=== PATIENT | male | born 1960 | race Caucasian/White ===

== ENCOUNTER 2021-06-05 18:19 | Emergency (ER) | payer BC, SELFPAY ==
[2021-06-05] VITALS (9 sets, daily range): BP systolic 100–142; BP diastolic 64–79; PULSE 73–102; RESP 15–19; TEMP 36.9; O2SAT 97–99; BMI 29.0
--- NOTE | 2021-06-05 18:32 | EKG12_ITS ---
Test Reason : CP Blood Pressure : / mmHG Vent. Rate : 089 BPM Atrial Rate : 089 BPM P-R Int : 150 ms QRS Dur : 096 ms QT Int : 350 ms P-R-T Axes : 057 -24 019 degrees QTc Int : 425 ms Poor data quality, interpretation may be adversely affected Normal sinus rhythm Septal infarct , age undetermined , cannot be excluded Abnormal ECG Confirmed by VIRAL MENA, HILDA ([id number]), primer expeditor and drier BILL COREY ([id number]) on 06/07/2021 10:33:34 AM Referred By: YUSUF Confirmed By:HILDA STRATTON MD
--- NOTE | 2021-06-05 18:33 | EX.ED.DYSGE1 ---
HPI History of Present Illness Chief Complaint: Chest Pain Detail of Chief Complaint: Chest pain since last evening Informant: patient Narrative Narrative: Patient presents to the emergency department complaint of chest discomfort that started last evening. He complains of a continuous squeezing sensation with radiation into the arm and neck and jaw. Patient feels slightly short of breath. [place] sweaty and nauseated. Patient states that he has had a couple of heart attacks and it feels like that. Patient is visiting from [place]. Patient has nitroglycerin tablets but did not take any. Patient has history of cardiac stent few years ago. Prior similar symptoms: Yes PFSH PFSH Medical History (Updated 06/05/21 @ 22:[address] Yas Coughlin, DO) Chest pain Coronary artery disease Diabetes Neuropathy Home Medications albuterol sulfate [ProAir HFA] 1 - 2 puff INHALATION Q6H PRN 06/05/21 [History Last Taken Unknown] aspirin 81 mg PO DAILY 06/05/21 [History Last Taken Unknown] clopidogrel [Plavix] 75 mg PO DAILY 06/05/21 [History Last Taken Unknown] hydrocodone-acetaminophen 1 tab PO Q4H PRN PRN 2 Days #10 tablet 06/05/21 [Rx Last Taken Unknown] insulin glargine [Basaglar KwikPen U-100 Insulin] 14 unit SUBCUT QHS 06/05/21 [History Last Taken Unknown] lisinopril 20 mg PO BID 06/05/21 [History Last Taken Unknown] metformin 1,000 mg PO BID 06/05/21 [History Last Taken Unknown] metoprolol tartrate 12.5 mg PO BID 06/05/21 [History Last Taken Unknown] tamsulosin 0.4 mg PO DAILY 06/05/21 [History Last Taken Unknown] Allergy/AdvReac Type Severity Reaction Status Date / Time acetaminophen [From Percocet] Allergy Other Verified 06/05/21 18:20 diphenhydramine Allergy Other Verified 06/05/21 18:20 [From Benadryl] oxycodone [From Percocet] Allergy Other Verified 06/05/21 18:20 Surgical History (Updated 06/05/21 @ 18:52 by Alexa Worthington) H/O cardiac catheterization Social History Smoking Status: Current every day smoker tobacco type: cigarettes ROS ROS ED Constitutional Constitutional ED: Reports systems reviewed and no addt'l complaints, except as documented; Denies body ache(s), change in weight or chills Eyes Eyes: Denies acute decrease in peripheral vision, change in vision, double vision or loss of vision ENT ENT ED: Reports none; Denies ear pain, lip swelling, loss taste/smell, neck pain, otalgia or sore throat Cardiovascular Cardiovascular: Reports none and chest pain; Denies abdominal pain, chest pain with activity, leg edema, lightheadedness, palpitations, rapid heart rate or syncope Respiratory/Chest Respiratory/Chest: Reports none and dyspnea; Denies change in mental status, dry cough, hemoptysis, shortness of breath at rest or shortness of breath with exertion Gastrointestinal Gastrointestinal: Reports none and nausea; Denies abdominal pain, change in stool character, diarrhea, hematemesis, hematochezia, melena, rectal bleeding or vomiting Genitourinary Genitourinary ED: Reports none; Denies abdominal discomfort, anuria, dysuria, genital pain or polyuria Musculoskeletal Musculoskeletal: Reports none; Denies arthralgias, back pain, difficulty walking, extremity pain, muscle weakness or myalgias Integumentary Reports none; Denies abscess or rash Neurologic Neurologic: Reports none; Denies abnormal gait, confusion, focal weakness, frequent falls, headache(s), loss of vision, numbness, paresthesias, radicular pain, vertigo or weakness Psychiatric Psychiatric: Reports systems reviewed and no addt'l complaints, except as documented and none; Denies behavioral changes, confusion, difficulty concentrating, hallucinations, suicidal ideation, tactile hallucinations or visual hallucinations Endocrine Endocrinology: Denies none, cold intolerance, excessive sweating, fatigue or heat intolerance Hematologic/Lymphatic Hematologic/Lymphatic: Reports none; Denies anemia, easy bleeding or easy bruising Allergic/Immunologic Allergic/Immunologic ED: Denies as per HPI, none, lip swelling, mouth swelling, throat swelling, tongue swelling or hives EXAM Physical Exam Const Vital Signs: 06/05/21 18:21 06/05/21 18:23 06/05/21 18:47 Temperature 98.4 F Temperature Source Temporal Pulse Rate 88 91 Respiratory Rate 19 H Respiratory Effort Normal Non-Labored Blood Pressure 142/79 H 120/77 Blood Pressure Mean 100 Pulse Ox 98 Oxygen Delivery Method Room Air 06/05/21 18:50 06/05/21 18:57 06/05/21 19:00 Temperature Temperature Source Pulse Rate 100 101 H Respiratory Rate 16 Respiratory Effort Blood Pressure 100/64 101/64 Blood Pressure Mean 76 Pulse Ox 97 97 Oxygen Delivery Method Room Air Room Air 06/05/21 19:05 06/05/21 20:00 06/05/21 21:28 Temperature Temperature Source Pulse Rate 102 H 81 82 Respiratory Rate 16 15 Respiratory Effort Blood Pressure 101/64 122/73 H 128/74 H Blood Pressure Mean 89 92 Pulse Ox 97 99 Oxygen Delivery Method Room Air Positive well nourished and well developed General Appearance ED: well developed and NAD HEENT Reports TM's clear and moist mucous membranes normocephalic and atraumatic; Negative for trauma or tenderness Tympanic Membrane ED: Yes TM's clear Eyes PERRL and EOMs intact bilaterally General Eye ED: Negative for pale conjunctiva or scleral icterus Neck no lymphadenopathy, supple and no JVD General: Negative for tenderness Chest Wall inspection of chest normal and palpation of chest normal Chest: Negative for tenderness Resp normal respiratory effort and clear to auscultation bilaterally Effort and Inspection: Negative for respiratory distress or pain with movement Auscultation: Negative for rhonchi, wheezes or diminished lung sounds Cardio regular rate, regular rhythm, S1 normal heart sound, S2 normal heart sound and no murmurs Peripheral Pulses: pulses 2+ throughout GI normal to inspection, nondistended, normoactive bowel sounds, soft to palpation, non-tender, non-distended and no masses Back/Spine no CVA tenderness and no thoracic nor lumbar tenderness Extremity normal to inspection General Extremety ED: Negative for edema General Extremity: Negative for edema Neuro oriented x3, CN's II-XII intact bilaterally, no sensory deficits noted and gait normal Sensorium / Orientation: awake, alert, oriented to person, oriented to place and oriented to time Motor Exam: strength 5/5 throughout and strength abnormal Psych mental status grossly normal Skin no rashes or lesions noted and no wounds MDM MDM MDM Narrative Medical decision making narrative: IV line established on arrival. Patient received nitroglycerin with no resolution of his pain. Patient's work-up initially unremarkable and his troponin was negative. Delta troponin also negative. He does have a heart score of 6. Discussed case with resizer operator and since etiology of his chest pain is unclear we felt it was reasonable to admit for observation and repeat enzymes and potentially stress testing on Monday. I discussed this with the patient and his and he does not want to be admitted at this time. Patient with prefer to go home and return if symptoms worsen. Patient also had a CT scan of his abdomen pelvis given that he has had ongoing abdominal pain for over a year in the upper abdomen. This was unremarkable other than gallstones and a distended gallbladder which was nonspecific. There is no gallbladder wall thickening or dilated ducts or pericholecystic fluid noted. Patient really has minimal to no discomfort over the right upper quadrant and he has no worsening of pain with eating. I do not feel he has acute cholecystitis. I did order liver enzymes however those are pending and patient did not want a wait for the results. Lab Data Attestation: I reviewed the patient's lab results. Labs: Laboratory Results - last 24 hr 06/05/21 06/05/21 06/05/21 18:24 18:24 18:49 WBC 8.7 RBC 4.83 Hgb 13.7 Hct 41.8 MCV 86.5 MCH 28.4 MCHC 32.8 RDW Std Deviation 40.9 RDW Coeff of Serafin 13.0 Plt Count 186 MPV 12.0 Immature Gran % (Auto) 0.500 Neut % (Auto) 58.0 Lymph % (Auto) 31.1 [place] % (Auto) 7.3 Eos % (Auto) 2.6 Baso % (Auto) 0.5 Absolute Neuts (auto) 5.1 Absolute Lymphs (auto) 2.72 Nucleated RBC % 0 D-Dimer Quant (PE/DVT) <= 0.27 Sodium 136 Potassium 4.4 Chloride 105 Carbon Dioxide 24.0 Anion Gap 7 BUN 21 H Creatinine 1.08 Estim Creat Clear Calc 62.43 Est GFR (MDRD) Af Amer 90 Est GFR (MDRD) Non-Af 74 BUN/Creatinine Ratio 19.4 Glucose 273 H Calcium 9.2 Troponin I High Sens 7 Lipase 06/05/21 20:27 WBC RBC Hgb Hct MCV MCH MCHC RDW Std Deviation RDW Coeff of Serafin Plt Count MPV Immature Gran % (Auto) Neut % (Auto) Lymph % (Auto) [place] % (Auto) Eos % (Auto) Baso % (Auto) Absolute Neuts (auto) Absolute Lymphs (auto) Nucleated RBC % D-Dimer Quant (PE/DVT) Sodium Potassium Chloride Carbon Dioxide Anion Gap BUN Creatinine Estim Creat Clear Calc Est GFR (MDRD) Af Amer Est GFR (MDRD) Non-Af BUN/Creatinine Ratio Glucose Calcium Troponin I High Sens 8 Lipase 76 Radiography Diagnostic Testing: Clinical Impression(s) from Imaging Studies Chest X-Ray 06/05/21 18:35 IMPRESSION: Normal x-ray examination of the chest. Electronically Signed: Eddi Olivera MD at 19:09 EDT Tel , Service support , Abdomen/Pelvis CT 06/05/21 19:51 IMPRESSION: Cholelithiasis with nonspecific gallbladder distention. Recommend correlation with gallbladder ultrasound. Individualized dose optimization techniques were used for this CT. at 2201 Reported and signed by: Artur Russell MD Electronically Signed: Artur Russell MD at 22:00 EDT Tel , Service support , 1 view chest x-ray obtained interpreted by myself as no acute disease process. Radiology in agreement. EKG Initial EKG: Attestation: I personally reviewed and interpreted this EKG as follows: Comments: Sinus rhythm with a ventricular rate of 89 bpm with old septal infarct noted. Discharge Plan Triage Chief Complaint: Chest Pain ED Provider: Yas Coughlin Dx/Rx/DC Orders Clinical Impression: Chest pain, Cholelithiasis Instructions: ED Chest Pain, Uncertain Cause, ED Gallstones with Biliary Colic Prescriptions: New hydrocodone-acetaminophen [hydrocodone-acetaminophen] 1 TABLET tablet 1 tab PO Q4H PRN PRN (Reason: Pain) 2 Days Qty: 10 RF: 0 No Action lisinopril 20 mg Tablet 20 mg PO BID RF: 0 clopidogrel [Plavix] 75 mg Tablet 75 mg PO DAILY RF: 0 metformin 1,000 mg Tablet 1,000 mg PO BID RF: 0 aspirin 81 mg Tablet 81 mg PO DAILY RF: 0 albuterol sulfate [ProAir HFA] 90 mcg/actuation Hfa Aerosol Inhaler 1 - 2 puff INHALATION Q6H PRN (Reason: sob) RF: 0 tamsulosin 0.4 mg Capsule 0.4 mg PO DAILY RF: 0 metoprolol tartrate 25 mg Tablet 12.5 mg PO BID RF: 0 Basaglar KwikPen U-100 Insulin 100 unit/mL (3 mL) insulin pen 14 unit SUBCUT QHS RF: 0 Activity Restrictions/Additional Instructions: Follow-up with your resizer operator or primary care physician at the earliest possible time. Disposition Disposition: Home, Self Care
--- NOTE | 2021-06-05 18:35 | RAD_ITS ---
STUDY: X-RAY CHEST REASON FOR EXAM: Male, 60 years old. chest pain TECHNIQUE: Frontal portable view of the chest COMPARISON: None. FINDINGS: The lungs are clear and expanded. There is no demonstrated pleural abnormality. Normal size heart. Normal mediastinum and aruna. Normal visualized pulmonary arteries. Normal visualized aortic arch and descending thoracic aorta. Normal visualized thoracic spine. Normal visualized ribs, clavicles, and shoulders. There is no demonstrated abnormality of the visualized soft tissue structures of the upper abdomen. RAD/Chest 1 View (Portable) IMPRESSION: Normal x-ray examination of the chest. Electronically Signed: Eddi Olivera MD at 19:09 EDT Tel , Service support ,
[2021-06-05 18:38] LABS: Absolute Lymphocyte Count 2.72 X10^3/uL (0.83-4.51); Absolute Neutrophil Count 5.1 X10^3/uL (2.0-7.7); Basophil# 0.04 X10^3/uL; Basophil% 0.5 % (0-1); Eosinophil# 0.23 X10^3/uL; Eosinophils% 2.6 % (0-5); Hematocrit 41.8 % (40-54); Hemoglobin 13.7 g/dL (13.0-16.5); Lymphocyte # 2.72 X10^3/ul (0.83-4.51); Lymphocyte % 31.1 % (19-41); Mean Corp Hgb Conc 32.8 g/dL (32-36); Mean Corpuscular Hgb 28.4 pg (27.0-32.0); Mean Corpuscular Volume 86.5 fL (80-94); Monocyte# 0.64 X10^3/uL; Monocyte% 7.3 % (0-10); NRBC Flagged by Analyzer 0 % (0-5); Neutrophil # 5.07 X10^3/uL (2.7-7.7); Platelet Count 186 K/mm3 (150-450); RBC Distribution Width SD 40.9 fl (35.1-43.9); Red Blood Count 4.83 M/mm3 (4.6-6.2); White Blood Count 8.7 K/mm3 (4.4-11.0)
[2021-06-05] MEDS: Aspirin 81 MG TAB.CHEW 324 MG PO (18:44)
[2021-06-05] MEDS: Nitroglycerin SL (ED/IMG/CATH) 0.4 MG TABLET SL ×3 (18:47→19:05)
[2021-06-05] MEDS: 0.9% Normal Saline 1,000 ML 150 ML IV (18:47)
[2021-06-05 18:55] LABS: Anion Gap 7 (5-15); BUN 21 mg/dL (7-18); BUN/Creat Ratio 19.4 RATIO (10-20); Calcium,Total 9.2 mg/dL (8.5-10.1); Chloride 105 mmol/L (98-107); Creatinine, Serum 1.08 mg/dL (0.70-1.30); EST Glomerular Filtration Rate 74 mL/min (>60); Est Glom Filt Rate - Afr Amer 90 mL/min (>60); Estimated Creatinine Clearance 62.43 ml/min; Glucose 273 mg/dL (74-106); Potassium 4.4 mmol/L (3.5-5.1); Sodium Level 136 mmol/L (136-145); Troponin-I HS 7 pg/mL (3.0-78.0)
[2021-06-05 19:36] LABS: D-Dimer Quantitative (DVT/PE) <= 0.27 FEU/ug/m (0.27-0.49)
--- NOTE | 2021-06-05 19:51 | CT_ITS ---
HISTORY: abdominal pain EXAMINATION: CT Abdomen And Pelvis W/O Contrast Injection TECHNIQUE: Multiple axial images were obtained of the abdomen and pelvis without oral or IV contrast. A radiation dose optimization technique was used for this scan. IV Contrast dosage and agent: None. Oral contrast: None. COMPARISON: None FINDINGS: LOWER CHEST: Lung bases are clear. No cardiomegaly or pericardial effusion. LIVER: Homogeneous. No focal mass. GALLBLADDER AND BILIARY TREE: Calcified gallstones. Abnormal transverse distention to 5.2 cm, no wall edema. No intra- or extrahepatic biliary ductal dilation. PANCREAS: No focal cystic or solid mass. SPLEEN: Normal size without focal cystic or solid mass. ADRENAL GLANDS: No nodules. KIDNEYS AND URETERS: Abnormal axis right kidney. No hydronephrosis or nephrolithiasis. PERITONEUM: No ascites or free air. BOWEL: Normal appendix. No stomach or bowel distension. No focal inflammatory bowel wall changes. LYMPH NODES: No enlarged mesenteric or retroperitoneal lymph nodes. VESSELS: Aorta is non-dilated. URINARY BLADDER: Unremarkable. REPRODUCTIVE ORGANS: Prostatic hypertrophy. ABDOMINAL WALL: Fat-containing umbilical and bilateral inguinal hernias. BONES: No acute or aggressive abnormality. CT/Abdomen/Pelvis without Cont IMPRESSION: Cholelithiasis with nonspecific gallbladder distention. Recommend correlation with gallbladder ultrasound. Individualized dose optimization techniques were used for this CT. at 2201 Reported and signed by: Artur Russell MD Electronically Signed: Artur Russell MD at 22:00 EDT Tel , Service support ,
[2021-06-05 20:58] LABS: Lipase 76 U/L (73-393); Troponin-I HS 8 pg/mL (3.0-78.0)
[2021-06-05] MEDS: HYDROcodone Bitartrate/Apap 5/325 Tablet PO (22:27)
[2021-06-05 22:46] LABS: AST(SGOT) 16 U/L (15-37); Alanine Aminotransfer ALT/SGPT 48 U/L (16-61); Alkaline Phosphatase 74 U/L (45-117); Bilirubin, Direct 0.11 mg/dL (0.00-0.30); Globulin 3.7 g/dL (2.2-4.2); Protein, Total 7.7 g/dL (6.4-8.2)
== END 2021-06-05 22:29 | disposition home or self-care (01) ==
PROVIDERS: Emergency Provider Emergency Medicine
DX: R07.9 Chest pain, unspecified (principal); K80.20 Calculus of gallbladder without cholecystitis without obstruction; R06.02 Shortness of breath; I25.10 Atherosclerotic heart disease of native coronary artery without angina pectoris; E11.40 Type 2 diabetes mellitus with diabetic neuropathy, unspecified; F17.210 Nicotine dependence, cigarettes, uncomplicated; Z79.4 Long term (current) use of insulin; Z79.82 Long term (current) use of aspirin; Z79.899 Other long term (current) drug therapy; I25.2 Old myocardial infarction; Z95.5 Presence of coronary angioplasty implant and graft
CPT/HCPCS: 71045; 74176; 80048; 80076; 83690; 84484; 85025; 85379; 93005; 96360; 96361; 99285; J7030; A4216

== ENCOUNTER 2022-02-21 16:23 | Emergency (ER) | payer MEDICAID, SELFPAY ==
[2022-02-21 16:23] VITALS: BP 109/69; PULSE 123; RESP 18; TEMP 36.8; O2SAT 97; BMI 27.4
--- NOTE | 2022-02-21 16:40 | CT_ITS ---
STUDY: CT ABDOMEN AND PELVIS WITH CONTRAST REASON FOR EXAM: Male, 61 years old. Abdominal pain. Left-sided abdominal pain. RADIATION DOSAGE (If Supplied By Facility): CTDIvol = ( 9.94 ) mGy, DLP = ( 520.91 ) mGycm TECHNIQUE: Transaxial images were obtained from the dome of the diaphragm to the symphysis pubis without oral contrast. IV 100mL Isovue-300 was administered. Sagittal and coronal images were reconstructed. Individualized dose optimization techniques were used for this CT. COMPARISON: 06/05/2021. FINDINGS: The visualized lung bases are unremarkable. The visualized portions of the heart are within normal limits. The liver is enlarged and mildly fatty infiltrated. Gallbladder is markedly distended without wall thickening or inflammatory change. There is a single 4 mm gallstone. Normal intra and extrahepatic biliary ducts without dilatation or filling defect. Normal spleen. Normal pancreas. Normal bilateral adrenal glands. 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 It is otherwise grossly normal. Normal left kidney. Normal bilateral ureters. Normal visualized stomach. Normal small intestine. Normal colon. The appendix is visualized and appears normal. Normal abdominal aorta. Normal inferior vena cava. Normal retroperitoneum. Normal urinary bladder. The prostate is enlarged. No pelvic lymphadenopathy. No free air or free fluid is seen within the peritoneal cavity. Umbilical and bilateral inguinal hernias of omental fat. The abdominal wall is otherwise unremarkable There are diffuse degenerative changes of the visualized lumbar spine. CT/Abdomen/Pelvis W IV Cont ONLY IMPRESSION: No acute intra-abdominal process or major interval change when compared to prior study. Electronically Signed: Maximo Monroe DO at 17:58 EDT ,
--- NOTE | 2022-02-21 16:41 | EX.ED.DYSGE1 ---
HPI History of Present Illness Chief Complaint: Abd Pain Informant: patient Narrative Narrative: Two 11-year-old male states that he is having abdominal pain and a dental abscess. He states that these things each came up several days ago. His abdominal pain is generalized but worse on the left. It hurts to walk. He states it feels like something ruptured. He notes he has been constipated but passing gas. No vomiting. He denies any urinary symptoms. No fevers. He has been able to eat but has been limited by the dental abscess. He does not have a local dentist yet. He has no local physician. Patient notes no prior abdominal surgeries. No history of bowel obstruction or diverticulitis. [facility] Medical History Chest pain Coronary artery disease Diabetes Neuropathy Home Medications albuterol sulfate 90 mcg/actuation aerosol inhaler (ProAir HFA) 1 - 2 puff inhalation Q6H PRN sob 06/05/21 [History Last Taken Unknown] aspirin 81 mg tablet 81 mg PO DAILY 06/05/21 [History Last Taken Unknown] clopidogrel 75 mg tablet (Plavix) 75 mg PO DAILY 06/05/21 [History Last Taken Unknown] hydrocodone-acetaminophen 5-325mg 5mg-325mg 1 tab PO Q4H PRN PRN Pain 2 days #10 TABLETS 06/05/21 [Rx Last Taken Unknown] insulin glargine 100 unit/mL (3 mL) subcutaneous pen (Basaglar KwikPen U-100 Insulin) 14 unit subcut QHS 06/05/21 [History Last Taken Unknown] lisinopril 20 mg tablet 20 mg PO BID 06/05/21 [History Last Taken Unknown] metformin 1,000 mg tablet 1,000 mg PO BID 06/05/21 [History Last Taken Unknown] metoprolol tartrate 25 mg tablet 12.5 mg PO BID 06/05/21 [History Last Taken Unknown] tamsulosin 0.4 mg capsule 0.4 mg PO DAILY 06/05/21 [History Last Taken Unknown] amoxicillin 875 mg-potassium clavulanate 125 mg tablet 875 mg PO Q12H #20 TABLETS 02/21/22 [Rx Last Taken Unknown] hydrocodone-acetaminophen 5-325mg 5mg-325mg 1 tab PO Q6H PRN PRN Pain 3 days #10 TABLETS 02/21/22 [Rx Last Taken Unknown] Allergy/AdvReac Type Severity Reaction Status Date / Time acetaminophen [From Percocet] Allergy Other Verified 06/05/21 18:20 diphenhydramine Allergy Other Verified 06/05/21 18:20 [From Benadryl] oxycodone [From Percocet] Allergy Other Verified 06/05/21 18:20 Surgical History H/O cardiac catheterization Social History (Updated 02/21/22 @ 16:[address] Danny Hdez DO) current gender identity: male Smoking Status: Current every day smoker tobacco type: cigarettes ROS ROS ED Constitutional Constitutional ED: Denies chills or weight loss Eyes Eyes: Denies change in vision or diplopia ENT ENT ED: Reports other Details: Dental pain ; Denies ear pain, rhinorrhea or sore throat Cardiovascular Cardiovascular: Denies chest pain, orthopnea, palpitations or racing heartbeat Respiratory/Chest Respiratory/Chest: Denies cough, dyspnea or orthopnea Gastrointestinal Gastrointestinal: Reports constipation; Denies abdominal pain, diarrhea, nausea or vomiting Genitourinary Genitourinary ED: Denies dysuria, hematuria or urinary frequency Musculoskeletal Musculoskeletal: Denies arthralgias, back pain, myalgias or neck pain Integumentary Denies abscess or rash Neurologic Neurologic: Denies headache(s) or weakness Psychiatric Psychiatric: Denies anxiety, depression, suicidal ideation or suicidal thoughts Endocrine Endocrinology: Denies polydipsia, polyphagia or polyuria Allergic/Immunologic Allergic/Immunologic ED: Denies mouth swelling, tongue swelling or urticaria EXAM Physical Exam Const Vital Signs: 02/21/22 16:23 Temperature 98.3 F Temperature Source Temporal Pulse Rate 123 H Respiratory Rate 18 Blood Pressure 109/69 Blood Pressure Mean 82 Pulse Ox 97 Oxygen Delivery Method Room Air Positive well nourished and well developed General Appearance ED: well developed HEENT Reports normocephalic, head/scalp atraumatic and moist mucous membranes HEENT Narrative: There is some mild swelling along the mandible near the chin. There is no overlying erythema. There are numerous decayed teeth and missing teeth. There is some soft tissue swelling along the gumline around the inferior right canine. There is no fluctuance to the tissue. There is no trismus. Floor the mouth is soft. Eyes PERRL and EOMs intact bilaterally Neck no lymphadenopathy, supple and no JVD Resp normal respiratory effort and clear to auscultation bilaterally Cardio regular rate, regular rhythm and no murmurs GI non-distended GI Narrative: The abdomen is diffusely tender to palpation. Inspection: Negative for abdominal distention Auscultation: normoactive bowel sounds Palpation: soft Back/Spine no CVA tenderness and normal ROM Extremity normal to inspection General Extremety ED: Negative for edema General Extremity: Negative for edema Neuro oriented x3 and CN's II-XII intact bilaterally Sensorium / Orientation: alert Motor Exam: strength 5/5 throughout Psych mental status grossly normal Mood & Affect: Negative for depressed or tearful Skin no rashes or lesions noted and no wounds MDM MDM MDM Narrative Medical decision making narrative: Patient received pain and nausea medications. Basic blood work is normal. Noted lactic acid of 2.4 however the patient is not demonstrating any shock state and is most likely coming from the metformin. His CT of the abdomen pelvis is normal so I do not have an explanation for his pain I do not think that this is ischemic gut. Patient be started on antibiotics and pain medicine for the dental abscess. He was referred to dentistry and given primary care to establish with. Return if worsening or concerns or pain is persisting past 24 hours. Lab Data Attestation: I reviewed the patient's lab results. Labs: Laboratory Results - last 24 hr 02/21/22 02/21/22 02/21/22 17:00 17:00 17:00 WBC 8.4 RBC 4.91 Hgb 13.8 Hct 42.4 MCV 86.4 MCH 28.1 MCHC 32.5 RDW Std Deviation 40.0 RDW Coeff of Serafin 12.8 Plt Count 164 MPV 12.4 H Immature Gran % (Auto) 0.500 Neut % (Auto) 62.9 Lymph % (Auto) 25.6 [place] % (Auto) 9.3 Eos % (Auto) 1.3 Baso % (Auto) 0.4 Absolute Neuts (auto) 5.3 Absolute Lymphs (auto) 2.15 Nucleated RBC % 0 Sodium 133 L Potassium 4.6 Chloride 101 Carbon Dioxide 28.0 Anion Gap 4 L BUN 19 H Creatinine 1.47 H Estim Creat Clear Calc 45.31 Est GFR (MDRD) Af Amer 63 Est GFR (MDRD) Non-Af 52 L BUN/Creatinine Ratio 12.9 Glucose 345 H Lactic Acid 2.4 H* Calcium 9.3 Total Bilirubin 0.40 Direct Bilirubin 0.15 AST 13 L ALT 38 Alkaline Phosphatase 74 Total Protein 7.7 Albumin 4.0 Globulin 3.7 Lipase 81 Radiography Diagnostic Testing: Clinical Impression(s) from Imaging Studies Abdomen/Pelvis CT 02/21/22 16:40 IMPRESSION: No acute intra-abdominal process or major interval change when compared to prior study. Electronically Signed: Maximo Monroe DO at 17:58 EDT Reading Location ID and State: [address] [place] [address] Tel [phone], Service support , Discharge Plan Triage Chief Complaint: Abd Pain Other Complaint: Abscess ED Provider: Danny Hdez Dx/Rx/DC Orders Clinical Impression: Abdominal pain, acute, Abscess, dental Instructions: ED Dental Abscess Prescriptions: New amoxicillin-pot clavulanate [amoxicillin-pot clavulanate] 875 MG tablet 875 mg PO Q12H Qty: 20 0RF hydrocodone-acetaminophen [hydrocodone-acetaminophen] 1 TABLET tablet 1 tab PO Q6H PRN PRN (Reason: Pain) 3 Days Qty: 10 0RF No Action lisinopril 20 mg Tablet 20 mg PO BID clopidogrel [Plavix] 75 mg Tablet 75 mg PO DAILY metformin 1,000 mg Tablet 1,000 mg PO BID aspirin 81 mg Tablet 81 mg PO DAILY albuterol sulfate [ProAir HFA] 90 mcg/actuation Hfa Aerosol Inhaler 1 - 2 puff INHALATION Q6H PRN (Reason: sob) tamsulosin 0.4 mg Capsule 0.4 mg PO DAILY metoprolol tartrate 25 mg Tablet 12.5 mg PO BID Basaglar KwikPen U-100 Insulin 100 unit/mL (3 mL) insulin pen 14 unit SUBCUT QHS hydrocodone-acetaminophen [hydrocodone-acetaminophen] 1 TABLET tablet 1 tab PO Q4H PRN PRN (Reason: Pain) 2 Days Qty: 10 0RF Primary Care Provider: Care Physician,No Primary Referrals: Sachin Massey MD [STAFF PHYSICIAN] - As Needed Activity Restrictions/Additional Instructions: You need to follow-up with dentistry as soon as possible. Disposition Disposition: Home, Self Care
[2022-02-21] MEDS: Morphine 4 MG/ML Syringe IV (16:54)
[2022-02-21] MEDS: Ondansetron 4 MG/2 ML Vial IV (16:55)
[2022-02-21 17:19] LABS: Absolute Lymphocyte Count 2.15 X10^3/uL (0.83-4.51); Absolute Neutrophil Count 5.3 X10^3/uL (2.0-7.7); Basophil# 0.03 X10^3/uL; Basophil% 0.4 % (0-1); Eosinophil# 0.11 X10^3/uL; Eosinophils% 1.3 % (0-5); Hematocrit 42.4 % (40-54); Hemoglobin 13.8 g/dL (13.0-16.5); Lymphocyte # 2.15 X10^3/ul (0.83-4.51); Lymphocyte % 25.6 % (19-41); Mean Corp Hgb Conc 32.5 g/dL (32-36); Mean Corpuscular Hgb 28.1 pg (27.0-32.0); Mean Corpuscular Volume 86.4 fL (80-94); Mean Platelet Vol. 12.4 fl (6.2-12.0); Monocyte# 0.78 X10^3/uL; Monocyte% 9.3 % (0-10); NRBC Flagged by Analyzer 0 % (0-5); Neutrophil # 5.29 X10^3/uL (2.7-7.7); Neutrophil % 62.9 % (47-70); Platelet Count 164 K/mm3 (150-450); RBC Distribution Width CV 12.8 % (11.6-14.6); Red Blood Count 4.91 M/mm3 (4.6-6.2); White Blood Count 8.4 K/mm3 (4.4-11.0)
[2022-02-21 17:32] LABS: AST(SGOT) 13 U/L (15-37); Alanine Aminotransfer ALT/SGPT 38 U/L (16-61); Alkaline Phosphatase 74 U/L (45-117); Anion Gap 4 (5-15); BUN 19 mg/dL (7-18); BUN/Creat Ratio 12.9 RATIO (10-20); Bilirubin, Direct 0.15 mg/dL (0.00-0.30); Calcium,Total 9.3 mg/dL (8.5-10.1); Chloride 101 mmol/L (98-107); Creatinine, Serum 1.47 mg/dL (0.70-1.30); EST Glomerular Filtration Rate 52 mL/min (>60); Est Glom Filt Rate - Afr Amer 63 mL/min (>60); Estimated Creatinine Clearance 45.31 ml/min; Globulin 3.7 g/dL (2.2-4.2); Glucose 345 mg/dL (74-106); Lipase 81 U/L (73-393); Potassium 4.6 mmol/L (3.5-5.1); Protein, Total 7.7 g/dL (6.4-8.2); Sodium Level 133 mmol/L (136-145)
[2022-02-21 18:12] LABS: Lactic Acid 2.4 mmol/L (0.4-1.9)
[2022-02-21 18:46] VITALS: BP 110/76; PULSE 83; RESP 14; O2SAT 97
[2022-02-21 21:13] LABS: Reflex Lactate? Y
== END 2022-02-21 18:47 | disposition home or self-care (01) ==
PROVIDERS: Emergency Provider Emergency Medicine; Visit Provider Emergency Medicine
DX: R10.84 Generalized abdominal pain (principal); E11.40 Type 2 diabetes mellitus with diabetic neuropathy, unspecified; K04.7 Periapical abscess without sinus; K02.9 Dental caries, unspecified; K59.00 Constipation, unspecified; R11.0 Nausea; I25.10 Atherosclerotic heart disease of native coronary artery without angina pectoris; F17.210 Nicotine dependence, cigarettes, uncomplicated; Z79.82 Long term (current) use of aspirin; Z79.4 Long term (current) use of insulin; Z79.02 Long term (current) use of antithrombotics/antiplatelets; Z79.899 Other long term (current) drug therapy
CPT/HCPCS: 74177; 80048; 80076; 83605; 83690; 85025; 96374; 96375; 99283; J7030; Q9967; A4216; J2405

== ENCOUNTER 2022-06-13 15:27 | Emergency (ER) | payer MEDICARE, SELFPAY ==
[2022-06-13 15:37] VITALS: BP 107/70; PULSE 102; RESP 18; TEMP 36.6; O2SAT 98; BMI 27.4
[2022-06-13 16:05] LABS: Bacteria 0 SEEN /hpf (None Seen); Mucous, Urine 0 SEEN /hpf (<or=2+); Red Blood Cells-Urine 0 SEEN /hpf (0-5); Squamous Epithelial Cells - UA 0 SEEN /hpf (0-5); White Blood Cells 0 SEEN /hpf (0-5)
[2022-06-13 16:16] LABS: Absolute Lymphocyte Count 2.88 X10^3/uL (0.83-4.51); Absolute Neutrophil Count 6.3 X10^3/uL (2.0-7.7); Basophil# 0.04 X10^3/uL; Basophil% 0.4 % (0-1); Eosinophil# 0.16 X10^3/uL; Eosinophils% 1.6 % (0-5); Hematocrit 43.1 % (40-54); Hemoglobin 14.6 g/dL (13.0-16.5); Lymphocyte # 2.88 X10^3/ul (0.83-4.51); Lymphocyte % 28.3 % (19-41); Mean Corp Hgb Conc 33.9 g/dL (32-36); Mean Corpuscular Hgb 29.1 pg (27.0-32.0); Mean Platelet Vol. 12.3 fl (6.2-12.0); Monocyte# 0.72 X10^3/uL; Monocyte% 7.1 % (0-10); NRBC Flagged by Analyzer 0 % (0-5); Neutrophil # 6.33 X10^3/uL (2.7-7.7); Neutrophil % 62.2 % (47-70); Platelet Count 167 K/mm3 (150-450); RBC Distribution Width CV 13.4 % (11.6-14.6); RBC Distribution Width SD 41.7 fl (35.1-43.9); Red Blood Count 5.01 M/mm3 (4.6-6.2); White Blood Count 10.2 K/mm3 (4.4-11.0)
[2022-06-13 16:49] LABS: Color, Urine Yellow (Yellow); Glucose, Dipstick 1000 mg/dl (Normal); Ketone-Dipstick 5 mg/dl (Negative); Leukocyte Esterase-Dipstick Negative /ul (Negative); Nitrite-Dipstick Negative (Negative); Occult Blood-Urine Negative /ul (Negative); Protein-Dipstick Negative (Negative); Urine Bilirubin Dipstick Negative (Negative); Urine Clarity Clear (Clear); Urine Urobilinogen Normal (Normal)
[2022-06-13 17:02] LABS: Anion Gap 8 (5-15); BUN 20 mg/dL (7-18); BUN/Creat Ratio 14.8 RATIO (10-20); Calcium,Total 9.8 mg/dL (8.5-10.1); Chloride 102 mmol/L (98-107); Creatinine, Serum 1.35 mg/dL (0.70-1.30); EST Glomerular Filtration Rate 57 mL/min (>60); Est Glom Filt Rate - Afr Amer 69 mL/min (>60); Estimated Creatinine Clearance 49.33 ml/min; Glucose 300 mg/dL (74-106); Potassium 4.5 mmol/L (3.5-5.1); Sodium Level 137 mmol/L (136-145)
--- NOTE | 2022-06-13 17:38 | CT_ITS ---
INDICATION: LUQ pain EXAMINATION: CT Abdomen And Pelvis W/ Contrast Injection TECHNIQUE: Helically acquired images were obtained of the abdomen and pelvis after IV contrast. A radiation dose optimization technique was used for this scan. IV Contrast dosage and agent: IV 100mL [id number] Oral contrast: None. COMPARISON: None. FINDINGS: Visualized lung bases: Unremarkable Liver: Unremarkable Gallbladder: Few small intraluminal stones seen. Spleen: Unremarkable Pancreas: Unremarkable Adrenal Glands: Unremarkable Kidneys: Unremarkable Vasculature: Unremarkable GI Tract: Unremarkable Lymphadenopathy: None Peritoneum: No ascites. Bladder: Unremarkable Reproductive organs: Unremarkable Bones/Soft tissues: No suspicious osseous or soft tissue lesions CT/Abdomen/Pelvis W IV Cont ONLY IMPRESSION: No acute abnormalities in the abdomen or pelvis. Electronically Signed: Thomas Mello MD at 18:50 EST ,
--- NOTE | 2022-06-13 17:40 | ED.VIS.GI ---
HPI HPI - GI History of Present Illness Chief Complaint: Abd Pain Informant: patient Narrative Narrative: Patient presents with abdominal pain that has been in the left upper quadrant. He for states has been there for 2 months. But then he states he was seen for this in January. When he was seen in January it had been already going on for about 3 months. Therefore this has been going on for most of this year. He tells me that it has not changed at all. Nothing makes it better or worse. But then he said it got a lot worse recently but he does not remember when it got worse. He can eat and drink with no change. He denies sour taste or acid taste in his mouth. He has not tried anything for it. He was in here in January and had work-up including CAT scan. There was no follow-up. He was having routine follow-up in his primary office today. They encouraged him to come to the ER acutely because he they have to get this resolved. He denies any abdominal surgery. He does state that he was once told somewhere in the past that he had gallstones but he has never hurt in the right upper quadrant. He has never had back pain. He has no chest pain. No change in bowel habits. No urinary symptoms. [facility] Medical History Chest pain Coronary artery disease Diabetes Neuropathy Home Medications albuterol sulfate 90 mcg/actuation aerosol inhaler (ProAir HFA) 1 - 2 puff inhalation Q6H PRN sob 06/05/21 [History Last Taken Unknown] aspirin 81 mg tablet 81 mg PO DAILY 06/05/21 [History Last Taken Unknown] clopidogrel 75 mg tablet (Plavix) 75 mg PO DAILY 06/05/21 [History Last Taken Unknown] insulin glargine 100 unit/mL (3 mL) subcutaneous pen (Basaglar KwikPen U-100 Insulin) 14 unit subcut QHS 06/05/21 [History Last Taken Unknown] lisinopril 20 mg tablet 20 mg PO BID 06/05/21 [History Last Taken Unknown] metformin 1,000 mg tablet 1,000 mg PO BID 06/05/21 [History Last Taken Unknown] metoprolol tartrate 25 mg tablet 12.5 mg PO BID 06/05/21 [History Last Taken Unknown] tamsulosin 0.4 mg capsule 0.4 mg PO DAILY 06/05/21 [History Last Taken Unknown] atorvastatin 80 mg tablet 80 mg PO DAILY 06/13/22 [History Last Taken Unknown] budesonide-formoterol HFA 160 mcg-4.5 mcg/actuation aerosol inhaler (Symbicort) 2 inh inhalation BID 06/13/22 [History Last Taken Unknown] esomeprazole magnesium 20 mg capsule,delayed release (Nexium) 20 mg PO DAILY #30 caps 06/13/22 [Rx Last Taken Unknown] pregabalin 100 mg capsule 100 mg PO BID 06/13/22 [History Last Taken Unknown] Allergy/AdvReac Type Severity Reaction Status Date / Time acetaminophen [From Percocet] Allergy Vomiting Verified 06/13/22 15:40 diphenhydramine Allergy Other Verified 06/05/21 18:20 [From Benadryl] oxycodone [From Percocet] Allergy Vomiting Verified 06/13/22 15:40 Surgical History H/O cardiac catheterization Social History (Updated 02/21/22 @ 16:[address] Danny Hdez DO) Smoking Status: Current every day smoker tobacco type: cigarettes ROS ROS ED Constitutional Constitutional ED: Denies chills or fever(s) ENT ENT ED: Denies rhinorrhea or sore throat Cardiovascular Cardiovascular: Denies chest pain or palpitations Respiratory/Chest Respiratory/Chest: Denies cough or dyspnea Gastrointestinal Gastrointestinal: Reports abdominal pain; Denies constipation, diarrhea, melena, nausea or vomiting Genitourinary Genitourinary ED: Denies dysuria, hematuria or urinary frequency Musculoskeletal Musculoskeletal: Denies back pain Integumentary Denies rash Neurologic Neurologic: Denies paresthesias or weakness Endocrine Endocrinology: Denies polyphagia Hematologic/Lymphatic Hematologic/Lymphatic: Denies lymphadenopathy Allergic/Immunologic Allergic/Immunologic ED: Denies urticaria EXAM Physical Exam Const Vital Signs: 06/13/22 15:37 Temperature 97.9 F Temperature Source Temporal Pulse Rate 102 H Respiratory Rate 18 Blood Pressure 107/70 Blood Pressure Mean 82 Pulse Ox 98 Oxygen Delivery Method Room Air Positive well nourished and well developed General Appearance ED: well developed HEENT Reports moist mucous membranes; Denies dry mucous membranes Mouth ED: No dry mucous membranes Mouth: No dry mucous membranes Eyes General Eye ED: Negative for scleral icterus Neck no JVD Resp normal respiratory effort and clear to auscultation bilaterally Cardio regular rate, regular rhythm and no murmurs GI no masses GI Narrative: Abdomen is nondistended. Normal bowel sounds. He has skin sensitivity to the left upper quadrant. I feel no mass. I feel no hernia. I can press quite firmly in the other area of the abdomen there is no discomfort whatsoever. No CVA tenderness. I do not see any rashes. Inspection: Negative for abdominal distention Back/Spine no CVA tenderness Extremity General Extremety ED: Negative for tenderness Neuro Sensorium / Orientation: alert Psych mental status grossly normal Skin no wounds MDM MDM MDM Narrative Medical decision making narrative: CT scan showed no acute process. CBC is normal. Electrolytes show minimal elevation in creatinine and elevated glucose at 300. Evidently this is the normal level for him. Here in his pain liver function tests are normal. Lipase is normal. Patient's been having months if not year of symptoms. I think he does need follow-up repeat evaluation. I do not think admission or further imaging is needed at this time. I will start him on a PPI because its more likely that his left upper quadrant pain is from a gastritis peptic ulcer source. We discussed reasons to return. Lab Data Attestation: I reviewed the patient's lab results. Labs: Laboratory Results - last 24 hr 06/13/22 06/13/22 06/13/22 16:00 16:00 16:00 WBC 10.2 RBC 5.01 Hgb 14.6 Hct 43.1 MCV 86.0 MCH 29.1 MCHC 33.9 RDW Std Deviation 41.7 RDW Coeff of Serafin 13.4 Plt Count 167 MPV 12.3 H Immature Gran % (Auto) 0.400 Neut % (Auto) 62.2 Lymph % (Auto) 28.3 Gray % (Auto) 7.1 Eos % (Auto) 1.6 Baso % (Auto) 0.4 Absolute Neuts (auto) 6.3 Absolute Lymphs (auto) 2.88 Nucleated RBC % 0 Sodium 137 Potassium 4.5 Chloride 102 Carbon Dioxide 27.0 Anion Gap 8 BUN 20 H Creatinine 1.35 H Estim Creat Clear Calc 49.33 Est GFR (MDRD) Af Amer 69 Est GFR (MDRD) Non-Af 57 L BUN/Creatinine Ratio 14.8 Glucose 300 H Calcium 9.8 Total Bilirubin Direct Bilirubin AST ALT Alkaline Phosphatase Total Protein Albumin Globulin Lipase Urine Color Yellow Urine Clarity Clear Urine pH 7.0 Ur Specific [place] 1.010 Urine Protein Negative Urine Glucose (UA) 1000 H Urine Ketones 5 H Urine Occult Blood Negative Urine Nitrite Negative Urine Bilirubin Negative Urine Urobilinogen Normal Ur Leukocyte Esterase Negative Urine RBC 0 SEEN Urine WBC 0 SEEN Ur Squamous Epith Cells 0 SEEN Urine Bacteria 0 SEEN Urine Mucus 0 SEEN 06/13/22 16:00 WBC RBC Hgb Hct MCV MCH MCHC RDW Std Deviation RDW Coeff of Serafin Plt Count MPV Immature Gran % (Auto) Neut % (Auto) Lymph % (Auto) Gray % (Auto) Eos % (Auto) Baso % (Auto) Absolute Neuts (auto) Absolute Lymphs (auto) Nucleated RBC % Sodium Potassium Chloride Carbon Dioxide Anion Gap BUN Creatinine Estim Creat Clear Calc Est GFR (MDRD) Af Amer Est GFR (MDRD) Non-Af BUN/Creatinine Ratio Glucose Calcium Total Bilirubin 0.30 Direct Bilirubin 0.13 AST 27 ALT 65 H Alkaline Phosphatase 75 Total Protein 8.0 Albumin 4.3 Globulin 3.7 Lipase 285 Urine Color Urine Clarity Urine pH Ur Specific [place] Urine Protein Urine Glucose (UA) Urine Ketones Urine Occult Blood Urine Nitrite Urine Bilirubin Urine Urobilinogen Ur Leukocyte Esterase Urine RBC Urine WBC Ur Squamous Epith Cells Urine Bacteria Urine Mucus Radiography Diagnostic Testing: Clinical Impression(s) from Imaging Studies Abdomen/Pelvis CT 06/13/22 17:38 IMPRESSION: No acute abnormalities in the abdomen or pelvis. Electronically Signed: Thomas Mello MD at 18:50 EST , CT scan showed no acute process. This was looked at by me and read by radiology. Discharge Plan Triage Chief Complaint: Abd Pain ED Provider: Jonathan Sin Dx/Rx/DC Orders Clinical Impression: Abdominal pain Instructions: ED Abdominal Pain Unkn Cause Male... Prescriptions: New esomeprazole magnesium [Nexium] 20 mg capsule,delayed release(DR/EC) 20 mg PO DAILY Qty: 30 0RF No Action lisinopril 20 mg Tablet 20 mg PO BID clopidogrel [Plavix] 75 mg Tablet 75 mg PO DAILY metformin 1,000 mg Tablet 1,000 mg PO BID aspirin 81 mg Tablet 81 mg PO DAILY albuterol sulfate [ProAir HFA] 90 mcg/actuation Hfa Aerosol Inhaler 1 - 2 puff INHALATION Q6H PRN (Reason: sob) tamsulosin 0.4 mg Capsule 0.4 mg PO DAILY metoprolol tartrate 25 mg Tablet 12.5 mg PO BID insulin glargine [Basaglar KwikPen U-100 Insulin] 100 unit/mL (3 mL) insulin pen 14 unit SUBCUT QHS atorvastatin 80 mg tablet 80 mg PO DAILY pregabalin 100 mg capsule 100 mg PO BID budesonide-formoterol [Symbicort] 160-4.5 mcg/actuation HFA aerosol inhaler 2 inh INHALATION BID Primary Care Provider: Ijeoma Mcmanus Referrals: Sumit Mena DO [Med Staff - Active Staff] - As soon as possible Ijeoma Mcmanus [Primary Care Provider] - 1 Week Disposition Disposition: Home, Self Care
[2022-06-13] MEDS: Morphine 4 MG/ML Syringe IV (17:55)
[2022-06-13] MEDS: Ondansetron 4 MG/2 ML Vial IV (17:55)
[2022-06-13 18:47] LABS: AST(SGOT) 27 U/L (15-37); Alanine Aminotransfer ALT/SGPT 65 U/L (16-61); Albumin, Serum 4.3 g/dL (3.2-5.0); Alkaline Phosphatase 75 U/L (45-117); Bilirubin, Direct 0.13 mg/dL (0.00-0.30); Globulin 3.7 g/dL (2.2-4.2); Lipase 285 U/L (73-393)
[2022-06-13 20:00] VITALS: BP 126/86; PULSE 82; RESP 15; O2SAT 98
== END 2022-06-13 20:01 | disposition home or self-care (01) ==
PROVIDERS: Emergency Provider Emergency Medicine; Visit Provider Emergency Medicine
DX: R10.12 Left upper quadrant pain (principal); E11.40 Type 2 diabetes mellitus with diabetic neuropathy, unspecified; E11.65 Type 2 diabetes mellitus with hyperglycemia; Z79.4 Long term (current) use of insulin; I25.10 Atherosclerotic heart disease of native coronary artery without angina pectoris; Z79.82 Long term (current) use of aspirin; Z79.02 Long term (current) use of antithrombotics/antiplatelets; Z79.899 Other long term (current) drug therapy; F17.210 Nicotine dependence, cigarettes, uncomplicated
CPT/HCPCS: 74177; 80048; 80076; 81001; 83690; 85025; 96361; 96374; 96375; 99283; Q9967; J2405; J3490

== ENCOUNTER → 2022-06-22 | Outpatient (CLI) | payer MEDICARE, SELFPAY | END | disposition home or self-care (01) | PROVIDERS: Referring Provider Surgery; Visit Provider Surgery | DX: R10.9 Unspecified abdominal pain (principal) | CPT/HCPCS: 82274 ==

== ENCOUNTER → 2022-07-07 | Outpatient (CLI) | payer MEDICARE, SELFPAY ==
[2022-07-07 15:03] LABS: Thyroid Stim Hormone (TSH) 0.82 uIU/mL (0.358-3.74)
== END | disposition home or self-care (01) ==
LOC: LAB 14:01
PROVIDERS: Visit Provider Internal Medicine Cardiovascular Disease
DX: R00.0 Tachycardia, unspecified (principal)
CPT/HCPCS: 36415; 84443

== ENCOUNTER 2022-08-29 11:31 | Day surgery (SDC) | payer MEDICARE, SELFPAY ==
[2022-08-29] VITALS (8 sets, daily range): BP systolic 138–153; BP diastolic 72–85; PULSE 62–83; RESP 16; TEMP 35.8–36.4; O2SAT 98–100; BMI 27.4
--- NOTE | 2022-08-29 | GASB_PTH ---
PATIENT: JEAN PIERRE APONTE LOC: EN U#:[id number] AGE/SX: 61/M ROOM: RE08/29/[address]: Dr. Beau Beaulieu MD : 1960 BED: DIS: 08/29/2022 SPEC #: [id number] RECD: 08/29/22 14:37 STATUS: TRACY JOHN #: [id number] PUJA: 08/29/22 00:[address]: Beau Beaulieu DEPT: SURGICAL PATHOLOGY RECD BY: Douglas Hayden ENTERED: 08/30/22 09:07 SP TYPE: Gastric Bx OTHR DR: [facility] Tissues: A - Gastric mucous membrane B - Gastric mucous membrane C - Gastric mucous membrane Procedures: Special Stain Group II Surgery Specimen Level IV Alcian Blue/PAS (control) HEADER OPERATION: Colonoscopy, EGD (MAC), biopsy, gold probe PRE-OP DIAGNOSIS: Left upper quadrant abdominal pain TISSUE SUBMITTED: A ? Antrum biopsy for H. pylori and path, B ? Posterior wall body biopsy, C ? Gastroesophageal junction biopsy MICROSCOPIC DIAGNOSIS A. Gastric antrum, biopsy: Chronic gastritis. See comment. B. Posterior wall body, biopsy: Fragments of gastric mucosa with chronic inflammation. C. Gastroesophageal junction, biopsy: Chronic inflammation. Focal changes of reflux. No evidence of goblet cell metaplasia. See comment. AM:feng 08/31/2022 COMMENT A. The results of immunohistochemistry for Helicobacter pylori will be reported separately ([id number]). C. Alcian blue/PAS stain with matched control supports the above diagnosis. MICROSCOPIC DESCRIPTION Slides are reviewed. GROSS DESCRIPTION A - Received in fixative is one container labeled with the patient's name and designated antrum biopsy. The specimen consists of two irregular fragments of light guerra soft tissue that in aggregate measure 0.8 x 0.4 x 0.1 cm. The specimen is totally submitted in one cassette. B - Received in fixative is one container labeled with the patient's name and designated posterior wall body biopsy. The specimen consists of two irregular fragments of light guerra soft tissue that in aggregate measure 0.6 x 0.4 x 0.1 cm. The specimen is totally submitted in one cassette. C - Received in fixative is one container labeled with the patient's name and designated GE junction biopsy. The specimen consists of multiple irregular fragments of light guerra soft tissue that in aggregate measure 1 x 0.3 x 0.1 cm. The specimen is totally submitted in one cassette. / SJ:rg 08/30/2022 TC:3 CPT: 21750 x3, 05773
[2022-08-29] MEDS: Lactated Ringers 1,000 ML 15 ML IV (12:14)
--- NOTE | 2022-08-29 12:30 | IMM_PTH ---
PATIENT: JEAN PIERRE APONTE LOC: EN U#:[id number] AGE/SX: 61/M ROOM: RE08/29/[address]: Dr. Beau Beaulieu MD : 1960 BED: DIS: 08/29/2022 SPEC #: [id number] RECD: 08/30/22 09:40 STATUS: TRACY REQ #: [id number] PUJA: 08/29/22 12:[address]: Beau Beaulieu DEPT: IMMUNOHISTOCHEMISTRY RECD BY: Juanita Gomez ENTERED: 08/30/22 09:40 SP TYPE: IMMUNO OTHR DR: Ijeoma [facility] Tissues: A - Stomach, NOS Procedures: H Pylori (initial) PHYSICIAN & INSTITUTION [place] [id number] SPECIMEN INFORMATION: Tissue Source: A ? Antrum biopsy Clinical Info: Left upper quadrant abdominal pain Specimen Number: [id number] CPT code: 30321 METHODOLOGY: Deparaffinized sections of prefer/formalin-fixed tissue or PAP/DQ stained slides are incubated with monoclonal/polyclonal antibodies/oligonucleotide probes. Localization is made via biotin free immunoperoxidase method. Appropriate controls are performed and reacted as expected. Results on target cell population are indicated in the following table: RESULTS: ANTIBODY / CLONE RESULT Block A H Pylori (polyclonal) negative These tests were developed and their performance characteristics determined by [facility]. They may not have been cleared or approved by the U.[place]. Food and Drug Administration. The FDA has determined that such clearance or approval is not necessary. The above immunohistochemical/dualISH markers are ordered and reviewed by the Pathologist. INTERPRETATION: A. Antrum, biopsy: Negative for Helicobacter pylori organisms. AM:feng 08/31/2022
[2022-08-29 12:35] LABS: Bedside Glucose 155 mg/dL (74-106)
--- NOTE | 2022-08-29 12:38 | HP.PCM_ITS ---
History and Physical Date of Admission: 08/29/22 Date of Service:? 06/20/22 MR#: [id number] Acct: [id number] Name:JEAN PIERRE ARRIAGA Rep #: [id number] : 1960 ? ? Provider: Dr. Beau Beaulieu MD Age/Sex:? 61/M ? ? Location: [facility] Status: Signed Intake Vital Signs ? 02/22/2216:23 06/13/2215:37 06/20/2209:36 Height 5 ft 4 in 5 ft 4 in 5 ft 4 in Weight: ? 160 lb 177 lb 6 oz BMI ? 27.4B 30.4 BP ? 107/70 121/74 H Blood Pressure Location ? ? Rt brachial Position ? ? Sitting Respiration ? 18 18 Pulse ? 102 H 86 Pulse SourceB ? ? Monitor Temp ? 97.9 F 97.4 F L Temp Source ? Temporal Temporal Pulse Oximetry (%) ? 98 98 Oxygen Delivery Method ? ? 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 Required: No Is patient in pain?: No Allergies acetaminophen [From Percocet] Allergy (Verified 06/20/22 09:38) Vomitingdiphenhydramine [From Benadryl] Allergy (Verified 06/20/22 09:38) Otheroxycodone [From Percocet] Allergy (Verified 06/20/22 09:38) Vomiting Medications albuterol sulfate 90 mcg/actuation aerosol inhaler (ProAir HFA) 1 - 2 puff inhalation Q6H PRN sob 06/05/21 [History Confirmed 06/20/22] aspirin 81 mg tablet 81 mg PO DAILY 06/05/21 [History Confirmed 06/20/22] clopidogrel 75 mg tablet (Plavix) 75 mg PO DAILY 06/05/21 [History Confirmed 06/20/22] insulin glargine 100 unit/mL (3 mL) subcutaneous pen (Basaglar KwikPen U-100 Insulin) 14 unit subcut QHS 06/05/21 [History Confirmed 06/20/22] lisinopril 20 mg tablet 20 mg PO BID 06/05/21 [History Confirmed 06/20/22] metformin 1,000 mg tablet 1,000 mg PO BID 06/05/21 [History Confirmed 06/20/22] metoprolol tartrate 25 mg tablet 12.5 mg PO BID 06/05/21 [History Confirmed 06/20/22] tamsulosin 0.4 mg capsule 0.4 mg PO DAILY 06/05/21 [History Confirmed 06/20/22] atorvastatin 80 mg tablet 80 mg PO DAILY 06/13/22 [History Confirmed 06/20/22] budesonide-formoterol HFA 160 mcg-4.5 mcg/actuation aerosol inhaler (Symbicort) 2 inh inhalation BID 06/13/22 [History Confirmed 06/20/22] esomeprazole magnesium 20 mg capsule,delayed release (Nexium) 20 mg PO DAILY #30 caps 06/13/22 [Rx Confirmed 06/20/22] pregabalin 100 mg capsule 100 mg PO BID 06/13/22 [History Confirmed 06/20/22] pantoprazole 20 mg tablet,delayed release (Protonix) 20 mg PO DAILY #30 tabs 06/20/22 [Rx Confirmed 06/20/22] PFSH Medical History?(Updated 06/20/22 @ 12:[address] Beau Beaulieu MD) Anxiety Arthritis Chest pain Coronary artery disease Depression Diabetes Heart attack Heart disease Hypertension Neuropathy Surgical History? H/O cardiac catheterization Family History? Grandfather Diabetes Heart disease HypertensionGrandmother Diabetes Heart disease Hypertension Cancer ?? ? stomachFather Diabetes Heart disease HypertensionBrother Heart disease Hypertension Social History?(Updated 06/20/22 @ 09:36 by Cesia Monday) Smoking Status:? Current every day smoker tobacco type: cigarettes alcohol intake:? former substance use type:? does not use HPI HPI HPI: Patient is a 61-year-old male who presents for need to schedule diagnostic colonoscopy secondary to abdominal pains and no prior history of colonoscopy.? They are referred for surgical consultation from Candice Doran NP of the [facility].? Mr. Grant describes this pain as fiery burning and localized to his left upper abdominal quadrant.? He reports that this pain has been present for months and never stops.? He denies any associated nausea or vomiting.? He denies any weight changes.? He denies any history of reflux. As above, patient has not had prior colonoscopy.? However, he does report a history of diverticulitis that was treated with antibiotics years ago and remitted with this treatment.? He also believes that he had a positive fecal occult blood test?but is unable to provide further detail as this was obtained in [place] (where he comes from immediately) and there was no follow-up given his move here to [place].? Patient has no personal history of colon cancer or inflammatory bowel disease. They describe their bowel habits as relatively normal, but with occasional constipation (by this he details that this occurs a couple of times per month and he will go 3 to 4 days in between bowel movements?required milk of magnesia to have a bowel movement).? Generally though, they have approximately 1 bowel movement per day and spend roughly 10 to 20 minutes on the toilet without significant straining.? They have noticed dark stools but no bright red blood.? There is no history of hemorrhoids.? They do not regularly take fiber supplements. Patient has no family history of colon cancer, inflammatory bowel disease, or diverticulitis.? ? The patient's weight is stable. The patient is prescribed Plavix and a baby aspirin for a history of heart carlos eduardo nts.? He states that he is still to establish cardiology following here in [place].? He notes a appointment has been tentatively scheduled for early July with Dr. Moses of [facility]. Relevant prior abdominal surgical history includes: Not applicable Patient does not have a significant history of GERD or heartburn.? Yet he does remark of some nighttime awakenings with coughing fits.? He also experiences infrequent retrosternal chest pressure.? He denies any history of recurrent pneumonias.? He states that he previously was prescribed Prevacid twice daily and took this for a number of years without symptom relief.? It is because of this lack of response and is no longer on a PPI medication and states that he was prescribed Nexium, but never took it. Mr. Grant expresses frustration over the lack of progress in understanding his abdominal pain and confirms a recent ER visit where he, again, was told his CT imaging was negative.? He was referred to gastroenterology and believes there is a visit in place for July 18, 2022. ROS General General: Yes fatigue; No weight change, appetite, colon cancer, breast cancer or weakness HEENT HEENT: No difficulty swallowing, eye injury, eye surgery, swollen glands or hoarseness Endo Endocrine: Yes diabetes mellitus; No thyroid disease, thyroid cancer, Hair loss, heat intolerance or cold intolerance Skin Skin: No rash or changing moles Musc Musculoskeletal: Yes back problems and arthritis; No rheumatoid arthritis, gout or joint pain Cardio Cardiovascular: Yes heart disease, high blood pressure, heart attack and heart stent; No murmur, pacemaker, atrial fibrillation, palpitations, shortness of breat with exertion or chest pain Psych Psychiatric: Yes depression and anxiety; No hearing voices Resp Respiratory: Yes shortness of breath, Yes sleep apnea, Yes cough, Yes COPD, Yes asthma, Yes emphysema and No wheezing Gastro Gastrointestinal: Yes abdominal pain, No nausea or vomiting, No diarrhea, No constipation, No blood in stool, No acid reflux, No hemorrhoids, No ulcers, Yes gallbladder problem and No black,tarry stools Austyn Hematologic: Yes blood thinners, No blood disorders, No bleeding, No anemia and No blood clots Neuro Neurologic: No system reviewed and no additional complaints, except as documented, No as per HPI, No abnormal gait, No abnormal hearing, No abnormal movements, No abnormal speech, No behavioral changes, No burning sensations, No confusion, No convulsions, No disequilibrium, No dizziness, No localized weakness, No frequent falls, No headache(s), No lack of coordination, No loss of vision, No memory loss, No numbness, No other visual disturbances, No radicular pain, No restless legs, No sensory deficit, No syncope, Yes tingling, No tremor(s), No weakness and Yes other (Hx stroke or TIA) Exam Const General: cooperative Nutritional Appearance: well nourished Orientation: alert, awake and oriented x3 Resp Effort & Inspection: normal respiratory effort, cough Quality of cough: dry and no respiratory distress Auscultation: no rales, no rhonchi and wheezes Cardio Rate: regular rate Rhythm: regular rhythm GI Other: Well-healed superficial scar in left upper abdominal quadrant.? Nondistended, soft.? Tenderness with palpation of the epigastrium and left upper quadrant with some voluntary guarding expressed.? Negative Wilhelm sign. Assessment and Plan Assessment and Plan (1) Left upper quadrant abdominal pain: ?Status:?Acute ?Comment: This is a 61-year-old male, with no previous colonoscopy, who presents for rather undifferentiated pain of his left upper quadrant that has been persistent for at least the last 4 months.? Patient's descriptions of a fiery burning pain are suggestive of a upper GI source.? However he clearly communicates that he has no history of typical reflux or heartburn symptoms and had no relief when trialing Prevacid several years ago.? He also reports a probable positive fecal occult blood test?although he is unclear on the details as this was obtained just prior to his departure from [place] (having recently relocated to [place]).? CT imaging from January and earlier this month was both unrevealing as to the cause of patient's abdominal discomfort.? Given these negative investigations and patient's reports of some nighttime awakening, as well as the darker stool/possibly positive fecal occult blood testing, I believe an investigation with upper and lower endoscopy is warranted.? Yet patient will require cardiology clearance to hold his clopidogrel ahead of these procedures in the event that biopsy is necessary.? Patient is still to establish care with cardiology, but we will look to reach out to them to see what their preference is in providing this clearance.? In the meantime I would like to repeat patient's fecal occult blood testing and have advised him that failure of response to 1 PPI agent is not necessarily predictive of failure to all other agents of the same class and have suggested we consider implementation of Protonix.? Mr. Grant is receptive of this recommendation and willing to proceed as described. ?Plan: ? Tentatively plan for diagnostic upper and lower endoscopy in July 2022 ? Fecal occult blood testing now ? 20 mg Protonix daily x1 month ? Seek direction from cardiology regarding Mr. Grant's antiplatelet therapy in anticipation of the endoscopies planned early next year I have examined the patient and the H&P has been reviewed. There are no clinical changes since date of exam. Patient confirms that his left upper quadrant abdominal discomfort persists, but at a lesser intensity and is continuous. He confirms that he completed a bowel prep for today's procedure and that his output is now clear. Lastly confirms that he has been off his Plavix. He actually reports that he ran out of this medication and simply never restarted it 2 weeks ago. He has been urged to make contact with his prescribing provider on this issue soon as possible. For the interim we will proceed with diagnostic upper and lower endoscopy as previously scheduled.
--- NOTE | 2022-08-29 14:26 | OP.EGD_ITS ---
Patient Name: Cain Grant Procedure Date: 08/29/2022 1:05 PM Date of : 1960 Age: 61 Procedure: Upper GI endoscopy Indications: Abdominal pain in the left upper quadrant, Heartburn Providers: Beau Beaulieu MD Referring MD: Beau Beaulieu MD Medicines: See the Anesthesia note for documentation of the administered medications Patient Profile: Refer to note in patient chart for documentation of history and physical. Patient has symptoms of chronic left upper quadrant abdominal pain. Complications: No immediate complications. Estimated blood loss: Minimal. Procedure: Pre-Anesthesia Assessment: - The heart rate, respiratory rate, oxygen saturations, blood pressure, adequacy of pulmonary ventilation, and response to care were monitored throughout the procedure. After obtaining informed consent, the endoscope was passed under direct vision. Throughout the procedure, the patient's blood pressure, pulse, and oxygen saturations were monitored continuously. The Colonoscope was introduced through the mouth, and advanced to the second part of duodenum. The upper GI endoscopy was accomplished without difficulty. The patient tolerated the procedure well. Scope In: 1:15:03 PM Scope Out: 1:35:29 PM Total Procedure Duration Time 0 hours 20 minutes 26 seconds Findings: The first portion of the duodenum and second portion of the duodenum were normal. Scattered moderate inflammation with hemorrhage characterized by erythema was found in the entire examined stomach. Biopsies were taken with a cold forceps for histology. Estimated blood loss was minimal. A single non-bleeding localized erosion was found on the posterior wall of the stomach. There were no stigmata of recent bleeding. Biopsies were taken with a cold forceps for histology. Estimated blood loss: 3 mL requiring treatment with electrocautery. The Z-line was irregular and was found 38 cm from the incisors. Biopsies were taken with a cold forceps for histology. Estimated blood loss was minimal. A small hiatal hernia was present. No biopsies or other specimens were collected for this exam. Impression: - Normal first portion of the duodenum and second portion of the duodenum. - Gastritis with hemorrhage. Biopsied. - Gastric erosion without bleeding. Biopsied. - Z-line irregular, 38 cm from the incisors. Biopsied. - Small hiatal hernia. No specimens collected. Recommendation: - Discharge patient to home (via wheelchair). - Resume previous diet today. - Use sucralfate suspension 1 gram PO BID today. - Await pathology results. - Telephone my office for pathology results in 1 week. - Resume Plavix (clopidogrel) at prior dose in 2 days. Refer to managing physician for further adjustment of therapy. Procedure Code(s): --- Professional --- 99409, Esophagogastroduodenoscopy, flexible, transoral; with biopsy, single or multiple Diagnosis Code(s): --- Professional --- K29.71, Gastritis, unspecified, with bleeding K25.9, Gastric ulcer, unspecified as acute or chronic, without hemorrhage or perforation K22.8, Other specified diseases of esophagus K44.9, Diaphragmatic hernia without obstruction or gangrene R10.12, Left upper quadrant pain R12, Heartburn CPT copyright 2017 [employer]. All rights reserved. The codes documented in this report are preliminary and upon director credit risk review may be revised to meet current compliance requirements. Beau Beaulieu MD 08/29/2022 2:25:22 PM This report has been signed electronically. Number of Addenda: 0 Note Initiated On: 08/29/2022 1:05 PM
--- NOTE | 2022-08-29 14:26 | OP.CCLET_ITS ---
[facility] for Cain [facility] This procedure was performed on Monday, August 29, 2022. My impressions and recommendations are as follows: Impressions : - Normal first portion of the duodenum and second portion of the duodenum. - Gastritis with hemorrhage. Biopsied. - Gastric erosion without bleeding. Biopsied. - Z-line irregular, 38 cm from the incisors. Biopsied. - Small hiatal hernia. No specimens collected. Recommendations : - Discharge patient to home (via wheelchair). - Resume previous diet today. - Use sucralfate suspension 1 gram PO BID today. - Await pathology results. - Telephone my office for pathology results in 1 week. - Resume Plavix (clopidogrel) at prior dose in 2 days. Refer to managing physician for further adjustment of therapy. My findings are described in the full procedure note, which is enclosed. If I can be of further assistance, please feel free to contact me at Doctor phone number(s): , Work: . Sincerely, Beau Beaulieu MD 08/29/2022 2:25:22 PM This report has been signed electronically.
--- NOTE | 2022-08-29 14:32 | OP.COLON_ITS ---
Patient Name: Cain Grant Procedure Date: 08/29/2022 1:35 PM Date of : 1960 Age: 61 Procedure: Colonoscopy Indications: Abdominal pain in the left upper quadrant, Constipation Providers: Beau Beaulieu MD Referring MD: Beau Beaulieu MD Medicines: See the Anesthesia note for documentation of the administered medications Patient Profile: Refer to note in patient chart for documentation of history and physical. Patient has symptoms of chronic left upper quadrant abdominal pain. Last Colonoscopy: none. The patient's first colonoscopy is today. Complications: No immediate complications. Procedure: Pre-Anesthesia Assessment: - The heart rate, respiratory rate, oxygen saturations, blood pressure, adequacy of pulmonary ventilation, and response to care were monitored throughout the procedure. - The heart rate, respiratory rate, oxygen saturations, blood pressure, adequacy of pulmonary ventilation, and response to care were monitored throughout the procedure. After I obtained informed consent, the scope was passed under direct vision. Throughout the procedure, the patient's blood pressure, pulse, and oxygen saturations were monitored continuously. The Colonoscope was introduced through the anus and advanced to the cecum, identified by the appendiceal orifice, IC valve and transillumination. The adult colonoscope was introduced through the and advanced to. The colonoscopy was somewhat difficult due to poor bowel prep. Successful completion of the procedure was aided by lavage. The patient tolerated the procedure well. The quality of the bowel preparation was poor. Scope In: 1:37:00 PM Scope Withdrawal Time 0 hours 14 minutes 33 seconds Scope Out: 2:16:23 PM Total Procedure Duration Time 0 hours 39 minutes 23 seconds Findings: The entire examined colon appeared normal on direct and retroflexion views. Impression: - Preparation of the colon was poor. - The entire examined colon is normal on direct and retroflexion views. - No specimens collected. Recommendation: - Discharge patient to home (via wheelchair). - Resume previous diet today. - Continue present medications. - Repeat colonoscopy in 5 years for screening purposes. Procedure Code(s): --- Professional --- 13648, Colonoscopy, flexible; diagnostic, including collection of specimen(s) by brushing or washing, when performed (separate procedure) Diagnosis Code(s): --- Professional --- R10.12, Left upper quadrant pain K59.00, Constipation, unspecified CPT copyright 2017 [employer]. All rights reserved. The codes documented in this report are preliminary and upon stable hand review may be revised to meet current compliance requirements. Beau Beaulieu MD 08/29/2022 2:32:03 PM This report has been signed electronically. Number of Addenda: 0 Note Initiated On: 08/29/2022 1:35 PM
--- NOTE | 2022-08-29 14:33 | OP.CCLET_ITS ---
[facility] Cain [facility] This procedure was performed on Monday, August 29, 2022. My impressions and recommendations are as follows: Impressions : - Preparation of the colon was poor. - The entire examined colon is normal on direct and retroflexion views. - No specimens collected. Recommendations : - Discharge patient to home (via wheelchair). - Resume previous diet today. - Continue present medications. - Repeat colonoscopy in 5 years for screening purposes. My findings are described in the full procedure note, which is enclosed. If I can be of further assistance, please feel free to contact me at Doctor phone number(s): , Work: . Sincerely, Beau Beaulieu MD 08/29/2022 2:32:03 PM This report has been signed electronically.
== END 2022-08-29 15:39 | disposition home or self-care (01) ==
LOC: EN 11:32 → AC 11:35
PROVIDERS: Referring Provider Surgery; Visit Provider Surgery
PROC: 0DJD8ZZ Inspection of Lower Intestinal Tract, Via Natural or Artificial Opening Endoscopic (ICD-10-PCS; CPT 45378; principal; 2022-08-29 12:25)
DX: K25.9 Gastric ulcer, unspecified as acute or chronic, without hemorrhage or perforation (principal); J44.9 Chronic obstructive pulmonary disease, unspecified; E11.40 Type 2 diabetes mellitus with diabetic neuropathy, unspecified; Z79.4 Long term (current) use of insulin; R33.9 Retention of urine, unspecified; K20.90 Esophagitis, unspecified without bleeding; K59.00 Constipation, unspecified; K44.9 Diaphragmatic hernia without obstruction or gangrene; K29.51 Unspecified chronic gastritis with bleeding; I25.10 Atherosclerotic heart disease of native coronary artery without angina pectoris; I10 Essential (primary) hypertension; E78.00 Pure hypercholesterolemia, unspecified; F17.210 Nicotine dependence, cigarettes, uncomplicated; I25.2 Old myocardial infarction; Z86.73 Personal history of transient ischemic attack (TIA), and cerebral infarction without residual deficits; Z79.02 Long term (current) use of antithrombotics/antiplatelets; Z79.82 Long term (current) use of aspirin; Z79.899 Other long term (current) drug therapy; Z95.5 Presence of coronary angioplasty implant and graft
CPT/HCPCS: 43239; 45378; 51702; 82962; 88305; 88313; 88342; 99283; J7120; J2405

== ENCOUNTER 2022-08-29 20:47 | Emergency (ER) | payer MEDICARE, SELFPAY ==
[2022-08-29 20:48] VITALS: BP 185/97; PULSE 83; RESP 16; TEMP 36.8; O2SAT 100; BMI 28.3
--- NOTE | 2022-08-29 21:23 | EDS_ITS ---
HPI History of Present Illness Chief Complaint: Complaint Informant: patient and other (surgeon on-call Dr. Garcia) Pain Onset: Today (after colonscopy) Context: Gradual Onset Timing: Continuous Maximum Severity: Severe Narrative Narrative: Patient had a colonoscopy today and has not been able to urinate since then. He states he is on Flomax, unsure if he has a prostate issue, but he has never had this happen before until his colonoscopy today. He denies any fevers, chills, vomiting, back pain. [facility] Medical History Ambulates with cane Anxiety Arthritis Atherosclerosis of coronary artery of [place] heart without angina pectoris Cardiology follow-up encounter COPD (chronic obstructive pulmonary disease) Depression Diabetes Difficulty chewing Essential (primary) hypertension Heart attack Heart disease High cholesterol History of diverticulitis History of echocardiogram History of heart attack History of stress test Hypertension Insulin dependent diabetes mellitus Neuropathy Non-ST elevation myocardial infarction (NSTEMI) (~08/08/16) Prostate disease Restless legs Smoker TIA (transient ischemic attack) Type 2 diabetes mellitus Wears glasses Home Medications aspirin 81 mg tablet 81 mg PO DAILY 06/05/21 [History Last Taken 08/23/22] clopidogrel 75 mg tablet (Plavix) 75 mg PO DAILY 06/05/21 [History Last Taken 08/23/22] insulin glargine 100 unit/mL (3 mL) subcutaneous pen (Basaglar KwikPen U-100 Insulin) 20 unit subcut QHS 06/05/21 [History Last Taken Unknown] metformin 1,000 mg tablet 1,000 mg PO BID 06/05/21 [History Last Taken Unknown] tamsulosin 0.4 mg capsule 0.4 mg PO BID 06/05/21 [History Last Taken 08/29/22] atorvastatin 80 mg tablet 80 mg PO DAILY 06/13/22 [History Last Taken Unknown] budesonide-formoterol HFA 160 mcg-4.5 mcg/actuation aerosol inhaler (Symbicort) 2 inh inhalation BID 06/13/22 [History Last Taken 08/29/22] pregabalin 100 mg capsule 100 mg PO BID 06/13/22 [History Last Taken Unknown] pantoprazole 20 mg tablet,delayed release (Protonix) 20 mg PO DAILY #30 tabs 06/20/22 [Rx Last Taken 08/29/22] albuterol sulfate 90 mcg/actuation aerosol inhaler (ProAir HFA) 2 puff inhalation .q4-6h PRN sob 07/01/22 [History Last Taken Unknown] lisinopril 20 mg tablet 20 mg PO DAILY 07/01/22 [History Last Taken 08/29/22] metoprolol tartrate 50 mg tablet 50 mg PO BID #60 tabs 07/07/22 [Rx Last Taken 08/29/22] sucralfate 100 mg/mL oral suspension (Carafate) 10 ml PO BID #400 mL 08/29/22 [Rx Last Taken Unknown] Allergy/AdvReac Type Severity Reaction Status Date / Time acetaminophen [From Percocet] Allergy Vomiting Verified 08/29/22 20:49 diphenhydramine Allergy Other Verified 08/29/22 20:49 [From Benadryl] oxycodone [From Percocet] Allergy Vomiting Verified 08/29/22 20:49 Family History Grandfather Diabetes Heart disease Hypertension Grandmother Diabetes Heart disease Hypertension Cancer stomach Father Diabetes Heart disease Hypertension Brother Heart disease Hypertension Surgical History H/O cardiac catheterization History of coronary artery stent placement (~08/08/16) Social History Smoking Status: Current every day smoker tobacco type: cigarettes alcohol intake: former substance use type: does not use caffeine: Yes Type: coffee Number of servings: 12 ROS ROS ED Constitutional Constitutional ED: Denies chills or fever(s) Gastrointestinal Gastrointestinal: Reports abdominal pain; Denies nausea or vomiting Genitourinary Genitourinary ED: Reports as per HPI and difficulty urinating; Denies dysuria or hematuria Musculoskeletal Musculoskeletal: Denies back pain or neck pain EXAM Physical Exam Const Vital Signs: 08/29/22 20:48 Temperature 98.2 F Temperature Source Temporal Pulse Rate 83 Respiratory Rate 16 Blood Pressure 185/97 H Blood Pressure Mean 126 Pulse Ox 100 Oxygen Delivery Method Room Air Positive well nourished and well developed Constitutional Narrative: Appears uncomfortable, no distress General Appearance ED: well developed GI GI Narrative: Tender to back where he has distended, no guarding or rebound, benign abdomen otherwise. no CVA tenderness Neuro oriented x3, CN's II-XII intact bilaterally, moves all extremities, no focal motor deficits, no sensory deficits noted and gait normal Psych mental status grossly normal Mood & Affect: anxious MDM MDM MDM Narrative Medical decision making narrative: Discussed options patient amenable to getting a catheter so that he does not have this happen again potentially after just getting a straight cath. Nurses pretreated him with Urojet, and placed a Gonzalez successfully. Patient felt much better and patient had over a liter of urine out now blood, he feels better and will be sent home with a leg bag. Follow up with surgery per Dr. Garcia. Discharge Plan Triage Chief Complaint: Complaint ED Provider: Eyal De Jesus Dx/Rx/DC Orders Clinical Impression: Acute urinary retention Instructions: ED Gonzalez Catheter, Care, ED Urinary Retention, Male Prescriptions: No Action pantoprazole [Protonix] 20 mg tablet,delayed release (DR/EC) 20 mg PO DAILY Qty: 30 1RF metoprolol tartrate 50 mg tablet 50 mg PO BID Qty: 60 11RF clopidogrel [Plavix] 75 mg Tablet 75 mg PO DAILY metformin 1,000 mg Tablet 1,000 mg PO BID aspirin 81 mg Tablet 81 mg PO DAILY tamsulosin 0.4 mg Capsule 0.4 mg PO BID insulin glargine [Basaglar KwikPen U-100 Insulin] 100 unit/mL (3 mL) insulin pen 20 unit SUBCUT QHS albuterol sulfate [ProAir HFA] 90 mcg/actuation HFA aerosol inhaler 2 puff INHALATION .q4-6h PRN (Reason: sob) lisinopril 20 mg tablet 20 mg PO DAILY atorvastatin 80 mg tablet 80 mg PO DAILY pregabalin 100 mg capsule 100 mg PO BID budesonide-formoterol [Symbicort] 160-4.5 mcg/actuation HFA aerosol inhaler 2 inh INHALATION BID sucralfate [Carafate] 100 mg/mL suspension 10 ml PO BID Qty: 400 0RF Primary Care Provider: [facility] Ijeoma Ernst Referrals: Beau Beaulieu MD [Med Staff - Active Staff] - 3-5 Days (call for appt to see when they want you to follow up) [facility] - Disposition Disposition: Home, Self Care Discharge Date/Time: 08/29/22 21:56
[2022-08-29] MEDS: Lidocaine Jelly 2% 20 ML Syringe (URO-JET) 1 APPLIC TOPICAL (21:35)
== END 2022-08-29 21:56 | disposition home or self-care (01) ==
LOC: ED 21:29
PROVIDERS: Emergency Provider Emergency Medicine; Visit Provider Emergency Medicine
DX: R33.9 Retention of urine, unspecified (principal); J44.9 Chronic obstructive pulmonary disease, unspecified; E11.40 Type 2 diabetes mellitus with diabetic neuropathy, unspecified; Z79.4 Long term (current) use of insulin; K25.9 Gastric ulcer, unspecified as acute or chronic, without hemorrhage or perforation; K20.90 Esophagitis, unspecified without bleeding; K29.51 Unspecified chronic gastritis with bleeding; K44.9 Diaphragmatic hernia without obstruction or gangrene; K59.00 Constipation, unspecified; I25.10 Atherosclerotic heart disease of native coronary artery without angina pectoris; I10 Essential (primary) hypertension; E78.00 Pure hypercholesterolemia, unspecified; F17.210 Nicotine dependence, cigarettes, uncomplicated; I25.2 Old myocardial infarction; Z79.82 Long term (current) use of aspirin; Z79.02 Long term (current) use of antithrombotics/antiplatelets; Z79.899 Other long term (current) drug therapy; Z86.73 Personal history of transient ischemic attack (TIA), and cerebral infarction without residual deficits; Z95.5 Presence of coronary angioplasty implant and graft
CPT/HCPCS: 45378; 43239; 51702; 82962; 88305; 88313; 88342; 99283; J7120; J2405

== ENCOUNTER → 2022-09-12 | Outpatient (CLI) | payer MEDICARE, SELFPAY | END | disposition home or self-care (01) | PROVIDERS: Referring Provider Urology; Visit Provider Urology | DX: R30.0 Dysuria (principal) | CPT/HCPCS: 87086 ==

== ENCOUNTER → 2022-09-26 | Outpatient (CLI) | payer MEDICARE, SELFPAY ==
[2022-09-26 10:25] LABS: Hematocrit 44.1 % (40-54); Hemoglobin 13.8 g/dL (13.0-16.5); Mean Corp Hgb Conc 31.3 g/dL (32-36); Mean Corpuscular Hgb 27.5 pg (27.0-32.0); Mean Corpuscular Volume 87.8 fL (80-94); Mean Platelet Vol. 12.9 fl (6.2-12.0); Platelet Count 175 K/mm3 (150-450); RBC Distribution Width CV 12.9 % (11.6-14.6); RBC Distribution Width SD 41.6 fl (35.1-43.9); Red Blood Count 5.02 M/mm3 (4.6-6.2); White Blood Count 8.3 K/mm3 (4.4-11.0)
[2022-09-26 10:53] LABS: ALB/GLOB Ratio 1.1 RATIO (0.9-2.4); AST(SGOT) 16 U/L (15-37); Alanine Aminotransfer ALT/SGPT 31 U/L (16-61); Alkaline Phosphatase 82 U/L (45-117); Anion Gap 5 (5-15); BUN 20 mg/dL (7-18); BUN/Creat Ratio 17.2 RATIO (10-20); Calcium,Total 9.1 mg/dL (8.5-10.1); Chloride 105 mmol/L (98-107); Cholesterol 93 mg/dL (200); Creatinine, Serum 1.16 mg/dL (0.70-1.30); EST Glomerular Filtration Rate 68 mL/min (>60); Est Glom Filt Rate - Afr Amer 83 mL/min (>60); Globulin 3.6 g/dL (2.2-4.2); Glucose 289 mg/dL (74-106); High Density Lipoprotein 27 mg/dL; Potassium 4.6 mmol/L (3.5-5.1); Protein, Total 7.6 g/dL (6.4-8.2); Sodium Level 136 mmol/L (136-145); Triglycerides 198 mg/dL; Very Low Density Lipoprotein 40 mg/dL (5-40)
[2022-09-26 11:14] LABS: Hemoglobin A1c 10.8 % (3.8-5.6)
== END | disposition home or self-care (01) ==
DX: E11.9 Type 2 diabetes mellitus without complications (principal); E78.5 Hyperlipidemia, unspecified
CPT/HCPCS: 36415; 80053; 80061; 83036; 85027

== ENCOUNTER 2023-02-17 19:35 | Emergency (ER) | payer MEDICARE, SELFPAY ==
[2023-02-17 19:36] VITALS: BP 126/73; PULSE 78; RESP 16; TEMP 36.2; O2SAT 100; BMI 28.2
--- NOTE | 2023-02-17 20:20 | RAD_ITS ---
EXAM: XR RIGHT RIBS AND AP CHEST, 3 OR MORE VIEWS CLINICAL INDICATION: fall TECHNIQUE: Frontal and oblique views of the right ribs and frontal view of the chest. COMPARISON: 06.05.21 FINDINGS: LUNGS AND PLEURAL SPACES: Unremarkable. No consolidation or edema. No pneumothorax. No effusion. HEART: Unremarkable. Cardiac silhouette not enlarged. MEDIASTINUM: Central airways and mediastinal contour are unremarkable. BONES/JOINTS: Unremarkable. No evidence of displaced rib fractures. RAD/Ribs Uni Min 3V w/PA Chest IMPRESSION: Negative chest and right ribs series. Electronically Signed: Wally Vanessa MD at 20:49 EDT ,
[2023-02-17 21:35] VITALS: PULSE 68; RESP 14; O2SAT 98
--- NOTE | 2023-02-17 21:35 | EX.ED.GENINJ ---
HPI History of Present Illness Chief Complaint: Chest Other Detail of Chief Complaint: Right rib contusion Informant: patient Onset/Context/Timing Onset: Yesterday Current Severity: Moderate Maximum Severity: Moderate Narrative Narrative: Patient presents secondary to right rib injury. He was up on a ladder changing a light bulb yesterday when he fell injuring his right ribs. He tried ibuprofen as well as some Tylenol earlier this morning without improvement in pain. He denies striking his head or loss of consciousness. He is on Plavix but no other form of anticoagulant. [facility] Medical History Acute urinary retention Ambulates with cane Anxiety Arthritis Atherosclerosis of coronary artery of [place] heart without angina pectoris Cardiology follow-up encounter COPD (chronic obstructive pulmonary disease) Depression Diabetes Difficulty chewing Essential (primary) hypertension Heart attack Heart disease Hematuria High cholesterol History of diverticulitis History of echocardiogram History of heart attack History of stress test Hypertension Insulin dependent diabetes mellitus Neuropathy Non-ST elevation myocardial infarction (NSTEMI) (~08/08/16) Presence of stent in coronary artery (~08/08/16) Prostate disease Restless legs Smoker TIA (transient ischemic attack) Type 2 diabetes mellitus Wears glasses Home Medications clopidogrel 75 mg tablet (Plavix) 75 mg PO DAILY 06/05/21 [History Last Taken 08/23/22] metformin 1,000 mg tablet 1,000 mg PO BID 06/05/21 [History Last Taken Unknown] atorvastatin 80 mg tablet 80 mg PO DAILY 06/13/22 [History Last Taken Unknown] pregabalin 100 mg capsule 100 mg PO BID 06/13/22 [History Last Taken Unknown] pantoprazole 20 mg tablet,delayed release (Protonix) 20 mg PO DAILY #30 tabs 06/20/22 [Rx Last Taken 08/29/22] lisinopril 20 mg tablet 20 mg PO DAILY 07/01/22 [History Last Taken 08/29/22] metoprolol tartrate 50 mg tablet 50 mg PO BID #60 tabs 07/07/22 [Rx Last Taken 08/29/22] sucralfate 100 mg/mL oral suspension (Carafate) 10 ml PO BID #400 mL 08/29/22 [Rx Last Taken Unknown] tamsulosin 0.4 mg capsule (Flomax) 0.4 mg PO BID #60 caps 08/30/22 [Rx Last Taken Unknown] dapagliflozin propanediol 10 mg tablet (Farxiga) 10 mg PO DAILY 01/12/23 [History Last Taken Unknown] finasteride 5 mg tablet 5 mg PO DAILY 01/12/23 [History Last Taken Unknown] glimepiride 4 mg tablet 4 mg PO DAILY 01/12/23 [History Last Taken Unknown] tadalafil 20 mg tablet 20 mg PO DAILY PRN sexual activity 01/12/23 [History Last Taken Unknown] tramadol 50 mg tablet 50 mg PO Q4H PRN PRN Pain #20 tabs 02/17/23 [Rx Last Taken Unknown] Allergy/AdvReac Type Severity Reaction Status Date / Time fentanyl Allergy Intermediate Pain in Verified 02/17/23 19:36 joints acetaminophen [From Percocet] Allergy Vomiting Verified 02/17/23 19:36 diphenhydramine Allergy Other Verified 02/17/23 19:36 [From Benadryl] oxycodone [From Percocet] Allergy Vomiting Verified 02/17/23 19:36 Family History Grandfather Diabetes Heart disease Hypertension Grandmother Diabetes Heart disease Hypertension Cancer stomach Father Diabetes Heart disease Hypertension Brother Heart disease Hypertension Surgical History H/O cardiac catheterization History of colonoscopy History of coronary artery stent placement (~08/08/16) History of esophagogastroduodenoscopy (EGD) Social History Smoking Status: Current every day smoker tobacco type: cigarettes alcohol intake: former substance use type: does not use caffeine: Yes Type: coffee Number of servings: 12 ROS ROS ED Constitutional Constitutional ED: Denies chills or fever(s) Eyes Eyes: Denies change in vision or discharge from eye(s) ENT ENT ED: Denies discharge from eye(s), rhinorrhea or sore throat Cardiovascular Cardiovascular: Reports chest pain; Denies palpitations Respiratory/Chest Respiratory/Chest: Denies cough or dyspnea Gastrointestinal Gastrointestinal: Denies abdominal pain, nausea or vomiting Genitourinary Genitourinary ED: Denies dysuria Musculoskeletal Musculoskeletal: Denies back pain or extremity pain Integumentary Denies Abrasions or rash Neurologic Neurologic: Denies headache(s) or weakness Psychiatric Psychiatric: Denies anxiety or depression Allergic/Immunologic Allergic/Immunologic ED: Denies lip swelling or urticaria EXAM Physical Exam Const Vital Signs: 02/17/23 19:36 02/17/23 20:35 02/17/23 21:35 Temperature 97.1 F L Temperature Source Temporal Pulse Rate 78 68 Respiratory Rate 16 14 Respiratory Pattern Normal Blood Pressure 126/73 H Blood Pressure Mean 90 Pulse Ox 100 98 Positive well nourished and well developed General Appearance ED: well developed HEENT Reports normocephalic and head/scalp atraumatic Eyes PERRL and EOMs intact bilaterally Neck supple Chest Wall inspection of chest normal Chest Narrative: Right chest wall tenderness palpation. No crepitus. No ecchymosis or erythema. Resp normal respiratory effort and clear to auscultation bilaterally Cardio regular rate and regular rhythm GI normal to inspection, nondistended, normoactive bowel sounds Palpation: soft Extremity normal to inspection Neuro oriented x3 and no sensory deficits noted Sensorium / Orientation: alert Motor Exam: strength 5/5 throughout Psych mental status grossly normal Skin no rashes or lesions noted MDM MDM MDM Narrative Medical decision making narrative: Right rib series with chest x-ray obtained per nursing protocol. Radiography Diagnostic Testing: Clinical Impression(s) from Imaging Studies Ribs w/Chest X-Ray 02/17/23 20:20 IMPRESSION: Negative chest and right ribs series. Electronically Signed: Wally Vanessa MD at 20:49 EDT Reading Location ID and State: [place] / [place] , Service support , Treatment and Re-Evaluation Narrative: Right rib x-rays and chest x-ray per my interpretation reveal no evidence of fracture or pneumothorax. Radiology interpretation is reviewed and agrees. Test results are discussed with patient and at bedside. He will be given tramadol to help with pain. Return instructions given. Discharge Plan Triage Chief Complaint: Chest Other ED Provider: Vicky Ruvalcaba Dx/Rx/DC Orders Clinical Impression: Rib contusion Instructions: ED Rib Contusion or Minor Fracture Prescriptions: New tramadol 50 mg tablet 50 mg PO Q4H PRN PRN (Reason: Pain) Qty: 20 0RF No Action pantoprazole [Protonix] 20 mg tablet,delayed release (DR/EC) 20 mg PO DAILY Qty: 30 1RF metoprolol tartrate 50 mg tablet 50 mg PO BID Qty: 60 11RF tamsulosin [Flomax] 0.4 mg capsule 0.4 mg PO BID Qty: 60 0RF glimepiride 4 mg tablet 4 mg PO DAILY Patient Comments: TAKE 1 TABLET BY MOUTH ONCE DAILY finasteride 5 mg tablet 5 mg PO DAILY tadalafil 20 mg tablet 20 mg PO DAILY PRN (Reason: sexual activity) Patient Comments: TAKE 1 TABLET BY MOUTH ONE HOUR BEFORE INTERCOURSE Farxiga 10 mg tablet 10 mg PO DAILY clopidogrel [Plavix] 75 mg Tablet 75 mg PO DAILY metformin 1,000 mg Tablet 1,000 mg PO BID lisinopril 20 mg tablet 20 mg PO DAILY atorvastatin 80 mg tablet 80 mg PO DAILY pregabalin 100 mg capsule 100 mg PO BID sucralfate [Carafate] 100 mg/mL suspension 10 ml PO BID Qty: 400 0RF Primary Care Provider: Isabella Yee Referrals: Isabella Yee, [Primary Care Provider] - 1 Week if not improving Disposition Disposition: Home, Self Care Discharge Date/Time: 02/17/23 21:52
[2023-02-17] MEDS: traMADol 50 MG Tablet 100 MG PO (21:50)
== END 2023-02-17 21:52 | disposition home or self-care (01) ==
PROVIDERS: Emergency Provider Emergency Medicine; PCP Family Medicine; Visit Provider Emergency Medicine
DX: S20.211A Contusion of right front wall of thorax, initial encounter (principal); J44.9 Chronic obstructive pulmonary disease, unspecified; E11.40 Type 2 diabetes mellitus with diabetic neuropathy, unspecified; W11.XXXA Fall on and from ladder, initial encounter; I25.10 Atherosclerotic heart disease of native coronary artery without angina pectoris; E78.00 Pure hypercholesterolemia, unspecified; I10 Essential (primary) hypertension; F17.210 Nicotine dependence, cigarettes, uncomplicated; Z79.02 Long term (current) use of antithrombotics/antiplatelets; Z79.84 Long term (current) use of oral hypoglycemic drugs; Z79.899 Other long term (current) drug therapy; I25.2 Old myocardial infarction; Z95.5 Presence of coronary angioplasty implant and graft
CPT/HCPCS: 71101; 99283

== ENCOUNTER 2023-04-15 11:58 | Emergency (ER) | payer MEDICARE, SELFPAY ==
[2023-04-15 11:59] VITALS: BP 150/78; PULSE 88; RESP 16; TEMP 36.1; O2SAT 98; BMI 29.7
--- NOTE | 2023-04-15 12:16 | EX.ED.DYSGE1 ---
HPI <SANDY Boone - Last Filed: 04/15/23 12:43> History of Present Illness Chief Complaint: Dental Narrative Narrative: Patient presenting today with right-sided maxillary dental pain that he has had,for a while. He reports that today he began to notice swelling on the right side of his face and his pain was exacerbated. He has been trying to get into a dentist but is unable to find one that accepts his insurance. He denies any fever, chills, abdominal pain, nausea, and vomiting. PFSH <SANDY Boone - Last Filed: 04/15/23 12:43> [facility] Medical History Acute urinary retention Ambulates with cane Anxiety Arthritis Atherosclerosis of coronary artery of [place] heart without angina pectoris Cardiology follow-up encounter COPD (chronic obstructive pulmonary disease) Depression Diabetes Difficulty chewing Essential (primary) hypertension Heart attack Heart disease Hematuria High cholesterol History of diverticulitis History of echocardiogram History of heart attack History of stress test Hypertension Insulin dependent diabetes mellitus Neuropathy Non-ST elevation myocardial infarction (NSTEMI) (~08/08/16) Presence of stent in coronary artery (~08/08/16) Prostate disease Restless legs Smoker TIA (transient ischemic attack) Type 2 diabetes mellitus Wears glasses Home Medications clopidogrel 75 mg tablet (Plavix) 75 mg PO DAILY 06/05/21 [History Last Taken 08/23/22] metformin 1,000 mg tablet 1,000 mg PO BID 06/05/21 [History Last Taken Unknown] atorvastatin 80 mg tablet 80 mg PO DAILY 06/13/22 [History Last Taken Unknown] pregabalin 100 mg capsule 100 mg PO BID 06/13/22 [History Last Taken Unknown] pantoprazole 20 mg tablet,delayed release (Protonix) 20 mg PO DAILY #30 tabs 06/20/22 [Rx Last Taken 08/29/22] lisinopril 20 mg tablet 20 mg PO DAILY 07/01/22 [History Last Taken 08/29/22] metoprolol tartrate 50 mg tablet 50 mg PO BID #60 tabs 07/07/22 [Rx Last Taken 08/29/22] sucralfate 100 mg/mL oral suspension (Carafate) 10 ml PO BID #400 mL 08/29/22 [Rx Last Taken Unknown] tamsulosin 0.4 mg capsule (Flomax) 0.4 mg PO BID #60 caps 08/30/22 [Rx Last Taken Unknown] dapagliflozin propanediol 10 mg tablet (Farxiga) 10 mg PO DAILY 01/12/23 [History Last Taken Unknown] finasteride 5 mg tablet 5 mg PO DAILY 01/12/23 [History Last Taken Unknown] glimepiride 4 mg tablet 4 mg PO DAILY 01/12/23 [History Last Taken Unknown] tadalafil 20 mg tablet 20 mg PO DAILY PRN sexual activity 01/12/23 [History Last Taken Unknown] tramadol 50 mg tablet 50 mg PO Q4H PRN PRN Pain #20 tabs 02/17/23 [Rx Last Taken Unknown] ibuprofen 600 mg tablet 600 mg PO Q8H PRN PRN pain 5 days #15 TABLETS 04/15/23 [Rx Last Taken Unknown] penicillin V potassium 500 mg tablet 500 mg PO 4X/DAY #39 tabs 04/15/23 [Rx Last Taken Unknown] Allergy/AdvReac Type Severity Reaction Status Date / Time fentanyl Allergy Intermediate Pain in Verified 02/17/23 19:36 joints acetaminophen [From Percocet] Allergy Vomiting Verified 02/17/23 19:36 diphenhydramine Allergy Other Verified 02/17/23 19:36 [From Benadryl] oxycodone [From Percocet] Allergy Vomiting Verified 02/17/23 19:36 Family History Grandfather Diabetes Heart disease Hypertension Grandmother Diabetes Heart disease Hypertension Cancer stomach Father Diabetes Heart disease Hypertension Brother Heart disease Hypertension Surgical History H/O cardiac catheterization History of colonoscopy History of coronary artery stent placement (~08/08/16) History of esophagogastroduodenoscopy (EGD) Social History Smoking Status: Current every day smoker tobacco type: cigarettes alcohol intake: former substance use type: does not use caffeine: Yes Type: coffee Number of servings: 12 ROS <SANDY Boone - Last Filed: 04/15/23 12:43> ROS ED Constitutional Constitutional ED: Denies chills or fever(s) Cardiovascular Cardiovascular: Denies chest pain Respiratory/Chest Respiratory/Chest: Denies cough or dyspnea Gastrointestinal Gastrointestinal: Denies abdominal pain, nausea or vomiting Musculoskeletal Musculoskeletal: Denies arthralgias or myalgias Integumentary Denies rash Neurologic Neurologic: Denies weakness EXAM <SANDY Boone - Last Filed: 04/15/23 12:43> Physical Exam Const Vital Signs: 04/15/23 11:59 Temperature 97 F L Temperature Source Temporal Pulse Rate 88 Respiratory Rate 16 Blood Pressure 150/78 H Blood Pressure Mean 102 Pulse Ox 98 Oxygen Delivery Method Room Air Positive well nourished, well developed and no apparent distress General Appearance ED: well developed HEENT Reports normocephalic and head/scalp atraumatic HEENT Narrative: Posterior pharynx clear, uvula midline, no trismus, no stridor, multiple missing teeth, obvious dental caries, pain to the right maxillary jaw to the lateral incisor. No dental abscess. Mouth ED: Yes moist mucous membranes normal Eyes PERRL and EOMs intact bilaterally Neck full ROM and supple Chest Wall inspection of chest normal Resp normal respiratory effort and clear to auscultation bilaterally Cardio regular rate and regular rhythm GI soft to palpation, non-tender, non-distended and no masses Back/Spine normal ROM and normal to inspection Extremity normal to inspection and full ROM Neuro oriented x3, CN's II-XII intact bilaterally, moves all extremities, no focal motor deficits and no sensory deficits noted Sensorium / Orientation: awake and alert Psych mental status grossly normal and thought process normal Skin no rashes or lesions noted and no wounds <Dr. Danny Posey MD - Last Filed: 04/15/23 13:18> Physical Exam Const Vital Signs: 04/15/23 11:59 Temperature 97 F L Temperature Source Temporal Pulse Rate 88 Respiratory Rate 16 Blood Pressure 150/78 H Blood Pressure Mean 102 Pulse Ox 98 Oxygen Delivery Method Room Air MDM <SANDY Boone - Last Filed: 04/15/23 12:43> [facility] Narrative Medical decision making narrative: Patient presenting today with dental pain that he has had for quite some time that was exacerbated today. Patient has poor dentition with multiple missing teeth and obvious dental caries. He has pain to the right maxillary lateral incisor. No dental abscess, no signs of Ludewig's angina. No trismus. Patient's vitals are noted, he is afebrile. He will be started on penicillin with first dose here, he has been given Tylenol for pain. He has been given a dental referral sheet. He will be discharged home in stable condition and is comfortable with plan. <Dr. Danny Posey MD - Last Filed: 04/15/23 13:18> [facility] Treatment and Re-Evaluation :: I saw this patient with the [facility]. I performed a [id number] exam. Patient has right maxillary dental pain and swelling. This came on gradually. No fevers. No change in voice or trouble breathing. No neurologic symptoms like weakness, facial droop, or vision changes. No neck pain. Vital signs reviewed. Patient has diffuse right maxillary swelling and tenderness. Edentulous. I do not appreciate a discrete drainable abscess on exam. Airway is intact. No lymphadenopathy. Good range of motion of his neck. No meningeal signs. Skin appears normal. HEENT exam otherwise unremarkable. Patient will be treated with anti-inflammatories and Pen-Vee K. Referred to dental for follow-up. Impression #1 dental pain Discharge Plan Triage Chief Complaint: Dental ED Midlevel Provider: Dede Sweeney ED Provider: Danny Posey Dx/Rx/DC Orders Clinical Impression: Dental caries, Pain, dental Instructions: ED Dental Pain Prescriptions: New penicillin V potassium 500 mg tablet 500 mg PO 4X/DAY Qty: 39 0RF ibuprofen 600 mg tablet 600 mg PO Q8H PRN PRN (Reason: pain) 5 Days Qty: 15 0RF No Action pantoprazole [Protonix] 20 mg tablet,delayed release (DR/EC) 20 mg PO DAILY Qty: 30 1RF metoprolol tartrate 50 mg tablet 50 mg PO BID Qty: 60 11RF tamsulosin [Flomax] 0.4 mg capsule 0.4 mg PO BID Qty: 60 0RF glimepiride 4 mg tablet 4 mg PO DAILY Patient Comments: TAKE 1 TABLET BY MOUTH ONCE DAILY finasteride 5 mg tablet 5 mg PO DAILY tadalafil 20 mg tablet 20 mg PO DAILY PRN (Reason: sexual activity) Patient Comments: TAKE 1 TABLET BY MOUTH ONE HOUR BEFORE INTERCOURSE Farxiga 10 mg tablet 10 mg PO DAILY clopidogrel [Plavix] 75 mg Tablet 75 mg PO DAILY metformin 1,000 mg Tablet 1,000 mg PO BID lisinopril 20 mg tablet 20 mg PO DAILY atorvastatin 80 mg tablet 80 mg PO DAILY pregabalin 100 mg capsule 100 mg PO BID tramadol 50 mg tablet 50 mg PO Q4H PRN PRN (Reason: Pain) Qty: 20 0RF sucralfate [Carafate] 100 mg/mL suspension 10 ml PO BID Qty: 400 0RF Primary Care Provider: Isabella Yee Referrals: Isabella Yee, [Primary Care Provider] - Activity Restrictions/Additional Instructions: Please follow-up with a dentist and take antibiotics as prescribed. Return for any worsening of your symptoms. Disposition Disposition: Home, Self Care Discharge Date/Time: 04/15/23 12:37
[2023-04-15] MEDS: Acetaminophen 325 MG Tablet 650 MG PO (12:28)
[2023-04-15] MEDS: Penicillin Vk 250 MG Tablet 500 MG PO (12:28)
== END 2023-04-15 12:37 | disposition home or self-care (01) ==
LOC: ED 12:34
PROVIDERS: Emergency Provider Emergency Medicine; PCP Family Medicine; Visit Provider Emergency Medicine
DX: K08.89 Other specified disorders of teeth and supporting structures (principal); J44.9 Chronic obstructive pulmonary disease, unspecified; E11.40 Type 2 diabetes mellitus with diabetic neuropathy, unspecified; I25.10 Atherosclerotic heart disease of native coronary artery without angina pectoris; I10 Essential (primary) hypertension; E78.00 Pure hypercholesterolemia, unspecified; F17.210 Nicotine dependence, cigarettes, uncomplicated; Z79.02 Long term (current) use of antithrombotics/antiplatelets; Z79.84 Long term (current) use of oral hypoglycemic drugs; Z79.899 Other long term (current) drug therapy; I25.2 Old myocardial infarction; Z95.5 Presence of coronary angioplasty implant and graft
CPT/HCPCS: 99283

== ENCOUNTER → 2023-11-20 | Outpatient (CLI) | payer MEDICARE, SELFPAY ==
--- NOTE | 2023-11-20 12:32 | CT_ITS ---
STUDY: LOW DOSE CT LUNG CANCER SCREENING REASON FOR EXAM: Male, 63 years old. 57 plus pack year RADIATION DOSAGE (If Supplied By Facility): CTDIvol = ( 3.02 ) mGy, DLP = ( 98.55 ) mGycm TECHNIQUE: No contrast was administered. Low dose technique was utilized (average mAS-38 and kVp 120). 1.25 mm axial source images with a slice interval of 1.25-mm were reconstructed in lung windows. 2.5 mm axial source images with a slice interval of 2.5-mm were reconstructed in lung windows. 5.0 mm axial source images with a slice interval of 5.0-mm were reconstructed in soft tissue windows. COMPARISON: None. NODULES: No suspicious nodules are seen. Emphysema: No significant emphysematous changes are present. Endobronchial lesion: Unremarkable Aorta: Unremarkable CORONARY ARTERIES: Coronary artery calcification is seen. Heart: Unremarkable Pulmonary artery: Unremarkable Mediastinal nodes: Unremarkable Other chest and abdominal findings: CT/Low Dose CT Lung Screening IMPRESSION: Lung-RADS category 2 - Continue annual screening with LDCT in 12 months. IMPORTANT NOTES FOR USE: ACR Lung-RADS Version 1.1 Assessment Categories Release Date: 2018 Category: Coded 0-4 bases on nodule(s) with highest degree of suspicion. Negative screen is defined as categories 1 and 2; a positive screen is defined as categories 3 and 4. Category 3 and 4A nodules that are unchanged on interval CT should be coded as category 2, and individuals returned to screening in 12 months. Category 4X: Category 3 or 4 nodules with additional imaging findings that increase the suspicion of lung cancer, such as spiculation, GGN that doubles in size in 1 year, enlarged lymph notes, etc. Category Modifiers: S (significant finding unrelated to lung cancer) Electronically Signed: Jordin Pepper MD at 15:26 EDT ,
== END | disposition home or self-care (01) ==
PROVIDERS: PCP Family Medicine; Referring Provider Family Medicine; Visit Provider Family Medicine
DX: F17.210 Nicotine dependence, cigarettes, uncomplicated (principal)
CPT/HCPCS: 71271

== ENCOUNTER → 2024-02-26 | Outpatient (CLI) | payer MEDICARE, SELFPAY ==
[2024-02-26 15:38] LABS: Microalbumin,Random Urine 64.7 mg/L (NO RANGE EST.)
[2024-02-26 15:39] LABS: Hemoglobin A1c 9.4 % (3.8-5.6)
[2024-02-26 15:45] LABS: ALB/GLOB Ratio 1.2 RATIO (0.9-2.4); AST(SGOT) 20 U/L (15-37); Alanine Aminotransfer ALT/SGPT 29 U/L (16-61); Alkaline Phosphatase 55 U/L (45-117); Anion Gap 4 (5-15); BUN 18 mg/dL (7-18); BUN/Creat Ratio 14.8 RATIO (10-20); Calcium,Total 9.3 mg/dL (8.5-10.1); Chloride 107 mmol/L (98-107); Cholesterol 110 mg/dL (200); Creatinine, Serum 1.22 mg/dL (0.70-1.30); EST Glomerular Filtration Rate 64 mL/min (>60); Est Glom Filt Rate - Afr Amer 78 mL/min (>60); Globulin 3.2 g/dL (2.2-4.2); Glucose 265 mg/dL (74-106); High Density Lipoprotein 33 mg/dL; Potassium 4.9 mmol/L (3.5-5.1); Protein, Total 7.2 g/dL (6.4-8.2); Sodium Level 136 mmol/L (136-145); Thyroid Stim Hormone (TSH) 0.93 uIU/mL (0.358-3.74); Triglycerides 356 mg/dL; Very Low Density Lipoprotein 71 mg/dL (5-40)
[2024-02-28 16:09] LABS: PSA, Total 0.5 ng/mL (0.0-4.0)
== END | disposition home or self-care (01) ==
LOC: PAVLAB 14:41
PROVIDERS: PCP Family Medicine; Referring Provider Family Medicine; Visit Provider Family Medicine
DX: E11.9 Type 2 diabetes mellitus without complications (principal); E78.5 Hyperlipidemia, unspecified; N40.0 Benign prostatic hyperplasia without lower urinary tract symptoms
CPT/HCPCS: 36415; 80053; 80061; 82043; 83036; 84153; 84443

== ENCOUNTER 2024-04-08 12:42 | Emergency (ER) | payer MEDICARE, SELFPAY ==
[2024-04-08 12:43] VITALS: BP 95/58; PULSE 82; RESP 17; TEMP 36.7; O2SAT 96; BMI 27.1
--- NOTE | 2024-04-08 13:11 | ED.VIS.CHEST ---
HPI History of Present Illness Chief Complaint: Chest Pain [facility] Medical History Presence of stent in coronary artery (~08/08/16) Hematuria Acute urinary retention Wears glasses Insulin dependent diabetes mellitus Ambulates with cane Prostate disease High cholesterol Restless legs TIA (transient ischemic attack) Difficulty chewing History of diverticulitis Smoker History of heart attack History of echocardiogram History of stress test Cardiology follow-up encounter COPD (chronic obstructive pulmonary disease) Atherosclerosis of coronary artery of [place] heart without angina pectoris Non-ST elevation myocardial infarction (NSTEMI) (~08/08/16) Essential (primary) hypertension Type 2 diabetes mellitus Anxiety Depression Heart attack Heart disease Hypertension Arthritis Neuropathy Diabetes Home Medications ?Medication ?Instructions ?Recorded ?Last Taken ?Type clopidogrel 75 mg tablet (Plavix) 75 mg PO DAILY 06/05/21 08/23/22 History metformin 1,000 mg tablet 1,000 mg PO BID 06/05/21 Unknown History atorvastatin 80 mg tablet 80 mg PO DAILY 06/13/22 Unknown History pregabalin 100 mg capsule 100 mg PO BID 06/13/22 Unknown History pantoprazole 20 mg tablet,delayed 20 mg PO DAILY #30 tabs 06/20/22 08/29/22 Rx release (Protonix) lisinopril 20 mg tablet 20 mg PO DAILY 07/01/22 08/29/22 History sucralfate 100 mg/mL oral 10 ml PO BID #400 mL 08/29/22 Unknown Rx suspension (Carafate) tamsulosin 0.4 mg capsule (Flomax) 0.4 mg PO BID #60 caps 08/30/22 Unknown Rx dapagliflozin propanediol 10 mg 10 mg PO DAILY 01/12/23 Unknown History tablet (Farxiga) finasteride 5 mg tablet 5 mg PO DAILY 01/12/23 Unknown History glimepiride 4 mg tablet 4 mg PO DAILY 01/12/23 Unknown History tadalafil 20 mg tablet 20 mg PO DAILY PRN sexual activity 01/12/23 Unknown History tramadol 50 mg tablet 50 mg PO Q4H PRN PRN Pain #20 tabs 02/17/23 Unknown Rx ibuprofen 600 mg tablet 600 mg PO Q8H PRN PRN pain 5 days 04/15/23 Unknown Rx #15 TABLETS penicillin V potassium 500 mg 500 mg PO 4X/DAY #39 tabs 04/15/23 Unknown Rx tablet metoprolol tartrate 50 mg tablet 50 mg PO BID #180 tabs 10/16/23 Unknown Rx Allergy/AdvReac Type Severity Reaction Status Date / Time fentanyl Allergy Intermediate Pain in Verified 02/12/24 13:08 joints acetaminophen (From Percocet) Allergy Vomiting Verified 02/12/24 13:08 diphenhydramine (From Allergy Other Verified 02/12/24 13:08 Benadryl) oxycodone (From Percocet) Allergy Vomiting Verified 02/12/24 13:08 Family History Grandfather Diabetes Heart disease Hypertension Grandmother Diabetes Heart disease Hypertension Cancer stomach Father Diabetes Heart disease Hypertension Brother Heart disease Hypertension Surgical History History of colonoscopy History of esophagogastroduodenoscopy (EGD) History of coronary artery stent placement (~08/08/16) H/O cardiac catheterization Social History Smoking Status: Current every day smoker tobacco type: cigarettes alcohol intake: former substance use type: does not use caffeine: Yes Type: coffee Number of servings: 12 EXAM Physical Exam Const Vital Signs: 04/08/24 12:43 04/08/24 13:13 04/08/24 13:43 Temperature 98.1 F Temperature Source Temporal Pulse Rate 82 79 Respiratory Rate 17 19 H Blood Pressure 95/58 L 106/64 Blood Pressure Mean 70 78 Pulse Ox 96 95 97 Oxygen Delivery Method Room Air Room Air Room Air 04/08/24 14:00 04/08/24 15:00 04/08/24 15:49 Temperature 98.4 F Temperature Source Pulse Rate 80 70 81 Respiratory Rate 20 H 18 16 Blood Pressure 128/73 H 139/79 H 136/78 H Blood Pressure Mean 91 99 97 Pulse Ox 96 98 100 Oxygen Delivery Method Room Air Room Air MDM MDM MDM Narrative Medical decision making narrative: HISTORY OF PRESENT ILLNESS: 63-year-old male history of CAD, SD, COPD, type 2 diabetes, hyperlipidemia, hypertension, status post catheterization and stent placement presents with chest pain. Per triage note patient states he developed chest pain approxi-1 hour ago. It is 9/10 in severity The patient denies recent surgery in the last 4 weeks or immobilization in the last 3 days, denies previous diagnosis of DVT or PE, hemoptysis, unilateral leg swelling or malignancy with treatment the last 6 months or palliative. No estrogen use noted. Patient denies sudden onset of pain, no tearing sensation, no migratory symptoms, no new numbness, weakness or loss of sensation. Patient denies family history or personal history of Connective tissue disorders (Marfan's Syndrome, Christina Danlos etc) REVIEW OF SYSTEMS: Pertinent positives: Chest pain Pertinent negatives: Syncope, leg swelling, focal weakness PHYSICAL EXAM: Nursing triage notes reviewed, Vital signs reviewed Constitutional: please see [facility] HENT: MMM Eyes: Pupils equal round and reactive to light, Extraocular muscles intact Neck: No stridor, no JVD, full neck ROM Lungs: Clear to auscultation, No wheezing or rales. No increased work of breathing, no conversational dyspnea, no accessory muscle use, no nasal flaring. No respiratory distress noted Heart: Regular rate and rhythm, No murmurs, No rubs and No gallops, 2+ distal pulses (radial, femoral, posterior tibial) in all extremities Abdomen: Soft, there is no tenderness, rigidity, rebound or guarding, no obvious peritoneal signs, no palpable pulsatile abdominal masses, no auscultated abdominal bruit : No CVAT Extremities: No edema Neuro: No focal neurological deficits, cranial nerves II through XII intact, 5/5 strength in all extremities. Intact sensation to light touch in all extremities, 2+ reflexes bilateral patella tendons. Normal gait. No ataxia. Skin: No rash or lesions noted MEDICAL DECISION MAKING: Chief Complaint: Chest pain External records reviewed: Last catheterization noted in 2017 Factors affecting care: As per HPI [facility] Narrative: Patient was initially hemodynamically stable, afebrile and nontoxic-appearing, in no acute distress. Exam without focal cardiopulmonary abnormalities I considered the following differential diagnosis: ACS, arrhythmia, anemia, electro disturbance, PE, aortic dissection, pneumothorax, pericarditis I obtained a broad lab and imaging workup to further elucidate etiology of patient complaint. I gave the patient aspirin initially for metallic benefit. Held nitroglycerin given initial blood pressure 95/58 While I considered PE as potential etiology the patient had a low risk Wells score and as such have a low suspicion for PE. Indication for CT at this time. While considered aortic dissection potential etiology the patient had no pulse deficits, focal neurologic deficits, stroke risk factors to suggest aortic dissection. I considered obtaining a CT scan of the chest abdomen pelvis however thought this was not indicated this time given lack of physical exam and stroke risk factors to suggest aortic dissection. ALL IMAGES (IF OBTAINED) HAVE BEEN PERSONALLY REVIEWED AND INTERPRETED BY MYSELF. EKG with normal sinus rhythm, left ax deviation, normal intervals, no STEMI High-sensitivity troponin is negative, no evidence of myocardial ischemia x 2 CBC without leukocytosis, severe anemia, no thrombocytopenia. BMP without evidence of significant electrolyte abnormalities, no anion gap, no acute kidney injury. I have personally reviewed the patient's chest x-ray. Chest x-ray is unremarkable for pulmonary edema, pneumothorax, pneumonia or focal cardiopulmonary abnormality. Patient was reevaluated he was chest pain-free. There is no indication for admission at this time as patient rules out for high-sensitivity troponin protocol. He is instructed to follow-up with his primary care physician to get outpatient stress test. Told to return if symptoms change or worsen. The patient and/or family, caregivers express understanding. The patient and/or family, caregivers agrees with the plan. Shared decision making: I will have a discussion with the patient and or visitors regarding risk/benefits of further testing or admission. They will be made aware of of the risk/benefits inherent in this decision they will be given the opportunity to voice understanding. Total critical care time today provided was at least 0 minutes. This excludes separately billable procedures. Critical care time (if documented) is secondary to the patient having high probability of clinically significant/life threatening deterioration in the patient's condition which required my urgent intervention. Impression: 1. Chest pain 2. History of CAD Dispo: Discharge home This note was generated with [employer] dictation software. It may contain incorrect words, spelling, and punctuation that were not noted in review of the chart prior to signing. Lab Data Labs: Laboratory Results - last 24 hr 04/08/24 04/08/24 12:27 14:37 WBC 8.5 RBC 5.08 Hgb 14.3 Hct 44.5 MCV 87.6 MCH 28.1 MCHC 32.1 RDW Std Deviation 42.4 RDW Coeff of Serafin 13.2 Plt Count 168 MPV 12.5 H Immature Gran % (Auto) 0.400 Neut % (Auto) 59.4 Lymph % (Auto) 29.6 [place] % (Auto) 7.6 Eos % (Auto) 2.5 Baso % (Auto) 0.5 Absolute Neuts (auto) 5.1 Absolute Lymphs (auto) 2.52 Nucleated RBC % 0 Sodium 138 Potassium 4.4 Chloride 104 Carbon Dioxide 24.0 Anion Gap 10 BUN 17 Creatinine 1.20 Estim Creat Clear Calc 60.83 Est GFR (MDRD) Af Amer 79 Est GFR (MDRD) Non-Af 65 BUN/Creatinine Ratio 14.2 Glucose 242 H Calcium 9.6 Troponin I High Sens 6 5 Radiography Diagnostic Testing: Clinical Impression(s) from Imaging Studies Chest X-Ray 04/08/24 13:20 IMPRESSION: No radiographic evidence of acute cardiopulmonary disease. Electronically Signed: Sam Joshi MD at 13:38 EDT , Discharge Plan Triage Chief Complaint: Chest Pain ED Provider: Charlie Santana Dx/Rx/DC Orders Instructions: Chest Pain [facility] Prescriptions: No Action pantoprazole [Protonix] 20 mg tablet,delayed release (DR/EC) 20 mg PO DAILY Qty: 30 1RF tamsulosin [Flomax] 0.4 mg capsule 0.4 mg PO BID Qty: 60 0RF glimepiride 4 mg tablet 4 mg PO DAILY Patient Comments: TAKE 1 TABLET BY MOUTH ONCE DAILY finasteride 5 mg tablet 5 mg PO DAILY tadalafil 20 mg tablet 20 mg PO DAILY PRN (Reason: sexual activity) Patient Comments: TAKE 1 TABLET BY MOUTH ONE HOUR BEFORE INTERCOURSE Farxiga 10 mg tablet 10 mg PO DAILY clopidogrel [Plavix] 75 mg Tablet 75 mg PO DAILY metformin 1,000 mg Tablet 1,000 mg PO BID lisinopril 20 mg tablet 20 mg PO DAILY atorvastatin 80 mg tablet 80 mg PO DAILY pregabalin 100 mg capsule 100 mg PO BID penicillin V potassium 500 mg tablet 500 mg PO 4X/DAY Qty: 39 0RF ibuprofen 600 mg tablet 600 mg PO Q8H PRN PRN (Reason: pain) 5 Days Qty: 15 0RF tramadol 50 mg tablet 50 mg PO Q4H PRN PRN (Reason: Pain) Qty: 20 0RF sucralfate [Carafate] 100 mg/mL suspension 10 ml PO BID Qty: 400 0RF metoprolol tartrate 50 mg tablet 50 mg PO BID Qty: 180 3RF Primary Care Provider: Perla Yee Referrals: Perla Yee, [Primary Care Provider] - Activity Restrictions/Additional Instructions: Thank you for trusting us with your care today! Please take Tylenol (2 pills, 650 mg), ibuprofen (2 pills, 400 mg) every 6 hours as needed for pain and fever control. Please take a daily aspirin. Please return to the emergency department if your symptoms change or worsen. Please follow with your primary care physician for further outpatient evaluation and management. Print Language: Armenian Disposition Disposition: Home, Self Care Discharge Date/Time: 04/08/24 15:50
[2024-04-08 13:13] VITALS: O2SAT 95
--- NOTE | 2024-04-08 13:13 | EKG12_ITS ---
Test Reason : CP Blood Pressure : / mmHG Vent. Rate : 082 BPM Atrial Rate : 082 BPM P-R Int : 158 ms QRS Dur : 084 ms QT Int : 378 ms P-R-T Axes : 049 -17 017 degrees QTc Int : 441 ms Normal sinus rhythm Inferior infarct , age undetermined Abnormal ECG Confirmed by ALMAS MENA, AURE ([id number]), rewrite editor BILL COREY ([id number]) on 04/09/2024 7:41:03 AM Referred By: SHENG/LOVELY Confirmed By:AURE COBURN MD
--- NOTE | 2024-04-08 13:20 | RAD_ITS ---
INDICATION: chest pain EXAMINATION/TECHNIQUE: X-RAY - XR Chest 1 View COMPARISON: Prior study dated: 02/17/2023 FINDINGS: LINES/DEVICES: None. LUNGS: No consolidation, edema or effusion. No pneumothorax. MEDIASTINUM AND CARDIOVASCULAR STRUCTURES: Cardiac silhouette not enlarged. Central airways and mediastinal contour are unremarkable. BONES AND SOFT TISSUES: Unremarkable. RAD/Chest 1 View (Portable) IMPRESSION: No radiographic evidence of acute cardiopulmonary disease. Electronically Signed: Sam Joshi MD at 13:38 EDT ,
[2024-04-08 13:33] LABS: Absolute Lymphocyte Count 2.52 X10^3/uL (0.83-4.51); Absolute Neutrophil Count 5.1 X10^3/uL (2.0-7.7); Basophil# 0.04 X10^3/uL; Basophil% 0.5 % (0-1); Eosinophil# 0.21 X10^3/uL; Eosinophils% 2.5 % (0-5); Hematocrit 44.5 % (40-54); Hemoglobin 14.3 g/dL (13.0-16.5); Lymphocyte # 2.52 X10^3/ul (0.83-4.51); Lymphocyte % 29.6 % (19-41); Mean Corp Hgb Conc 32.1 g/dL (32-36); Mean Corpuscular Hgb 28.1 pg (27.0-32.0); Mean Corpuscular Volume 87.6 fL (80-94); Mean Platelet Vol. 12.5 fl (6.2-12.0); Monocyte# 0.65 X10^3/uL; Monocyte% 7.6 % (0-10); NRBC Flagged by Analyzer 0 % (0-5); Neutrophil # 5.05 X10^3/uL (2.7-7.7); Neutrophil % 59.4 % (47-70); Platelet Count 168 K/mm3 (150-450); RBC Distribution Width CV 13.2 % (11.6-14.6); RBC Distribution Width SD 42.4 fl (35.1-43.9); Red Blood Count 5.08 M/mm3 (4.6-6.2); White Blood Count 8.5 K/mm3 (4.4-11.0)
[2024-04-08 13:43] VITALS: BP 106/64; PULSE 79; RESP 19; O2SAT 97
[2024-04-08 13:51] LABS: Anion Gap 10 (5-15); BUN 17 mg/dL (7-18); BUN/Creat Ratio 14.2 RATIO (10-20); Calcium,Total 9.6 mg/dL (8.5-10.1); Chloride 104 mmol/L (98-107); EST Glomerular Filtration Rate 65 mL/min (>60); Est Glom Filt Rate - Afr Amer 79 mL/min (>60); Estimated Creatinine Clearance 60.83 ml/min; Glucose 242 mg/dL (74-106); Potassium 4.4 mmol/L (3.5-5.1); Sodium Level 138 mmol/L (136-145); Troponin-I HS (w/2H Reflex) 6 pg/mL (3.0-78.0)
[2024-04-08 14:00] VITALS: BP 128/73; PULSE 80; RESP 20; O2SAT 96
[2024-04-08 15:00] VITALS: BP 139/79; PULSE 70; RESP 18; O2SAT 98
[2024-04-08 15:21] LABS: Reflex Troponin-HS? (from REC) Y
[2024-04-08 15:41] LABS: Troponin-I HS 5 pg/mL (3.0-78.0)
[2024-04-08 15:49] VITALS: BP 136/78; PULSE 81; RESP 16; TEMP 36.9; O2SAT 100
== END 2024-04-08 15:50 | disposition home or self-care (01) ==
PROVIDERS: Emergency Provider Emergency Medicine; PCP Family Medicine; Visit Provider Emergency Medicine
DX: R07.9 Chest pain, unspecified (principal); J44.9 Chronic obstructive pulmonary disease, unspecified; E11.40 Type 2 diabetes mellitus with diabetic neuropathy, unspecified; I10 Essential (primary) hypertension; I25.10 Atherosclerotic heart disease of native coronary artery without angina pectoris; E78.00 Pure hypercholesterolemia, unspecified; F32.A Depression, unspecified; F41.9 Anxiety disorder, unspecified; I25.2 Old myocardial infarction; F17.210 Nicotine dependence, cigarettes, uncomplicated; Z79.02 Long term (current) use of antithrombotics/antiplatelets; Z79.84 Long term (current) use of oral hypoglycemic drugs; Z79.899 Other long term (current) drug therapy; Z95.5 Presence of coronary angioplasty implant and graft
CPT/HCPCS: 71045; 80048; 84484; 85025; 93005; 99284; A4216

== ENCOUNTER → 2024-06-18 | Outpatient (CLI) | payer MEDICARE, SELFPAY ==
[2024-06-18 12:45] LABS: Absolute Neutrophil Count 4.9 X10^3/uL (2.0-7.7); Basophil# 0.04 X10^3/uL; Basophil% 0.5 % (0-1); Eosinophil# 0.15 X10^3/uL; Eosinophils% 1.8 % (0-5); Hemoglobin 13.1 g/dL (13.0-16.5); Mean Corpuscular Hgb 27.7 pg (27.0-32.0); Mean Corpuscular Volume 86.7 fL (80-94); Mean Platelet Vol. 10.7 fl (6.2-12.0); Monocyte# 0.84 X10^3/uL; Monocyte% 10.3 % (0-10); NRBC Flagged by Analyzer 0 % (0-5); Neutrophil # 4.89 X10^3/uL (2.7-7.7); Neutrophil % 60.2 % (47-70); Platelet Count 252 K/mm3 (150-450); RBC Distribution Width CV 13.2 % (11.6-14.6); RBC Distribution Width SD 42.1 fl (35.1-43.9); Red Blood Count 4.73 M/mm3 (4.6-6.2); White Blood Count 8.1 K/mm3 (4.4-11.0)
[2024-06-18 13:12] LABS: ALB/GLOB Ratio 0.9 RATIO (0.9-2.4); AST(SGOT) 29 U/L (15-37); Alanine Aminotransfer ALT/SGPT 55 U/L (16-61); Albumin, Serum 3.8 g/dL (3.2-5.0); Alkaline Phosphatase 119 U/L (45-117); Anion Gap 9 (5-15); BUN 15 mg/dL (7-18); BUN/Creat Ratio 13.9 RATIO (10-20); Calcium,Total 9.3 mg/dL (8.5-10.1); Chloride 104 mmol/L (98-107); Creatinine, Serum 1.08 mg/dL (0.70-1.30); EST Glomerular Filtration Rate 74 mL/min (>60); Est Glom Filt Rate - Afr Amer 89 mL/min (>60); Globulin 4.3 g/dL (2.2-4.2); Glucose 101 mg/dL (74-106); Potassium 4.8 mmol/L (3.5-5.1); Protein, Total 8.1 g/dL (6.4-8.2); Sodium Level 136 mmol/L (136-145); Thyroid Stim Hormone (TSH) 0.702 uIU/mL (0.358-3.740)
== END | disposition home or self-care (01) ==
LOC: VSLAB 12:00
PROVIDERS: PCP Family Medicine; Visit Provider Family Medicine
DX: E11.9 Type 2 diabetes mellitus without complications (principal)
CPT/HCPCS: 36415; 80053; 84443; 85025

== ENCOUNTER → 2025-02-26 | Outpatient (CLI) | payer MEDICARE, SELFPAY ==
[2025-02-26 17:13] LABS: CRP 5.08 mg/L (0.0-3.0)
[2025-02-26 17:16] LABS: FOLATES,SERUM (FOLIC ACID) 7.80 ng/mL (4.60-34.80)
[2025-02-26 17:22] LABS: AST(SGOT) 15 U/L (<=37); Alanine Aminotransfer ALT/SGPT 19 U/L (<=46); Albumin, Serum 4.2 g/dL (3.4-4.8); Alkaline Phosphatase 89 U/L (40-129); Anion Gap 12 (5-15); BUN 15 mg/dL (4-19); BUN/Creat Ratio 15.2 RATIO (10-20); Calcium,Total 9.5 mg/dL (7.6-11.0); Carbon Dioxide 22.4 mmol/L (21.0-32.0); Chloride 101 mmol/L (98-108); Globulin 2.3 g/dL (2.2-4.2); Glucose 256 mg/dL (70-99); Potassium 4.6 mmol/L (3.3-5.1); Syphilis Antibodies Nonreactive (Nonreactive); Vitamin B12 630 pg/mL (180-914)
[2025-02-26 18:30] LABS: Osmolality, Serum 308 mOsm/KG (280-301)
== END | disposition home or self-care (01) ==
PROVIDERS: PCP Family Medicine; Visit Provider Family Medicine
DX: E11.65 Type 2 diabetes mellitus with hyperglycemia (principal); R51.9 Headache, unspecified; R26.89 Other abnormalities of gait and mobility
CPT/HCPCS: 36415; 80053; 82607; 82746; 83036; 83930; 84443; 85652; 86140; 86780

== ENCOUNTER → 2025-02-27 | Outpatient (CLI) | payer MEDICARE, SELFPAY ==
[2025-02-27 20:24] LABS: Creatinine, Urine (random) 52.70 mg/dL (39.00-259.00); Microalbumin,Random Urine 47.8 mg/L (<20 mg/L)
== END | disposition home or self-care (01) ==
LOC: LABSPEC 13:53
PROVIDERS: PCP Family Medicine; Visit Provider Family Medicine
DX: E11.65 Type 2 diabetes mellitus with hyperglycemia (principal); R51.9 Headache, unspecified; R26.89 Other abnormalities of gait and mobility
CPT/HCPCS: 82043; 82570

== ENCOUNTER → 2025-03-07 | Outpatient (CLI) | payer MEDICARE, SELFPAY ==
--- NOTE | 2025-03-07 13:39 | CT_ITS ---
PROCEDURE: LOW DOSE CT LUNG SCREENING 03/07/2025 REASON FOR EXAM: H/O TOBACCO DEPENDENCY Patient has smoked for 51 years. TECHNIQUE: LOW DOSE CT LUNG SCREENING Coronal and Sagittal reconstruction series were provided. One or more dose reduction techniques were used (e.g., Automated exposure control, adjustment of the mA and/or kV according to patient size, use of iterative reconstruction technique). REFERENCE LINK: [place] Lung-RADS RADIATION DOSE SUMMARY: CTDlvol: 24.5 mGy DLP: 895.98 mGycm COMPARISON: Prior study dated November 20, 2023. FINDINGS: PULMONARY NODULES: (Only nodules >3mm are reported) Nodules described below are on series 1 unless otherwise specified. Pulmonary Nodules: There is a new 7.9 mm noncalcified nodule in the posterior aspect of the left upper lobe abutting the left major fissure. This is best seen on axial image number 104 linear streaky density is seen anterior to it. Hardware:None Lymph Nodes:No suspicious lymph nodes are seen. Heart and Vasculature:The heart is nonenlarged.Atherosclerotic calcifications of the thoracic aorta. Thoracic aorta and pulmonary arteries have normal contours; noncontrast technique limits evaluation. Coronary Artery Calcifications: Present Lungs and Airways: No significant emphysematous changes are seen. No focal infiltrate Pleura:Unremarkable Upper Abdomen:Unremarkable Bones:Degenerative changes of the thoracic spine. CT/Low Dose CT Lung Screening IMPRESSION: There is a new 7.9 mm noncalcified nodule in the posterior aspect of the left u pper lobe abutting the left major fissure. Study is seen anterior to. Correlation with a PET scan ended. Coronary artery calcification (CAC) is is present Lung-RADS Category: 4B VERY SUSPICIOUS. RECOMMEND DIAGNOSTIC CHEST CT; PET/CT M AY BE CONSIDERED IF >=8MM SOLID NODULE OR SOLID COMPONENT; TISSUE SAMPLING; AND/OR REFERRAL FOR CLINICAL EVALUATION. IF AIRWAY NODULE THEN REFER FOR CLINICAL EVALUATION Other Significant Findings: Reading Location: [id number]
--- NOTE | 2025-03-07 13:40 | CT_ITS ---
PROCEDURE: BRAIN/HEAD WITHOUT CONTRAST 03/07/2025 REASON FOR EXAM: OTHER ABNORMALITIES OF GAIT AND MOBILITY headache and dizziness. Vision changes. TECHNIQUE: BRAIN/HEAD WITHOUT CONTRAST Coronal and Sagittal reconstruction series were provided. One or more dose reduction techniques were used (e.g., Automated exposure control, adjustment of the mA and/or kV according to patient size, use of iterative reconstruction technique. RADIATION DOSE SUMMARY: CTDlvol: 49.45 mGy DLP: 895.98 mGycm COMPARISON: None. FINDINGS: Brain: [id number] bilateral cerebral white matter changes are seen, wueo-[id number]-right, most consistent with chronic ischemic changes of small-vessel disease. No intracranial hemorrhage, mass, or mass effect is seen. No extra-axial fluid collection is noted. No orbital pathology is seen. CSF Spaces: Within normal limits for age. Sinuses/Mastoids: Clear at visualized levels Bones: Innumerable small lytic lesions are seen throughout the skull. Differential diagnosis includes multiple myeloma, metastatic disease, and other causes. CT/Brain/Head without Contrast IMPRESSION: 1. Innumerable small lytic lesions are seen throughout the skull. Differential diagnosis includes multiple myeloma, metastatic disease, and other causes. 2. No acute intracranial process is seen. 3. Yhby-rm-hiustpmm bilateral cerebral white matter changes are seen, left-grea ulf-gymc-skfzj, most consistent with chronic ischemic changes of small-vessel disease. Reading Location: [place] [id number]
[2025-03-07 14:17] VITALS: PULSE 100; PULSE 87; PULSE 88; PULSE 93; PULSE 95; PULSE 98; PULSE 99; O2SAT 95; O2SAT 96; O2SAT 97
--- NOTE | 2025-03-10 11:54 | WT_ITS ---
PSN 6 Minute Walk Test 6 Minute Walk Test 6 Minute Walk Test: 6 Minute Walk Test PSN:6-Minute Walk Test Start: 03/07/25 14:16 Freq: Status: Active Protocol: [id number] Document 03/07/25 14:17 [facility] (Rec: 03/07/25 14:22 [facility] [id number]) 6 Minute Walk Test Date Performed 03/07/25 Time Performed 13:30 Height 5 ft 4 in Weight: 150 lb Weight in Pounds 150.[address]: Chidi Diallo Assistive device Cane used: Pre-test Oxygen Delivery Room Air Method Pulse Ox (%) 96 Pulse Rate (60-100 88 beats/min) Dyspnea [place] Scale ( 3 0-10) Exertion [place] Scale 8 (6-20) Reported Symptoms Increased Work of Breathing 1st minute Oxygen Delivery Room Air Method Pulse Ox (%) 95 Pulse Rate (60-100 93 beats/min) Dyspnea [place] Scale ( 3 0-10) Number of Rests 0 Taken Reported Symptoms Increased Work of Breathing 2nd minute Oxygen Delivery Room Air Method Pulse Ox (%) 96 Pulse Rate (60-100 95 beats/min) Dyspnea [place] Scale ( 3 0-10) Number of Rests 0 Taken Reported Symptoms Increased Work of Breathing 3rd minute Oxygen Delivery Room Air Method Pulse Ox (%) 95 Pulse Rate (60-100 100 beats/min) Dyspnea [place] Scale ( 3 0-10) Number of Rests 0 Taken Reported Symptoms Increased Work of Breathing 4th minute Oxygen Delivery Room Air Method Pulse Ox (%) 96 Pulse Rate (60-100 99 beats/min) Dyspnea [place] Scale ( 3 0-10) Number of Rests 0 Taken Reported Symptoms Increased Work of Breathing 5th minute Oxygen Delivery Room Air Method Pulse Ox (%) 95 Pulse Rate (60-100 100 beats/min) Dyspnea [place] Scale ( 3 0-10) Number of Rests 0 Taken Reported Symptoms Increased Work of Breathing 6th minute Oxygen Delivery Room Air Method Pulse Ox (%) 96 Pulse Rate (60-100 98 beats/min) Dyspnea [place] Scale ( 3 0-10) Number of Rests 0 Taken Reported Symptoms Increased Work of Breathing Post-test Oxygen Delivery Room Air Method Pulse Ox (%) 97 Pulse Rate (60-100 87 beats/min) Dyspnea [place]a Scale ( 3 0-10) Exertion [place]a Scale 8 (6-20) Reported Symptoms Increased Work of Breathing Full Laps Walked 13 Partial Lap, Number 0 of Tiles Walked Total Distance 767 Walked (ft) Interpretation Interpretation: The patient ambulated 767 feet over the course of 6 minutes beginning on room air with the use of a cane. Pretesting oxygen saturation was noted to be 96% on room air. With ambulation, the kasey oxygen saturation was 95%. There was no significant exertional oxygen desaturation. Recommendations Recommendations: There is no indication for the use of supplemental oxygen at this time.
== END | disposition home or self-care (01) ==
PROVIDERS: PCP Family Medicine; Referring Provider Internal Medicine Critical Care Medicine; Visit Provider Internal Medicine Critical Care Medicine
DX: R26.89 Other abnormalities of gait and mobility (principal); J44.9 Chronic obstructive pulmonary disease, unspecified; F17.210 Nicotine dependence, cigarettes, uncomplicated
CPT/HCPCS: 70450; 71271; 94618

== ENCOUNTER 2025-03-08 11:32 | Observation (INO) | payer MEDICARE, SELFPAY ==
[2025-03-08] VITALS (11 sets, daily range): BP systolic 126–169; BP diastolic 68–92; PULSE 65–75; RESP 16–22; TEMP 36.4–36.9; O2SAT 95–100; BMI 25.9; BMI 28.5
--- NOTE | 2025-03-08 11:37 | CT_ITS ---
PROCEDURE: STROKE BRAIN/HEAD WITHOUT CONT 03/08/2025 REASON FOR EXAM: NEURO DEFICIT, ACUTE, STROKE SUSPECTED TECHNIQUE: STROKE BRAIN/HEAD WITHOUT CONT Coronal and Sagittal reconstruction series were provided. One or more dose reduction techniques were used (e.g., Automated exposure control, adjustment of the mA and/or kV according to patient size, use of iterative reconstruction technique. RADIATION DOSE SUMMARY: CTDlvol: 45 mGy DLP: 745 mGycm COMPARISON: March 07, 2025 FINDINGS: Brain: There is no evidence of hemorrhage, acute ischemia or mass. No extra- axial fluid collection, midline shift or mass effect. Low-density in the periventricular white matter and deep white matter of the frontal and parietal lobes. CSF Spaces: Mild generalized cerebral atrophy Sinuses/Mastoids: Hypoplastic frontal sinuses. Sinuses are otherwise clear. Mastoid air cells are clear. Bones: No fracture. Once again there subtle lucencies throughout the calvarium. CT/STROKE Brain/Head without Cont IMPRESSION: 1. No evidence of intracranial hemorrhage or acute ischemia. 2. Changes of chronic microvascular ischemia and volume loss. 3. Subtle lucencies within the calvarium again noted. Metastatic disease vers us myeloma is a consideration. Findings and impression were called directly to Dr. Quigley at 11:50 a.m. Eastern standard time. Reading Location: [id number]
--- NOTE | 2025-03-08 11:37 | EKG12_ITS ---
Test Reason : STROKE ALERT Blood Pressure : */* mmHG Vent. Rate : 69 BPM Atrial Rate : 69 BPM P-R Int : 160 ms QRS Dur : 84 ms QT Int : 374 ms P-R-T Axes : 48 -25 11 degrees QTcB Int : 400 ms Normal sinus rhythm Septal infarct , age undetermined Abnormal ECG Confirmed by AURE COBURN MD ([id number]), desk editor ECHO OTTO ([id number]) on 03/10/2025 1:10:37 PM Referred By: Christi Quigley Confirmed By: AURE COBURN MD
--- NOTE | 2025-03-08 11:38 | CT_ITS ---
PROCEDURE: STROKE CTA HEAD AND NECK W/CON 03/08/2025 REASON FOR EXAM: NEURO DEFICIT, ACUTE, STROKE SUSPECTED TECHNIQUE: STROKE CTA HEAD AND NECK W/CON Multiplanar Sagittal and Coronal images were obtained. CONTRAST: Isovue 370 VOLUME: 97 mL One or more dose reduction techniques were used (e.g., Automated exposure control, adjustment of the mA and/or kV according to patient size, use of iterative reconstruction technique). RADIATION DOSE SUMMARY: CTDlvol: 20.72 mGy DLP: 754.64 mGycm COMPARISON: None. FINDINGS: Aortic Arch: Normal size and branching pattern. No significant atherosclerotic plaque. Brachiocephalic and Subclavians: Unremarkable RIGHT Carotid: Right CCA: Unremarkable. Right ICA: Unremarkable. Right ECA: Unremarkable. LEFT Carotid: Left CCA: Unremarkable. Left ICA: Unremarkable. Left ECA: Unremarkable. Vertebrals: Codominant. Arise from the subclavians. Both vertebrals form the basilar. RIGHT Vertebral: Unremarkable. LEFT Vertebral: Unremarkable. Anatomy: [place] anatomy is normal. Aneurysm or avm: No intracranial aneurysms or large vascular malformations are identified. Anterior cerebral arteries: Unremarkable: Middle cerebral arteries: Unremarkable. Basilar artery: Unremarkable. Posterior cerebral arteries: Unremarkable. Other major branches of the posterior circulation: Unremarkable. Major venous structures: Unremarkable. Other findings: Neck: No lymphadenopathy. Lungs: Lung apices are clear. Bones: Bones are unremarkable. CT/STROKE CTA Head AND Neck W/Con IMPRESSION: No significant stenosis in the head and neck. No aneurysm or vascular malforma tion. Reading Location: [facility]
--- NOTE | 2025-03-08 11:40 | EDS_ITS ---
HPI History of Present Illness Chief Complaint: Stroke Alert [facility] Medical History Presence of stent in coronary artery (~08/08/16) Hematuria Acute urinary retention Wears glasses Insulin dependent diabetes mellitus Ambulates with cane Prostate disease High cholesterol Restless legs TIA (transient ischemic attack) Difficulty chewing History of diverticulitis Smoker History of heart attack History of echocardiogram History of stress test Cardiology follow-up encounter COPD (chronic obstructive pulmonary disease) Atherosclerosis of coronary artery of [place] heart without angina pectoris Non-ST elevation myocardial infarction (NSTEMI) (~08/08/16) Essential (primary) hypertension Type 2 diabetes mellitus Anxiety Depression Heart attack Heart disease Hypertension Arthritis Neuropathy Diabetes Home Medications ?Medication ?Instructions ?Recorded ?Last Taken ?Type clopidogrel 75 mg tablet (Plavix) 75 mg PO DAILY 06/0508/23/22 History metformin 1,000 mg tablet 1,000 mg PO BID 06/05/21 Unk nown History atorvastatin 80 mg tablet 80 mg PO DAILY 06/13/22 Unkn own History pregabalin 100 mg capsule 100 mg PO BID 06/13/22 Unkno wn History pantoprazole 20 mg tablet,delayed 20 mg PO DAILY #30 t abs 06/20/22 08/29/22 Rx release (Protonix) lisinopril 20 mg tablet 20 mg PO DAILY 07/01/2208/02 History sucralfate 100 mg/mL oral 10 ml PO BID #400 mL 3 Unknown Rx suspension (Carafate) tamsulosin 0.4 mg capsule (Flomax) 0.4 mg PO BID #60 c aps 08/30/22 Unknown Rx dapagliflozin propanediol 10 mg 10 mg PO DAILY 3 Unknown History tablet (Farxiga) finasteride 5 mg tablet 5 mg PO DAILY 01/12/23 Unkno wn History glimepiride 4 mg tablet 4 mg PO DAILY 01/12/23 Unkno wn History tadalafil 20 mg tablet 20 mg PO DAILY PRN sexual ac tivity 01/12/23 Unknown History tramadol 50 mg tablet 50 mg PO Q4H PRN PRN Pain #2 0 tabs 02/17/23 Unknown Rx ibuprofen 600 mg tablet 600 mg PO Q8H PRN PRN pain 5 days 04/15/23 Unknown Rx #15 TABLETS penicillin V potassium 500 mg 500 mg PO 4X/DAY #39 tab s 04/15/23 Unknown Rx tablet metoprolol tartrate 50 mg tablet 50 mg PO BID #180 tab s 10/16/23 Unknown Rx Allergy/AdvReac Type Severity Reaction Status Date / Time fentanyl Allergy Intermediate Pain in Verified 02/25/25 11:33 joints acetaminophen (From Percocet) Allergy Vomiting Verified 02/25/25 11:33 diphenhydramine (From Allergy Other Verified 02/25/25 11:33 Benadryl) oxycodone (From Percocet) Allergy Vomiting Verified 02/25/25 11:33 Family History Grandfather Diabetes Heart disease Hypertension Grandmother Diabetes Heart disease Hypertension Cancer stomach Father Diabetes Heart disease Hypertension Brother Heart disease Hypertension Surgical History History of colonoscopy History of esophagogastroduodenoscopy (EGD) History of coronary artery stent placement (~08/08/16) H/O cardiac catheterization Social History Smoking Status: Current every day smoker tobacco type: cigarettes alcohol intake: former substance use type: does not use caffeine: Yes Type: coffee Number of servings: 12 Discharge Plan Triage Chief Complaint: Stroke Alert ED Provider: Christi Quigley Dx/Rx/DC Orders Prescriptions: No Action pantoprazole [Protonix] 20 mg tablet,delayed release (DR/EC) 20 mg PO DAILY Qty: 30 1RF tamsulosin [Flomax] 0.4 mg capsule 0.4 mg PO BID Qty: 60 0RF glimepiride 4 mg tablet 4 mg PO DAILY Patient Comments: TAKE 1 TABLET BY MOUTH ONCE DAILY finasteride 5 mg tablet 5 mg PO DAILY tadalafil 20 mg tablet 20 mg PO DAILY PRN (Reason: sexual activity) Patient Comments: TAKE 1 TABLET BY MOUTH ONE HOUR BEFORE INTERCOURSE Farxiga 10 mg tablet 10 mg PO DAILY clopidogrel [Plavix] 75 mg Tablet 75 mg PO DAILY metformin 1,000 mg Tablet 1,000 mg PO BID lisinopril 20 mg tablet 20 mg PO DAILY atorvastatin 80 mg tablet 80 mg PO DAILY pregabalin 100 mg capsule 100 mg PO BID penicillin V potassium 500 mg tablet 500 mg PO 4X/DAY Qty: 39 0RF ibuprofen 600 mg tablet 600 mg PO Q8H PRN PRN (Reason: pain) 5 Days Qty: 15 0RF tramadol 50 mg tablet 50 mg PO Q4H PRN PRN (Reason: Pain) Qty: 20 0RF sucralfate [Carafate] 100 mg/mL suspension 10 ml PO BID Qty: 400 0RF metoprolol tartrate 50 mg tablet 50 mg PO BID Qty: 180 3RF Primary Care Provider: Perla Yee Referrals: Perla Yee, DO [Primary Care Provider] - Print Language: Hebrew
--- NOTE | 2025-03-08 11:42 | CM.ED ---
Social Work Date of referral: 03/08/25 Reason for referral: Stroke Alert Maintenance Coordinator provided emotional support to patient's who was tearful and recounted the events of this morning with patient. Patient was taken away for medical treatment and addiction social worker then walked with patient's to the room patient would come back to, where the nurse began to ask questions. Maintenance Coordinator left at that time. Vicky Kang, TESTER OPERATOR HELPER, SIGNALS COLLECTOR/ANALYST
[2025-03-08 12:00] LABS: Hematocrit 42.2 % (40-54); Hemoglobin 13.7 g/dL (13.0-16.5); Immature Granulocytes Count 0.070 X10^3/uL (0.0-0.0); Mean Corp Hgb Conc 32.5 g/dL (32-36); Mean Corpuscular Volume 86.1 fL (80-94); Mean Platelet Vol. 11.8 fl (6.2-12.0); NRBC Flagged by Analyzer 0 % (0-5); Platelet Count 195 K/mm3 (150-450); RBC Distribution Width CV 13.0 % (11.6-14.6); RBC Distribution Width SD 40.8 fl (35.1-43.9); Red Blood Count 4.90 M/mm3 (4.6-6.2); White Blood Count 11.6 K/mm3 (4.4-11.0)
[2025-03-08 12:08] LABS: Prothrombin Time (Protime)PT. 12.5 SECONDS (11.7-14.9)
[2025-03-08 12:09] LABS: Partial Thromboplast Time 25.8 Seconds (24.1-36.2)
--- OUTSIDE RECORDS SUMMARY | 2025-03-08 12:40 | XMS RPT_ITS | CCD ---
Author Organization [facility] CliniSymo Care Team Providers Care Clother In Name Role Phone Care Physician, No Primary Referring Provider Un available Dr. Beau Beaulieu Attending Provider Dr. Kamryn Mcmanus Primary Care Provider [facility], Kamryn Mcmanus Primary Care Pro vider Lindsay No Attending Provider Unavailable Dr. Kamryn Mcmanus Referring Provider Dr. Cj Wild Attending Provider Espinoza LIFE AGENT, Candice Unavailable Dr. Beau Beaulieu Referring Provider Dr. Beau Beaulieu Other Provider [facility], Kamryn Mcmanus Referring Provid er [facility], Kamryn Mcmanus Primary Care Pro vider Lilian Barron Attending Provider Unavailable [facility], Kamryn Mcmanus Referring Provid er Dr. Cj Wild Attending Provider Joselito DO, Perla Primary Care Provider Joselito DO, Perla Referring Provider Dr. Chidi Diallo DO Attending Provider [phone] Joselito VSC, Perla Primary Care Unavailable Mitchell VSC, Agustin Attending Unavailable Joselito VSC, Perla Primary Care Unavailable Mitchell VSC, Agustin Attending Unavailable Joselito VSC, Perla Referring Unavailable Joselito VSC, Perla Primary Care Unavailable Chidi Diallo Attending Unavailable Joselito VSC, Perla Primary Care Unavailable Joselito VSC, Perla Referring Unavailable Chidi Diallo Attending Unavailable Joselito VSC, Perla Attending Un[facility] Charlie Santana Attending Unavailable Allergies Allergy Classification Reported Allergen(s) Allergy Type Date of Onset Reaction(s) Facility (10 sources) Acetaminophen Drug Allergy 2 Vomiting [facility] (10 sources) diphenhydrAMINE Drug Allergy 1 Other [facility] (10 sources) oxyCODONE Drug Allergy 2 Vomiting [facility] (3 sources) fentaNYL Drug Allergy 3 Pain in joints [facility] (1 source) Acetaminophen Drug Allergy 5 [facility] Repository (1 source) diphenhydrAMINE Drug Allergy 5 [facility] (1 source) fentaNYL Drug Allergy 5 [facility] (1 source) oxyCODONE Drug Allergy 5 [facility] Medications Current Medications Medication Drug Class(es) Dates Sig (Normalized) Sig (Original) atorvastatin 80 mg oral tablet (10 sources) HMG-CoA Reductase Inhibitor Start: 06-13-2022 take 1 tablet by mouth once daily Atorvastatin 80 mg tablet Active 80 mg PO DAILY June 13, 2022 1:00am clopidogrel 75 mg oral tablet (10 sources) P2Y12 Platelet Inhibitor Start: 06-05-2021 take 1 tablet by mouth once daily Clopidogrel (Plavix) 75 mg Tablet Active 75 mg PO DAILY June 05, 2021 12:00am dapagliflozin 10 mg oral tablet (3 sources) Sodium-Glucose Cotransporter 2 Inhibitor Start: 01-12-2023 take 1 tablet by mouth once daily Dapagliflozin Propanediol (Farxiga) 10 mg tablet Active 10 mg PO DAILY January 12, 2023 12:00am esomeprazole 20 mg delayed release oral capsule (3 sources) Proton Pump Inhibitor Start: 06-13-2022 take 1 capsule by mouth once daily Esomeprazole Magnesium (Nexium) 20 mg capsule,delayed release(DR/EC) Active 20 MG PO DAILY June 13, 2022 12:00am finasteride 5 mg oral tablet (3 sources) 5-alpha Reductase Inhibitor Start: 01-12-2023 take 1 tablet by mouth once daily Finasteride 5 mg tablet Active 5 mg PO DAILY January 12, 2023 12:00am glimepiride 4 mg oral tablet (3 sources) Sulfonylurea Start: 01-12-2023 take 1 tablet by mouth once daily Glimepiride 4 mg tablet Active 4 mg PO DAILY January 12, 2023 12:00am ibuprofen 600 mg oral tablet (3 sources) Nonsteroidal Anti-inflammatory Drug Start: 04-15-2023 take 1 tablet by mouth every eight hours as needed for pain Ibuprofen 600 mg tablet Active 600 mg PO EVERY 8 HOURS NEEDED as needed for pain 15 5 0 April 15, 2023 12:00am lisinopril 20 mg oral tablet (18 sources) Angiotensin Converting Enzyme Inhibitor Start: 07-01-2022 take 1 tablet by mouth once daily Lisinopril 20 mg tablet Active 20 mg PO DAILY July 01, 2022 10:59am Start: 06-05-2021 End: 07-01-2022 take 1 tablet by mouth twice daily Lisinopril 20 mg Tablet Discontinued 20 mg PO TWICE A DAY June 05, 2021 12:00am July 01, 2022 11:00am metFORMIN hydrochloride 1000 mg oral tablet (10 sources) Biguanide Start: 06-05-2021 take 1 tablet by mouth twice daily Metformin 1,000 mg Tablet Active 1000 mg PO TWICE A DAY June 05, 2021 12:00am pantoprazole 20 mg delayed release oral tablet (9 sources) Proton Pump Inhibitor Start: 06-20-2022 take 1 tablet by mouth once daily Pantoprazole (Protonix) 20 mg tablet,delayed release (DR/EC) Active 20 mg PO DAILY 30 1 June 20, 2022 1:00am penicillin v potassium 500 mg oral tablet (3 sources) Start: 04-15-2023 take 1 tablet by mouth four times daily Penicillin V Potassium 500 mg tablet Active 500 mg PO 4 TIMES DAILY 39 0 April 15, 2023 12:00am pregabalin 100 mg oral capsule (10 sources) Start: 06-13-2022 take 1 capsule by mouth twice daily Pregabalin 100 mg capsule Active 100 mg PO TWICE A DAY June 13, 2022 1:00am tadalafil 20 mg oral tablet (3 sources) Phosphodiesterase 5 Inhibitor Start: 01-12-2023 take 1 tablet by mouth once daily as needed Tadalafil 20 mg tablet Active 20 mg PO DAILY as needed for sexual activity January 12, 2023 12:00am traMADol hydrochloride 50 mg oral tablet (3 sources) Opioid Agonist Start: 02-17-2023 take 1 tablet by mouth every four hours as needed for pain Tramadol 50 mg tablet Active 50 mg PO EVERY 4 HOURS NEEDED as needed for Pain 20 0 February 17, 2023 12:00am Completed/Discontinued Medications Medication Drug Class(es) Dates Sig (Normalized) Sig (Original) [id number] 200 actuat albuterol 0.09 mg/actuat metered dose inhaler (18 sources) beta2-Adrenergic Agonist Start: 07-01-2022 End: 01-12-2023 Albuterol Sulfate (Proair Hfa) 90 mcg/actuation HFA aerosol inhaler Discontinued 2 NMA INHALATION .q4-6h as needed for sob July 01, 2022 10:58am January 12, 2023 2:22pm Start: 07-01-2022 End: 01-12-2023 take 1 puff(s) by inhalation every four to six hours Albuterol Sulfate (Proair Hfa) 90 mcg/actuation HFA aerosol inhaler Discontinued 2 PUFF INHALATION .q4-6h July 01, 2022 10:58am January 12, 2023 2:22pm Start: 06-05-2021 End: 07-01-2022 Albuterol Sulfate (Proair Hf a) 90 mcg/actuation Hfa Aerosol Inhaler Discontinued 1 - 2 NMA INHALATION EVERY 6 HOURS as needed for sob June 05, 2021 12:00am July 01, 2022 11:00am Start: 06-05-2021 End: 07-01-2022 take 1 puff(s) by inhalation every six hours Albuterol Sulfate (Proair Hfa) 90 mcg/actuation Hfa Aerosol Inhaler Discontinued 1 - 2 PUFF INHALATION EVERY 6 HOURS June 05, 2021 12:00am July 01, 2022 11:00am aspirin 81 mg oral tablet (10 sources) Platelet Aggregation Inhibitor, Nonsteroidal Anti-inflammatory Drug Start: 06-05-2021 End: 01-12-2023 take 1 tablet by mouth once daily Aspirin 81 mg Tablet Discontinued 81 mg PO DAILY June 05, 2021 12:00am January 12, 2023 2:21pm Budesonide-Form oterol (10 sources) Corticosteroid, beta2-Adrenergic Agonist Start: 06-13-2022 End: 01-12-2023 Budesonide-Formote rol (Symbicort) 160-4.5 mcg/actuation HFA aerosol inhaler Discontinued 2 NMA INHALATION TWICE A DAY June 13, 2022 1:00am January 12, 2023 2:21pm Start: 06-13-2022 End: 01-12-2023 Budesonide-Formoterol (Symbi wendy) 160-4.5 mcg/actuation HFA aerosol inhaler Discontinued 2 INH INHALATION TWICE A DAY June 13, 2022 1:00am January 12, 2023 2:21pm Start: 06-13-2022 Budesonide-For moterol (Symbicort) 160-4.5 mcg/actuation HFA aerosol inhaler Active 2 INH INHALATION TWICE A DAY June 13, 2022 12:00am 3 ml insulin glargine 100 unt/ml pen injector (10 sources) Insulin Analog Start: 06-05-2021 End: 01-12-2023 Insulin Glargine (Basaglar Kwikpen U-100 Insulin) 100 unit/mL (3 mL) insulin pen Discontinued 20 U SC AT BEDTIME June 05, 2021 12:00am January 12, 2023 2:21pm Start: 06-05-2021 Insulin Glargi ne (Basaglar Kwikpen U-100 Insulin) 100 unit/mL (3 mL) insulin pen Active 14 UNIT SC AT BEDTIME June 04, 2021 11:00pm metoprolol tartrate 50 mg oral tablet (20 sources) beta-Adrenergic Abrahan Start: 07-07-2022 End: 10-16-2023 take 1 tablet by mouth twice daily Metoprolol Tartrate 50 mg tablet Discontinued 0 .ROUTE .COMPLEX 120 0 August 14, 2023 2:24pm October 16, 2023 12:49pm Take 1 tablet by mouth twice daily Start: 06-05-2021 End: 07-07-2022 Metoprolol Tartrate 25 mg Ta blet Discontinued 12.5 mg PO TWICE A DAY June 05, 2021 12:00am July 07, 2022 2:36pm Start: 06-05-2021 End: 07-07-2022 take 12.5 mg by mouth twice daily Metoprolol Tartrate Discontinued 12.5 MG PO TWICE A DAY June 05, 2021 12:00am July 07, 2022 2:36pm sucralfate 100 mg/ml oral suspension (11 sources) Aluminum Complex Start: 08-29-2022 End: 10-27-2022 take 1 mL by mouth twice daily Sucralfate (Carafate) 100 mg/mL suspension Discontinued 10 mL PO TWICE A DAY 600 30 0 September 27, 2022 1:00am October 26, 2022 12:00am October 27, 2022 12:04am tamsulosin hydrochloride 0.4 mg oral capsule (20 sources) alpha-Adrenergi c Abrahan Start: 06-05-2021 End: 08-30-2022 take 1 capsule by mouth twice daily Tamsulosin 0.4 mg capsule Discontinued 0.4 mg PO TWICE A DAY August 30, 2022 9:27am August 30, 2022 9:35am Acute retention of urine Benign prostatic hyperplasia Other retention of urine Benign prostatic hyperplasia without lower urinary tract symptoms Start: 06-05-2021 take 0.4 mg by mouth once jayshree y Tamsulosin Active 0.4 MG PO DAILY June 04, 2021 11:00pm Problems Active Problems Problem Classification Problem Date Documented Date Episodic/Chronic Abdominal hernia (1 source) Hiatal hernia; Translations: [Diaphragmatic hernia without obstruction or gangrene] 02-12-2024 Episodic Abdominal pain (20 sources) Acute abdominal pain; Translations: [Unspecified abdominal pain] Episodic Comment on above: This is a 61-year-ol d male, with no previous colonoscopy, who presents for rather undifferentiated pain of his left upper quadrant that has been persistent for at least the last 4 months. Patient's descriptions of a fiery burning pain are suggestive of a upper GI source. However he clearly communicates that he has no history of typical reflux or heartburn symptoms and had no relief when trialing Prevacid several years ago. He also reports a probable positive fecal occult blood test although he is unclear on the details as this was obtained just prior to his departure from [place] (having recently relocated to [place]). CT imaging from January and earlier this month was both unrevealing as to the cause of patient's abdominal discomfort. Given these negative investigations and patient's reports of some nighttime awakening, as well as the darker stool/possibly positive fecal occult blood testing, I believe an investigation with upper and lower endoscopy is warranted. Yet patient will require cardiology clearance to hold his clopidogrel ahead of these procedures in the event that biopsy is necessary. Patient is still to establish care with cardiology, but we will look to reach out to them to see what their preference is in providing this clearance. In the meantime I would like to repeat patient's fecal occult blood testing and have advised him that failure of response to 1 PPI agent is not necessarily predictive of failure to all other agents of the same class and have suggested we consider implementation of Protonix. Mr. Grant is receptive of this recommendation and willing to proceed as described. Biliary tract disease (10 sources) Biliary calculus; Translations: [Calculus of gallbladder without cholecystitis without obstruction] 06-13-2021 Episodic Cardiac dysrhythmias (13 sources) Tachycardia; Translations: [Tachycardia, unspecified] Episodic Chronic obstructive pulmonary disease and bronchiectasis (16 sources) Chronic obstructive lung disease; Translations: [Chronic obstructive pulmonary disease, unspecified] Onset: 02-25-2025 Chronic Coronary atherosclerosis and other heart disease (20 sources) Coronary arteriosclerosis; Translations: [Atherosclerotic heart disease of [place] coronary artery without angina pectoris] Chronic Diabetes mellitus with complications (1 source) Type 2 diabetes mellitus with hyperglycemia; Translations: [Type 2 diabetes mellitus with hyperglycemia] Onset: 02-27-2025 Chronic Diabetes mellitus without complication (15 sources) Type 2 diabetes mellitus; Translations: [Type 2 diabetes mellitus without complications] Onset: 07-01-2024 Chronic Disorders of lipid metabolism (14 sources) Dyslipidemia; Translations: [Hyperlipidemia, unspecified] Chronic Disorders of teeth and jaw (16 sources) Dental abscess; Translations: [Periapical abscess without sinus] 03-01-2022 Episodic Essential hypertension (14 sources) Essential hypertension; Translations: [Essential (primary) hypertension] Chronic Gastroduodenal ulcer (except hemorrhage) (7 sources) Gastric ulcer; Translations: [Gastric ulcer, unspecified as acute or chronic, without hemorrhage or perforation] 08-29-2022 Chronic Genitourinary symptoms and ill-defined conditions (13 sources) Acute retention of urine ; Translations: [Other retention of urine] 08-29-2022 Episodic Comment on above: Status post Gonzalez pl acement for acute urinary retention. Uncertain whether this is related to pulling on catheter following insertion or through the insertion procedure itself. Patient is normally on antiplatelet therapy with Plavix, but had been off this for 2 weeks on account of running out of the prescription and planning for GI endoscopy. Even during our brief consultation visit this morning this issue appears to be spontaneously resolving. I have stressed to patient the symptoms of acute catheter occlusion with a clot and informed him to notify us immediately versus present for emergent evaluation should he perceive this occurring. At this time his catheter is draining well and draining clear urine. Patient developed ac point [place] ira post procedure urinary retention following EGD and colonoscopy yesterday. Patient admits to a history of BPH and not being on his usual regimen of Flomax twice daily on account of a unfilled refill request. Gonzalez catheter was placed in the ER reportedly uneventfully, but patient developed hematuria in the early hours of this morning. He denies any trauma with pulling of his catheter. I have tried to carefully elicit whether there was any difficulty in the catheter insertion, but patient expresses that there is only discomfort with the insertion and this improved after insertion was completed. Patient's spouse questions whether the catheter could have been inserted to deeply and I described to them the importance of determining a bladder position for the Gonzalez catheter before inflating the retention balloon. This was diagrammed for them to enhance understanding. Patient expresses significant frustration that his catheter is not coming out. Given the scope of the situation, Dr. Ayala was telephoned and advised restarting Flomax and offered to follow-up with patient as an outpatient on 09/05/2022. Patient was advised on symptoms of Gonzalez clotting and catheter dysfunction and instructed to call/present for emergent evaluation should he experience the symptoms. Headache; including migraine (1 source) Headache; including migraine; Translations: [Headache, unspecified] Onset: 02-26-2025 Hyperplasia of prostate (7 sources) Benign prostatic hyperplasia; Translations: [Benign prostatic hyperplasia without lower urinary tract symptoms] 08-30-2022 Chronic Comment on above: History of BPH, felipe ent off prescribed regimen of Flomax twice daily. Reordered to patient's pharmacy as above. Nonspecific chest pain (11 sources) Chest pain; Translations: [Chest pain, unspecified] Onset: 01-14-2025 06-13-2021 Episodic Other nervous system disorders (1 source) Other abnormalities of gait and mobility; Translations: [Other abnormalities of gait and mobility] Onset: 02-26-2025 Episodic Residual codes; unclassified (2 sources) Obstructive sleep apnea syndrome; Translations: [Obstructive sleep apnea (adult) (pediatric)] 02-25-2025 Chronic Residual codes; unclassified (1 source) H/O: urinary anomaly; Translations: [Personal history of other specified conditions] 02-12-2024 Episodic Comment on above: Patient describing b oth difficulty and some discomfort with urination. History of acute urinary retention following colonoscopy. Given the increased risk around urinary retention and complications following inguinal hernia repair I have recommended we refer for evaluation before any further discussion around hernia repair. Substance-related disorders (17 sources) Nicotine dependence; Translations: [Nicotine dependence, unspecified, uncomplicated] Onset: 02-25-2025 Chronic Superficial injury; contusion (3 sources) Contusion of rib; Translations: [Contusion of unspecified front wall of thorax, initial encounter] 02-25-2023 Episodic Past or Other Problems Problem Classification Problem Date Documented Da te Episodic/Chronic Coronary atherosclerosis and other heart disease (3 sources) Stented coronary artery; Translations: [Presence of coronary angioplasty implant and graft] Onset: 07-31-2016 12-21-2022 Episodic Comment on above: PCI/QAMAR to proximal LAD 08/08/16 Results Test Name Value Interpretation Reference Range Facility Microalb:Creat Ratio,Random URon 02-27-2025 Creatinine [Mass/Vol] 52.70 mg/dL Normal 39.00-259.00 [facility] Comment on above: Performed By: #### L 502.0250 ####[facility] [id number] [place], [place], [address] MALB:CREAT 90.7 mg/g CRE High <30 mg/g CRE [facility] Comment on above: Performed By: #### L 502.0250 ####[facility] [id number] [place], [place], [address] MICROALBUMIN,UR 47.8 mg/L Normal <20 mg/L [facility] Comment on above: Performed By: #### L 502.0250 ####[facility] [id number] [place], [address] CRPon 02-26-2025 C-REACTIVE PROT 5.08 mg/L High 0.0-3.0 [facility] Comment on above: Performed By: #### L 503.0106, L509.8002, L501.9985, L502.0250, L506.0200, L501.9520, L101.9900, L501.6710, L501.7300, L500.4050 #### [facility] [address] [place], [place], [id number] Comprehensive Metabolic Prof ilon 02-26-2025 Albumin [Mass/Vol] 4.2 g/dL Normal 3.4-4.8 [facility] Comment on above: Result Comment: AMENDED REPORT 02/26/251721 ALB previously reported as: 4.0 g/dL Performed By: #### L 503.0106, L509.8002, L501.9985, L502.0250, L506.0200, L501.9520, L101.9900, L501.6710, L501.7300, L500.4050 #### [facility] [address] [place], [address] Albumin/Globulin [Mass ratio] 1.8 {ratio} Normal 0.9-2.4 [facility] Comment on above: Result Comment: AMENDED REPORT 02/26/251721 A/G previously reported as: 1.4 RATIO Performed By: #### L 503.0106, L509.8002, L501.9985, L502.0250, L506.0200, L501.9520, L101.9900, L501.6710, L501.7300, L500.4050 #### [facility] [address] [place], [address] ALK PHOS 89 U/L Normal 40-129 [facility] Comment on above: Result Comment: AMENDED REPORT 02/26/251721 ALK P previously reported as: 85 U/L Performed By: #### L 503.0106, L509.8002, L501.9985, L502.0250, L506.0200, L501.9520, L101.9900, L501.6710, L501.7300, L500.4050 #### [facility] [address] [place], [place], [id number] (216) ALT [Catalytic activity/Vol] 19 U/L Normal <=46 [facility] Comment on above: Result Comment: AMENDED REPORT 02/26/251721 ALT previously reported as: 16 U/L Performed By: #### L 503.0106, L509.8002, L501.9985, L502.0250, L506.0200, L501.9520, L101.9900, L501.6710, L501.7300, L500.4050 #### [facility] [address] [place], [place], [id number] AST [Catalytic activity/Vol] 15 U/L Normal <=37 [facility] Comment on above: Result Comment: AMENDED REPORT 02/26/251721 AST previously reported as: 16 U/L Performed By: #### L 503.0106, L509.8002, L501.9985, L502.0250, L506.0200, L501.9520, L101.9900, L501.6710, L501.7300, L500.4050 #### [facility] [address] [place], [place], [id number] Bilirubin [Mass/Vol] 0.30 mg/dL Normal 0.00-1.30 [facility] Comment on above: Performed By: #### L 503.0106, L509.8002, L501.9985, L502.0250, L506.0200, L501.9520, L101.9900, L501.6710, L501.7300, L500.4050 #### [facility] [address] [place], [address] BUN/CRE 15.2 RATIO Normal 10-20 [facility] Comment on above: Result Comment: AMENDED REPORT 02/26/251721 BUN/CRE previously reported as: 14.7 RATIO Performed By: #### L 503.0106, L509.8002, L501.9985, L502.0250, L506.0200, L501.9520, L101.9900, L501.6710, L501.7300, L500.4050 #### [facility] [address] [place], [address] Calcium [Mass/Vol] 9.5 mg/dL Normal 7.6-11.0 [facility] Comment on above: Result Comment: AMENDED REPORT 02/26/251721 CA previously reported as: 9.4 mg/dL Performed By: #### L 503.0106, L509.8002, L501.9985, L502.0250, L506.0200, L501.9520, L101.9900, L501.6710, L501.7300, L500.4050 #### [facility] [address] [place], [address] Chloride [Moles/Vol] 101 mmol/L Normal 98-108 [facility] Comment on above: Performed By: #### L 503.0106, L509.8002, L501.9985, L502.0250, L506.0200, L501.9520, L101.9900, L501.6710, L501.7300, L500.4050 #### [facility] [address] [place], [address] CO2 [Moles/Vol] 22.4 mmol/L Normal 21.0-32.0 [facility] Comment on above: Result Comment: AMENDED REPORT 02/26/251721 CO2 previously reported as: 21.3 mmol/L Performed By: #### L 503.0106, L509.8002, L501.9985, L502.0250, L506.0200, L501.9520, L101.9900, L501.6710, L501.7300, L500.4050 #### [facility] [address] [place], [place], [id number] Creatinine [Mass/Vol] 0.99 mg/dL Normal 0.70-1.20 [facility] Comment on above: Result Comment: AMENDED REPORT 02/26/251721 CREAT,SERUM previously reported as: 1.01 mg/dL Performed By: #### L 503.0106, L509.8002, L501.9985, L502.0250, L506.0200, L501.9520, L101.9900, L501.6710, L501.7300, L500.4050 #### [facility] [address] [place], [place], [id number] GAP 12 Normal 5-15 [facility] Comment on above: Result Comment: AMENDED REPORT 02/26/251721 GAP previously reported as: 13 Performed By: #### L 503.0106, L509.8002, L501.9985, L502.0250, L506.0200, L501.9520, L101.9900, L501.6710, L501.7300, L500.4050 #### [facility] [address] [place], [place], [address] Globulin (S) [Mass/Vol] 2.3 g/dL Normal 2.2-4.2 [facility] Comment on above: Result Comment: AMENDED REPORT 02/26/251721 GLOB previously reported as: 2.9 g/dL Performed By: #### L 503.0106, L509.8002, L501.9985, L502.0250, L506.0200, L501.9520, L101.9900, L501.6710, L501.7300, L500.4050 #### [facility] [address] [place], [address] Glucose [Mass/Vol] 256 mg/dL High 70-99 [facility] Comment on above: Performed By: #### L 503.0106, L509.8002, L501.9985, L502.0250, L506.0200, L501.9520, L101.9900, L501.6710, L501.7300, L500.4050 #### [facility] [address] [place], [address] Potassium [Moles/Vol] 4.6 mmol/L Normal 3.3-5.1 [facility] Comment on above: Result Comment: AMENDED REPORT 02/26/251721 K previously reported as: 4.4 mmol/L Performed By: #### L 503.0106, L509.8002, L501.9985, L502.0250, L506.0200, L501.9520, L101.9900, L501.6710, L501.7300, L500.4050 #### [facility] [address] [place], [address] Sodium [Moles/Vol] 136 mmol/L Normal 133-145 [facility] Comment on above: Result Comment: AMENDED REPORT 02/26/251721 NA previously reported as: 135 mmol/L Performed By: #### L 503.0106, L509.8002, L501.9985, L502.0250, L506.0200, L501.9520, L101.9900, L501.6710, L501.7300, L500.4050 #### [facility] [address] [place], [address] T PROT 6.5 g/dL Normal 5.9-8.4 [facility] Comment on above: Result Comment: AMENDED REPORT 07/30/25 1722 T PROT previously reported as: 6.9 g/dL Performed By: #### L 503.0106, L509.8002, L501.9985, L502.0250, L506.0200, L501.9520, L101.9900, L501.6710, L501.7300, L500.4050 #### [facility] [address] [place], [place], [address] Urea nitrogen [Mass/Vol] 15 mg/dL Normal 4-19 [facility] Comment on above: Performed By: #### L 503.0106, L509.8002, L501.9985, L502.0250, L506.0200, L501.9520, L101.9900, L501.6710, L501.7300, L500.4050 #### [facility] [address] [place], [place], [address] Erythrocyte Sed Rateon 02-26 SED RATE 21 mm/hr High 0-20 [facility] Comment on above: Performed By: #### L 503.0106, L509.8002, L501.9985, L502.0250, L506.0200, L501.9520, L101.9900, L501.6710, L501.7300, L500.4050 ####[facility] [address] [facility] [place], [place], [id number] Folates,Serum (Folic Acid)on 02-26-2025 FOLATES,SERUM 7.80 ng/mL Normal 4.60-34.80 [facility] Comment on above: Order Comment: N Performed By: #### L 503.0106, L509.8002, L501.9985, L502.0250, L506.0200, L501.9520, L101.9900, L501.6710, L501.7300, L500.4050 #### [facility] [address] [place], [place], [address] Hemoglobin A1con 02-26-2025 HbA1c (Bld) [Mass fraction] 10.8 % High <=5.6 [facility] Comment on above: Result Comment: Norm al < 5.7 % Prediabetic 5.7 - 6.4 % Diabetic >or= 6.5 % Please note range changes. Performed By: #### L 503.0106, L509.8002, L501.9985, L502.0250, L506.0200, L501.9520, L101.9900, L501.6710, L501.7300, L500.4050 ####[facility] [address] [place], [address] Microalb:Creat Ratio,Random URon 02-26-2025 MALB:CREAT Normal <30 mg/g CRE [facility] Comment on above: Result Comment: UTO. CUP GIVEN TO PATIENT TO BRING BACK. ORDER LAB FUTURED Performed By: #### L 503.0106, L509.8002, L501.9985, L502.0250, L506.0200, L501.9520, L101.9900, L501.6710, L501.7300, L500.4050 #### [facility] [address] [place], [address] MICROALBUMIN,UR Normal <20 mg/L [facility] Comment on above: Result Comment: UTO. CUP GIVEN TO PATIENT TO BRING BACK. ORDER LAB FUTURED Performed By: #### L 503.0106, L509.8002, L501.9985, L502.0250, L506.0200, L501.9520, L101.9900, L501.6710, L501.7300, L500.4050 #### [facility] [address] [place], [address] UR CREAT Normal 39.00-259.00 [facility] Comment on above: Result Comment: UTO. CUP GIVEN TO PATIENT TO BRING BACK. ORDER LAB FUTURED Performed By: #### L 503.0106, L509.8002, L501.9985, L502.0250, L506.0200, L501.9520, L101.9900, L501.6710, L501.7300, L500.4050 #### [facility] [address] [place], [place], [address] Osmolality, Serumon 02-27-20 25 OSMOLALITY,SER 308 mOsm/KG High 280-301 [facility] Comment on above: Performed By: #### L 503.0106, L509.8002, L501.9985, L502.0250, L506.0200, L501.9520, L101.9900, L501.6710, L501.7300, L500.4050 ####[facility] [address] [facility] [place], [place], [id number] Syphilis Antibodieson 2024 Syphilis Abs Non-Reactive Normal Nonreactive [facility] Comment on above: Performed By: #### L 503.0106, L509.8002, L501.9985, L502.0250, L506.0200, L501.9520, L101.9900, L501.6710, L501.7300, L500.4050 ####[facility] [address] [facility] [place], [place], [id number] Thyroid Stim Hormone (TSH)on 02-26-2025 TSH 0.837 uIU/mL Normal 0.300-4.200 [facility] Comment on above: Result Comment: AMENDED REPORT 02/26/25 1722 TSH previously reported as: 0.827 uIU/mL Performed By: #### L 503.0106, L509.8002, L501.9985, L502.0250, L506.0200, L501.9520, L101.9900, L501.6710, L501.7300, L500.4050 #### [facility] [address] [facility] [place], [place], [id number] Vitamin B12on 02-26-2025 Cobalamin (Vitamin B12) [Mass/Vol] 630 pg/mL Normal 180-914 [facility] Comment on above: Performed By: #### L 503.0106, L509.8002, L501.9985, L502.0250, L506.0200, L501.9520, L101.9900, L501.6710, L501.7300, L500.4050 #### [facility] [address] [place], [address] Pulmonary Visit Reporton Pulmonary Visit Report [facility] [place] [address] [place] [address] OFFICE VISIT Date of Service: 02/25/25 MR#: [id number] Acct: [id number] Name: JEAN PIERRE GRANT Rep #: [id number] : 1960 Provider: Dr. Chidi Diallo DO Age/Sex: 64/M Location: [facility] Status: Signed Assessment and Plan Assessment and Plan (1) COPD (chronic obstructive pulmonary disease): Status: Suspected Plan: The patient presented today for the evaluation of suspected COPD, based upon extensive tobacco abuse history. The patient is symptomatic with shortness of breath, chest tightness, wheezing and cough. He does not currently utilize any inhalers at his baseline. At this time, we will plan to obtain baseline pulmonary function studies along with a 6-minute walk test to assess for any exertional hypoxemia. Will provide the patient with a sample of Breztri to be utilized until the completion of testing. The results of his testing and symptom response to therapy will be reassessed at his follow-up office visit. (2) Nicotine dependence, cigarettes, uncomplicated: Status: Chronic Plan: I personally spent 4 minutes discussing the deleterious effects of continued tobacco use with the patient, including modalities which could be utilized to achieve a smoke-free lifestyle. The patient is due to undergo follow-up low-dose CT imaging of the chest. Orders have been placed accordingly. (3) BRITTANY (obstructive sleep apnea): Status: Chronic Plan: The patient was previously ordered to undergo a sleep study by his primary care provider. However, the patient has yet to complete testing. Orders: Orders PFT Complete - DLCO, Spirometry b/a bronchodilators, lung volumes 03/04/25 F17.210 - Nicotine dependence, cigarettes, uncomplicated, J44.9 - Chronic obstructive pulmonary disease, unspecified Simple Pulmonary Exercise Test 03/07/25 F17.210 - Nicotine dependence, cigarettes, uncomplicated, J44.9 - Chronic obstructive pulmonary disease, unspecified Low Dose CT Lung Screening Today F17.210 - Nicotine dependence, cigarettes, uncomplicated, J44.9 - Chronic obstructive pulmonary disease, unspecified Smoking Cessation Today HPI HPI Comments Details: The patient is a 64-year-old male who presents to the clinic today in referral for the evaluation of a chronic cough and obstructive sleep apnea. The patient today indicated that he was not entirely sure why he was referred to our office, other than the fact that his primary care provider wanted him to be evaluated. The patient does have an extensive tobacco abuse history, at one point, smoking upwards of 4 packs of cigarettes per day x 50 years. More recently, the patient has cut back to smoking 0.5 packs of cigarettes per day. In addition to his personal smoking history, the patient did grow up in a smoking household. 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 He does not currently keep any animals as pets in his home environment. He does believe that at one point in the distant past he was evaluated by a social media campaign manager and possibly had PFTs completed. His main concern is for that of exertional dyspnea along with occasional chest tightness, wheezing and cough. He does not currently utilize any inhalers at his baseline. The patient reported that his primary care provider was worried about the presence of obstructive sleep apnea and previously ordered a sleep study to be completed. However, the patient has yet to complete the testing. His weight and appetite have been stable. He denies any fevers, chills or night sweats. Low-dose CT chest completed in October 2023 demonstrated no suspicious nodules or masses. Intake Vital Signs 04/08/24 12:43 02/25/25 07:05 Height 5 ft 5 in 5 ft 5 in Weight: 150 lb BMI 25.0 BP 130/85 H Blood Pressure Location Lt brachial Position Sitting Respiration 16 Pulse 81 Pulse Source Monitor Temp 97.4 F L Temperature Source Temporal Artery Pulse Oximetry (%) 98 Oxygen Delivery Method room air Intake Visit Reasons: Concern for BRITTANY chronic cough Chief Complaint: [employer] Transportation Planning Technician Required: No DME Vendor: N/a Accompanied by: Is patient in pain?: No Allergies fentanyl Allergy (Intermediate, Verified 02/25/25 11:33) Pain in joints acetaminophen (From Percocet) Allergy (Verified 02/25/25 11:33) Vomiting diphenhydramine (From Benadryl) Allergy (Verified 02/25/25 11:33) Other oxycodone (From Percocet) Allergy (Verified 02/25/25 11:33) Vomiting Medications ???Medication ???Instructions ???Recorded ???Confirmed ???Type clopidogrel 75 mg tablet (Plavix) 75 mg PO DAILY 06/05/21 02/25/25 History metformin 1,000 mg tablet 1,000 mg PO BID 06/05/21 02/25/25 History atorvastatin 80 mg tablet 80 mg PO DAILY 06/13/22 0 (more content not included)... Normal [facility] CBC W/Diff, Automatedon 05-31 Absolute Lymph 2.20 X10 3/uL Normal 0.83-4.51 [facility] Comment on above: Performed By: #### L 100.0100, L501.9520, L500.4050 ####[facility] [address] [place], [address] Absolute Neut 4.9 X10 3/uL Normal 2.0-7.7 [facility] Comment on above: Performed By: #### L 100.0100, L501.9520, L500.4050 ####[facility] [address] [place], [address] Basophils/100 WBC (Bld) 0.5 % Normal 0-1 [facility] Comment on above: Performed By: #### L 100.0100, L501.9520, L500.4050 ####[facility] [address] [place], [address] Eosinophils/100 WBC (Bld) 1.8 % Normal 0-5 [facility] Comment on above: Performed By: #### L 100.0100, L501.9520, L500.4050 ####[facility] [address] [place], [address] Erythrocyte distribution width (RBC) [Ratio] 13.2 % Normal 11.6-14.6 [facility] Comment on above: Performed By: #### L 100.0100, L501.9520, L500.4050 ####[facility] [address] [place], [address] Hematocrit (Bld) [Volume fraction] 41.0 % Normal 40-54 [facility] Comment on above: Performed By: #### L 100.0100, L501.9520, L500.4050 ####[facility] [address] [place], [address] Hemoglobin (Bld) [Mass/Vol] 13.1 g/dL Normal 13.0-16.5 [facility] Comment on above: Performed By: #### L 100.0100, L501.9520, L500.4050 ####[facility] [address] [place], [address] IG% 0.200 Normal 0.0-0.9 [facility] Comment on above: Result Comment: IG% - Immature Granulocytes (promyelocytes, myelocytes and metamyelocytes) > 1% indicates that a LEFT SHIFT is Present. Performed By: #### L 100.0100, L501.9520, L500.4050 ####[facility] [address] [place], [address] Lymphocytes/100 WBC (Bld) 27.0 % Normal 19-41 [facility] Comment on above: Performed By: #### L 100.0100, L501.9520, L500.4050 ####[facility] [address] [place], [address] MCH (RBC) [Entitic mass] 27.7 pg Normal 27.0-32.0 [facility] Comment on above: Performed By: #### L 100.0100, L501.9520, L500.4050 ####[facility] [address] [place], [address] MCHC (RBC) [Mass/Vol] 32.0 g/dL Normal 32-36 [facility] Comment on above: Performed By: #### L 100.0100, L501.9520, L500.4050 ####[facility] [address] [place], [address] MCV (RBC) [Entitic vol] 86.7 fL Normal 80-94 [facility] Comment on above: Performed By: #### L 100.0100, L501.9520, L500.4050 ####[facility] [address] [place], [address] Monocytes/100 WBC (Bld) 10.3 % High 0-10 [facility] Comment on above: Performed By: #### L 100.0100, L501.9520, L500.4050 ####[facility] [address] [place], [address] Neutrophils/100 WBC (Bld) 60.2 % Normal 47-70 [facility] Comment on above: Performed By: #### L 100.0100, L501.9520, L500.4050 ####[facility] [address] [place], [address] Nucleated RBC (Bld) [#/Vol] 0 10*3/uL Normal 0-5 [facility] Comment on above: Performed By: #### L 100.0100, L501.9520, L500.4050 ####[facility] [address] [place], [address] Platelet mean volume (Bld) [Entitic vol] 10.7 fL Normal 6.2-12.0 [facility] Comment on above: Performed By: #### L 100.0100, L501.9520, L500.4050 ####[facility] [address] [place], [address] Platelets (Bld) [#/Vol] 252 10*3/uL Normal 150-450 [facility] Comment on above: Performed By: #### L 100.0100, L501.9520, L500.4050 ####[facility] [address] [place], [address] RBC (Bld) [#/Vol] 4.73 10*6/uL Normal 4.6-6.2 [facility] Comment on above: Performed By: #### L 100.0100, L501.9520, L500.4050 ####[facility] [address] [place], [address] RDW SD 42.1 fl Normal 35.1-43.9 [facility] Comment on above: Performed By: #### L 100.0100, L501.9520, L500.4050 ####[facility] [address] [place], [address] WBC (Bld) [#/Vol] 8.1 10*3/uL Normal 4.4-11.0 [facility] Comment on above: Performed By: #### L 100.0100, L501.9520, L500.4050 ####[facility] [address] [place], [address] Comprehensive Metabolic Prof mdromy 06-18-2024 Albumin [Mass/Vol] 3.8 g/dL Normal 3.2-5.0 [facility] Comment on above: Performed By: #### L 100.0100, L501.9520, L500.4050 ####[facility] [address] [place], [address] Albumin/Globulin [Mass ratio] 0.9 {ratio} Normal 0.9-2.4 [facility] Comment on above: Performed By: #### L 100.0100, L501.9520, L500.4050 ####[facility] [address] [place], [address] ALK P 119 U/L High 45-117 [facility] Comment on above: Performed By: #### L 100.0100, L501.9520, L500.4050 ####[facility] [address] [place], [address] ALT [Catalytic activity/Vol] 55 U/L Normal 16-61 [facility] Comment on above: Performed By: #### L 100.0100, L501.9520, L500.4050 ####[facility] [address] [place], [address] AST [Catalytic activity/Vol] 29 U/L Normal 15-37 [facility] Comment on above: Performed By: #### L 100.0100, L501.9520, L500.4050 ####[facility] [address] [place], [address] Bilirubin [Mass/Vol] 0.40 mg/dL Normal 0.20-1.00 [facility] Comment on above: Result Comment: For patients on eltrombopag therapy, use of Dimension [place] TBIL is not recommended. Performed By: #### L 100.0100, L501.9520, L500.4050 ####[facility] [address] [place], [address] BUN/CRE 13.9 RATIO Normal 10-20 [facility] Comment on above: Performed By: #### L 100.0100, L501.9520, L500.4050 ####[facility] [address] [place], [address] CA,Total 9.3 mg/dL Normal 8.5-10.1 [facility] Comment on above: Performed By: #### L 100.0100, L501.9520, L500.4050 ####[facility] [address] [place], [address] Chloride [Moles/Vol] 104 mmol/L Normal 98-107 [facility] Comment on above: Performed By: #### L 100.0100, L501.9520, L500.4050 ####[facility] [address] [place], [address] CO2 [Moles/Vol] 24.0 mmol/L Normal 21.0-32.0 [facility] Comment on above: Performed By: #### L 100.0100, L501.9520, L500.4050 ####[facility] [address] [place], [address] Creatinine [Mass/Vol] 1.08 mg/dL Normal 0.70-1.30 [facility] Comment on above: Result Comment: The validity of the calculated GFR GFRAA in patients over 70 years has not been determined. Clinical correlation is essential. Performed By: #### L 100.0100, L501.9520, L500.4050 ####[facility] [address] [place], [address] EST GFR - AA 89 mL/min Normal >60 [facility] Comment on above: Result Comment: Afri can Iranian GFR Calc Performed By: #### L 100.0100, L501.9520, L500.4050 ####[facility] [address] [place], [address] GAP 9 Normal 5-15 [facility] Comment on above: Performed By: #### L 100.0100, L501.9520, L500.4050 ####[facility] [address] [place], [address] GFR/1.73 sq M.predicted among non-blacks MDRD (S/P/Bld) [Vol rate/Area] 74 mL/min/{1.73_m2} Normal >60 [facility] Comment on above: Result Comment: Non- GFR Calc Performed By: #### L 100.0100, L501.9520, L500.4050 ####[facility] [address] [place], [address] Globulin (S) [Mass/Vol] 4.3 g/dL High 2.2-4.2 [facility] Comment on above: Performed By: #### L 100.0100, L501.9520, L500.4050 ####[facility] [address] [place], [address] Glucose [Mass/Vol] 101 mg/dL Normal 74-106 [facility] Comment on above: Result Comment: Fast ing Glucose result from 100 to 125 mg/dL suggests IMPAIRED HOMEOSTASIS per A.D.A. criteria. Performed By: #### L 100.0100, L501.9520, L500.4050 ####[facility] [address] [place], [address] Potassium [Moles/Vol] 4.8 mmol/L Normal 3.5-5.1 [facility] Comment on above: Performed By: #### L 100.0100, L501.9520, L500.4050 ####[facility] [address] [place], [address] Sodium [Moles/Vol] 136 mmol/L Normal 136-145 [facility] Comment on above: Performed By: #### L 100.0100, L501.9520, L500.4050 ####[facility] [address] [place], [address] T PROT 8.1 g/dL Normal 6.4-8.2 [facility] Comment on above: Performed By: #### L 100.0100, L501.9520, L500.4050 ####[facility] [address] [place], [address] Urea nitrogen [Mass/Vol] 15 mg/dL Normal 7-18 [facility] Comment on above: Performed By: #### L 100.0100, L501.9520, L500.4050 ####[facility] [address] [place], [address] Thyroid Stim Hormone (TSH)on 06-18-2024 TSH 0.702 uIU/mL Normal 0.358-3.740 [facility] Comment on above: Performed By: #### L 100.0100, L501.9520, L500.4050 ####[facility] [address] [facility] [place], [address] 12 Lead EKGon 04-08-2024 12 Lead EKG [facility] [address] [place] [address] 12 Lead EKG 04/08/24 1255 MR#: [id number] Acct: [id number] Name: JEAN PIERRE GRANT Rep #: [id number] : 1960 63 From: Arnaud Moses MD Attending Dr: Status: DEP ER Ordering Dr: Charlie Santana DO Date: 04/08/24 Location: ED Sex: M C Admitted: Test Reason : CP Blood Pressure : / mmHG Vent. Rate : 082 BPM Atrial Rate : 082 BPM P-R Int : 158 ms QRS Dur : 084 ms QT Int : 378 ms P-R-T Axes : 049 -17 017 degrees QTc Int : 441 ms Normal sinus rhythm Inferior infarct , age undetermined Abnormal ECG Confirmed by ARNAUD MOSES MD ([id number]), associate editor BILL COREY ([id number]) on 04/09/2024 7:41:03 AM Referred By: SHENG/LOVELY Confirmed By:ARNAUD MOSES MD 04/09/24 0741 Date Arnaud Moses MD CC: Dr. 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 Yee DO Signed Normal [facility] Basic Metabolic Profile (BMP )on 04-08-2024 BUN/CRE 14.2 RATIO Normal 10-20 [facility] Comment on above: Order Comment: 1Y Performed By: #### L 501.5425, L500.2500, L100.0100 ####[facility] [address] [place], [address] CA,Total 9.6 mg/dL Normal 8.5-10.1 [facility] Comment on above: Order Comment: 1Y Performed By: #### L 501.5425, L500.2500, L100.0100 ####[facility] [address] [place], [address] Chloride [Moles/Vol] 104 mmol/L Normal 98-107 [facility] Comment on above: Order Comment: 1Y Performed By: #### L 501.5425, L500.2500, L100.0100 ####[facility] [address] [place], [address] CO2 [Moles/Vol] 24.0 mmol/L Normal 21.0-32.0 [facility] Comment on above: Order Comment: 1Y Performed By: #### L 501.5425, L500.2500, L100.0100 ####[facility] [address] [place], [address] Creatinine [Mass/Vol] 1.20 mg/dL Normal 0.70-1.30 [facility] Comment on above: Order Comment: 1Y Result Comment: The validity of the calculated GFR GFRAA in patients over 70 years has not been determined. Clinical correlation is essential. Performed By: #### L 501.5425, L500.2500, L100.0100 ####[facility] [address] [place], [address] ECRCL 60.83 ml/min Normal [facility] Comment on above: Order Comment: 1Y Performed By: #### L 501.5425, L500.2500, L100.0100 ####[facility] [address] [place], [address] EST GFR - AA 79 mL/min Normal >60 [facility] Comment on above: Order Comment: 1Y Result Comment: Afri can Iranian GFR Calc Performed By: #### L 501.5425, L500.2500, L100.0100 ####[facility] [address] [place], [address] GAP 10 Normal 5-15 [facility] Comment on above: Order Comment: 1Y Performed By: #### L 501.5425, L500.2500, L100.0100 ####[facility] [address] [place], [address] GFR/1.73 sq M.predicted among non-blacks MDRD (S/P/Bld) [Vol rate/Area] 65 mL/min/{1.73_m2} Normal >60 [facility] Comment on above: Order Comment: 1Y Result Comment: Non- GFR Calc Performed By: #### L 501.5425, L500.2500, L100.0100 ####[facility] [address] [place], [address] Glucose [Mass/Vol] 242 mg/dL High 74-106 [facility] Comment on above: Order Comment: 1Y Result Comment: Gluc ose result greater than or equal to 200 mg/dL suggests DIABETES MELLITUS per A.D.A. criteria. Performed By: #### L 501.5425, L500.2500, L100.0100 ####[facility] [address] [place], [address] Potassium [Moles/Vol] 4.4 mmol/L Normal 3.5-5.1 [facility] Comment on above: Order Comment: 1Y Performed By: #### L 501.5425, L500.2500, L100.0100 ####[facility] [address] [place], [address] Sodium [Moles/Vol] 138 mmol/L Normal 136-145 [facility] Comment on above: Order Comment: 1Y Performed By: #### L 501.5425, L500.2500, L100.0100 ####[facility] [address] [place], [address] Urea nitrogen [Mass/Vol] 17 mg/dL Normal 7-18 [facility] Comment on above: Order Comment: 1Y Performed By: #### L 501.5425, L500.2500, L100.0100 ####[facility] [address] [place], [address] CBC W/Diff, Automatedon 09-0 9-2024 Absolute Lymph 2.52 X10 3/uL Normal 0.83-4.51 [facility] Comment on above: Performed By: #### L 501.5425, L500.2500, L100.0100 ####[facility] [address] [place], [address] Absolute Neut 5.1 X10 3/uL Normal 2.0-7.7 [facility] Comment on above: Performed By: #### L 501.5425, L500.2500, L100.0100 ####[facility] [address] [place], [address] Basophils/100 WBC (Bld) 0.5 % Normal 0-1 [facility] Comment on above: Performed By: #### L 501.5425, L500.2500, L100.0100 ####[facility] [address] [place], [address] Eosinophils/100 WBC (Bld) 2.5 % Normal 0-5 [facility] Comment on above: Performed By: #### L 501.5425, L500.2500, L100.0100 ####[facility] [address] [place], [address] Erythrocyte distribution width (RBC) [Ratio] 13.2 % Normal 11.6-14.6 [facility] Comment on above: Performed By: #### L 501.5425, L500.2500, L100.0100 ####[facility] [address] [place], [address] Hematocrit (Bld) [Volume fraction] 44.5 % Normal 40-54 [facility] Comment on above: Performed By: #### L 501.5425, L500.2500, L100.0100 ####[facility] [address] [place], [address] Hemoglobin (Bld) [Mass/Vol] 14.3 g/dL Normal 13.0-16.5 [facility] Comment on above: Performed By: #### L 501.5425, L500.2500, L100.0100 ####[facility] [address] [place], [address] IG% 0.400 Normal 0.0-0.9 [facility] Comment on above: Result Comment: IG% - Immature Granulocytes (promyelocytes, myelocytes and metamyelocytes) > 1% indicates that a LEFT SHIFT is Present. Performed By: #### L 501.5425, L500.2500, L100.0100 ####[facility] [address] [place], [address] Lymphocytes/100 WBC (Bld) 29.6 % Normal 19-41 [facility] Comment on above: Performed By: #### L 501.5425, L500.2500, L100.0100 ####[facility] [address] [place], [address] MCH (RBC) [Entitic mass] 28.1 pg Normal 27.0-32.0 [facility] Comment on above: Performed By: #### L 501.5425, L500.2500, L100.0100 ####[facility] [address] [place], [address] MCHC (RBC) [Mass/Vol] 32.1 g/dL Normal 32-36 [facility] Comment on above: Performed By: #### L 501.5425, L500.2500, L100.0100 ####[facility] [address] [place], [address] MCV (RBC) [Entitic vol] 87.6 fL Normal 80-94 [facility] Comment on above: Performed By: #### L 501.5425, L500.2500, L100.0100 ####[facility] [address] [place], [address] Monocytes/100 WBC (Bld) 7.6 % Normal 0-10 [facility] Comment on above: Performed By: #### L 501.5425, L500.2500, L100.0100 ####[facility] [address] [place], [address] Neutrophils/100 WBC (Bld) 59.4 % Normal 47-70 [facility] Comment on above: Performed By: #### L 501.5425, L500.2500, L100.0100 ####[facility] [address] [place], [address] Nucleated RBC (Bld) [#/Vol] 0 10*3/uL Normal 0-5 [facility] Comment on above: Performed By: #### L 501.5425, L500.2500, L100.0100 ####[facility] [address] [place], [address] Platelet mean volume (Bld) [Entitic vol] 12.5 fL High 6.2-12.0 [facility] Comment on above: Performed By: #### L 501.5425, L500.2500, L100.0100 ####[facility] [address] [place], [address] Platelets (Bld) [#/Vol] 168 10*3/uL Normal 150-450 [facility] Comment on above: Performed By: #### L 501.5425, L500.2500, L100.0100 ####[facility] [address] [place], [address] RBC (Bld) [#/Vol] 5.08 10*6/uL Normal 4.6-6.2 [facility] Comment on above: Performed By: #### L 501.5425, L500.2500, L100.0100 ####[facility] [address] [place], [address] RDW SD 42.4 fl Normal 35.1-43.9 [facility] Comment on above: Performed By: #### L 501.5425, L500.2500, L100.0100 ####[facility] [address] [place], [address] WBC (Bld) [#/Vol] 8.5 10*3/uL Normal 4.4-11.0 [facility] Comment on above: Performed By: #### L 501.5425, L500.2500, L100.0100 ####[facility] [address] [place], [address] Chest 1 View (Portable)on Chest 1 View (Portable) [facility] Imaging Services [address] [place] [address] Chest 1 View (Portable) MR#: [id number] Acct: [id number] Name: JEAN PIERRE GRANT Rep #: [id number] : 1960 M 63 From: Sam Bello PCP: Perla Yee DO Status: REG ER Study: Chest 1 View (Portable) Date of Exam: 04/08/24 Exam# [id number] Ordering Dr: Charlie Santana DO [id number] INDICATION: chest pain EXAMINATION/TECHNIQUE: X-RAY - XR Chest 1 View COMPARISON: Prior study dated: 02/17/2023 FINDINGS: LINES/DEVICES: None. LUNGS: No consolidation, edema or effusion. No pneumothorax. MEDIASTINUM AND CARDIOVASCULAR STRUCTURES: Cardiac silhouette not enlarged. Central airways and mediastinal contour are unremarkable. BONES AND SOFT TISSUES: Unremarkable. RAD/Chest 1 View (Portable) IMPRESSION: No radiographic evidence of acute cardiopulmonary disease. Electronically Signed: Sam Joshi MD at 13:38 EDT , CC: Dr. 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 Yee DO Auto Locator: Signed Normal [facility] Emergency Department Summary on 04-08-2024 Emergency Department Summary [facility] Medical Records Department [address] [place] [id number] Emergency Department Summary 04/08/24 MR#: [id number] Acct: [id number] Name: JEAN PIERRE GRANT Rep #: [id number] : 1960 63 From: Charlie Santana DO PCP: Perla Yee DO Status:DEP ER Location: ED HPI History of Present Illness Chief Complaint: Chest Pain [facility] Medical History Presence of stent in coronary artery ( 08/08/16) Hematuria Acute urinary retention Wears glasses Insulin dependent diabetes mellitus Ambulates with cane Prostate disease High cholesterol Restless legs TIA (transient ischemic attack) Difficulty chewing History of diverticulitis Smoker History of heart attack History of echocardiogram History of stress test Cardiology follow-up encounter COPD (chronic obstructive pulmonary disease) Atherosclerosis of coronary artery of [place] heart without angina pectoris Non-ST elevation myocardial infarction (NSTEMI) ( 08/08/16) Essential (primary) hypertension Type 2 diabetes mellitus Anxiety Depression Heart attack Heart disease Hypertension Arthritis Neuropathy Diabetes Home Medications ???Medication ???Instructions ???Recorded ???Last Taken ???Type clopidogrel 75 mg tablet (Plavix) 75 mg PO DAILY 06/05/21 08/23/22 History metformin 1,000 mg tablet 1,000 mg PO BID 06/05/21 Unknown History atorvastatin 80 mg tablet 80 mg PO DAILY 06/13/22 Unknown History pregabalin 100 mg capsule 100 mg PO BID 06/13/22 Unknown History pantoprazole 20 mg tablet,delayed 20 mg PO DAILY #30 tabs 06/20/22 08/29/22 Rx release (Protonix) lisinopril 20 mg tablet 20 mg PO DAILY 07/01/22 08/29/22 History sucralfate 100 mg/mL oral 10 ml PO BID #400 mL 08/29/22 Unknown Rx suspension (Carafate) tamsulosin 0.4 mg capsule (Flomax) 0.4 mg PO BID #60 caps 08/30/22 Unknown Rx dapagliflozin propanediol 10 mg 10 mg PO DAILY 01/12/23 Unknown History tablet (Farxiga) finasteride 5 mg tablet 5 mg PO DAILY 01/12/23 Unknown History glimepiride 4 mg tablet 4 mg PO DAILY 01/12/23 Unknown History tadalafil 20 mg tablet 20 mg PO DAILY PRN sexual activity 01/12/23 Unknown History tramadol 50 mg tablet 50 mg PO Q4H PRN PRN Pain #20 tabs 02/17/23 Unknown Rx ibuprofen 600 mg tablet 600 mg PO Q8H PRN PRN pain 5 days 04/15/23 Unknown Rx #15 TABLETS penicillin V potassium 500 mg 500 mg PO 4X/DAY #39 tabs 04/15/23 Unknown Rx tablet metoprolol tartrate 50 mg tablet 50 mg PO BID #180 tabs 10/16/23 Unknown Rx Allergy/AdvReac Type Severity Reaction Status Date / Time fentanyl Allergy Intermediate Pain in Verified 02/12/24 13:08 joints acetaminophen (From Percocet) Allergy Vomiting Verified 02/12/24 13:08 diphenhydramine (From Allergy Other Verified 02/12/24 13:08 Benadryl) oxycodone (From Percocet) Allergy Vomiting Verified 02/12/24 13:08 Family History Grandfather Diabetes Heart disease Hypertension Grandmother Diabetes Heart disease Hypertension Cancer stomach Father Diabetes Heart disease Hypertension Brother Heart disease Hypertension Surgical History History of colonoscopy History of esophagogastroduodenoscopy (EGD) History of coronary artery stent placement ( 08/08/16) H/O cardiac catheterization Social History Smoking Status: Current every day smoker tobacco type: cigarettes alcohol intake: former substance use type: does not use caffeine: Yes Type: coffee Number of servings: 12 EXAM Physical Exam Const Vital Signs: 04/08/24 12:43 04/08/24 13:13 04/08/24 13:43 Temperature 98.1 F Temperature Source Temporal Pulse Rate 82 79 Respiratory Rate 17 19 H Blood Pressure 95/58 L 106/64 Blood Pressure Mean 70 78 Pulse Ox 96 95 97 Oxygen Delivery Method Room Air Room Air Room Air 04/08/24 14:00 04/08/24 15:00 04/08/24 15:49 Temperature 98.4 F Temperature Source Pulse Rate 80 70 81 Respiratory Rate 20 H 18 16 Blood Pressure 128/73 H 139/79 H 136/78 H Blood Pressure Mean 91 99 97 Pulse Ox 96 98 100 Oxygen Delivery Method Room Air Room Air MDM MDM MDM Narrative Medical decision making narrative: HISTORY OF PRESENT ILLNESS: 63-year-old male history of CAD, DE, COPD, type 2 diabetes, hyperlipidemia, hypertension, status post catheterization and stent placement presents with chest pain. Per triage note patient states he developed chest pain approxi-1 hour ago. It is 9/10 in severity The patient denies recent surgery in the last 4 weeks or immobilization in the last 3 days, denies previous diag (more content not included)... [facility] L501.4020on 04-08-2024 TROPONIN-I HS 5 pg/mL Normal 3.0-78.0 [facility] Comment on above: Order Comment: 2 Result Comment: [place] Note: New Test Units and Gender Specific Reference Ranges. For more information see Policy Stat Procedure [place] High Sensitivity Troponin (TNIH) and attachments. Performed By: #### L 501.4020 ####[facility] [address] [place], [address] L501.5425on 04-08-2024 TROPONIN-I HS 6 pg/mL Normal 3.0-78.0 [facility] Comment on above: Order Comment: 1Y Result Comment: [place] Note: New Test Units and Gender Specific Reference Ranges. For more information see Policy Stat Procedure [place] High Sensitivity Troponin (TNIH) and attachments. Performed By: #### L 501.5425, L500.2500, L100.0100 ####[facility] [address] [place], [address] Basophil percentageOrdered B y: [facility] on 09-26-2022 Bilirubin [Mass/Vol] 0.40 mg/dL 0.20-1.00 [facility] Comment on above: For patients on eltr ombopag therapy, use of Dimension [place] TBIL is not recommended. Chloride [Moles/Vol] 105 mmol/L 98-107 [facility] Cholesterol [Mass/Vol] 93 mg/dL <200 [facility] Comment on above: <200 mg/dL Desirable 200-240 mg/dL Borderline >240 mg/dL High Risk Glucose [Mass/Vol] 289 mg/dL 74-106 [facility] Comment on above: Glucose result great er than or equal to 200 mg/dLsuggests DIABETES MELLITUS per A.D.A. criteria. Potassium [Moles/Vol] 4.6 mmol/L 3.5-5.1 [facility] Protein [Mass/Vol] 7.6 g/dL 6.4-8.2 [facility] Sodium [Moles/Vol] 136 mmol/L 136-145 [facility] Triglyceride [Mass/Vol] 198 mg/dL <199 [facility] Comment on above: The drugs N-Acetylcy steine and Metamizole may falsely depress this assay.Serum Triglycerides Reference Interval Normal <150 mg/dL Borderline high 150 - 199 mg/dL High 200 - 499 mg/dL Very High > or = 500 mg/dL WBC (Bld) [#/Vol] 8.3 10*3/uL 4.4-11.0 [facility] Blood erythrocytes count (nu mber/volume)Ordered By: [facility] on 09-26-2022 RBC (Bld) [#/Vol] 5.02 10*6/uL 4.6-6.2 [facility] Blood hemoglobin measurement (mass/volume)Ordered By: [facility] on 09-26-2022 Hemoglobin (Bld) [Mass/Vol] 13.8 g/dL 13.0-16.5 [facility] Blood platelet mean volumeOr dered By: [facility] on 09-26-2022 Platelet mean volume (Bld) [Entitic vol] 12.9 fL 6.2-12.0 [facility] Determination of erythrocyte mean corpuscular volume (MCV)Ordered By: [facility] on 09-26-2022 MCV (RBC) [Entitic vol] 87.8 fL 80-94 [facility] Hematocrit Auto (Bld) [Volum e fraction]Ordered By: [facility] on 09-26-2022 Hematocrit (Bld) [Volume fraction] 44.1 % 40-54 [facility] Laboratory - Chemistry and C hemistry - challengeOrdered By: [facility] on 09-26-2022 ALP [Catalytic activity/Vol] 82 U/L 45-117 [facility] ALT [Catalytic activity/Vol] 31 U/L 16-61 [facility] CO2 [Moles/Vol] 26.0 mmol/L 21.0-32.0 [facility] Globulin (S) [Mass/Vol] 3.6 g/dL 2.2-4.2 [facility] Urea nitrogen/Creatinine [Mass ratio] 17.2 mg/mg 10-20 [facility] - Hematology and Cell countsOrdered By: [facility] on 09-26-2022 Erythrocyte distribution width (RBC) [Entitic vol] 41.6 fL 35.1-43.9 [facility] Erythrocyte distribution width (RBC) [Ratio] 12.9 % 11.6-14.6 [facility] MCH (RBC) [Entitic mass] 27.5 pg 27.0-32.0 [facility] MCHC Auto (RBC) [Mass/Vol]Or dered By: KAMRYN [place] on 09-26-2022 MCHC (RBC) [Mass/Vol] 31.3 g/dL 32-36 [facility] No Panel InformationOrdered By: KAMRYN [place] on 09-26-2022 Estimated GFR (MDRD) Amer 83 mL/min >60 [facility] Comment on above: GFR Calc Estimated GFR (MDRD) Non-Af Amer 68 mL/min >60 [facility] Comment on above: Non- GFR Calc Platelets bldOrdered By: ELENA CAMARA on 09-26-2022 Platelets (Bld) [#/Vol] 175 10*3/uL 150-450 [facility] Serum or plasma albumin david urement (mass/volume)Ordered By: [facility] on 09-26-2022 Albumin [Mass/Vol] 4.0 g/dL 3.2-5.0 [facility] Serum or plasma albumin/glob ulin mass ratioOrdered By: [facility] on 09-26-2022 Albumin/Globulin [Mass ratio] 1.1 {ratio} 0.9-2.4 [facility] Serum or plasma calcium david urement (mass/volume)Ordered By: [facility] on 09-26-2022 Calcium [Mass/Vol] 9.1 mg/dL 8.5-10.1 [facility] Serum or plasma cholesterol in HDL measurement (mass/volume)Ordered By: [facility] on 09-26-2022 Cholesterol in HDL [Mass/Vol] 27 mg/dL >40 [facility] Comment on above: The drugs N-Acetylcy steine and Metamizole may falsely depress this assay. Reference Range HDL <40 mg/dL Low HDL Cholesterol HDL >or= 60 mg/dL High HDL Cholesterol Serum or plasma cholesterol in VLDL measurement (mass/volume)Ordered By: [facility] on 09-26-2022 Cholesterol in VLDL [Mass/Vol] 40 mg/dL 5-40 [facility] Serum or plasma creatinine m easurement (mass/volume)Ordered By: [facility] on 09-26-2022 Creatinine [Mass/Vol] 1.16 mg/dL 0.70-1.30 [facility] Comment on above: The validity of the calculated GFR & GFRAA in patients over 70 years has not been determined. Clinical correlation is essential. Serum or plasma low density lipoprotein (LDL) cholesterol measurement (mass/volume)Ordered By: [facility] on 09-26-2022 Cholesterol in LDL [Mass/Vol] 26 mg/dL 0-130 [facility] Serum or plasma urea nitroge n measurement (mass/volume)Ordered By: [facility] on 09-26-2022 Urea nitrogen [Mass/Vol] 20 mg/dL 7-18 [facility] Thin prep Papanicolaou smear with manual screeningOrdered By: [facility] on 09-26-2022 Thin prep Papanicolaou smear with manual screening 16 U/L 15-37 [facility] Thin prep Papanicolaou smear with manual screening 5 5-15 [facility] Whole blood hemoglobin A1c/t otal hemoglobin ratio (mass fraction)Ordered By: [facility] on 09-26-2022 HbA1c (Bld) [Mass fraction] 10.8 % 3.8-5.6 [facility] Comment on above: Normal < 5.7 % Predi abetic 5.7 - 6.4 % Diabetic >or= 6.5 % Please note range changes. Culture, urineOrdered By: Dr Cuca Ayala on 09-14-2022 Bacteria identified Cx Nom (U) Culture exhibits no growth. [facility] Glucose Glucometer (BldC) [M ass/Vol]Ordered By: Dr. Beaulieu on 08-29-2022 Glucose [Mass/Vol] 155 mg/dL 74-106 [facility] Comment on above: MANAGEMENT OF PATIEN T CARE PER NURSING PROTOCOL No Panel InformationOrdered By: Dr. Wild on 07-07-2022 Thyroid Stimulating Hormone (TSH) 0.82 uIU/mL 0.358-3.74 [facility] Stool gastrointestinal hemog lobin detection by immunologic methodOrdered By: Dr. Beaulieu on 06-22-2022 Lower GI hemoglobin IA Ql (Stl) [facility] Absolute lymphocyte countOrd ered By: ED PROVIDER on 06-13-2022 Lymphocytes Auto (Unsp spec) [#/Vol] 2.88 10*3/uL 0.83-4.51 [facility] Basophil percentageOrdered B y: ED PROVIDER on 06-13-2022 Basophil percentage 0 SEEN /hpf 0-5 [facility] Basophils/100 WBC (Bld) 0.4 % 0-1 [facility] Chloride [Moles/Vol] 102 mmol/L 98-107 [facility] Eosinophils/100 WBC (Bld) 1.6 % 0-5 [facility] Glucose [Mass/Vol] 300 mg/dL 74-106 [facility] Comment on above: Glucose result great er than or equal to 200 mg/dLsuggests DIABETES MELLITUS per A.D.A. criteria. Neutrophils (Bld) [#/Vol] 6.3 10*3/uL 2.0-7.7 [facility] Neutrophils/100 WBC (Bld) 62.2 % 47-70 [facility] Potassium [Moles/Vol] 4.5 mmol/L 3.5-5.1 [facility] Comment on above: Slight Hemolysis, Re sult may be falsely increased. Sodium [Moles/Vol] 137 mmol/L 136-145 [facility] WBC (Bld) [#/Vol] 10.2 10*3/uL 4.4-11.0 [facility] Basophil percentageOrdered B y: Dr. Sin on 06-13-2022 Bilirubin [Mass/Vol] 0.30 mg/dL 0.20-1.00 [facility] Comment on above: For patients on eltr ombopag therapy, use of Dimension [place] TBIL is not recommended. Protein [Mass/Vol] 8.0 g/dL 6.4-8.2 [facility] Bilirubin Test strip Ql (U)O rdered By: ED PROVIDER on 06-13-2022 Bilirubin Ql (U) Negative Negative [facility] Blood erythrocytes count (nu mber/volume)Ordered By: ED PROVIDER on 06-13-2022 RBC (Bld) [#/Vol] 5.01 10*6/uL 4.6-6.2 [facility] Blood hemoglobin measurement (mass/volume)Ordered By: ED PROVIDER on 06-13-2022 Hemoglobin (Bld) [Mass/Vol] 14.6 g/dL 13.0-16.5 [facility] Blood lymphocytes/100 leukoc ytesOrdered By: ED PROVIDER on 06-13-2022 Lymphocytes/100 WBC (Bld) 28.3 % 19-41 [facility] Blood monocytes/100 leukocyt esOrdered By: ED PROVIDER on 06-13-2022 Monocytes/100 WBC (Bld) 7.1 % 0-10 [facility] Blood platelet mean volumeOr dered By: ED PROVIDER on 06-13-2022 Platelet mean volume (Bld) [Entitic vol] 12.3 fL 6.2-12.0 [facility] Determination of erythrocyte mean corpuscular volume (MCV)Ordered By: ED PROVIDER on 06-13-2022 MCV (RBC) [Entitic vol] 86.0 fL 80-94 [facility] Direct bilirubinOrdered By: Dr. Sin on 06-13-2022 Bilirubin.direct [Mass/Vol] 0.13 mg/dL 0.00-0.30 [facility] Hematocrit Auto (Bld) [Volum e fraction]Ordered By: ED PROVIDER on 06-13-2022 Hematocrit (Bld) [Volume fraction] 43.1 % 40-54 [facility] Ketones Test strip Ql (U)Ord ered By: ED PROVIDER on 06-13-2022 Ketones Ql (U) 5 mg/dl Negative [facility] Laboratory - Chemistry and C hemistry - challengeOrdered By: Dr. Sin on 06-13-2022 ALP [Catalytic activity/Vol] 75 U/L 45-117 [facility] ALT [Catalytic activity/Vol] 65 U/L 16-61 [facility] Globulin (S) [Mass/Vol] 3.7 g/dL 2.2-4.2 [facility] Lipase [Catalytic activity/Vol] 285 U/L 73-393 [facility] - Chemistry and C hemistry - challengeOrdered By: ED PROVIDER on 06-13-2022 CO2 [Moles/Vol] 27.0 mmol/L 21.0-32.0 [facility] Urea nitrogen/Creatinine [Mass ratio] 14.8 mg/mg 10-20 [facility] - Hematology and Cell countsOrdered By: ED PROVIDER on 06-13-2022 Erythrocyte distribution width (RBC) [Entitic vol] 41.7 fL 35.1-43.9 [facility] Erythrocyte distribution width (RBC) [Ratio] 13.4 % 11.6-14.6 [facility] Immature granulocytes/100 WBC (Bld) 0.400 % 0.0-0.9 [facility] Comment on above: IG% - Immature Granu locytes (promyelocytes, myelocytes and metamyelocytes) > 1% indicates that a LEFT SHIFT is Present. MCH (RBC) [Entitic mass] 29.1 pg 27.0-32.0 [facility] Nucleated RBC/100 WBC (Bld) [Ratio] 0 % 0-5 [facility] MCHC Auto (RBC) [Mass/Vol]Or dered By: ED PROVIDER on 06-13-2022 MCHC (RBC) [Mass/Vol] 33.9 g/dL 32-36 [facility] Mucus LM Ql (Urine sed)Order ed By: ED PROVIDER on 06-13-2022 Mucus Ql (Urine sed) 0 SEEN /hpf [facility] Nitrite Test strip Ql (U)Ord ered By: ED PROVIDER on 06-13-2022 Nitrite Ql (U) Negative Negative [facility] No Panel InformationOrdered By: ED PROVIDER on 06-13-2022 Estimated Creatinine Clearance Calc 49.33 ml/min [facility] Estimated GFR (MDRD) Amer 69 mL/min >60 [facility] Comment on above: GFR Calc Estimated GFR (MDRD) Non-Af Amer 57 mL/min >60 [facility] Comment on above: Non- GFR Calc Platelets bldOrdered By: ED PROVIDER on 06-13-2022 Platelets (Bld) [#/Vol] 167 10*3/uL 150-450 [facility] Protein Test strip Ql (U)Ord ered By: ED PROVIDER on 06-13-2022 Protein Ql (U) Negative Negative [facility] Serum or plasma albumin david urement (mass/volume)Ordered By: Dr. Sin on 06-13-2022 Albumin [Mass/Vol] 4.3 g/dL 3.2-5.0 [facility] Serum or plasma calcium david urement (mass/volume)Ordered By: ED PROVIDER on 06-13-2022 Calcium [Mass/Vol] 9.8 mg/dL 8.5-10.1 [facility] Serum or plasma creatinine m easurement (mass/volume)Ordered By: ED PROVIDER on 06-13-2022 Creatinine [Mass/Vol] 1.35 mg/dL 0.70-1.30 [facility] Comment on above: The validity of the calculated GFR & GFRAA in patients over 70 years has not been determined. Clinical correlation is essential. Serum or plasma urea nitroge n measurement (mass/volume)Ordered By: ED PROVIDER on 06-13-2022 Urea nitrogen [Mass/Vol] 20 mg/dL 7-18 [facility] Squamous epithelial cells de tection in urine sediment by light microscopyOrdered By: ED PROVIDER on 06-13-2022 Epithelial cells.squamous LM Ql (Urine sed) 0 SEEN /hpf 0-5 [facility] Thin prep Papanicolaou smear with manual screeningOrdered By: Dr. Sin on 06-13-2022 Thin prep Papanicolaou smear with manual screening 27 U/L 15-37 [facility] Comment on above: Slight Hemolysis, Re sult may be falsely increased. Thin prep Papanicolaou smear with manual screeningOrdered By: ED PROVIDER on 06-13-2022 Thin prep Papanicolaou smear with manual screening 8 5-15 [facility] Urine blood detectionOrdered By: ED PROVIDER on 06-13-2022 RBC Ql (U) Negative Negative [facility] RBC Ql (U) 0 SEEN /hpf 0-5 [facility] Urine clarityOrdered By: ED PROVIDER on 06-13-2022 Clarity (U) Clear Clear [facility] Urine color determinationOrd ered By: ED PROVIDER on 06-13-2022 Color (U) Yellow Yellow [facility] Urine glucose detectionOrder ed By: ED PROVIDER on 06-13-2022 Glucose Ql (U) 1000 mg/dl Normal [facility] Urine leukocyte esterase det ection by dipstickOrdered By: ED PROVIDER on 06-13-2022 Leukocyte esterase Test strip Ql (U) Negative Negative [facility] Urine pHOrdered By: ED PROVI LUKASZ on 06-13-2022 pH (U) 7.0 [pH] 5.0 - 8.0 [facility] Urine sediment bacteria coun t by microscopy (number/high power field)Ordered By: ED PROVIDER on 06-13-2022 Bacteria LM.HPF (Urine sed) [#/Area] 0 /[HPF] None Seen [facility] Urine specific gravity measu rementOrdered By: ED PROVIDER on 06-13-2022 Specific gravity (U) [Rel density] 1.010 1.002-1.030 [facility] Urobilinogen Auto test strip Ql (U)Ordered By: ED PROVIDER on 06-13-2022 Urobilinogen Ql (U) Normal mg/dl Normal [facility] Absolute lymphocyte counton 02-21-2022 Lymphocytes Auto (Unsp spec) [#/Vol] 2.15 10*3/uL 0.83-4.51 [facility] Work Phone: Basophil percentageon 2021 Basophils/100 WBC (Bld) 0.4 % 0-1 [facility] Work Phone: Bilirubin [Mass/Vol] 0.40 mg/dL 0.20-1.00 [facility] Work Phone: Comment on above: For patients on eltr ombopag therapy, use of Dimension [place] TBIL is not recommended. Chloride [Moles/Vol] 101 mmol/L 98-107 [facility] Work Phone: Eosinophils/100 WBC (Bld) 1.3 % 0-5 [facility] Work Phone: Glucose [Mass/Vol] 345 mg/dL 74-106 [facility] Work Phone: Comment on above: Glucose result great er than or equal to 200 mg/dLsuggests DIABETES MELLITUS per A.D.A. criteria. Lactate [Moles/Vol] 2.4 mmol/L 0.4-2.0 [facility] Work Phone: Comment on above: CRITICAL VALUE VERIF IED. CALLED TO DANIELA STEVENS RN (ER)02/21/22 181 Dat Aguilar.RESULTS READ BACK BY SAME . Previous reported result: 2.4 mmol/LEdited by: CHRIS on 02/21/22:1812 AMENDED REPORT 02/21/221811 LACTIC ACID previously reported as: 2.4 *H mmol/L Neutrophils (Bld) [#/Vol] 5.3 10*3/uL 2.0-7.7 [facility] Work Phone: Neutrophils/100 WBC (Bld) 62.9 % 47-70 [facility] Work Phone: Potassium [Moles/Vol] 4.6 mmol/L 3.5-5.1 [facility] Work Phone: Protein [Mass/Vol] 7.7 g/dL 6.4-8.2 [facility] Work Phone: Sodium [Moles/Vol] 133 mmol/L 136-145 [facility] Work Phone: WBC (Bld) [#/Vol] 8.4 10*3/uL 4.4-11.0 [facility] Work Phone: Blood erythrocytes count (nu mber/volume)on 02-21-2022 RBC (Bld) [#/Vol] 4.91 10*6/uL 4.6-6.2 [facility] Work Phone: Blood hemoglobin measurement (mass/volume)on 02-21-2022 Hemoglobin (Bld) [Mass/Vol] 13.8 g/dL 13.0-16.5 [facility] Work Phone: Blood lymphocytes/100 leukoc yteson 02-21-2022 Lymphocytes/100 WBC (Bld) 25.6 % 19-41 [facility] Work Phone: Blood monocytes/100 leukocyt eson 02-21-2022 Monocytes/100 WBC (Bld) 9.3 % 0-10 [facility] Work Phone: Blood platelet mean volumeon 02-21-2022 Platelet mean volume (Bld) [Entitic vol] 12.4 fL 6.2-12.0 [facility] Work Phone: Determination of erythrocyte mean corpuscular volume (MCV)on 02-21-2022 MCV (RBC) [Entitic vol] 86.4 fL 80-94 [facility] Work Phone: Direct bilirubinon Bilirubin.direct [Mass/Vol] 0.15 mg/dL 0.00-0.30 [facility] Work Phone: Hematocrit Auto (Bld) [Volum e fraction]on 02-21-2022 Hematocrit (Bld) [Volume fraction] 42.4 % 40-54 [facility] Work Phone: [phone] Laboratory - Chemistry and C hemistry - challengeon 02-21-2022 ALP [Catalytic activity/Vol] 74 U/L 45-117 [facility] Work Phone: ALT [Catalytic activity/Vol] 38 U/L 16-61 [facility] Work Phone: CO2 [Moles/Vol] 28.0 mmol/L 21.0-32.0 [facility] Work Phone: Globulin (S) [Mass/Vol] 3.7 g/dL 2.2-4.2 [facility] Work Phone: Lipase [Catalytic activity/Vol] 81 U/L 73-393 [facility] Work Phone: Urea nitrogen/Creatinine [Mass ratio] 12.9 mg/mg 10-20 [facility] Work Phone: Laboratory - Hematology and Cell countson 02-21-2022 Erythrocyte distribution width (RBC) [Entitic vol] 40.0 fL 35.1-43.9 [facility] Work Phone: [phone] Erythrocyte distribution width (RBC) [Ratio] 12.8 % 11.6-14.6 [facility] Work Phone: [phone] Immature granulocytes/100 WBC (Bld) 0.500 % 0.0-0.9 [facility] Work Phone: Comment on above: IG% - Immature Granu locytes (promyelocytes, myelocytes and metamyelocytes) > 1% indicates that a LEFT SHIFT is Present. MCH (RBC) [Entitic mass] 28.1 pg 27.0-32.0 [facility] Work Phone: Nucleated RBC/100 WBC (Bld) [Ratio] 0 % 0-5 [facility] Work Phone: MCHC Auto (RBC) [Mass/Vol]on 02-21-2022 MCHC (RBC) [Mass/Vol] 32.5 g/dL 32-36 [facility] Work Phone: No Panel Informationon 02-21 Estimated Creatinine Clearance Calc 45.31 ml/min [facility] Work Phone: Estimated GFR (MDRD) Amer 63 mL/min >60 [facility] Work Phone: Comment on above: GFR Calc Estimated GFR (MDRD) Non-Af Amer 52 mL/min >60 [facility] Work Phone: Comment on above: Non- GFR Calc Platelets bldon 02-21-2022 Platelets (Bld) [#/Vol] 164 10*3/uL 150-450 [facility] Work Phone: Serum or plasma albumin david urement (mass/volume)on 02-21-2022 Albumin [Mass/Vol] 4.0 g/dL 3.2-5.0 [facility] Work Phone: Serum or plasma calcium david urement (mass/volume)on 02-21-2022 Calcium [Mass/Vol] 9.3 mg/dL 8.5-10.1 [facility] Work Phone: Serum or plasma creatinine m easurement (mass/volume)on 02-21-2022 Creatinine [Mass/Vol] 1.47 mg/dL 0.70-1.30 [facility] Work Phone: Comment on above: The validity of the calculated GFR & GFRAA in patients over 70 years has not been determined. Clinical correlation is essential. Serum or plasma urea nitroge n measurement (mass/volume)on 02-21-2022 Urea nitrogen [Mass/Vol] 19 mg/dL 7-18 [facility] Work Phone: Thin prep Papanicolaou smear with manual screeningon 02-21-2022 Thin prep Papanicolaou smear with manual screening 13 U/L 15-37 [facility] Work Phone: Thin prep Papanicolaou smear with manual screening 4 5-15 [facility] Work Phone: Stool gastrointestinal hemog lobin detection by immunologic method Lower GI hemoglobin IA Ql (Stl) [facility] Work Phone: Vital Signs Date Time Vital Sign Value Performing Clinician Maxi lity 02-25-2025 07:05-0400 Body height 165.1 cm Perla Joselito DO Work Phone: [facility] 02-25-2025 07:05-0400 Body mass index (BMI) [Ratio] 25 kg/m2 Perla Joselito DO Work Phone: [facility] 02-25-2025 07:05-0400 Body temperature 97.4 [degF] Perla Joselito DO Work Phone: [facility] 02-25-2025 07:05-0400 Body weight 68.03 kg Perla Joselito DO Work Phone: [facility] 02-25-2025 07:05-0400 Diastolic blood pressure 85 mm[Hg] Perla Joselito DO Work Phone: [facility] 02-25-2025 07:05-0400 Heart rate 81 /min Perla Joselito DO Work Phone: [facility] 02-25-2025 07:05-0400 Respiratory rate 16 /min Perla Joselito DO Work Phone: [facility] 02-25-2025 07:05-0400 SaO2% (BldA) [Mass fraction] 98 % Perla Joselito DO Work Phone: [facility] 02-25-2025 07:05-0400 Systolic blood pressure 130 mm[Hg] Perla Joselito DO Work Phone: [phone] [place] [address] 04-15-2023 11:59-0400 Body height 160.02 cm [facility] Work Phone: [phone])498-057987 [place] [address] 04-15-2023 11:59-0400 Body mass index (BMI) [Ratio] 29.7 kg/m2 [facility] Work Phone: [phone])365-681587 [place] [address] 04-15-2023 11:59-0400 Body temperature 97 [degF] [facility] Work Phone: 9(485)268-711787 [place] [address] 04-15-2023 11:59-0400 Body weight 76.29 kg [facility] Work Phone: 8(517)865-594287 [place] [address] 04-15-2023 11:59-0400 Diastolic blood pressure 78 mm[Hg] [facility] Work Phone: 6(651)110-277487 [place] [address] 04-15-2023 11:59-0400 Heart rate 88 /min [facility] Work Phone: 1(863)519-930687 [place] [address] 04-15-2023 11:59-0400 Respiratory rate 16 /min [facility] Work Phone: [phone])986-970987 [place] [address] 04-15-2023 11:59-0400 SaO2% (BldA) [Mass fraction] 98 % [facility] Work Phone: [phone])054-561287 [place] [address] 04-15-2023 11:59-0400 Systolic blood pressure 150 mm[Hg] [facility] Work Phone: 9(520)104-511087 [place] [address] 02-17-2023 21:35-0400 Heart rate 68 /min [facility] Work Phone: 4(124)823-973187 [place] [address] 02-17-2023 21:35-0400 Respiratory rate 14 /min [facility] Work Phone: 0(642)222-202787 [place] [address] 02-17-2023 21:35-0400 SaO2% (BldA) [Mass fraction] 98 % [facility] Work Phone: 4(685)097-644387 [place] [address] 02-17-2023 19:36-0400 Body mass index (BMI) [Ratio] 28.2 kg/m2 [facility] Work Phone: [phone])851-660887 [place] [address] 02-17-2023 19:36-0400 Body temperature 97.1 [degF] [facility] Work Phone: 8([phone])676-299787 [place] [address] 02-17-2023 19:36-0400 Body weight 72.21 kg [facility] Work Phone: 2(095)560-344287 [place] [address] 02-17-2023 19:36-0400 Diastolic blood pressure 73 mm[Hg] [facility] Work Phone: 9(784)821-636387 [place] [address] 02-17-2023 19:36-0400 Systolic blood pressure 126 mm[Hg] [facility] Work Phone: 2(572)295-313887 [place] [address] 01-12-2023 14:15-0400 Body mass index (BMI) [Ratio] 29.3 kg/m2 [facility] Work Phone: 5(987)741-454787 [place] [address] 01-12-2023 14:15-0400 Body weight 77.56 kg [facility] Work Phone: 0(289)599-820487 [place] [address] 01-12-2023 14:15-0400 Diastolic blood pressure 76 mm[Hg] [facility] Work Phone: 8(909)652-508687 [place] [address] 01-12-2023 14:15-0400 Heart rate 80 /min [facility] Work Phone: 1(397)836-055987 [place] [address] 01-12-2023 14:15-0400 Respiratory rate 18 /min [facility] Work Phone: 8(112)840-599287 [place] [address] 01-12-2023 14:15-0400 Systolic blood pressure 125 mm[Hg] [facility] Work Phone: 3(172)908-761587 [place] [address] 08-30-2022 08:02-0500 Diastolic blood pressure 91 mm[Hg] No Primary Care Physician [facility] 08-30-2022 08:02-0500 Heart rate 106 /min No Primary Care Physician [facility] 08-30-2022 08:02-0500 Systolic blood pressure 156 mm[Hg] No Primary Care Physician [facility] 08-29-2022 20:48-0500 Body height 162.56 cm No Primary Care Physician [facility] 08-29-2022 20:48-0500 Body mass index (BMI) [Ratio] 28.3 kg/m2 No Primary Care Physician [facility] 08-29-2022 20:48-0500 Body temperature 98.2 [degF] No Primary Care Physician [facility] 08-29-2022 20:48-0500 Body weight 74.84 kg No Primary Care Physician [facility] 08-29-2022 20:48-0500 Diastolic blood pressure 97 mm[Hg] No Primary Care Physician [facility] 08-29-2022 20:48-0500 Heart rate 83 /min No Primary Care Physician [facility] 08-29-2022 20:48-0500 Respiratory rate 16 /min No Primary Care Physician [facility] 08-29-2022 20:48-0500 SaO2% (BldA) [Mass fraction] 100 % No Primary Care Physician [facility] 08-29-2022 20:48-0500 Systolic blood pressure 185 mm[Hg] No Primary Care Physician [facility] 08-29-2022 14:50-0500 Body temperature 96.4 [degF] No Primary Care Physician [facility] 08-29-2022 14:50-0500 Diastolic blood pressure 85 mm[Hg] No Primary Care Physician [facility] 08-29-2022 14:50-0500 Heart rate 71 /min No Primary Care Physician [facility] 08-29-2022 14:50-0500 Respiratory rate 16 /min No Primary Care Physician [facility] 08-29-2022 14:50-0500 SaO2% (BldA) [Mass fraction] 100 % No Primary Care Physician [facility] 08-29-2022 14:50-0500 Systolic blood pressure 151 mm[Hg] No Primary Care Physician [facility] 08-29-2022 12:01-0500 Body height 162.56 cm No Primary Care Physician [facility] 08-29-2022 12:01-0500 Body mass index (BMI) [Ratio] 27.4 kg/m2 No Primary Care Physician [facility] 08-29-2022 12:01-0500 Body weight 72.57 kg No Primary Care Physician [facility] 07-07-2022 12:58-0500 Body height 162.56 cm No Primary Care Physician [facility] Work Phone: 07-07-2022 12:58-0500 Body mass index (BMI) [Ratio] 29 kg/m2 No Primary Care Physician [facility] 07-07-2022 12:58-0500 Body weight 76.65 kg No Primary Care Physician [facility] 07-07-2022 12:58-0500 Diastolic blood pressure 83 mm[Hg] No Primary Care Physician [facility] 07-07-2022 12:58-0500 Heart rate 102 /min No Primary Care Physician [facility] 07-07-2022 12:58-0500 Respiratory rate 16 /min No Primary Care Physician [facility] 07-07-2022 12:58-0500 Systolic blood pressure 143 mm[Hg] No Primary Care Physician [facility] 06-20-2022 09:36-0500 Body height 162.56 cm No Primary Care Physician [facility] Work Phone: 06-20-2022 09:36-0500 Body mass index (BMI) [Ratio] 30.4 kg/m2 No Primary Care Physician [facility] 06-20-2022 09:36-0500 Body temperature 97.4 [degF] No Primary Care Physician [facility] 06-20-2022 09:36-0500 Body weight 80.45 kg No Primary Care Physician [facility] 06-20-2022 09:36-0500 Diastolic blood pressure 74 mm[Hg] No Primary Care Physician [facility] 06-20-2022 09:36-0500 Heart rate 86 /min No Primary Care Physician [facility] 06-20-2022 09:36-0500 Respiratory rate 18 /min No Primary Care Physician [facility] 06-20-2022 09:36-0500 SaO2% (BldA) [Mass fraction] 98 % No Primary Care Physician [facility] 06-20-2022 09:36-0500 Systolic blood pressure 121 mm[Hg] No Primary Care Physician [facility] 06-13-2022 20:00-0500 Diastolic blood pressure 86 mm[Hg] [facility] 06-13-2022 20:00-0500 Heart rate 82 /min [facility] 06-13-2022 20:00-0500 Respiratory rate 15 /min [facility] 06-13-2022 20:00-0500 SaO2% (BldA) [Mass fraction] 98 % [facility] 06-13-2022 20:00-0500 Systolic blood pressure 126 mm[Hg] [facility] 06-13-2022 15:37-0500 Body height 162.56 cm [facility] Work Phone: 06-13-2022 15:37-0500 Body mass index (BMI) [Ratio] 27.4 kg/m2 [facility] 06-13-2022 15:37-0500 Body temperature 97.9 [degF] [facility] 06-13-2022 15:37-0500 Body weight 72.57 kg [facility] 02-21-2022 18:46-0400 Diastolic blood pressure 76 mm[Hg] [facility] Work Phone: 02-21-2022 18:46-0400 Heart rate 83 /min [facility] Work Phone: 02-21-2022 18:46-0400 Respiratory rate 14 /min [facility] Work Phone: 02-21-2022 18:46-0400 SaO2% (BldA) [Mass fraction] 97 % [facility] Work Phone: 02-21-2022 18:46-0400 Systolic blood pressure 110 mm[Hg] [facility] Work Phone: 02-21-2022 16:23-0400 Body mass index (BMI) [Ratio] 27.4 kg/m2 [facility] Work Phone: 02-21-2022 16:23-0400 Body temperature 98.3 [degF] [facility] Work Phone: 02-21-2022 16:23-0400 Body weight 72.57 kg [facility] Work Phone: Encounters Encounter Date Encounter Type Care Provider Facility Start: 02-27-2025 ambulatory Perla Villaltaer VSC Faci lity:[facility] Start: 02-26-2025 ambulatory Perla Villaltaer VSC Faci lity:[facility] Start: 02-25-2025 End: 02-25-[address] Chidi Diallo DO -[facility] Work Phone: Start: 02-25-2025 End: 02-25-2025 ambulatory Perla Yee DO Work Phone: -[facility] Start: 01-14-2025 ambulatory Perla Yee VSC Faci lity:[facility] Start: 06-18-2024 End: 06-18-2024 ambulatory Perla Yee VSC Facility:[facility] Start: 04-08-2024 End: 04-08-2024 Emergency department patient visit Perla Yee [facility] Facility:[facility] Start: 11-20-2023 End: 11-20-2023 ambulatory [facility] Work Phone: Start: 11-20-2023 End: 11-20-2023 Patient encounter procedure [facility] Work Phone: Start: 04-15-2023 End: 04-15-2023 Emergency department patient visit [facility] Work Phone: [facility] Work Phone: Start: 02-17-2023 End: 02-17-2023 Emergency department patient visit [facility] Work Phone: [facility] Work Phone: Start: 01-12-2023 End: 01-12-2023 Patient encounter procedure [facility] Work Phone: [facility] Work Phone: Start: 12-21-2022 Non-patient / Non-visit [facility] Work Phone: [facility] Work Phone: Start: 09-26-2022 End: 09-26-2022 ambulatory No Primary Care Physician [facility] Work Phone: Start: 09-26-2022 End: 09-26-2022 Patient encounter procedure No Primary Care Physician [facility]Laboratory Start: 09-12-2022 End: 09-12-2022 ambulatory No Primary Care Physician [facility] Work Phone: Start: 09-12-2022 End: 09-12-2022 Patient encounter procedure No Primary Care Physician [facility]Laboratory, Specimen Start: 08-30-2022 End: 08-30-2022 Patient encounter procedure No Primary Care Physician [facility] Start: 08-29-2022 End: 08-29-2022 Emergency department patient visit No Primary Care Physician [facility]Emergency Department Start: 08-29-2022 Non-patient / Non-visit No Barb oconnell Care Physician [facility] Start: 08-29-2022 End: 08-29-2022 Admission to same day surgery center No Primary Care Physician [facility] Start: 08-29-2022 End: 08-29-2022 ambulatory No Primary Care Physician [facility] Work Phone: Start: 07-14-2022 Telephone encounter Abner mendoza PA-C Work Phone: Urology Comment on above: Received Outside Med [facility] Records Start: 07-07-2022 End: 07-07-2022 ambulatory No Primary Care Physician [facility] Work Phone: Start: 07-07-2022 End: 07-07-2022 Patient encounter procedure No Primary Care Physician [facility] Start: 07-07-2022 End: 07-07-2022 Admission to same day surgery center No Primary Care Physician [facility] Start: 07-07-2022 End: 07-07-2022 Patient encounter procedure No Primary Care Physician [facility] Start: 07-01-2022 Non-patient / Non-visit No Barb oconnell Care Physician [facility] Start: 06-22-2022 End: 06-22-2022 ambulatory No Primary Care Physician [facility] Work Phone: Start: 06-22-2022 End: 06-22-2022 Patient encounter procedure No Primary Care Physician [facility]Laboratory, Specimen Start: 06-20-2022 End: 06-20-2022 Patient encounter procedure No Primary Care Physician [facility] Start: 06-13-2022 End: 06-13-2022 Emergency department patient visit [facility] Start: 02-21-2022 End: 02-21-2022 Emergency department patient visit [facility] Procedures Date Procedure Procedure Detail Performing Clinician Start: 11-20-2023 CT of chest Start: 02-17-2023 X-ray of chest posteroanterior view [facility] Work Phone: Start: 08-29-2022 Colonoscopy No Primary Care Physician Start: 06-13-2022 Computed tomography of abdomen and pelvis with intravenous contrast Start: 02-21-2022 Computed tomography of abdomen and pelvis with intravenous contrast Measurement of occul t blood in stool specimen using immunoassay No Primary Care Physician Measurement of occul t blood in stool specimen using immunoassay No Primary Care Physician Urine culture No Primary Car e Physician Plan of Treatment Date Care Activity Detail Author Start: 08-30-2022 Patient referral [facility] Work Phone: Start: 08-29-2022 Colonoscopy flx dx w/collj spec when pfrmd DIAGNOSTIC COLONOSCOPY [facility] Start: 08-29-2022 Egd transoral biopsy single/multiple EGD BIOPSY SINGLE/MULTIPLE [facility] Start: 08-29-2022 Patient discharge [facility] Start: 03-31-2022 Influenza vaccination INFLUENZA (#1) [facility] Start: 07-31-2021 DEPRESSION ASSESSMENT DEPRESSION ASSESSMENT [facility] Start: 2017 PROSTATE CANCER SCREENING DISCUSSION PROSTATE CANCER SCREENING DISCUSSION [facility] Start: 2012 SHINGRIX VACCINE (1 of 2) SHINGRIX VACCINE (1 of 2) [facility] Start: 2007 COLOGUARD (FIT-DNA) COLOGUARD (FIT-DNA) [facility] Start: 2007 Colonoscopy COLONOSCOPY [facility] Start: 2007 COLORECTAL CANCER SCREENING COLORECTAL CANCER SCREENING [facility] Start: [address] COLONOGRAPHY [facility] Start: 2007 DIABETES SCREEN DIABETES SCREEN [facility] Start: 2007 FECAL OCCULT BLOOD FECAL OCCULT BLOOD [facility] Start: 2007 SIGMOIDOSCOPY SIGMOIDOSCOPY [facility] Start: 1997 LIPID SCREEN LIPID SCREEN [facility] Start: 1981 Urine microalbumin profile DTAP,TDAP,TD (1 - Tdap) [facility] Start: 1980 HEPATITIS C SCREENING HEPATITIS C SCREENING [facility] Start: 1980 HIV SCREENING HIV SCREENING [facility] Start: 03-10-1961 COVID-19 VACCINE (#1) COVID-19 VACCINE (#1) [facility] CT Chest [facility] Measurement of respiratory function [facility] Patient Education [facility] Work Phone: Patient referral [facility] Work Phone: Walking distance 6 [facility] Payers Date Payer Category Payer Medicare [id number] 2024 Self-pay [id number] 2022 Medicare MEDICARE MEDICAR E A AND B [id number] 2022-Present [phone] [address] [address] [place] [address] Medicare [id number] Medicare MEDICARE PART A B [id number] Medicare [id number] Private Health Insurance [id number] Unknown [id number] 62 Unknown [id number] 62 Unknown [id number] 62 Unknown [id number] 64 Unknown [id number] 64 Unknown [id number] Social History Date Type Detail Facility Start: 06-13-2022 End: 04-15-2023 Tobacco smoking status OKIS Unknown if ever smoked [facility] Start: 1960 Sex Assigned At Male W [facility] Start: 1960 Sex Assigned At Not on file C [facility] Start: 04-08-2024 Tobacco smoking stat us OKIS Smokes tobacco daily (finding) [facility] Goals Date Patient Goal Desired Activity /State Mental Status Date Assessment Result Facility 02-17-2023 Cognitive function Level Of Cons ciousness Awake;Alert;Appropriate;Follow s Commands [facility] Work Phone: 08-29-2022 Cognitive function Light Pain [facility] Work Phone: 08-29-2022 Cognitive function Patient Orien tation Person;Place [facility] Work Phone: Clinical Notes 07-19-2022 to 08-29-2022 Note Date & Type Note Facility 08-29-2022 History and physi raheem note Note Date/Time August 29, 2022 12:40pm [facility] Medical Records Department [address] [place] [address] History & Physical Exam 08/29/22 1238 MR#: [id number] Acct: [id number] Name: JEAN PIERRE GRANT Rep #:[id number] : 1960 61 From: Beau Bello PCP: [facility] [place]us:[facility] [place]: [place] [address] History and Physical Date of Admission: 08/29/22 Date of Service:? 06/20/22 MR#: [id number] Acct: [id number] Name:? JEAN PIERRE GRATN Rep #: [id number] : 1960 ? ? Provider: Dr. Beau Beaulieu MD Age/Sex:? 61/M ? ? Location: [facility] Status: Signed Intake Vital Signs ? 02/22/2216:23 06/13/2215:37 06/20/2209:36 Height 5 ft 4 in 5 ft 4 in 5 ft 4 in Weight: ? 160 lb 177 lb 6 oz BMI ? 27.4 30.4 BP ? 107/70 121/74 H Blood Pressure Location ? ? Rt brachial PositionB ? ? Sitting Respiration ? 18 18 Pulse ? 102 H 86 Pulse Source ? ? Monitor Temp ? 97.9 F 97.4 F L Temp Source ? Temporal Temporal Pulse Oximetry (%) ? 98 98 Oxygen Delivery Method ? ? 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 Required: No Is patient in pain?: No Allergies acetaminophen [From Percocet] Allergy (Verified 06/20/22 09:38) Vomitingdiphenhydramine [From Benadryl] Allergy (Verified 06/20/22 09:38) Otheroxycodone [From Percocet] Allergy (Verified 06/20/22 09:38) Vomiting Medications albuterol sulfate 90 mcg/actuation aerosol inhaler (ProAir HFA) 1 - 2 puff inhalation Q6H PRN sob 06/05/21 [History Confirmed 06/20/22] aspirin 81 mg tablet 81 mg PO DAILY 06/05/21 [History Confirmed 06/20/22] clopidogrel 75 mg tablet (Plavix) 75 mg PO DAILY 06/05/21 [History Confirmed 06/20/22] insulin glargine 100 unit/mL (3 mL) subcutaneous pen (Basaglar KwikPen U-100 Insulin) 14 unit subcut QHS 06/05/21 [History Confirmed 06/20/22] lisinopril 20 mg tablet 20 mg PO BID 06/05/21 [History Confirmed 06/20/22] metformin 1,000 mg tablet 1,000 mg PO BID 06/05/21 [History Confirmed 06/20/22] metoprolol tartrate 25 mg tablet 12.5 mg PO BID 06/05/21 [History Confirmed 06/20/22] tamsulosin 0.4 mg capsule 0.4 mg PO DAILY 06/05/21 [History Confirmed 06/20/22] atorvastatin 80 mg tablet 80 mg PO DAILY 06/13/22 [History Confirmed 06/20/22] budesonide-formoterol HFA 160 mcg-4.5 mcg/actuation aerosol inhaler (Symbicort) 2 inh inhalation BID 06/13/22 [History Confirmed 06/20/22] esomeprazole magnesium 20 mg capsule,delayed release (Nexium) 20 mg PO DAILY #30caps 06/13/22 [Rx Confirmed 06/20/22] pregabalin 100 mg capsule 100 mg PO BID 06/13/22 [History Confirmed 06/20/22] pantoprazole 20 mg tablet,delayed release (Protonix) 20 mg PO DAILY #30 tabs 06/20/22 [Rx Confirmed 06/20/22] PFSH Medical History?(Updated 06/20/22 @ 12:[address] Beau Beaulieu MD) Anxiety Arthritis Chest pain Coronary artery disease Depression Diabetes Heart attack Heart disease Hypertension Neuropathy Surgical History? H/O cardiac catheterization Family History? Grandfather Diabetes Heart disease HypertensionGrandmother Diabetes Heart disease Hypertension Cancer ?? ? stomachFather Diabetes Heart disease HypertensionBrother Heart disease Hypertension Social History?(Updated 06/20/22 @ 09:36 by Cesia Monday) Smoking Status:? Current every day smoker tobacco type: cigarettes alcohol intake:? former substance use type:? does not use HPI HPI HPI: Patient is a 61-year-old male who presents for need to schedule diagnostic colonoscopy secondary to abdominal pains and no prior history of colonoscopy.? They are referred for surgical consultation from Candice Doran NP of the [facility].? Mr. Grant describes this pain as fiery burning and localized to his left upper abdominal quadrant.? He reports that this pain has been present for months and never stops.? He denies any associated nausea or vomiting.? He denies any weight changes.? He denies any history of reflux. As above, patient has not had prior colonoscopy.? However, he does report a history of diverticulitis that was treated with antibiotics years ago and remitted with this treatment.? He also believes that he had a positive fecal occult blood test?but is unable to provide further detail as this was obtained in [place] (where he comes from immediately) and there was no follow-up given his move here to [place].? Patient has no personal history of colon cancer or inflammatory bowel disease. They describe their bowel habits as relatively normal, but with occasional constipation (by this he details that this occurs a couple of times per month and he will go 3 to 4 days in between bowel movements?required milk of magnesia to have a bowel movement).? Generally though, they have approximately 1 bowel movement per day and spend roughly 10 to20 minutes on the toilet without significant straining.? They have noticed dark stools but no bright red blood.? There is no history of hemorrhoids.? They do not regularly take fiber supplements. Patient has no family history of colon cancer, inflammatory bowel disease, or diverticulitis.? ? The patient's weight is stable. The patient is prescribed Plavix and a baby aspirin for a history of heart stents.? He states that he is still to establish cardiology following here in [place].? He notes a appointment has been tentatively scheduled for early July with Dr. Moses of [facility]. Relevant prior abdominal surgical history includes: Not applicable Patient does not have a significant history of GERD or heartburn.? Yet he does remark of some nighttime awakenings with coughing fits.? He also experiences infrequent retrosternal chest pressure.? He denies any history of recurrent pneumonias.? He states that he previously was prescribed Prevacid twice daily and took this for a number of years without symptom relief.? It is because of this lack of response and is no longer on a PPI medication and states that he was prescribed Nexium, but never took it. Mr. Grant expresses frustration over the lack of progress in understanding his abdominal pain and confirms a recent ER visit where he, again, was told his CT imaging was negative.? He was referred to gastroenterology and believes there rodrigo visit in place for July 18, 2022. ROS General General: Yes fatigue; No weight change, appetite, colon cancer, breast cancer or weakness HEENT HEENT: No difficulty swallowing, eye injury, eye surgery, swollen glands or hoarseness Endo Endocrine: Yes diabetes mellitus; No thyroid disease, thyroid cancer, Hair loss, heat intolerance or cold intolerance Skin Skin: No rash or changing moles Musc Musculoskeletal: Yes back problems and arthritis; No rheumatoid arthritis, gout or joint pain Cardio Cardiovascular: Yes heart disease, high blood pressure, heart attack and heart stent; No murmur, pacemaker, atrial fibrillation, palpitations, shortness of breat withexertion or chest pain Psych Psychiatric: Yes depression and anxiety; No hearing voices Resp Respiratory: Yes shortness of breath, Yes sleep apnea, Yes cough, Yes COPD, Yes asthma, Yes emphysema and No wheezing Gastro Gastrointestinal: Yes abdominal pain, No nausea or vomiting, No diarrhea, No constipation, No blood in stool, No acid reflux, No hemorrhoids, No ulcers, Yes gallbladder problem and No black,tarry stools Austyn Hematologic: Yes blood thinners, No blood disorders, No bleeding, No anemia and No blood clots Neuro Neurologic: No system reviewed and no additional complaints, except as documented, No as per HPI, No abnormal gait, No abnormal hearing, No abnormal movements, No abnormal speech, No behavioral changes, No burning sensations, No confusion, No convulsions, No disequilibrium, No dizziness, No localized weakness, No frequent falls, No headache(s), No lack of coordination, No loss ofvision, No memory loss, No numbness, No other visual disturbances, No radicular pain, No restless legs, No sensory deficit, No syncope, Yes tingling, No tremor(s), No weakness and Yes other (Hx stroke or TIA) Exam Const General: cooperative Nutritional Appearance: well nourished Orientation: alert, awake and oriented x3 Resp Effort & Inspection: normal respiratory effort, cough Quality of cough: dry and no respiratory distress Auscultation: no rales, no rhonchi and wheezes Cardio Rate: regular rate Rhythm: regular rhythm GI Other: Well-healed superficial scar in left upper abdominal quadrant.? Nondistended, soft.? Tenderness with palpation of the epigastrium and left upper quadrant withsome voluntary guarding expressed.? Negative Wilhelm sign. Assessment and Plan Assessment and Plan (1) Left upper quadrant abdominal pain: ?Status:?Acute ?Comment: This is a 61-year-old male, with no previous colonoscopy, who presents for rather undifferentiated pain of his left upper quadrant that has been persistentfor at least the last 4 months.? Patient's descriptions of a fiery burning pain are suggestive of a upper GI source.? However he clearly communicates that he has no history of typical reflux or heartburn symptoms and had no relief whentrialing Prevacid several years ago.? He also reports a probable positive fecal occult blood test?although he is unclear on the details as this was obtained just prior to his departure from [place] (having recently relocated to [place]).? CT imaging from January and earlier this month was both unrevealing as to the causeof patient's abdominal discomfort.? Given these negative investigations and patient's reports of some nighttime awakening, as well as the darker stool/possibly positive fecal occult blood testing, I believe an investigation with upper and lower endoscopy is warranted.? Yet patient will require cardiology clearance to hold his clopidogrel ahead of these procedures in the event that biopsy is necessary.? Patient is still to establish care with cardiology, but we will look to reach out to them to see what their preference is in providing this clearance.? In the meantime I would like to repeat patient's fecal occult blood testing and have advised him that failure of response to 1 PPI agent is not necessarily predictive of failure to all other agents of the same class and have suggested we consider implementation of Protonix.? Mr. Grant is receptive of this recommendation and willing to proceedas described. ?Plan: ? Tentatively plan for diagnostic upper and lower endoscopy in July 2022 ? Fecal occult blood testing now ? 20 mg Protonix daily x1 month ? Seek direction from cardiology regarding Mr. Grant's antiplatelet therapy in anticipation of the endoscopies planned early next year I have examined the patient and the H&P has been reviewed. There are no clinicalchanges since date of exam. Patient confirms that his left upper quadrant abdominal discomfort persists, but at a lesser intensity and is continuous. He confirms that he completed a bowel prep for today's procedure and that his output is now clear. Lastly confirms that he has been off his Plavix. He actually reports that he ran out of this medication and simply never restarted it 2 weeks ago. He has been urged to make contact with his prescribing provideron this issue soon as possible. For the interim we will proceed with diagnosticupper and lower endoscopy as previously scheduled. 08/29/22 1240 <Electronically signed by Beau Beaulieu MD> Cosigner Signature (if applicable): CC: Dr. Beau Beaulieu MD; [facility]~ Signed [facility] Work Phone: [phone] 704-503301-30-2023 [facility] Procedure note [facility]01-30-2023 Procedure [facility] 07-19-2022 Miscellaneous Notes* Telephone Encounter - Leann Albarado LPN - 07/19/2022 4:03 PM EST Received medical records. Available for appointment and to operations for scanning. Leann Albarado LPN * Telephone Encounter - Leann Albarado LPN - 07/18/2022 12:16 PM EST Faxed request for medical records. Leann Albarado LPN * Telephone Encounter - Leann Albarado LPN - 07/18/2022 12:09 PM EST Called [facility] Medical Records. Not available. Did get fax number [phone] to fax request to. Leann Albarado LPN * Telephone Encounter - Leann Albarado LPN - 07/18/2022 11:50 AM EST Called patient. Verified name and date of . Patient reports having been seen for urology needs at [facility] in [place] approximately one year ago. Leann Albarado LPN * Telephone Encounter - Leann Albarado LPN - 07/14/2022 2:19 PM EST Called patient. Not available. Left message to call clinic. Patient has appointment scheduled for 07/26/22 with Abner Townsend PA-C. Has patient been seen elsewhere for urological needs and if so where? Leann Albarado LPN documented [facility] ClinicEvaluation noteNo assessment information [facility] Work Phone: Evaluation note* Diagnosis Onset Date Resolution Status Left upper quadrant abdominal pain acute [facility] Work Phone: Evaluation note* Diagnosis Onset Date Resolution Status Left upper quadrant abdominal pain acute Abdominal pain acute Tachycardia acute COPD (chronic obstructive pulmonary disease) chronic Coronary artery disease breeding manager pau Dyslipidemia chronic Essential (primary) hypertension chronic Nicotine dependence chronic Type 2 diabetes mellitus chr onic Preoperative cardiovascular examination noneactive [facility] Work Phone: Evaluation note* Diagnosis Onset Date Resolution Status Left upper quadrant abdominal pain acute Abdominal pain acute Tachycardia acute COPD (chronic obstructive pulmonary disease) chronic Coronary artery disease breeding manager pau Dyslipidemia chronic Essential (primary) hypertension chronic Nicotine dependence chronic Type 2 diabetes mellitus chr onic Preoperative cardiovascular examination noneactive BPH (benign prostatic hyperplasia) acute Hematuria acute [facility] Work Phone: Evaluation note* Diagnosis Onset Date Resolution Status COPD (chronic obstructive pulmonary disease) chronic Coronary artery disease breeding manager pau Dyslipidemia chronic Essential (primary) hypertension chronic Nicotine dependence chronic Type 2 diabetes mellitus chr onic [facility] Work Phone: Evaluation note* Diagnosis Onset Date Resolution Status Admit Date Nicotine dependence, cigaret vlad, uncomplicated acute February 25, 2025 11:24am BRITTANY (obstructive sleep apnea) acute February 25, 2025 11:24am COPD (chronic obstructive pulmonary disease) chronic February 25 11:24am [facility] Work Phone: Hospital Discharge instructions Additional Instructions Please follow-up with a dentist and take antibiotics as prescribed. Return for any worsening of your symptoms.[facility] Work Phone: Reason for referral (narrative)No reason for referral information availableFranc[facility] Work Phone: Chief Complaint and Reason for Visit Chief Complaint ABD abd pain Chief Complaint abd pain COLONOSCOPY FOR ABDOMINAL PAIN e order Reason for Visit Left upper quadrant abdominal pain Chief Complaint abd pain COLONOSCOPY FOR ABDOMINAL PAIN e order Amb Documentation SPARKS EORDER Reason for Visit Left upper quadrant abdominal pain Abdominal pain Tachycardia COPD (chronic obstructive pulmonary disease) Coronary artery disease Dyslipidemia Essential (primary) hypertension Nicotine dependence Type 2 diabetes mellitus Preoperative cardiovascular examination Chief Complaint abd pain COLONOSCOPY FOR ABDOMINAL PAIN e order Amb Documentation SPARKS EORDER URINARY RETENTION Reason for Visit Left upper quadrant abdominal pain Abdominal pain Tachycardia COPD (chronic obstructive pulmonary disease) Coronary artery disease Dyslipidemia Essential (primary) hypertension Nicotine dependence Type 2 diabetes mellitus Preoperative cardiovascular examination Chief Complaint abd pain COLONOSCOPY FOR ABDOMINAL PAIN e order Amb Documentation SPARKS EORDER URINARY RETENTION urinary retention hematuria Reason for Visit Left upper quadrant abdominal pain Abdominal pain Tachycardia COPD (chronic obstructive pulmonary disease) Coronary artery disease Dyslipidemia Essential (primary) hypertension Nicotine dependence Type 2 diabetes mellitus Preoperative cardiovascular examination BPH (benign prostatic hyperplasia) Hematuria Chief Complaint Amb Documentation 6 M FU R RIB PAIN DENTAL Reason for Visit COPD (chronic obstru ctive pulmonary disease) Coronary artery disease Dyslipidemia Essential (primary) hypertension Nicotine dependence Type 2 diabetes mellitus Chief Complaint NICOTINE DEPENDENCE Chief Complaint Admit Date Concern for BRITTANY & chronic cough January 11:24am Reason for Visit Admit Date Nicotine dependence, cigarettes, uncompl icated February 25, 2025 11:24am BRITTANY (obstructive sleep apnea) February 25, 2025 11:24am COPD (chronic obstructive pulmonary dise ase) February 25, 2025 11:24am Advance Directives No Advanced Directives Records Found Advance Directive Response Recorded Date/ Time Living Will No June 13, 5:18pm Power of Refrigeration [place]derer No June 13, 2022 5:18pm Advance Directive Response Recorded Date/ Time Living Will No August 24 11:38am Power of Refrigeration [place]er/[place]derer No August 24, 2022 11:38am Advance Directive Response Recorded Date/ Time Living Will No August 29 9:18pm Power of Refrigeration [place]derer No August 29, 2022 9:18pm Advance Directive Response Recorded Date/ Time Living Will No April 15, 2023 12:22pm Power of Refrigeration [place]er/Solderer No March 12:22pm Family History No Family History Records Found Relationship Condition Age at Onset Recorded Date/T adriane grandfather Diabetes mellitus Unknown Cardiac disease Unknown Hypertension Unknown grandmother Diabetes mellitus Unknown Malignant neoplasm Unknown father Diabetes mellitus Unknown brother Cardiac disease Unknown Summary Purpose Additional Source Comments Goals (unrecognized section and content) Goals may be documented in a n alternate sectionGoals may be documented in an alternate sectionGoals may be documented in an alternate sectionGoals may be documented in an alternate sectionGoals may be documented in an alternate sectionGoals may be documented in an alternate section Source Comments (unrecognize d section and content) In the event this informatio n is protected by the Federal Confidentiality of Alcohol and Drug Abuse Patient Records regulations: The Federal rules restrict any use of the information to criminally investigate or prosecute any alcohol or drug abuse patient.[facility] Reason for Visit (unrecogniz ed section and content) Reason Comments Received Outside Medical Records Care Teams (unrecognized sec tion and content) Clother In Relationship Specialty Start Date End Date Candice Doran, VICKIE [address] [place] [address] Referring Family Medicine 07/06/22 Team Status: Active Member Role Status Dates [facility] Primary [facility] Provider A ctive Team Status: Inactive Member Role Status Dates No Primary Care Physician Referring Provider Active Dr. Beau Beaulieu MD Attending Provider Active Dr. Kamryn Mcmanus Primary Care Provider Active Team Status: Inactive Member Role Status Dates Dr. Kamryn Mcmanus Referring Provider Active Dr. Cj Wild MD Attending Provider [facility] Primary [facility] Provider A ctive Team Status: Active Member Role Status Dates [facility] Primary Care Provider A ctive Lindsay No Attending Provider Active Team Status: Active Member Role Status Dates Dr. Beau Beaulieu MD Attending Provide r, Referring Provider, Other Provider Active [facility] Primary Care Provider A ctive Team Status: Inactive Member Role Status Dates [facility]. Raphael [facility] Primary Care Provider Active Dr. Jonathan Sin MD Attending Provider, Emergency Provider Active Team Status: Inactive Member Role Status Dates Dr. Beau Beaulieu MD Attending Provider, Referring P rovider Active [facility] Primary Care Provider A ctive Team Status: Inactive Member Role Status Dates [facility] Primary Care Provider A ctive Dr. Beau Beaulieu MD Attending Provider, Referring P rovider Active Team Status: Inactive Member Role Status Dates [facility] Primary Care Provider A ctive Dr. Cj Wild MD Attending Provider Active Team Status: Inactive Member Role Status Dates [facility] Primary Care Provider A ctive Dr. yEal De Jesus MD Emergency Provider Active Team Status: Inactive Member Role Status Dates [facility] Primary Care Provider, Referring Provider Active Dr. Beau Beaulieu MD Attending Provider Active Team Status: Inactive Member Role Status Dates [facility] Primary Care Provider A ctive Dr. Eyal De Jesus MD Attending Provider, Emergency Provider Active Team Status: Inactive Member Role Status Dates [facility] Primary Care Provider A ctive Dr. Patrick Ayala MD Attending Provider, Referr ing Provider Active Team Status: Inactive Member Role Status Dates [facility] Primary C are Provider, Attending Provider, Referring Provider Active Candice Doran LIFE AGENT, LIFE AGENT-C Other Provider Active Team Status: Active Member Role Status Dates Isabella Yee DO Primary Care Provider Active Team Status: Inactive Member Role Status Dates [facility] Primary Care Provider, Referring Provider Active Dr. Cj Wild MD Attending Provider Active Team Status: Active Member Role Status Dates [facility] Primary Care Provider A ctive Lilian Barron Attending Provider Active Team Status: Inactive Member Role Status Dates Isabella Yee DO Primary Care Provider Active Dr. Danny Posey MD Emergency Provider Active Team Status: Inactive Member Role Status Dates Isabella Yee DO Primary Care Provider Active Dr. Vicky Ruvalcaba MD Attending Provider, Emergency Provider Active Team Status: Inactive Member Role Status Dates Isabella Yee , DO Primary Care Provi lukasz, Attending Provider, Referring Provider Active Team Status: Active Member Role/Relationship Status Dates Perla Yee [facility], DO Primary Care Provider Active Team Status: Inactive Member Role/Relationship Status Dates Perla Yee [facility], DO Primary Care Provider Active Start: February 25, 2025 End: February 25, 2025 Perla Yee [facility], DO Referring Provider Active Start: February 25, 2025 End: February 25, 2025 Dr. Chidi Diallo , DO Attending Provider Active S tart: February 25, 2025 End: February 25, 2025 (unrecognized sect ion and content) No Status Records Found INFORMATION SOURCE (unrecogn ized section and content) DATE CREATED AUTHOR 03/01/2025 [facility] FOR RECORDS PERTAINING TO PATIENTS WHO ARE OR HAVE BEEN ENROLLED IN A CHEMICAL DEPENDENCY/SUBSTANCEABUSE PROGRAM, SOME INFORMATION MAY BE OMITTED. This clinical summary was aggregated from multiple sources. Caution should be exercised in using it in the provision of clinical care. This summary normalizes information from multiple sources, and as a consequence, information in this document may materially change the coding, format and clinical context of patient data. In addition, data may be omitted in some cases. CLINICAL DECISIONS SHOULD BE BASED ON THE PRIMARY CLINICAL RECORDS. [employer] provides no warranty or guarantee of the accuracy or completeness of information in this document.
[2025-03-08 12:42] LABS: Anion Gap 11 (5-15); BUN 21 mg/dL (4-19); BUN/Creat Ratio 17.5 RATIO (10-20); Calcium,Total 9.0 mg/dL (7.6-11.0); Carbon Dioxide 24.1 mmol/L (21.0-32.0); Chloride 102 mmol/L (98-108); Estimated Creatinine Clearance 54.35 ml/min (50-250); Glucose 174 mg/dL (70-99); Potassium 5.0 mmol/L (3.3-5.1); Troponin T High Sensitivity 36 ng/L (<=22)
--- NOTE | 2025-03-08 12:42 | HP.PCM.HOS_ITS ---
HPI - General General Date of Admission: 03/08/25 Date of Service: 03/08/25 Chief Complaint: slurred speech and aphasia HPI Narrative JEAN PIERRE APONTE, is a 64 M with a PMH as outlined who was admitted via the ED on 03/08/2025 with a complaint of slurred speech and aphasia. noted that his speech was slurred when he was talking to her this morning. He had a stroke last year so family was concerned about a repeat stroke and so brought him to the ED. He is on aspirin and Plavix at home. He was admitted to the [facility] and also supposedly had some right weakness but his symptoms had resolved by the time he came into the ED. He denied any headache, chest pain, dizziness, symptoms. Review of systems otherwise negative. He has been compliant with his Plavix. Vitals in the ED were blood pressure of 149/85, pulse rate of 67, respiratory rate of 18 and he was saturating at 99% on room air. CBC showed hemoglobin of 13.7 with WBC of 11.6 and platelets of 195. INR was 0.9. Chemistry shows sodium of 137 potassium of 5 and bicarb of 24.1. Creatinine was 1.18. CT brain showed no acute intracranial pathology and showed subtle lucencies within the calvarium which had been again noted with metastatic disease versus myeloma being a consideration. CTA head and neck showed no significant stenosis in the head and neck. NIH stroke scale was 0 at the time he came into the ED. He is therefore being admitted to be managed for TIA to rule out a stroke. [facility] Medical History Presence of stent in coronary artery (~08/08/16) Hematuria Acute urinary retention Wears glasses Insulin dependent diabetes mellitus Ambulates with cane Prostate disease High cholesterol Restless legs TIA (transient ischemic attack) Difficulty chewing History of diverticulitis Smoker History of heart attack History of echocardiogram History of stress test Cardiology follow-up encounter COPD (chronic obstructive pulmonary disease) Atherosclerosis of coronary artery of [place] heart without angina pectoris Non-ST elevation myocardial infarction (NSTEMI) (~08/08/16) Essential (primary) hypertension Type 2 diabetes mellitus Anxiety Depression Heart attack Heart disease Hypertension Arthritis Neuropathy Diabetes Home Medications ?Medication ?Instructions ?Recorded ?Last Taken ?Type clopidogrel 75 mg tablet (Plavix) 75 mg PO DAILY 06/0508/23/22 History metformin 1,000 mg tablet 1,000 mg PO BID 06/05/21 Unk nown History pregabalin 100 mg capsule 100 mg PO BID 06/13/22 Unkno wn History pantoprazole 20 mg tablet,delayed 20 mg PO DAILY #30 t abs 06/20/22 08/29/22 Rx release (Protonix) lisinopril 20 mg tablet 20 mg PO DAILY 07/01/2208/02 History tamsulosin 0.4 mg capsule (Flomax) 0.4 mg PO BID #60 c aps 08/30/22 Unknown Rx dapagliflozin propanediol 10 mg 10 mg PO DAILY 3 Unknown History tablet (Farxiga) finasteride 5 mg tablet 5 mg PO DAILY 01/12/23 Unkno wn History glimepiride 4 mg tablet 4 mg PO DAILY 01/12/23 Unkno wn History tadalafil 20 mg tablet 20 mg PO DAILY PRN sexual ac tivity 01/12/23 Unknown History metoprolol tartrate 50 mg tablet 50 mg PO BID #180 tab s 10/16/23 Unknown Rx insulin glargine 100 unit/mL (3 10 unit subcut QHS 04/24 Unknown History mL) subcutaneous pen (Lantus Solostar U-100 Insulin) rosuvastatin 40 mg tablet 40 mg PO QHS 03/08/25 Unknow n History Allergy/AdvReac Type Severity Reaction Status Date / Time fentanyl Allergy Intermediate Pain in Verified 02/25/25 11:33 joints acetaminophen (From Percocet) Allergy Vomiting Verified 02/25/25 11:33 diphenhydramine (From Allergy Other Verified 02/25/25 11:33 Benadryl) oxycodone (From Percocet) Allergy Vomiting Verified 02/25/25 11:33 Family History Grandfather Diabetes Heart disease Hypertension Grandmother Diabetes Heart disease Hypertension Cancer stomach Father Diabetes Heart disease Hypertension Brother Heart disease Hypertension Surgical History History of colonoscopy History of esophagogastroduodenoscopy (EGD) History of coronary artery stent placement (~08/08/16) H/O cardiac catheterization Social History Smoking Status: Current every day smoker tobacco type: cigarettes alcohol intake: former substance use type: does not use caffeine: Yes Type: coffee Number of servings: 12 ROS Constitutional Constitutional: Denies anorexia, chills, fatigue, fever(s), malaise or weakness Eyes Eyes: Denies change in vision ENT HEENT: Denies dysphagia, headache(s) or hearing loss Cardiovascular Cardiovascular: Denies chest pain, dyspnea on exertion, lightheadedness, palpitations or rapid heart rate Respiratory/Chest Respiratory/Chest: Denies cough, dyspnea, productive cough or shortness of breath with exertion Gastrointestinal Gastrointestinal: Denies abdominal pain, diarrhea, dyspepsia, nausea or vomiting Genitourinary Genitourinary: Denies dysuria Neurologic Neurologic: Reports abnormal speech; Denies confusion, dizziness, focal weakness, headache(s), numbness, seizures, syncope or tingling Psychiatric Psychiatric: Denies anxiety Vital Signs Vital Signs Vital Signs: 03/08/25 11:58 03/08/25 12:00 03/08/25 12:00 Temperature Temperature Source Pulse Rate 74 71 Respiratory Rate 18 17 Blood Pressure 160/89 H 169/92 H Blood Pressure Mean 112 117 Pulse Ox 100 97 99 Oxygen Delivery Method Room Air Room Air Room Air 03/08/25 12:17 03/08/25 12:17 03/08/25 12:30 Temperature 97.9 F Temperature Source Temporal Pulse Rate 73 67 Respiratory Rate 21 H 18 Blood Pressure 144/76 H 149/85 H Blood Pressure Mean 98 106 Pulse Ox 99 99 Oxygen Delivery Method Room Air Room Air Weight Weight: 151 lb 0.266 oz Body Mass Index (BMI) 25.9 Physical Exam Const alert, oriented x3 and no apparent distress General Appearance: cooperative HEENT normocephalic, head/scalp atraumatic, hearing grossly normal bilaterally and moist oral mucous membranes Mouth: oral and palatal mucosa normal Eyes EOMs intact bilaterally and conjunctivae normal Neck supple Resp normal respiratory effort, no use of accessory muscles and clear to auscultation bilaterally Cardio regular rate, regular rhythm, S1 normal heart sound, S2 normal heart sound and no murmurs GI normal to inspection, nondistended, normoactive bowel sounds, soft to palpation, non-tender and non-distended Extremity normal to inspection, full ROM and no clubbing, cyanosis or edema Neuro oriented x3, CN's II-XII intact bilaterally, moves all extremities and no focal motor deficits Sensorium / Orientation: awake Motor Exam: strength 5/5 throughout Psych affect normal Results Lab / Micro Data 03/08/25 11:45 03/08/25 11:45 Labs: Laboratory Results - last 24 hr 03/08/25 11:45: WBC 11.6 H, RBC 4.90, Hgb 13.7, Hct 42.2, MCV 86.1, MCH 28.0, MCHC 32.5, RDW Std Deviation 40.8, RDW Coeff of Serafin 13.0, Plt Count 195, MPV 11.8, Immature Gran % (Auto) 0.600, Neut % (Auto) 63.7, Lymph % (Auto) 27.1, [place] % (Auto) 6.2, Eos % (Auto) 2.0, Baso % (Auto) 0.4, Absolute Neuts (auto) 7.4, Absolute Lymphs (auto) 3.14, Nucleated RBC % 0, PT 12.5, INR 0.9, APTT 25.8, Sodium 137, Potassium 5.0, Chloride 102, Carbon Dioxide 24.1, Anion Gap 11, BUN 21 H, Creatinine 1.18, Estim Creat Clear Calc 54.35, Est GFR (MDRD) Non- Af 70, BUN/Creatinine Ratio 17.5, Glucose 174 H, Calcium 9.0, Troponin T High Sens 36 H Imaging Radiology Impression Brain CT 03/08/25 11:37 IMPRESSION: 1. No evidence of intracranial hemorrhage or acute ischemia. 2. Changes of chronic microvascular ischemia and volume loss. 3. Subtle lucencies within the calvarium again noted. Metastatic disease versus myeloma is a consideration. Findings and impression were called directly to Dr. Quigley at 11:50 a.m. Eastern standard time. Reading Location: [id number] Head/Neck CTA 03/08/25 11:38 IMPRESSION: No significant stenosis in the head and neck. No aneurysm or vascular malformation. Reading Location: [id number] Assessment & Plan Assessment/Plan (1) Stroke-like symptoms: PLAN: Plan #Stroke like symptoms * admitted with a complaint of slurred speech and expressive aphasia. Symptoms had resolved at time of review * NIHSS at time of review is 0 * CT brain showed no acute intracranial pathology. * CT head and neck showed no hemodynamically significant stenosis. * already on plavix and high intensity statin due to history of stroke. * Admit to PCU per stroke protocol * get MRI of the brain and 2D echo * consult [facility] neurology * Consult speech therapy. Monitor NIH stroke scale. * Keep n.p.o. until he passes bedside swallow evaluation. Hold BP meds to allow for permissive hypertension in case of a stroke. #Type 2 diabetes mellitus: Hold dapagliflozin and glimepiride. Insulin sliding scale. Accuchecks ACHS. #BPH: On finasteride and Flomax DVT prophylaxis: SCDs Code status: full code * Patient and counseled extensively about different types of CODE STATUS including full code, DNR CCA and DNR CCA. * Patient elects to be full code. * Total [id number] time 16 minutes. Charges/Coding Visit Charges Inpatient E&M: 81398 Init Hosp L2 Procedures Hospitalists Procedures: 81535 Advncd Care Plan 30 Min
[2025-03-08 12:59] LABS: Mucous, Urine 0 SEEN /hpf (<or=2+); Red Blood Cells-Urine 0 SEEN /hpf (0-5); Squamous Epithelial Cells - UA 0 SEEN /hpf (0-5)
[2025-03-08 13:02] LABS: Color, Urine Yellow (Yellow); Glucose, Dipstick 100 mg/dl (Normal); Ketone-Dipstick Negative (Negative); Leukocyte Esterase-Dipstick Negative /ul (Negative); Nitrite-Dipstick Negative (Negative); Occult Blood-Urine Negative /ul (Negative); Protein-Dipstick 15 mg/dl (Negative); Specific Gravity, Urine 1.005 (1.002-1.030); Urine Bilirubin Dipstick Negative (Negative)
[2025-03-08 13:14] LABS: Yeast-Urine 1+ /hpf (None Seen)
--- OUTSIDE RECORDS SUMMARY | 2025-03-08 13:19 | XMS RPT_ITS | CCD ---
Author Organization [facility] CliniSys[facility] Care Team Providers Care Systems Technician Name Role Phone Care Physician, No Primary Referring Provider Un available Dr. Beau Beaulieu Attending Provider Dr. Kamryn Mcmanus Primary Care Provider [facility], Kamryn Mcmanus Primary Care Pro vider Lindsay No Attending Provider Unavailable Dr. Kamryn Mcmanus Referring Provider Dr. Cj Wild Attending Provider Espinoza CLIN NURSE SPEC, Candice Unavailable Dr. Beau Beaulieu Referring Provider Dr. Beau Beaulieu Other Provider [facility], Kamryn Mcmanus Referring Provid er [facility], Kamryn Mcmanus Primary Care Pro vider Lilian Barron Attending Provider Unavailable [facility], Kamryn Mcmanus Referring Provid er Dr. Cj Wild Attending Provider Joselito DO, Perla Primary Care Provider Joselito DO, Perla Referring Provider Dr. Chidi Diallo DO Attending Provider [phone] Joselito VSC, Perla Primary Care Unavailable Mitchell VSC, Agustin Attending Unavailable Joselito VSC, Perla Primary Care Unavailable Mitchell VSC, Agustin Attending Unavailable Joselito VSC, Perla Referring Unavailable Joselito VSC, Perla Primary Care Unavailable Chidi Diallo Attending Unavailable Joselito VSC, Perla Primary Care Unavailable Joselito VSC, Perla Referring Unavailable Chidi Diallo Attending Unavailable Joselito VSC, Perla Attending Un[facility] Unavailable Charlie Santana Attending Unavailable Allergies Allergy Classification Reported Allergen(s) Allergy Type Date of Onset Reaction(s) Facility (10 sources) Acetaminophen Drug Allergy 2 Vomiting [facility] (10 sources) diphenhydrAMINE Drug Allergy 1 Other [facility] (10 sources) oxyCODONE Drug Allergy 2 Vomiting [facility] (3 sources) fentaNYL Drug Allergy 3 Pain in joints [facility] (1 source) Acetaminophen Drug Allergy 5 [facility] (1 source) diphenhydrAMINE Drug Allergy 5 [facility] (1 source) fentaNYL Drug Allergy 5 [facility] (1 source) oxyCODONE Drug Allergy 5 [facility] Medications Current Medications Medication Drug Class(es) [...] Drug Class(es) Dates Sig (Normalized) Sig (Original) [id number] 200 actuat albuterol 0.09 mg/actuat metered dose [...] obtained just prior to his departure from [place] (having recently relocated to [place]). 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 Patient developed ac teller post procedure urinary retention following EGD and [...] 02-27-2025 Creatinine [Mass/Vol] 52.70 mg/dL Normal 39.00-259.00 [facility] Comment on above: Performed By: #### L 502.0250 ####[facility] [address] [place], [place], [address] MALB:CREAT 90.7 mg/g CRE High <30 mg/g CRE [facility] Comment on above: Performed By: #### L 502.0250 ####[facility] [address] [place], [place], [address] MICROALBUMIN,UR 47.8 mg/L Normal <20 mg/L [facility] Comment on above: Performed By: #### L 502.0250 ####[facility] [address] [place], [address] CRPon 02-26-2025 C-REACTIVE PROT 5.08 mg/L High 0.0-3.0 [facility] Comment on above: Performed By: #### L 503.0106, L509.8002, L501.9985, L502.0250, L506.0200, L501.9520, L101.9900, L501.6710, L501.7300, L500.4050 #### [facility] [address] [place], [place], [id number] Comprehensive Metabolic Prof ilon 02-26-2025 Albumin [Mass/Vol] 4.2 g/dL Normal 3.4-4.8 [facility] Comment on above: Result Comment: AMENDED REPORT 02/26/251721 ALB previously reported as: 4.0 g/dL Performed By: #### L 503.0106, L509.8002, L501.9985, L502.0250, L506.0200, L501.9520, L101.9900, L501.6710, L501.7300, L500.4050 #### [facility] [address] [place], [address] Albumin/Globulin [Mass ratio] 1.8 {ratio} Normal 0.9-2.4 [facility] Comment on above: Result Comment: AMENDED REPORT 02/26/251721 A/G previously reported as: 1.4 RATIO Performed By: #### L 503.0106, L509.8002, L501.9985, L502.0250, L506.0200, L501.9520, L101.9900, L501.6710, L501.7300, L500.4050 #### [facility] [address] [place], [address] ALK PHOS 89 U/L Normal 40-129 [facility] Comment on above: Result Comment: AMENDED REPORT 02/26/251721 ALK P previously reported as: 85 U/L Performed By: #### L 503.0106, L509.8002, L501.9985, L502.0250, L506.0200, L501.9520, L101.9900, L501.6710, L501.7300, L500.4050 #### [facility] [address] [place], [place], [phone] (869) ALT [Catalytic activity/Vol] 19 U/L Normal <=46 [facility] Comment on above: Result Comment: AMENDED REPORT 02/26/251721 ALT previously reported as: 16 U/L Performed By: #### L 503.0106, L509.8002, L501.9985, L502.0250, L506.0200, L501.9520, L101.9900, L501.6710, L501.7300, L500.4050 #### [facility] [address] [place], [place], [id number] AST [Catalytic activity/Vol] 15 U/L Normal <=37 [facility] Comment on above: Result Comment: AMENDED REPORT 02/26/251721 AST previously reported as: 16 U/L Performed By: #### L 503.0106, L509.8002, L501.9985, L502.0250, L506.0200, L501.9520, L101.9900, L501.6710, L501.7300, L500.4050 #### [facility] [address] [place], [place], [id number] Bilirubin [Mass/Vol] 0.30 mg/dL Normal 0.00-1.30 [facility] Comment on above: Performed By: #### L 503.0106, L509.8002, L501.9985, L502.0250, L506.0200, L501.9520, L101.9900, L501.6710, L501.7300, L500.4050 #### [facility] [address] [place], [address] BUN/CRE 15.2 RATIO Normal 10-20 [facility] Comment on above: Result Comment: AMENDED REPORT 02/26/251721 BUN/CRE previously reported as: 14.7 RATIO Performed By: #### L 503.0106, L509.8002, L501.9985, L502.0250, L506.0200, L501.9520, L101.9900, L501.6710, L501.7300, L500.4050 #### [facility] [address] [place], [address] Calcium [Mass/Vol] 9.5 mg/dL Normal 7.6-11.0 [facility] Comment on above: Result Comment: AMENDED REPORT 02/26/251721 CA previously reported as: 9.4 mg/dL Performed By: #### L 503.0106, L509.8002, L501.9985, L502.0250, L506.0200, L501.9520, L101.9900, L501.6710, L501.7300, L500.4050 #### [facility] [address] [place], [address] Chloride [Moles/Vol] 101 mmol/L Normal 98-108 [facility] Comment on above: Performed By: #### L 503.0106, L509.8002, L501.9985, L502.0250, L506.0200, L501.9520, L101.9900, L501.6710, L501.7300, L500.4050 #### [facility] [address] [place], [address] CO2 [Moles/Vol] 22.4 mmol/L Normal 21.0-32.0 [facility] Comment on above: Result Comment: AMENDED REPORT 02/26/251721 CO2 previously reported as: 21.3 mmol/L Performed By: #### L 503.0106, L509.8002, L501.9985, L502.0250, L506.0200, L501.9520, L101.9900, L501.6710, L501.7300, L500.4050 #### [facility] [address] [place], [place], [address] Creatinine [Mass/Vol] 0.99 mg/dL Normal 0.70-1.20 [facility] Comment on above: Result Comment: AMENDED REPORT 02/26/251721 CREAT,SERUM previously reported as: 1.01 mg/dL Performed By: #### L 503.0106, L509.8002, L501.9985, L502.0250, L506.0200, L501.9520, L101.9900, L501.6710, L501.7300, L500.4050 #### [facility] [address] [place], [place], [id number] GAP 12 Normal 5-15 [facility] Comment on above: Result Comment: AMENDED REPORT 02/26/251721 GAP previously reported as: 13 Performed By: #### L 503.0106, L509.8002, L501.9985, L502.0250, L506.0200, L501.9520, L101.9900, L501.6710, L501.7300, L500.4050 #### [facility] [address] [place], [place], [address] Globulin (S) [Mass/Vol] 2.3 g/dL Normal 2.2-4.2 [facility] Comment on above: Result Comment: AMENDED REPORT 02/26/251721 GLOB previously reported as: 2.9 g/dL Performed By: #### L 503.0106, L509.8002, L501.9985, L502.0250, L506.0200, L501.9520, L101.9900, L501.6710, L501.7300, L500.4050 #### [facility] [address] [place], [address] Glucose [Mass/Vol] 256 mg/dL High 70-99 [facility] Comment on above: Performed By: #### L 503.0106, L509.8002, L501.9985, L502.0250, L506.0200, L501.9520, L101.9900, L501.6710, L501.7300, L500.4050 #### [facility] [address] [place], [address] Potassium [Moles/Vol] 4.6 mmol/L Normal 3.3-5.1 [facility] Comment on above: Result Comment: AMENDED REPORT 02/26/251721 K previously reported as: 4.4 mmol/L Performed By: #### L 503.0106, L509.8002, L501.9985, L502.0250, L506.0200, L501.9520, L101.9900, L501.6710, L501.7300, L500.4050 #### [facility] [address] [place], [address] Sodium [Moles/Vol] 136 mmol/L Normal 133-145 [facility] Comment on above: Result Comment: AMENDED REPORT 02/26/251721 NA previously reported as: 135 mmol/L Performed By: #### L 503.0106, L509.8002, L501.9985, L502.0250, L506.0200, L501.9520, L101.9900, L501.6710, L501.7300, L500.4050 #### [facility] [address] [place], [address] T PROT 6.5 g/dL Normal 5.9-8.4 [facility] Comment on above: Result Comment: AMENDED REPORT 07/30/25 1722 T PROT previously reported as: 6.9 g/dL Performed By: #### L 503.0106, L509.8002, L501.9985, L502.0250, L506.0200, L501.9520, L101.9900, L501.6710, L501.7300, L500.4050 #### [facility] [address] [place], [place], [address] Urea nitrogen [Mass/Vol] 15 mg/dL Normal 4-19 [facility] Comment on above: Performed By: #### L 503.0106, L509.8002, L501.9985, L502.0250, L506.0200, L501.9520, L101.9900, L501.6710, L501.7300, L500.4050 #### [facility] [address] [place], [place], [id number] Erythrocyte Sed Rateon 02-26 SED RATE 21 mm/hr High 0-20 [facility] Comment on above: Performed By: #### L 503.0106, L509.8002, L501.9985, L502.0250, L506.0200, L501.9520, L101.9900, L501.6710, L501.7300, L500.4050 ####[facility] [address] [place], [place], [id number] Folates,Serum (Folic Acid)on 02-26-2025 FOLATES,SERUM 7.80 ng/mL Normal 4.60-34.80 [facility] Comment on above: Order Comment: N Performed By: #### L 503.0106, L509.8002, L501.9985, L502.0250, L506.0200, L501.9520, L101.9900, L501.6710, L501.7300, L500.4050 #### [facility] [address] [place], [place], [address] Hemoglobin A1con 02-26-2025 HbA1c (Bld) [Mass fraction] 10.8 % High <=5.6 [facility] Comment on above: Result Comment: Norm al < 5.7 % Prediabetic 5.7 - 6.4 % Diabetic >or= 6.5 % Please note range changes. Performed By: #### L 503.0106, L509.8002, L501.9985, L502.0250, L506.0200, L501.9520, L101.9900, L501.6710, L501.7300, L500.4050 ####[facility] [address] [place], [address] Microalb:Creat Ratio,Random URon 02-26-2025 MALB:CREAT Normal <30 mg/g CRE [facility] Comment on above: Result Comment: UTO. CUP GIVEN TO PATIENT TO BRING BACK. ORDER LAB FUTURED Performed By: #### L 503.0106, L509.8002, L501.9985, L502.0250, L506.0200, L501.9520, L101.9900, L501.6710, L501.7300, L500.4050 #### [facility] [address] [place], [address] MICROALBUMIN,UR Normal <20 mg/L [facility] Comment on above: Result Comment: UTO. CUP GIVEN TO PATIENT TO BRING BACK. ORDER LAB FUTURED Performed By: #### L 503.0106, L509.8002, L501.9985, L502.0250, L506.0200, L501.9520, L101.9900, L501.6710, L501.7300, L500.4050 #### [facility] [address] [place], [address] UR CREAT Normal 39.00-259.00 [facility] Comment on above: Result Comment: UTO. CUP GIVEN TO PATIENT TO BRING BACK. ORDER LAB FUTURED Performed By: #### L 503.0106, L509.8002, L501.9985, L502.0250, L506.0200, L501.9520, L101.9900, L501.6710, L501.7300, L500.4050 #### [facility] [address] [place], [place], [address] Osmolality, Serumon 02-27-20 25 OSMOLALITY,SER 308 mOsm/KG High 280-301 [facility] Comment on above: Performed By: #### L 503.0106, L509.8002, L501.9985, L502.0250, L506.0200, L501.9520, L101.9900, L501.6710, L501.7300, L500.4050 ####[facility] [address] [facility] [place], [place], [phone] Syphilis Antibodieson 2024 Syphilis Abs Non-Reactive Normal Nonreactive [facility] Comment on above: Performed By: #### L 503.0106, L509.8002, L501.9985, L502.0250, L506.0200, L501.9520, L101.9900, L501.6710, L501.7300, L500.4050 ####[facility] [address] [facility]. [place], [place], [id number] Thyroid Stim Hormone (TSH)on 02-26-2025 TSH 0.837 uIU/mL Normal 0.300-4.200 [facility] Comment on above: Result Comment: AMENDED REPORT 02/26/25 1722 TSH previously reported as: 0.827 uIU/mL Performed By: #### L 503.0106, L509.8002, L501.9985, L502.0250, L506.0200, L501.9520, L101.9900, L501.6710, L501.7300, L500.4050 #### [facility] [address] [facility] [place], [place], [phone] Vitamin B12on 02-26-2025 Cobalamin (Vitamin B12) [Mass/Vol] 630 pg/mL Normal 180-914 [facility] Comment on above: Performed By: #### L 503.0106, L509.8002, L501.9985, L502.0250, L506.0200, L501.9520, L101.9900, L501.6710, L501.7300, L500.4050 #### [facility] [address] [place], [address] Pulmonary Visit Reporton Pulmonary Visit Report [facility] [place] [address] [place] [address] OFFICE VISIT Date of Service: 02/25/25 MR#: [id number] Acct: [id number] Name: JEAN PIERRE GRANT Rep #: [id number] 2 : 1960 Provider: Dr. Chidi Diallo DO Age/Sex: 64/M Location: [facility] Status: Signed Assessment and Plan Assessment [...] distant past he was evaluated by a emr implementation specialist and possibly had PFTs completed. His main [...] for BRITTANY chronic cough Chief Complaint: [employer] Analyst Required: No DME Vendor: N/a Accompanied by: [...] 06/13/22 0 (more content not included)... Normal [facility] CBC W/Diff, Automatedon 05-31 Absolute Lymph 2.20 X10 3/uL Normal 0.83-4.51 [facility] Comment on above: Performed By: #### L 100.0100, L501.9520, L500.4050 ####[facility] [address] [place], [address] Absolute Neut 4.9 X10 3/uL Normal 2.0-7.7 [facility] Comment on above: Performed By: #### L 100.0100, L501.9520, L500.4050 ####[facility] [address] [place], [address] Basophils/100 WBC (Bld) 0.5 % Normal 0-1 [facility] Comment on above: Performed By: #### L 100.0100, L501.9520, L500.4050 ####[facility] [address] [place], [address] Eosinophils/100 WBC (Bld) 1.8 % Normal 0-5 [facility] Comment on above: Performed By: #### L 100.0100, L501.9520, L500.4050 ####[facility] [address] [place], [address] Erythrocyte distribution width (RBC) [Ratio] 13.2 % Normal 11.6-14.6 [facility] Comment on above: Performed By: #### L 100.0100, L501.9520, L500.4050 ####[facility] [address] [place], [address] Hematocrit (Bld) [Volume fraction] 41.0 % Normal 40-54 [facility] Comment on above: Performed By: #### L 100.0100, L501.9520, L500.4050 ####[facility] [address] [place], [address] Hemoglobin (Bld) [Mass/Vol] 13.1 g/dL Normal 13.0-16.5 [facility] Comment on above: Performed By: #### L 100.0100, L501.9520, L500.4050 ####[facility] [address] [place], [address] IG% 0.200 Normal 0.0-0.9 [facility] Comment on above: Result Comment: IG% - Immature Granulocytes (promyelocytes, myelocytes and metamyelocytes) > 1% indicates that a LEFT SHIFT is Present. Performed By: #### L 100.0100, L501.9520, L500.4050 ####[facility] [address] [place], [address] Lymphocytes/100 WBC (Bld) 27.0 % Normal 19-41 [facility] Comment on above: Performed By: #### L 100.0100, L501.9520, L500.4050 ####[facility] [address] [place], [address] MCH (RBC) [Entitic mass] 27.7 pg Normal 27.0-32.0 [facility] Comment on above: Performed By: #### L 100.0100, L501.9520, L500.4050 ####[facility] [address] [place], [address] MCHC (RBC) [Mass/Vol] 32.0 g/dL Normal 32-36 [facility] Comment on above: Performed By: #### L 100.0100, L501.9520, L500.4050 ####[facility] [address] [place], [address] MCV (RBC) [Entitic vol] 86.7 fL Normal 80-94 [facility] Comment on above: Performed By: #### L 100.0100, L501.9520, L500.4050 ####[facility] [address] [place], [address] Monocytes/100 WBC (Bld) 10.3 % High 0-10 [facility] Comment on above: Performed By: #### L 100.0100, L501.9520, L500.4050 ####[facility] [address] [place], [address] Neutrophils/100 WBC (Bld) 60.2 % Normal 47-70 [facility] Comment on above: Performed By: #### L 100.0100, L501.9520, L500.4050 ####[facility] [address] [place], [address] Nucleated RBC (Bld) [#/Vol] 0 10*3/uL Normal 0-5 [facility] Comment on above: Performed By: #### L 100.0100, L501.9520, L500.4050 ####[facility] [address] [place], [address] Platelet mean volume (Bld) [Entitic vol] 10.7 fL Normal 6.2-12.0 [facility] Comment on above: Performed By: #### L 100.0100, L501.9520, L500.4050 ####[facility] [address] [place], [address] Platelets (Bld) [#/Vol] 252 10*3/uL Normal 150-450 [facility] Comment on above: Performed By: #### L 100.0100, L501.9520, L500.4050 ####[facility] [address] [place], [address] RBC (Bld) [#/Vol] 4.73 10*6/uL Normal 4.6-6.2 [facility] Comment on above: Performed By: #### L 100.0100, L501.9520, L500.4050 ####[facility] [address] [place], [address] RDW SD 42.1 fl Normal 35.1-43.9 [facility] Comment on above: Performed By: #### L 100.0100, L501.9520, L500.4050 ####[facility] [address] [place], [address] WBC (Bld) [#/Vol] 8.1 10*3/uL Normal 4.4-11.0 [facility] Comment on above: Performed By: #### L 100.0100, L501.9520, L500.4050 ####[facility] [address] [place], [address] Comprehensive Metabolic Prof iaromy 06-18-2024 Albumin [Mass/Vol] 3.8 g/dL Normal 3.2-5.0 [facility] Comment on above: Performed By: #### L 100.0100, L501.9520, L500.4050 ####[facility] [address] [place], [address] Albumin/Globulin [Mass ratio] 0.9 {ratio} Normal 0.9-2.4 [facility] Comment on above: Performed By: #### L 100.0100, L501.9520, L500.4050 ####[facility] [address] [place], [address] ALK P 119 U/L High 45-117 [facility] Comment on above: Performed By: #### L 100.0100, L501.9520, L500.4050 ####[facility] [address] [place], [address] ALT [Catalytic activity/Vol] 55 U/L Normal 16-61 [facility] Comment on above: Performed By: #### L 100.0100, L501.9520, L500.4050 ####[facility] [address] [place], [address] AST [Catalytic activity/Vol] 29 U/L Normal 15-37 [facility] Comment on above: Performed By: #### L 100.0100, L501.9520, L500.4050 ####[facility] [address] [place], [address] Bilirubin [Mass/Vol] 0.40 mg/dL Normal 0.20-1.00 [facility] Comment on above: Result Comment: For patients on eltrombopag therapy, use of Dimension [place] TBIL is not recommended. Performed By: #### L 100.0100, L501.9520, L500.4050 ####[facility] [address] [place], [address] BUN/CRE 13.9 RATIO Normal 10-20 [facility] Comment on above: Performed By: #### L 100.0100, L501.9520, L500.4050 ####[facility] [address] [place], [address] CA,Total 9.3 mg/dL Normal 8.5-10.1 [facility] Comment on above: Performed By: #### L 100.0100, L501.9520, L500.4050 ####[facility] [address] [place], [address] Chloride [Moles/Vol] 104 mmol/L Normal 98-107 [facility] Comment on above: Performed By: #### L 100.0100, L501.9520, L500.4050 ####[facility] [address] [place], [address] CO2 [Moles/Vol] 24.0 mmol/L Normal 21.0-32.0 [facility] Comment on above: Performed By: #### L 100.0100, L501.9520, L500.4050 ####[facility] [address] [place], [address] Creatinine [Mass/Vol] 1.08 mg/dL Normal 0.70-1.30 [facility] Comment on above: Result Comment: The validity of the calculated GFR GFRAA in patients over 70 years has not been determined. Clinical correlation is essential. Performed By: #### L 100.0100, L501.9520, L500.4050 ####[facility] [address] [place], [address] EST GFR - AA 89 mL/min Normal >60 [facility] Comment on above: Result Comment: Afri can [place] GFR Calc Performed By: #### L 100.0100, L501.9520, L500.4050 ####[facility] [address] [place], [address] GAP 9 Normal 5-15 [facility] Comment on above: Performed By: #### L 100.0100, L501.9520, L500.4050 ####[facility] [address] [place], [address] GFR/1.73 sq M.predicted among non-blacks MDRD (S/P/Bld) [Vol rate/Area] 74 mL/min/{1.73_m2} Normal >60 [facility] Comment on above: Result Comment: Non- GFR Calc Performed By: #### L 100.0100, L501.9520, L500.4050 ####[facility] [address] [place], [address] Globulin (S) [Mass/Vol] 4.3 g/dL High 2.2-4.2 [facility] Comment on above: Performed By: #### L 100.0100, L501.9520, L500.4050 ####[facility] [address] [place], [address] Glucose [Mass/Vol] 101 mg/dL Normal 74-106 [facility] Comment on above: Result Comment: Fast ing Glucose result from 100 to 125 mg/dL suggests IMPAIRED HOMEOSTASIS per A.D.A. criteria. Performed By: #### L 100.0100, L501.9520, L500.4050 ####[facility] [address] [place], [address] Potassium [Moles/Vol] 4.8 mmol/L Normal 3.5-5.1 [facility] Comment on above: Performed By: #### L 100.0100, L501.9520, L500.4050 ####[facility] [address] [place], [address] Sodium [Moles/Vol] 136 mmol/L Normal 136-145 [facility] Comment on above: Performed By: #### L 100.0100, L501.9520, L500.4050 ####[facility] [address] [place], [address] T PROT 8.1 g/dL Normal 6.4-8.2 [facility] Comment on above: Performed By: #### L 100.0100, L501.9520, L500.4050 ####[facility] [address] [place], [address] Urea nitrogen [Mass/Vol] 15 mg/dL Normal 7-18 [facility] Comment on above: Performed By: #### L 100.0100, L501.9520, L500.4050 ####[facility] [address] [place], [address] Thyroid Stim Hormone (TSH)on 06-18-2024 TSH 0.702 uIU/mL Normal 0.358-3.740 [facility] Comment on above: Performed By: #### L 100.0100, L501.9520, L500.4050 ####[facility] [address] [facility] [place], [address] 12 Lead EKGon 04-08-2024 12 Lead EKG [facility] [address] [place] [address] 12 Lead EKG 04/08/24 1255 MR#: [id number] Acct: [id number] Name: JEAN PIERRE GRANT Rep #: [id number] : 1960 63 From: Arnaud Moses MD [...] ECG Confirmed by ARNAUD MOSES MD ([id number]), newspaper or periodical editor BILL COREY ([id number]) on 04/09/2024 7:41:03 AM Referred By: SHENG/LOVELY Confirmed By:ARNAUD MOSES MD 04/09/24 0741 Date Arnaud Moses MD CC: Dr. 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 Yee DO Signed Normal [facility] Basic Metabolic Profile (BMP )on 04-08-2024 BUN/CRE 14.2 RATIO Normal 10-20 [facility] Comment on above: Order Comment: 1Y Performed By: #### L 501.5425, L500.2500, L100.0100 ####[facility] [address] [place], [address] CA,Total 9.6 mg/dL Normal 8.5-10.1 [facility] Comment on above: Order Comment: 1Y Performed By: #### L 501.5425, L500.2500, L100.0100 ####[facility] [address] [place], [address] Chloride [Moles/Vol] 104 mmol/L Normal 98-107 [facility] Comment on above: Order Comment: 1Y Performed By: #### L 501.5425, L500.2500, L100.0100 ####[facility] [address] [place], [address] CO2 [Moles/Vol] 24.0 mmol/L Normal 21.0-32.0 [facility] Comment on above: Order Comment: 1Y Performed By: #### L 501.5425, L500.2500, L100.0100 ####[facility] [address] [place], [address] Creatinine [Mass/Vol] 1.20 mg/dL Normal 0.70-1.30 [place] Comment on above: Order Comment: 1Y Result Comment: The validity of the calculated GFR GFRAA in patients over 70 years has not been determined. Clinical correlation is essential. Performed By: #### L 501.5425, L500.2500, L100.0100 ####[facility] [address] [place], [address] ECRCL 60.83 ml/min Normal [facility] Comment on above: Order Comment: 1Y Performed By: #### L 501.5425, L500.2500, L100.0100 ####[facility] [address] [place], [address] EST GFR - AA 79 mL/min Normal >60 [facility] Comment on above: Order Comment: 1Y Result Comment: Afri can Barbadian GFR Calc Performed By: #### L 501.5425, L500.2500, L100.0100 ####[facility] [address] [place], [address] GAP 10 Normal 5-15 [facility] Comment on above: Order Comment: 1Y Performed By: #### L 501.5425, L500.2500, L100.0100 ####[facility] [address] [place], [address] GFR/1.73 sq M.predicted among non-blacks MDRD (S/P/Bld) [Vol rate/Area] 65 mL/min/{1.73_m2} Normal >60 [facility] Comment on above: Order Comment: 1Y Result Comment: Non- GFR Calc Performed By: #### L 501.5425, L500.2500, L100.0100 ####[facility] [address] [place], [address] Glucose [Mass/Vol] 242 mg/dL High 74-106 [facility] Comment on above: Order Comment: 1Y Result Comment: Gluc ose result greater than or equal to 200 mg/dL suggests DIABETES MELLITUS per A.D.A. criteria. Performed By: #### L 501.5425, L500.2500, L100.0100 ####[facility] [address] [place], [address] Potassium [Moles/Vol] 4.4 mmol/L Normal 3.5-5.1 [place] Comment on above: Order Comment: 1Y Performed By: #### L 501.5425, L500.2500, L100.0100 ####[facility] [address] [place], [address] Sodium [Moles/Vol] 138 mmol/L Normal 136-145 [facility] Comment on above: Order Comment: 1Y Performed By: #### L 501.5425, L500.2500, L100.0100 ####[facility] [address] [place], [address] Urea nitrogen [Mass/Vol] 17 mg/dL Normal 7-18 [facility] Comment on above: Order Comment: 1Y Performed By: #### L 501.5425, L500.2500, L100.0100 ####[facility] [address] [place], [address] CBC W/Diff, Automatedon 09-0 9-2024 Absolute Lymph 2.52 X10 3/uL Normal 0.83-4.51 [facility] Comment on above: Performed By: #### L 501.5425, L500.2500, L100.0100 ####[facility] [address] [place], [address] Absolute Neut 5.1 X10 3/uL Normal 2.0-7.7 [facility] Comment on above: Performed By: #### L 501.5425, L500.2500, L100.0100 ####[facility] [address] [place], [address] Basophils/100 WBC (Bld) 0.5 % Normal 0-1 [facility] Comment on above: Performed By: #### L 501.5425, L500.2500, L100.0100 ####[facility] [address] [place], [address] Eosinophils/100 WBC (Bld) 2.5 % Normal 0-5 [facility] Comment on above: Performed By: #### L 501.5425, L500.2500, L100.0100 ####[facility] [address] [place], [address] Erythrocyte distribution width (RBC) [Ratio] 13.2 % Normal 11.6-14.6 [facility] Comment on above: Performed By: #### L 501.5425, L500.2500, L100.0100 ####[facility] [address] [place], [address] Hematocrit (Bld) [Volume fraction] 44.5 % Normal 40-54 [facility] Comment on above: Performed By: #### L 501.5425, L500.2500, L100.0100 ####[facility] [address] [place], [address] Hemoglobin (Bld) [Mass/Vol] 14.3 g/dL Normal 13.0-16.5 [facility] Comment on above: Performed By: #### L 501.5425, L500.2500, L100.0100 ####[facility] [address] [place], [address] IG% 0.400 Normal 0.0-0.9 [facility] Comment on above: Result Comment: IG% - Immature Granulocytes (promyelocytes, myelocytes and metamyelocytes) > 1% indicates that a LEFT SHIFT is Present. Performed By: #### L 501.5425, L500.2500, L100.0100 ####[facility] [address] [place], [address] Lymphocytes/100 WBC (Bld) 29.6 % Normal 19-41 [facility] Comment on above: Performed By: #### L 501.5425, L500.2500, L100.0100 ####[facility] [address] [place], [address] MCH (RBC) [Entitic mass] 28.1 pg Normal 27.0-32.0 [facility] Comment on above: Performed By: #### L 501.5425, L500.2500, L100.0100 ####[facility] [address] [place], [address] MCHC (RBC) [Mass/Vol] 32.1 g/dL Normal 32-36 [place] Comment on above: Performed By: #### L 501.5425, L500.2500, L100.0100 ####[facility] [address] [place], [address] MCV (RBC) [Entitic vol] 87.6 fL Normal 80-94 [facility] Comment on above: Performed By: #### L 501.5425, L500.2500, L100.0100 ####[facility] [address] [place], [address] Monocytes/100 WBC (Bld) 7.6 % Normal 0-10 [facility] Comment on above: Performed By: #### L 501.5425, L500.2500, L100.0100 ####[facility] [address] [place], [address] Neutrophils/100 WBC (Bld) 59.4 % Normal 47-70 [facility] Comment on above: Performed By: #### L 501.5425, L500.2500, L100.0100 ####[facility] [address] [place], [address] Nucleated RBC (Bld) [#/Vol] 0 10*3/uL Normal 0-5 [facility] Comment on above: Performed By: #### L 501.5425, L500.2500, L100.0100 ####[facility] [address] [place], [address] Platelet mean volume (Bld) [Entitic vol] 12.5 fL High 6.2-12.0 [facility] Comment on above: Performed By: #### L 501.5425, L500.2500, L100.0100 ####[facility] [address] [place], [address] Platelets (Bld) [#/Vol] 168 10*3/uL Normal 150-450 [facility] Comment on above: Performed By: #### L 501.5425, L500.2500, L100.0100 ####[facility] [address] [place], [address] RBC (Bld) [#/Vol] 5.08 10*6/uL Normal 4.6-6.2 [facility] Comment on above: Performed By: #### L 501.5425, L500.2500, L100.0100 ####[facility] [address] [place], [address] RDW SD 42.4 fl Normal 35.1-43.9 [facility] Comment on above: Performed By: #### L 501.5425, L500.2500, L100.0100 ####[facility] [address] [place], [address] WBC (Bld) [#/Vol] 8.5 10*3/uL Normal 4.4-11.0 [facility] Comment on above: Performed By: #### L 501.5425, L500.2500, L100.0100 ####[facility] [address] [place], [address] Chest 1 View (Portable)on Chest 1 View (Portable) [facility] Imaging Services [address] [place] [address] Chest 1 View (Portable) MR#: [id number] Acct: [id number] Name: JEAN PIERRE GRANT Rep #: [id number] : 1960 M 63 From: Sam Bello PCP: Perla Yee DO Status: REG ER Study: Chest 1 View (Portable) Date of Exam: 04/08/24 Exam# [id number] Ordering Dr: Charlie Santana DO [id number] INDICATION: chest pain EXAMINATION/TECHNIQUE: X-RAY - XR [...] Dr. 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 Yee DO Pitch Flaker: Signed Normal [facility] Emergency Department Summary on 04-08-2024 Emergency Department Summary [facility] Medical Records Department [address] [place] [id number] Emergency Department Summary 04/08/24 MR#: [id number] Acct: [id number] Name: JEAN PIERRE GRANT Rep #: [id number] : 1960 63 From: Charlie Santana DO PCP: Perla Yee DO Status:DEP ER Location: ED HPI History of Present Illness Chief Complaint: Chest Pain [facility] Medical History Presence of stent in [...] pulmonary disease) Atherosclerosis of coronary artery of minto heart without angina pectoris Non-ST elevation myocardial [...] PRESENT ILLNESS: 63-year-old male history of CAD, NE, COPD, type 2 diabetes, hyperlipidemia, hypertension, status post catheterization and stent placement presents with chest pain. Per triage note patient states he developed chest pain approxi-1 hour ago. It is 9/10 in severity The patient denies recent surgery in the last 4 weeks or immobilization in the last 3 days, denies previous diag (more content not included)... [facility] L501.4020on 04-08-2024 TROPONIN-I HS 5 pg/mL Normal 3.0-78.0 [facility] Comment on above: Order Comment: 2 Result Comment: [place] Note: New Test Units and Gender Specific Reference Ranges. For more information see Policy Stat Procedure [place] High Sensitivity Troponin (TNIH) and attachments. Performed By: #### L 501.4020 ####[facility] [address] [place], [address] L501.5425on 04-08-2024 TROPONIN-I HS 6 pg/mL Normal 3.0-78.0 [facility] Comment on above: Order Comment: 1Y Result Comment: [place] Note: New Test Units and Gender Specific Reference Ranges. For more information see Policy Stat Procedure [place] High Sensitivity Troponin (TNIH) and attachments. Performed By: #### L 501.5425, L500.2500, L100.0100 ####[facility] [address] [place], [address] Basophil percentageOrdered B y: [facility] on 09-26-2022 Bilirubin [Mass/Vol] 0.40 mg/dL 0.20-1.00 [facility] Comment on above: For patients on eltr ombopag therapy, use of Dimension [place] TBIL is not recommended. Chloride [Moles/Vol] 105 mmol/L 98-107 [facility] Cholesterol [Mass/Vol] 93 mg/dL <200 [facility] Comment on above: <200 mg/dL Desirable 200-240 mg/dL Borderline >240 mg/dL High Risk Glucose [Mass/Vol] 289 mg/dL 74-106 [facility] Comment on above: Glucose result great er than or equal to 200 mg/dLsuggests DIABETES MELLITUS per A.D.A. criteria. Potassium [Moles/Vol] 4.6 mmol/L 3.5-5.1 [place] Protein [Mass/Vol] 7.6 g/dL 6.4-8.2 [facility] Sodium [Moles/Vol] 136 mmol/L 136-145 [facility] Triglyceride [Mass/Vol] 198 mg/dL <199 [facility] Comment on above: The drugs N-Acetylcy steine and Metamizole may falsely depress this assay.Serum Triglycerides Reference Interval Normal <150 mg/dL Borderline high 150 - 199 mg/dL High 200 - 499 mg/dL Very High > or = 500 mg/dL WBC (Bld) [#/Vol] 8.3 10*3/uL 4.4-11.0 [facility] Blood erythrocytes count (nu mber/volume)Ordered By: [facility] on 09-26-2022 RBC (Bld) [#/Vol] 5.02 10*6/uL 4.6-6.2 [facility] Blood hemoglobin measurement (mass/volume)Ordered By: [facility] on 09-26-2022 Hemoglobin (Bld) [Mass/Vol] 13.8 g/dL 13.0-16.5 [facility] Blood platelet mean volumeOr dered By: [facility] on 09-26-2022 Platelet mean volume (Bld) [Entitic vol] 12.9 fL 6.2-12.0 [facility] Determination of erythrocyte mean corpuscular volume (MCV)Ordered By: [facility] on 09-26-2022 MCV (RBC) [Entitic vol] 87.8 fL 80-94 [facility] Hematocrit Auto (Bld) [Volum e fraction]Ordered By: [facility] on 09-26-2022 Hematocrit (Bld) [Volume fraction] 44.1 % 40-54 [facility] Laboratory - Chemistry and C hemistry - challengeOrdered By: [facility] on 09-26-2022 ALP [Catalytic activity/Vol] 82 U/L 45-117 [facility] ALT [Catalytic activity/Vol] 31 U/L 16-61 [facility] CO2 [Moles/Vol] 26.0 mmol/L 21.0-32.0 [facility] Globulin (S) [Mass/Vol] 3.6 g/dL 2.2-4.2 [facility] Urea nitrogen/Creatinine [Mass ratio] 17.2 mg/mg 10-20 [facility] Laboratory - Hematology and Cell countsOrdered By: [facility] on 09-26-2022 Erythrocyte distribution width (RBC) [Entitic vol] 41.6 fL 35.1-43.9 [facility] Erythrocyte distribution width (RBC) [Ratio] 12.9 % 11.6-14.6 [facility] MCH (RBC) [Entitic mass] 27.5 pg 27.0-32.0 [facility] MCHC Auto (RBC) [Mass/Vol]Or dered By: KAMRYN GILLETT on 09-26-2022 MCHC (RBC) [Mass/Vol] 31.3 g/dL 32-36 [place] No Panel InformationOrdered By: KAMRYN GILLETT on 09-26-2022 Estimated GFR (MDRD) Amer 83 mL/min >60 [facility] Comment on above: GFR Calc Estimated GFR (MDRD) Non-Af Amer 68 mL/min >60 [facility] Comment on above: Non- GFR Calc Platelets bldOrdered By: ELENA CAMARA on 09-26-2022 Platelets (Bld) [#/Vol] 175 10*3/uL 150-450 [facility] Serum or plasma albumin david urement (mass/volume)Ordered By: [facility] on 09-26-2022 Albumin [Mass/Vol] 4.0 g/dL 3.2-5.0 [facility] Serum or plasma albumin/glob ulin mass ratioOrdered By: [facility] on 09-26-2022 Albumin/Globulin [Mass ratio] 1.1 {ratio} 0.9-2.4 [facility] Serum or plasma calcium david urement (mass/volume)Ordered By: [facility] on 09-26-2022 Calcium [Mass/Vol] 9.1 mg/dL 8.5-10.1 [facility] Serum or plasma cholesterol in HDL measurement (mass/volume)Ordered By: [facility] on 09-26-2022 Cholesterol in HDL [Mass/Vol] 27 mg/dL >40 [facility] Comment on above: The drugs N-Acetylcy steine and Metamizole may falsely depress this assay. Reference Range HDL <40 mg/dL Low HDL Cholesterol HDL >or= 60 mg/dL High HDL Cholesterol Serum or plasma cholesterol in VLDL measurement (mass/volume)Ordered By: [facility] on 09-26-2022 Cholesterol in VLDL [Mass/Vol] 40 mg/dL 5-40 [facility] Serum or plasma creatinine m easurement (mass/volume)Ordered By: [facility] on 09-26-2022 Creatinine [Mass/Vol] 1.16 mg/dL 0.70-1.30 [place] Comment on above: The validity of the calculated GFR & GFRAA in patients over 70 years has not been determined. Clinical correlation is essential. Serum or plasma low density lipoprotein (LDL) cholesterol measurement (mass/volume)Ordered By: [facility] on 09-26-2022 Cholesterol in LDL [Mass/Vol] 26 mg/dL 0-130 [facility] Serum or plasma urea nitroge n measurement (mass/volume)Ordered By: [facility] on 09-26-2022 Urea nitrogen [Mass/Vol] 20 mg/dL 7-18 [facility] Thin prep Papanicolaou smear with manual screeningOrdered By: [facility] on 09-26-2022 Thin prep Papanicolaou smear with manual screening 16 U/L 15-37 [facility] Thin prep Papanicolaou smear with manual screening 5 5-15 [facility] Whole blood hemoglobin A1c/t otal hemoglobin ratio (mass fraction)Ordered By: [facility] on 09-26-2022 HbA1c (Bld) [Mass fraction] 10.8 % 3.8-5.6 [facility] Comment on above: Normal < 5.7 % Predi abetic 5.7 - 6.4 % Diabetic >or= 6.5 % Please note range changes. Culture, urineOrdered By: Dr Cuca Ayala on 09-14-2022 Bacteria identified Cx Nom (U) Culture exhibits no growth. [facility] Glucose Glucometer (BldC) [M ass/Vol]Ordered By: Dr. Beaulieu on 08-29-2022 Glucose [Mass/Vol] 155 mg/dL 74-106 [facility] Comment on above: MANAGEMENT OF PATIEN T CARE PER NURSING PROTOCOL No Panel InformationOrdered By: Dr. Wild on 07-07-2022 Thyroid Stimulating Hormone (TSH) 0.82 uIU/mL 0.358-3.74 [facility] Stool gastrointestinal hemog lobin detection by immunologic methodOrdered By: Dr. Beaulieu on 06-22-2022 Lower GI hemoglobin IA Ql (Stl) [facility] Absolute lymphocyte countOrd ered By: ED PROVIDER on 06-13-2022 Lymphocytes Auto (Unsp spec) [#/Vol] 2.88 10*3/uL 0.83-4.51 [facility] Basophil percentageOrdered B y: ED PROVIDER on 06-13-2022 Basophil percentage 0 SEEN /hpf 0-5 [facility] Basophils/100 WBC (Bld) 0.4 % 0-1 [facility] Chloride [Moles/Vol] 102 mmol/L 98-107 [facility] Eosinophils/100 WBC (Bld) 1.6 % 0-5 [facility] Glucose [Mass/Vol] 300 mg/dL 74-106 [facility] Comment on above: Glucose result great er than or equal to 200 mg/dLsuggests DIABETES MELLITUS per A.D.A. criteria. Neutrophils (Bld) [#/Vol] 6.3 10*3/uL 2.0-7.7 [facility] Neutrophils/100 WBC (Bld) 62.2 % 47-70 [facility] Potassium [Moles/Vol] 4.5 mmol/L 3.5-5.1 [place] Comment on above: Slight Hemolysis, Re sult may be falsely increased. Sodium [Moles/Vol] 137 mmol/L 136-145 [facility] WBC (Bld) [#/Vol] 10.2 10*3/uL 4.4-11.0 [facility] Basophil percentageOrdered B y: Dr. Sin on 06-13-2022 Bilirubin [Mass/Vol] 0.30 mg/dL 0.20-1.00 [facility] Comment on above: For patients on eltr ombopag therapy, use of Dimension [place] TBIL is not recommended. Protein [Mass/Vol] 8.0 g/dL 6.4-8.2 [facility] Bilirubin Test strip Ql (U)O rdered By: ED PROVIDER on 06-13-2022 Bilirubin Ql (U) Negative Negative [facility] Blood erythrocytes count (nu mber/volume)Ordered By: ED PROVIDER on 06-13-2022 RBC (Bld) [#/Vol] 5.01 10*6/uL 4.6-6.2 [facility] Blood hemoglobin measurement (mass/volume)Ordered By: ED PROVIDER on 06-13-2022 Hemoglobin (Bld) [Mass/Vol] 14.6 g/dL 13.0-16.5 [facility] Blood lymphocytes/100 leukoc ytesOrdered By: ED PROVIDER on 06-13-2022 Lymphocytes/100 WBC (Bld) 28.3 % 19-41 [facility] Blood monocytes/100 leukocyt esOrdered By: ED PROVIDER on 06-13-2022 Monocytes/100 WBC (Bld) 7.1 % 0-10 [facility] Blood platelet mean volumeOr dered By: ED PROVIDER on 06-13-2022 Platelet mean volume (Bld) [Entitic vol] 12.3 fL 6.2-12.0 [facility] Determination of erythrocyte mean corpuscular volume (MCV)Ordered By: ED PROVIDER on 06-13-2022 MCV (RBC) [Entitic vol] 86.0 fL 80-94 [facility] Direct bilirubinOrdered By: Dr. Sin on 06-13-2022 Bilirubin.direct [Mass/Vol] 0.13 mg/dL 0.00-0.30 [facility] Hematocrit Auto (Bld) [Volum e fraction]Ordered By: ED PROVIDER on 06-13-2022 Hematocrit (Bld) [Volume fraction] 43.1 % 40-54 [facility] Ketones Test strip Ql (U)Ord ered By: ED PROVIDER on 06-13-2022 Ketones Ql (U) 5 mg/dl Negative [facility] Laboratory - Chemistry and C hemistry - challengeOrdered By: Dr. Sin on 06-13-2022 ALP [Catalytic activity/Vol] 75 U/L 45-117 [facility] ALT [Catalytic activity/Vol] 65 U/L 16-61 [facility] Globulin (S) [Mass/Vol] 3.7 g/dL 2.2-4.2 [facility] Lipase [Catalytic activity/Vol] 285 U/L 73-393 [facility] Laboratory - Chemistry and C hemistry - challengeOrdered By: ED PROVIDER on 06-13-2022 CO2 [Moles/Vol] 27.0 mmol/L 21.0-32.0 [facility] Urea nitrogen/Creatinine [Mass ratio] 14.8 mg/mg 10-20 [facility] Laboratory - Hematology and Cell countsOrdered By: ED PROVIDER on 06-13-2022 Erythrocyte distribution width (RBC) [Entitic vol] 41.7 fL 35.1-43.9 [facility] Erythrocyte distribution width (RBC) [Ratio] 13.4 % 11.6-14.6 [facility] Immature granulocytes/100 WBC (Bld) 0.400 % 0.0-0.9 [facility] Comment on above: IG% - Immature Granu locytes (promyelocytes, myelocytes and metamyelocytes) > 1% indicates that a LEFT SHIFT is Present. MCH (RBC) [Entitic mass] 29.1 pg 27.0-32.0 [facility] Nucleated RBC/100 WBC (Bld) [Ratio] 0 % 0-5 [facility] MCHC Auto (RBC) [Mass/Vol]Or dered By: ED PROVIDER on 06-13-2022 MCHC (RBC) [Mass/Vol] 33.9 g/dL 32-36 [place] Mucus LM Ql (Urine sed)Order ed By: ED PROVIDER on 06-13-2022 Mucus Ql (Urine sed) 0 SEEN /hpf [place] Nitrite Test strip Ql (U)Ord ered By: ED PROVIDER on 06-13-2022 Nitrite Ql (U) Negative Negative [facility] No Panel InformationOrdered By: ED PROVIDER on 06-13-2022 Estimated Creatinine Clearance Calc 49.33 ml/min [facility] Estimated GFR (MDRD) Amer 69 mL/min >60 [facility] Comment on above: GFR Calc Estimated GFR (MDRD) Non-Af Amer 57 mL/min >60 [facility] Comment on above: Non- GFR Calc Platelets bldOrdered By: ED PROVIDER on 06-13-2022 Platelets (Bld) [#/Vol] 167 10*3/uL 150-450 [facility] Protein Test strip Ql (U)Ord ered By: ED PROVIDER on 06-13-2022 Protein Ql (U) Negative Negative [facility] Serum or plasma albumin david urement (mass/volume)Ordered By: Dr. Sin on 06-13-2022 Albumin [Mass/Vol] 4.3 g/dL 3.2-5.0 [facility] Serum or plasma calcium david urement (mass/volume)Ordered By: ED PROVIDER on 06-13-2022 Calcium [Mass/Vol] 9.8 mg/dL 8.5-10.1 [facility] Serum or plasma creatinine m easurement (mass/volume)Ordered By: ED PROVIDER on 06-13-2022 Creatinine [Mass/Vol] 1.35 mg/dL 0.70-1.30 [place] Comment on above: The validity of the calculated GFR & GFRAA in patients over 70 years has not been determined. Clinical correlation is essential. Serum or plasma urea nitroge n measurement (mass/volume)Ordered By: ED PROVIDER on 06-13-2022 Urea nitrogen [Mass/Vol] 20 mg/dL 7-18 [facility] Squamous epithelial cells de tection in urine sediment by light microscopyOrdered By: ED PROVIDER on 06-13-2022 Epithelial cells.squamous LM Ql (Urine sed) 0 SEEN /hpf 0-5 [facility] Thin prep Papanicolaou smear with manual screeningOrdered By: Dr. Sin on 06-13-2022 Thin prep Papanicolaou smear with manual screening 27 U/L 15-37 [facility] Comment on above: Slight Hemolysis, Re sult may be falsely increased. Thin prep Papanicolaou smear with manual screeningOrdered By: ED PROVIDER on 06-13-2022 Thin prep Papanicolaou smear with manual screening 8 5-15 [facility] Urine blood detectionOrdered By: ED PROVIDER on 06-13-2022 RBC Ql (U) Negative Negative [facility] RBC Ql (U) 0 SEEN /hpf 0-5 [facility] Urine clarityOrdered By: ED PROVIDER on 06-13-2022 Clarity (U) Clear Clear [facility] Urine color determinationOrd ered By: ED PROVIDER on 06-13-2022 Color (U) Yellow Yellow [facility] Urine glucose detectionOrder ed By: ED PROVIDER on 06-13-2022 Glucose Ql (U) 1000 mg/dl Normal [facility] Urine leukocyte esterase det ection by dipstickOrdered By: ED PROVIDER on 06-13-2022 Leukocyte esterase Test strip Ql (U) Negative Negative [facility] Urine pHOrdered By: ED PROVI LUKASZ on 06-13-2022 pH (U) 7.0 [pH] 5.0 - 8.0 [facility] Urine sediment bacteria coun t by microscopy (number/high power field)Ordered By: ED PROVIDER on 06-13-2022 Bacteria LM.HPF (Urine sed) [#/Area] 0 /[HPF] None Seen [facility] Urine specific gravity measu rementOrdered By: ED PROVIDER on 06-13-2022 Specific gravity (U) [Rel density] 1.010 1.002-1.030 [facility] Urobilinogen Auto test strip Ql (U)Ordered By: ED PROVIDER on 06-13-2022 Urobilinogen Ql (U) Normal mg/dl Normal [place] Absolute lymphocyte counton 02-21-2022 Lymphocytes Auto (Unsp spec) [#/Vol] 2.15 10*3/uL 0.83-4.51 [facility] Work Phone: Basophil percentageon 2021 Basophils/100 WBC (Bld) 0.4 % 0-1 [facility] Work Phone: Bilirubin [Mass/Vol] 0.40 mg/dL 0.20-1.00 [facility] Work Phone: Comment on above: For patients on eltr ombopag therapy, use of Dimension [place] TBIL is not recommended. Chloride [Moles/Vol] 101 mmol/L 98-107 [facility] Work Phone: Eosinophils/100 WBC (Bld) 1.3 % 0-5 [facility] Work Phone: Glucose [Mass/Vol] 345 mg/dL 74-106 [facility] Work Phone: Comment on above: Glucose result great er than or equal to 200 mg/dLsuggests DIABETES MELLITUS per A.D.A. criteria. Lactate [Moles/Vol] 2.4 mmol/L 0.4-2.0 [facility] Work Phone: Comment on above: CRITICAL VALUE VERIF IED. CALLED TO DANIELA STEVENS RN (ER)02/21/22 181 Dat Aguilar.RESULTS READ BACK BY SAME . Previous reported result: 2.4 mmol/LEdited by: CHRIS on 02/21/22:1812 AMENDED REPORT 02/21/221811 LACTIC ACID previously reported as: 2.4 *H mmol/L Neutrophils (Bld) [#/Vol] 5.3 10*3/uL 2.0-7.7 [facility] Work Phone: Neutrophils/100 WBC (Bld) 62.9 % 47-70 [facility] Work Phone: Potassium [Moles/Vol] 4.6 mmol/L 3.5-5.1 [place] Work Phone: Protein [Mass/Vol] 7.7 g/dL 6.4-8.2 [facility] Work Phone: Sodium [Moles/Vol] 133 mmol/L 136-145 [facility] Work Phone: WBC (Bld) [#/Vol] 8.4 10*3/uL 4.4-11.0 [facility] Work Phone: Blood erythrocytes count (nu mber/volume)on 02-21-2022 RBC (Bld) [#/Vol] 4.91 10*6/uL 4.6-6.2 [facility] Work Phone: Blood hemoglobin measurement (mass/volume)on 02-21-2022 Hemoglobin (Bld) [Mass/Vol] 13.8 g/dL 13.0-16.5 [facility] Work Phone: Blood lymphocytes/100 leukoc yteson 02-21-2022 Lymphocytes/100 WBC (Bld) 25.6 % 19-41 [facility] Work Phone: Blood monocytes/100 leukocyt eson 02-21-2022 Monocytes/100 WBC (Bld) 9.3 % 0-10 [facility] Work Phone: Blood platelet mean volumeon 02-21-2022 Platelet mean volume (Bld) [Entitic vol] 12.4 fL 6.2-12.0 [facility] Work Phone: Determination of erythrocyte mean corpuscular volume (MCV)on 02-21-2022 MCV (RBC) [Entitic vol] 86.4 fL 80-94 [facility] Work Phone: Direct bilirubinon Bilirubin.direct [Mass/Vol] 0.15 mg/dL 0.00-0.30 [facility] Work Phone: Hematocrit Auto (Bld) [Volum e fraction]on 02-21-2022 Hematocrit (Bld) [Volume fraction] 42.4 % 40-54 [facility] Work Phone: [phone] Laboratory - Chemistry and C hemistry - challengeon 02-21-2022 ALP [Catalytic activity/Vol] 74 U/L 45-117 [facility] Work Phone: ALT [Catalytic activity/Vol] 38 U/L 16-61 [facility] Work Phone: CO2 [Moles/Vol] 28.0 mmol/L 21.0-32.0 [facility] Work Phone: Globulin (S) [Mass/Vol] 3.7 g/dL 2.2-4.2 [facility] Work Phone: Lipase [Catalytic activity/Vol] 81 U/L 73-393 [facility] Work Phone: Urea nitrogen/Creatinine [Mass ratio] 12.9 mg/mg 10-20 [facility] Work Phone: Laboratory - Hematology and Cell countson 02-21-2022 Erythrocyte distribution width (RBC) [Entitic vol] 40.0 fL 35.1-43.9 [facility] Work Phone: [phone] Erythrocyte distribution width (RBC) [Ratio] 12.8 % 11.6-14.6 [facility] Work Phone: [phone] Immature granulocytes/100 WBC (Bld) 0.500 % 0.0-0.9 [facility] Work Phone: Comment on above: IG% - Immature Granu locytes (promyelocytes, myelocytes and metamyelocytes) > 1% indicates that a LEFT SHIFT is Present. MCH (RBC) [Entitic mass] 28.1 pg 27.0-32.0 [facility] Work Phone: Nucleated RBC/100 WBC (Bld) [Ratio] 0 % 0-5 [facility] Work Phone: MCHC Auto (RBC) [Mass/Vol]on 02-21-2022 MCHC (RBC) [Mass/Vol] 32.5 g/dL 32-36 [place] Work Phone: No Panel Informationon 02-21 Estimated Creatinine Clearance Calc 45.31 ml/min [facility] Work Phone: Estimated GFR (MDRD) Amer 63 mL/min >60 [facility] Work Phone: Comment on above: GFR Calc Estimated GFR (MDRD) Non-Af Amer 52 mL/min >60 [facility] Work Phone: Comment on above: Non- GFR Calc Platelets bldon 02-21-2022 Platelets (Bld) [#/Vol] 164 10*3/uL 150-450 [facility] Work Phone: Serum or plasma albumin david urement (mass/volume)on 02-21-2022 Albumin [Mass/Vol] 4.0 g/dL 3.2-5.0 [facility] Work Phone: Serum or plasma calcium david urement (mass/volume)on 02-21-2022 Calcium [Mass/Vol] 9.3 mg/dL 8.5-10.1 [facility] Work Phone: Serum or plasma creatinine m easurement (mass/volume)on 02-21-2022 Creatinine [Mass/Vol] 1.47 mg/dL 0.70-1.30 [place] Work Phone: Comment on above: The validity of the calculated GFR & GFRAA in patients over 70 years has not been determined. Clinical correlation is essential. Serum or plasma urea nitroge n measurement (mass/volume)on 02-21-2022 Urea nitrogen [Mass/Vol] 19 mg/dL 7-18 [facility] Work Phone: Thin prep Papanicolaou smear with manual screeningon 02-21-2022 Thin prep Papanicolaou smear with manual screening 13 U/L 15-37 [facility] Work Phone: Thin prep Papanicolaou smear with manual screening 4 5-15 [facility] Work Phone: Stool gastrointestinal hemog lobin detection by immunologic method Lower GI hemoglobin IA Ql (Stl) [facility] Work Phone: Vital Signs Date Time Vital Sign Value Performing Clinician Maxi lity 02-25-2025 07:05-0400 Body height 165.1 cm Perla Joselito DO Work Phone: [facility] 02-25-2025 07:05-0400 Body mass index (BMI) [Ratio] 25 kg/m2 Perla Joselito DO Work Phone: [facility] 02-25-2025 07:05-0400 Body temperature 97.4 [degF] Perla Joselito DO Work Phone: [facility] 02-25-2025 07:05-0400 Body weight 68.03 kg Perla Joselito DO Work Phone: [facility] 02-25-2025 07:05-0400 Diastolic blood pressure 85 mm[Hg] Perla Joselito DO Work Phone: [facility] 02-25-2025 07:05-0400 Heart rate 81 /min Perla Joselito DO Work Phone: [facility] 02-25-2025 07:05-0400 Respiratory rate 16 /min Perla Joselito DO Work Phone: [facility] 02-25-2025 07:05-0400 SaO2% (BldA) [Mass fraction] 98 % Perla Joselito DO Work Phone: [facility] 02-25-2025 07:05-0400 Systolic blood pressure 130 mm[Hg] Perla Joseltio DO Work Phone: [phone] [place] [address] 04-15-2023 11:59-0400 Body height 160.02 cm [facility] Work Phone: 7([phone])752-688426 [place] [address] 04-15-2023 11:59-0400 Body mass index (BMI) [Ratio] 29.7 kg/m2 [facility] Work Phone: 2(672)986-343826 [place] [address] 04-15-2023 11:59-0400 Body temperature 97 [degF] [facility] Work Phone: 0(233)989-826926 [place] [address] 04-15-2023 11:59-0400 Body weight 76.29 kg [facility] Work Phone: 1(024)843-832026 [place] [address] 04-15-2023 11:59-0400 Diastolic blood pressure 78 mm[Hg] [facility] Work Phone: 8(810)349-908226 [place] [address] 04-15-2023 11:59-0400 Heart rate 88 /min [facility] Work Phone: 1(422)825-239326 [place] [address] 04-15-2023 11:59-0400 Respiratory rate 16 /min [facility] Work Phone: 6(411)338-832126 [place] [address] 04-15-2023 11:59-0400 SaO2% (BldA) [Mass fraction] 98 % [facility] Work Phone: 6(908)541-071126 [place] [address] 04-15-2023 11:59-0400 Systolic blood pressure 150 mm[Hg] [facility] Work Phone: 4(396)788-963126 [place] [address] 02-17-2023 21:35-0400 Heart rate 68 /min [facility] Work Phone: 2(559)642-772426 [place] [address] 02-17-2023 21:35-0400 Respiratory rate 14 /min [facility] Work Phone: 7(090)020-660226 [place] [address] 02-17-2023 21:35-0400 SaO2% (BldA) [Mass fraction] 98 % [facility] Work Phone: 5(133)335-270926 [place] [address] 02-17-2023 19:36-0400 Body mass index (BMI) [Ratio] 28.2 kg/m2 [facility] Work Phone: 9(281)473-252326 [place] [address] 02-17-2023 19:36-0400 Body temperature 97.1 [degF] [facility] Work Phone: 2(535)937-389626 [place] [address] 02-17-2023 19:36-0400 Body weight 72.21 kg [facility] Work Phone: 4(137)789-820026 [place] [address] 02-17-2023 19:36-0400 Diastolic blood pressure 73 mm[Hg] [facility] Work Phone: 8(542)583-082726 [place] [address] 02-17-2023 19:36-0400 Systolic blood pressure 126 mm[Hg] [facility] Work Phone: 4(251)804-543426 [place] [address] 01-12-2023 14:15-0400 Body mass index (BMI) [Ratio] 29.3 kg/m2 [facility] Work Phone: 9(854)250-173726 [place] [address] 01-12-2023 14:15-0400 Body weight 77.56 kg [facility] Work Phone: 3(526)412-336026 [place] [address] 01-12-2023 14:15-0400 Diastolic blood pressure 76 mm[Hg] [facility] Work Phone: 0(548)862-030926 [place] [address] 01-12-2023 14:15-0400 Heart rate 80 /min [facility] Work Phone: 7(031)606-070026 [place] [address] 01-12-2023 14:15-0400 Respiratory rate 18 /min [facility] Work Phone: 0(778)649-417726 [place] [address] 01-12-2023 14:15-0400 Systolic blood pressure 125 mm[Hg] [facility] Work Phone: 0(092)989-205626 [place] [address] 08-30-2022 08:02-0500 Diastolic blood pressure 91 mm[Hg] No Primary Care Physician [facility] 08-30-2022 08:02-0500 Heart rate 106 /min No Primary Care Physician [facility] 08-30-2022 08:02-0500 Systolic blood pressure 156 mm[Hg] No Primary Care Physician [facility] 08-29-2022 20:48-0500 Body height 162.56 cm No Primary Care Physician [facility] 08-29-2022 20:48-0500 Body mass index (BMI) [Ratio] 28.3 kg/m2 No Primary Care Physician [facility] 08-29-2022 20:48-0500 Body temperature 98.2 [degF] No Primary Care Physician [facility] 08-29-2022 20:48-0500 Body weight 74.84 kg No Primary Care Physician [facility] 08-29-2022 20:48-0500 Diastolic blood pressure 97 mm[Hg] No Primary Care Physician [facility] 08-29-2022 20:48-0500 Heart rate 83 /min No Primary Care Physician [facility] 08-29-2022 20:48-0500 Respiratory rate 16 /min No Primary Care Physician [facility] 08-29-2022 20:48-0500 SaO2% (BldA) [Mass fraction] 100 % No Primary Care Physician [facility] 08-29-2022 20:48-0500 Systolic blood pressure 185 mm[Hg] No Primary Care Physician [facility] 08-29-2022 14:50-0500 Body temperature 96.4 [degF] No Primary Care Physician [facility] 08-29-2022 14:50-0500 Diastolic blood pressure 85 mm[Hg] No Primary Care Physician [facility] 08-29-2022 14:50-0500 Heart rate 71 /min No Primary Care Physician [facility] 08-29-2022 14:50-0500 Respiratory rate 16 /min No Primary Care Physician [facility] 08-29-2022 14:50-0500 SaO2% (BldA) [Mass fraction] 100 % No Primary Care Physician [facility] 08-29-2022 14:50-0500 Systolic blood pressure 151 mm[Hg] No Primary Care Physician [facility] 08-29-2022 12:01-0500 Body height 162.56 cm No Primary Care Physician [facility] 08-29-2022 12:01-0500 Body mass index (BMI) [Ratio] 27.4 kg/m2 No Primary Care Physician [facility] 08-29-2022 12:01-0500 Body weight 72.57 kg No Primary Care Physician [facility] 07-07-2022 12:58-0500 Body height 162.56 cm No Primary Care Physician [facility] Work Phone: 07-07-2022 12:58-0500 Body mass index (BMI) [Ratio] 29 kg/m2 No Primary Care Physician [facility] 07-07-2022 12:58-0500 Body weight 76.65 kg No Primary Care Physician [facility] 07-07-2022 12:58-0500 Diastolic blood pressure 83 mm[Hg] No Primary Care Physician [facility] 07-07-2022 12:58-0500 Heart rate 102 /min No Primary Care Physician [facility] 07-07-2022 12:58-0500 Respiratory rate 16 /min No Primary Care Physician [facility] 07-07-2022 12:58-0500 Systolic blood pressure 143 mm[Hg] No Primary Care Physician [facility] 06-20-2022 09:36-0500 Body height 162.56 cm No Primary Care Physician [facility] Work Phone: 06-20-2022 09:36-0500 Body mass index (BMI) [Ratio] 30.4 kg/m2 No Primary Care Physician [facility] 06-20-2022 09:36-0500 Body temperature 97.4 [degF] No Primary Care Physician [facility] 06-20-2022 09:36-0500 Body weight 80.45 kg No Primary Care Physician [facility] 06-20-2022 09:36-0500 Diastolic blood pressure 74 mm[Hg] No Primary Care Physician [facility] 06-20-2022 09:36-0500 Heart rate 86 /min No Primary Care Physician [facility] 06-20-2022 09:36-0500 Respiratory rate 18 /min No Primary Care Physician [facility] 06-20-2022 09:36-0500 SaO2% (BldA) [Mass fraction] 98 % No Primary Care Physician [facility] 06-20-2022 09:36-0500 Systolic blood pressure 121 mm[Hg] No Primary Care Physician [facility] 06-13-2022 20:00-0500 Diastolic blood pressure 86 mm[Hg] [facility] 06-13-2022 20:00-0500 Heart rate 82 /min [facility] 06-13-2022 20:00-0500 Respiratory rate 15 /min [facility] 06-13-2022 20:00-0500 SaO2% (BldA) [Mass fraction] 98 % [facility] 06-13-2022 20:00-0500 Systolic blood pressure 126 mm[Hg] [facility] 06-13-2022 15:37-0500 Body height 162.56 cm [facility] Work Phone: 06-13-2022 15:37-0500 Body mass index (BMI) [Ratio] 27.4 kg/m2 [facility] 06-13-2022 15:37-0500 Body temperature 97.9 [degF] [facility] 06-13-2022 15:37-0500 Body weight 72.57 kg [facility] 02-21-2022 18:46-0400 Diastolic blood pressure 76 mm[Hg] [facility] Work Phone: 02-21-2022 18:46-0400 Heart rate 83 /min [facility] Work Phone: 02-21-2022 18:46-0400 Respiratory rate 14 /min [facility] Work Phone: 02-21-2022 18:46-0400 SaO2% (BldA) [Mass fraction] 97 % [facility] Work Phone: 02-21-2022 18:46-0400 Systolic blood pressure 110 mm[Hg] [facility] Work Phone: 02-21-2022 16:23-0400 Body mass index (BMI) [Ratio] 27.4 kg/m2 [facility] Work Phone: 02-21-2022 16:23-0400 Body temperature 98.3 [degF] [facility] Work Phone: 02-21-2022 16:23-0400 Body weight 72.57 kg [facility] Work Phone: Encounters Encounter Date Encounter Type Care Provider Facility Start: 02-27-2025 ambulatory Perla Villaltaer VSC Faci lity:[facility] Start: 02-26-2025 ambulatory Perla Villaltaer VSC Faci lity:[facility] Start: 02-25-2025 End: 02-25-[address] Chidi Diallo DO -[facility] Work Phone: Start: 02-25-2025 End: 02-25-2025 ambulatory Perla Yee DO Work Phone: -[facility] Start: 01-14-2025 ambulatory Perla Yee VSC Faci lity:[facility] Start: 06-18-2024 End: 06-18-2024 ambulatory Perla Yee VSC Facility:[facility] Start: 04-08-2024 End: 04-08-2024 Emergency department patient visit Perla Yee [facility] Facility:[facility] Start: 11-20-2023 End: 11-20-2023 ambulatory [facility] Work Phone: Start: 11-20-2023 End: 11-20-2023 Patient encounter procedure [facility] Work Phone: Start: 04-15-2023 End: 04-15-2023 Emergency department patient visit [facility] Work Phone: [facility]-Emergency Department Work Phone: Start: 02-17-2023 End: 02-17-2023 Emergency department patient visit [facility] Work Phone: [facility]Emergency Department Work Phone: Start: 01-12-2023 End: 01-12-2023 Patient encounter procedure [facility] Work Phone: [facility] Work Phone: Start: 12-21-2022 Non-patient / Non-visit [facility] Work Phone: [facility] Work Phone: Start: 09-26-2022 End: 09-26-2022 ambulatory No Primary Care Physician [facility] Work Phone: Start: 09-26-2022 End: 09-26-2022 Patient encounter procedure No Primary Care Physician [facility]-Laboratory Start: 09-12-2022 End: 09-12-2022 ambulatory No Primary Care Physician [facility] Work Phone: Start: 09-12-2022 End: 09-12-2022 Patient encounter procedure No Primary Care Physician [facility]-Laboratory, Specimen Start: 08-30-2022 End: 08-30-2022 Patient encounter procedure No Primary Care Physician [facility] Start: 08-29-2022 End: 08-29-2022 Emergency department patient visit No Primary Care Physician [facility]-Emergency Department Start: 08-29-2022 Non-patient / Non-visit No Barb oconnell Care Physician [facility] Start: 08-29-2022 End: 08-29-2022 Admission to same day surgery center No Primary Care Physician [facility]-Endoscopy Start: 08-29-2022 End: 08-29-2022 ambulatory No Primary Care Physician [facility] Work Phone: Start: 07-14-2022 Telephone encounter Abner mendoza PA-C Work Phone: Urology Comment on above: Received [facility] Start: 07-07-2022 End: 07-07-2022 ambulatory No Primary Care Physician [facility] Work Phone: Start: 07-07-2022 End: 07-07-2022 Patient encounter procedure No Primary Care Physician [facility]-Laboratory Start: 07-07-2022 End: 07-07-2022 Admission to same day surgery center No Primary Care Physician [facility] Start: 07-07-2022 End: 07-07-2022 Patient encounter procedure No Primary Care Physician [facility] Start: 07-01-2022 Non-patient / Non-visit No Barb oconnell Care Physician [facility] Start: 06-22-2022 End: 06-22-2022 ambulatory No Primary Care Physician [facility] Work Phone: Start: 06-22-2022 End: 06-22-2022 Patient encounter procedure No Primary Care Physician [facility]-Laboratory, Specimen Start: 06-20-2022 End: 06-20-2022 Patient encounter procedure No Primary Care Physician [facility] Start: 06-13-2022 End: 06-13-2022 Emergency department patient visit [facility]Emergency Department Start: 02-21-2022 End: 02-21-2022 Emergency department patient visit [facility]Emergency Department Procedures Date Procedure Procedure Detail Performing Clinician Start: 11-20-2023 CT of chest Start: 02-17-2023 X-ray of chest posteroanterior view [facility] Work Phone: Start: 08-29-2022 Colonoscopy No Primary [...] Activity Detail Author Start: 08-30-2022 Patient referral [facility] Work Phone: Start: 08-29-2022 Colonoscopy flx dx w/collj spec when pfrmd DIAGNOSTIC COLONOSCOPY [facility] Start: 08-29-2022 Egd transoral biopsy single/multiple EGD BIOPSY SINGLE/MULTIPLE [facility] Start: 08-29-2022 Patient discharge [facility] Start: 03-31-2022 Influenza vaccination INFLUENZA (#1) [facility] Start: 07-31-2021 DEPRESSION ASSESSMENT DEPRESSION ASSESSMENT [facility] Start: 2017 PROSTATE CANCER SCREENING DISCUSSION PROSTATE CANCER SCREENING DISCUSSION [facility] Start: 2012 SHINGRIX VACCINE (1 of 2) SHINGRIX VACCINE (1 of 2) [facility] Start: 2007 COLOGUARD (FIT-DNA) COLOGUARD (FIT-DNA) [facility] Start: 2007 Colonoscopy COLONOSCOPY [facility] Start: 2007 COLORECTAL CANCER SCREENING COLORECTAL CANCER SCREENING [facility] Start: [address] COLONOGRAPHY [facility] Start: 2007 DIABETES SCREEN DIABETES SCREEN [facility] Start: 2007 FECAL OCCULT BLOOD FECAL OCCULT BLOOD [facility] Start: 2007 SIGMOIDOSCOPY SIGMOIDOSCOPY [facility] Start: 1997 LIPID SCREEN LIPID SCREEN [facility] Start: 1981 Urine microalbumin profile DTAP,TDAP,TD (1 - Tdap) [facility] Start: 1980 HEPATITIS C SCREENING HEPATITIS C SCREENING [facility] Start: 1980 HIV SCREENING HIV SCREENING [facility] Start: 03-10-1963 COVID-19 VACCINE (#1) COVID-19 VACCINE (#1) [facility] CT Chest [facility] Measurement of respiratory function [facility] Patient Education [facility] Work Phone: Patient referral [facility] Work Phone: [facility] Payers Date Payer Category Payer Medicare [id number] 2024 Self-pay [id number] 2022 Medicare MEDICARE MEDICAR E A AND B [id number] 2022-Present [phone] [address] [address] [place] [address] Medicare [id number] Medicare MEDICARE PART A B [id number] Medicare [id number] Private Health Insurance 101 [id number] Unknown [id number] Unknown [id number] Unknown [id number] Unknown [id number] Unknown [id number] Unknown [id number] 64 Unknown [id number] 64 Unknown [id number] 64 Unknown [id number] 64 Social History Date Type Detail Facility Start: 06-13-2022 End: 04-15-2023 Tobacco smoking status WIIS Unknown if ever smoked [facility] Start: 1960 Sex Assigned At Male [facility] Start: 1960 Sex Assigned At Not on file [facility] Start: 04-08-2024 Tobacco smoking stat us WIIS Smokes tobacco daily (finding) [facility] Goals Date Patient Goal Desired Activity /State Mental Status Date Assessment Result Facility 02-17-2023 Cognitive function Level Of Cons ciousness Awake;Alert;Appropriate;Follow s Commands [facility] Work Phone: 08-29-2022 Cognitive function Light Pain [facility] Work Phone: 08-29-2022 Cognitive function Patient Orien tation Person;Place [facility] Work Phone: Clinical Notes 07-19-2022 to 08-29-2022 Note Date & Type Note Facility 08-29-2022 History and physi raheem note Note Date/Time August 29, 2022 12:40pm [facility] Medical Records Department [address] [place] [address] History & Physical Exam 08/29/22 1238 MR#: [id number] Acct: [id number] Name: JEAN PIERRE GRANT Rep #:[id number] : 1960 61 From: Beau Bello PCP: [facility] lynus:[facility] Location: [place] [address] History and Physical Date of Admission: 08/29/22 Date of Service:? 06/20/22 MR#: [id number] Acct: [id number] Name:? JEAN PIERRE GRANT Rep #: [id number] : 1960 ? ? Provider: Dr. Beau Beaulieu MD Age/Sex:? 61/M ? ? Location: [facility] Status: Signed Intake Vital Signs ? 02/22/2216:23 [...] PAIN Chief Complaint: Abdominal pain - colonoscopy/EGD Strategies Analyst Required: No Is patient in pain?: No [...] consultation from Candice Doran NP of the [facility].? Mr. Grant describes this pain as fiery [...] further detail as this was obtained in [place] (where he comes from immediately) and there was no follow-up given his move here to [place].? Patient has no personal history of colon [...] still to establish cardiology following here in [place].? He notes a appointment has been tentatively scheduled for early July with Dr. Moses of [place] [facility]ology. Relevant prior abdominal surgical history includes: [...] obtained just prior to his departure from [place] (having recently relocated to [place]).? CT imaging from January and earlier this [...] (if applicable): CC: Dr. Beau Beaulieu MD; [facility]~ Signed [facility] Work Phone: 1(481) 883-526701-30-2023 [facility] Procedure note [facility]01-30-2023 Procedure [facility] 07-19-2022 Miscellaneous Notes* Telephone Encounter - Leann Albarado LPN - 07/19/2022 4:03 PM EST Received medical records. Available for appointment and to operations for scanning. Leann Albarado LPN * Telephone Encounter - Leann Albarado LPN - 07/18/2022 12:16 PM EST Faxed request for medical records. Leann Albarado LPN * Telephone Encounter - Leann Albarado LPN - 07/18/2022 12:09 PM EST Called [facility] Medical Records. Not available. Did get fax number [phone] to fax request to. Leann Albarado LPN * Telephone Encounter - Leann Albarado LPN - 07/18/2022 11:50 AM EST Called patient. Verified name and date of . Patient reports having been seen for urology needs at [facility] in [place] approximately one year ago. Leann Albarado LPN * Telephone Encounter - Leann Albarado LPN - 07/14/2022 2:19 PM EST Called patient. Not available. Left message to call clinic. Patient has appointment scheduled for 07/26/22 with Abner Townsend PA-C. Has patient been seen elsewhere for urological needs and if so where? Leann Albarado LPN documented [facility]West [facility] ClinicEvaluation noteNo assessment information availableWUniversity Hospitals Health System Work Phone: Evaluation note* Diagnosis Onset Date Resolution Status Left upper quadrant abdominal pain acute [facility] Work Phone: Evaluation note* Diagnosis Onset Date Resolution Status Left upper quadrant abdominal pain acute Abdominal pain acute Tachycardia acute COPD (chronic obstructive pulmonary disease) chronic Coronary artery disease manager equipment pau Dyslipidemia chronic Essential (primary) hypertension chronic Nicotine dependence chronic Type 2 diabetes mellitus chr onic Preoperative cardiovascular examination noneactive [facility] Work Phone: Evaluation note* Diagnosis Onset Date Resolution Status Left upper quadrant abdominal pain acute Abdominal pain acute Tachycardia acute COPD (chronic obstructive pulmonary disease) chronic Coronary artery disease manager equipment pau Dyslipidemia chronic Essential (primary) hypertension chronic Nicotine dependence chronic Type 2 diabetes mellitus chr onic Preoperative cardiovascular examination noneactive BPH (benign prostatic hyperplasia) acute Hematuria acute [facility] Work Phone: Evaluation note* Diagnosis Onset Date Resolution Status COPD (chronic obstructive pulmonary disease) chronic Coronary artery disease manager equipment pau Dyslipidemia chronic Essential (primary) hypertension chronic Nicotine dependence chronic Type 2 diabetes mellitus chr onic [facility] Work Phone: Evaluation note* Diagnosis Onset Date Resolution Status Admit Date Nicotine dependence, cigaret vlad, uncomplicated acute February 25, 2025 11:24am BRITTANY (obstructive sleep apnea) acute February 25, 2025 11:24am COPD (chronic obstructive pulmonary disease) chronic February 25 11:24am [facility] Work Phone: Hospital Discharge instructions Additional Instructions Please follow-up with a dentist and take antibiotics as prescribed. Return for any worsening of your symptoms.[facility] Work Phone: Reason for referral (narrative)No reason for referral information availableFayette [facility] Work Phone: Chief Complaint and Reason [...] Will No June 13, 5:18pm Power of Manufacturing Supervisor 2Nd Shift No June 13, 2022 5:18pm Advance Directive Response Recorded Date/ Time Living Will No August 24 11:38am Power of Manufacturing Supervisor 2Nd Shift No August 24, 2022 11:38am Advance Directive Response Recorded Date/ Time Living Will No August 29 9:18pm Power of Manufacturing Supervisor 2Nd Shift No August 29, 2022 9:18pm Advance Directive Response Recorded Date/ Time Living Will No April 15, 2023 12:22pm Power of Manufacturing Supervisor 2Nd Shift No March 12:22pm Family History No Family [...] or prosecute any alcohol or drug abuse patient.[facility] Reason for Visit (unrecogniz ed section and content) Reason Comments Received Outside Medical Records Care Teams (unrecognized sec tion and content) Systems Technician Relationship Specialty Start Date End Date Candice Doran, [address] [place] [address] Referring Family Medicine 07/06/22 Team Status: Active Member Role Status Dates [facility] Primary Care Provider A ctive Team Status: Inactive Member Role Status Dates No Primary Care Physician Referring Provider Active Dr. Beau Beaulieu MD Attending Provider Active Dr. Kamryn Mcmanus Primary Care Provider Active Team Status: Inactive Member Role Status Dates Dr. Kamryn Mcmanus Referring Provider Active Dr. Cj Wild MD Attending Provider Active [facility] Primary Care Provider A ctive Team Status: Active Member Role Status Dates [facility] Primary Care Provider A ctive Lindsay No Attending Provider Active Team Status: Active Member Role Status Dates Dr. Beau Beaulieu MD Attending Provide r, Referring Provider, Other Provider Active [facility] Primary Care Provider A ctive Team Status: Inactive Member Role Status Dates Dr. Raphael [facility] Primary Care Provider Active Dr. Jonathan Sin MD Attending Provider, Emergency Provider Active Team Status: Inactive Member Role Status Dates Dr. Beau Beaulieu MD Attending Provider, Referring P rovider Active [facility] Primary Care Provider A ctive Team Status: Inactive Member Role Status Dates [facility] Primary Care Provider A ctive Dr. Beau Beaulieu MD Attending Provider, Referring P rovider Active Team Status: Inactive Member Role Status Dates [facility] Primary Care Provider A ctive Dr. Cj Wild MD Attending Provider Active Team Status: Inactive Member Role Status Dates [facility] Primary Care Provider A ctive Dr. Eyal De Jesus MD Emergency Provider Active Team Status: Inactive Member Role Status Dates [facility] Primary Care Provider, Referring Provider Active Dr. Beau Beaulieu MD Attending Provider Active Team Status: Inactive Member Role Status Dates [facility] Primary Care Provider A ctive Dr. Eyal De Jesus MD Attending Provider, Emergency Provider Active Team Status: Inactive Member Role Status Dates [facility] Primary Care Provider A ctive Dr. Patrick Ayala MD Attending Provider, Referr ing Provider Active Team Status: Inactive Member Role Status Dates [facility] Primary C are Provider, Attending Provider, Referring Provider Active Candice Doran CLIN NURSE SPEC, CLIN NURSE SPEC-C Other Provider Active Team Status: Active Member Role Status Dates Isabella Yee DO Primary Care Provider Active Team Status: Inactive Member Role Status Dates [facility] Primary Care Provider, Referring Provider Active Dr. Cj Wild MD Attending Provider Active Team Status: Active Member Role Status Dates [facility] Primary Care Provider A ctive Lilian [...] Active Member Role/Relationship Status Dates Perla Yee [facility], DO Primary Care Provider Active Team Status: Inactive Member Role/Relationship Status Dates Perla Yee [facility], DO Primary Care Provider Active Start: February 25, 2025 End: February 25, 2025 Perla Yee [facility], DO Referring Provider Active Start: February 25, 2025 End: February 25, 2025 Dr. Chidi Diallo , DO Attending Provider Active S tart: February 25, 2025 End: February 25, 2025 (unrecognized sect ion and content) No Status Records Found INFORMATION SOURCE (unrecogn ized section and content) DATE CREATED AUTHOR 03/01/2025 [facility] FOR RECORDS PERTAINING TO PATIENTS WHO [...] BE BASED ON THE PRIMARY CLINICAL RECORDS. [employer] provides no warranty or guarantee of the accuracy or completeness of information in this document.
--- OUTSIDE RECORDS SUMMARY | 2025-03-08 13:34 | XMS RPT_ITS | CCD ---
Author Organization [facility] CliniSynm Care Team Providers Care Edge Runner Name Role Phone Care Physician, No Primary Referring Provider Un available Dr. Beau Beaulieu Attending Provider Dr. Kamryn Mcmanus Primary Care Provider [facility], Kamryn Mcmanus Primary Care Pro vider Lindsay No Attending Provider Unavailable Dr. Kamryn Mcmanus Referring Provider Dr. Cj Wild Attending Provider Espinoza NEGATIVE CHECKER, Candice Unavailable Dr. Beau Beaulieu Referring Provider Dr. Beau Beaulieu Other Provider [facility], Kamryn Mcmanus Referring Provid er [facility], Kamryn Mcmanus Primary Care Pro vider Lilian Barron Attending Provider Unavailable [facility], Kamryn Mcmanus Referring Provid er Dr. Cj Wild Attending Provider Joselito DO, Perla Primary Care Provider Joselito DO, Perla Referring Provider Dr. Chidi Diallo DO Attending Provider Joselito VSC, Perla Primary Care Unavailable Mitchell VSC, Agustin Attending Unavailable Joselito VSC, Perla Primary Care Unavailable Mitchell VSC, Agustin Attending Unavailable Joselito VSC, Perla Referring Unavailable Joselito VSC, Perla Primary Care Unavailable Chidi Diallo Attending Unavailable Joselito VSC, Perla Primary Care Unavailable Joselito VSC, Perla Referring Unavailable Chidi Diallo Attending Unavailable Joselito VSC, Perla Attending [facility] Charlie Santana Attending Unavailable Allergies Allergy Classification Reported Allergen(s) Allergy Type Date of Onset Reaction(s) Facility (10 sources) Acetaminophen Drug Allergy 2 Vomiting [facility] (10 sources) diphenhydrAMINE Drug Allergy 1 Other [facility] (10 sources) oxyCODONE Drug Allergy 2 Vomiting [facility] (3 sources) fentaNYL Drug Allergy 3 Pain in joints [facility] (1 source) Acetaminophen Drug Allergy 5 [facility] Repository (1 source) diphenhydrAMINE Drug Allergy 5 [facility] Repository (1 source) fentaNYL Drug Allergy 5 [facility] Repository (1 source) oxyCODONE Drug Allergy 5 [facility] Repository Medications Current Medications Medication Drug [...] Drug Class(es) Dates Sig (Normalized) Sig (Original) [id number] actuat albuterol 0.09 mg/actuat metered dose [...] obtained just prior to his departure from [place] (having recently relocated to [place]). CT imaging from January and earlier this [...] Coronary arteriosclerosis; Translations: [Atherosclerotic heart disease of campo coronary artery without angina pectoris] Chronic Diabetes [...] and draining clear urine. Patient developed ac ak chin post procedure urinary retention following EGD and [...] 02-27-2025 Creatinine [Mass/Vol] 52.70 mg/dL Normal 39.00-259.00 [facility] Comment on above: Performed By: #### L 502.0250 ####[facility] [address] [place], [place], [address] MALB:CREAT 90.7 mg/g CRE High <30 mg/g CRE [facility] Comment on above: Performed By: #### L 502.0250 ####[facility] [address] [place], [place], [address] MICROALBUMIN,UR 47.8 mg/L Normal <20 mg/L [facility] Comment on above: Performed By: #### L 502.0250 ####[facility] [address] [place], [address] CRPon 02-26-2025 C-REACTIVE PROT 5.08 mg/L High 0.0-3.0 [facility] Comment on above: Performed By: #### L 503.0106, L509.8002, L501.9985, L502.0250, L506.0200, L501.9520, L101.9900, L501.6710, L501.7300, L500.4050 #### [facility] [address] [place], [place], [id number] Comprehensive Metabolic Prof ilon 02-26-2025 Albumin [Mass/Vol] 4.2 g/dL Normal 3.4-4.8 [facility] Comment on above: Result Comment: AMENDED REPORT 02/26/251721 ALB previously reported as: 4.0 g/dL Performed By: #### L 503.0106, L509.8002, L501.9985, L502.0250, L506.0200, L501.9520, L101.9900, L501.6710, L501.7300, L500.4050 #### [facility] [address] [place], [address] Albumin/Globulin [Mass ratio] 1.8 {ratio} Normal 0.9-2.4 [facility] Comment on above: Result Comment: AMENDED REPORT 02/26/251721 A/G previously reported as: 1.4 RATIO Performed By: #### L 503.0106, L509.8002, L501.9985, L502.0250, L506.0200, L501.9520, L101.9900, L501.6710, L501.7300, L500.4050 #### [facility] [address] [place], [address] ALK PHOS 89 U/L Normal 40-129 [facility] Comment on above: Result Comment: AMENDED REPORT 02/26/251721 ALK P previously reported as: 85 U/L Performed By: #### L 503.0106, L509.8002, L501.9985, L502.0250, L506.0200, L501.9520, L101.9900, L501.6710, L501.7300, L500.4050 #### [facility] [address] [place], [place], [phone] (337) ALT [Catalytic activity/Vol] 19 U/L Normal <=46 [facility] Comment on above: Result Comment: AMENDED REPORT 02/26/251721 ALT previously reported as: 16 U/L Performed By: #### L 503.0106, L509.8002, L501.9985, L502.0250, L506.0200, L501.9520, L101.9900, L501.6710, L501.7300, L500.4050 #### [facility] [address] [place], [place], [phone] AST [Catalytic activity/Vol] 15 U/L Normal <=37 [facility] Comment on above: Result Comment: AMENDED REPORT 02/26/251721 AST previously reported as: 16 U/L Performed By: #### L 503.0106, L509.8002, L501.9985, L502.0250, L506.0200, L501.9520, L101.9900, L501.6710, L501.7300, L500.4050 #### [facility] [address] [place], [place], [id number] Bilirubin [Mass/Vol] 0.30 mg/dL Normal 0.00-1.30 [facility] Comment on above: Performed By: #### L 503.0106, L509.8002, L501.9985, L502.0250, L506.0200, L501.9520, L101.9900, L501.6710, L501.7300, L500.4050 #### [facility] [address] [place], [address] BUN/CRE 15.2 RATIO Normal 10-20 [facility] Comment on above: Result Comment: AMENDED REPORT 02/26/251721 BUN/CRE previously reported as: 14.7 RATIO Performed By: #### L 503.0106, L509.8002, L501.9985, L502.0250, L506.0200, L501.9520, L101.9900, L501.6710, L501.7300, L500.4050 #### [facility] [address] [place], [address] Calcium [Mass/Vol] 9.5 mg/dL Normal 7.6-11.0 [facility] Comment on above: Result Comment: AMENDED REPORT 02/26/251721 CA previously reported as: 9.4 mg/dL Performed By: #### L 503.0106, L509.8002, L501.9985, L502.0250, L506.0200, L501.9520, L101.9900, L501.6710, L501.7300, L500.4050 #### [facility] [address] [place], [address] Chloride [Moles/Vol] 101 mmol/L Normal 98-108 [facility] Comment on above: Performed By: #### L 503.0106, L509.8002, L501.9985, L502.0250, L506.0200, L501.9520, L101.9900, L501.6710, L501.7300, L500.4050 #### [facility] [address] [place], [address] CO2 [Moles/Vol] 22.4 mmol/L Normal 21.0-32.0 [facility] Comment on above: Result Comment: AMENDED REPORT 02/26/251721 CO2 previously reported as: 21.3 mmol/L Performed By: #### L 503.0106, L509.8002, L501.9985, L502.0250, L506.0200, L501.9520, L101.9900, L501.6710, L501.7300, L500.4050 #### [facility] [address] [place], [place], [phone] Creatinine [Mass/Vol] 0.99 mg/dL Normal 0.70-1.20 [facility] Comment on above: Result Comment: AMENDED REPORT 02/26/251721 CREAT,SERUM previously reported as: 1.01 mg/dL Performed By: #### L 503.0106, L509.8002, L501.9985, L502.0250, L506.0200, L501.9520, L101.9900, L501.6710, L501.7300, L500.4050 #### [facility] [address] [place], [place], [phone] GAP 12 Normal 5-15 [facility] Comment on above: Result Comment: AMENDED REPORT 02/26/251721 GAP previously reported as: 13 Performed By: #### L 503.0106, L509.8002, L501.9985, L502.0250, L506.0200, L501.9520, L101.9900, L501.6710, L501.7300, L500.4050 #### [facility] [address] [place], [place], [address] Globulin (S) [Mass/Vol] 2.3 g/dL Normal 2.2-4.2 [facility] Comment on above: Result Comment: AMENDED REPORT 02/26/251721 GLOB previously reported as: 2.9 g/dL Performed By: #### L 503.0106, L509.8002, L501.9985, L502.0250, L506.0200, L501.9520, L101.9900, L501.6710, L501.7300, L500.4050 #### [facility] [address] [place], [address] Glucose [Mass/Vol] 256 mg/dL High 70-99 [facility] Comment on above: Performed By: #### L 503.0106, L509.8002, L501.9985, L502.0250, L506.0200, L501.9520, L101.9900, L501.6710, L501.7300, L500.4050 #### [facility] [address] [place], [address] Potassium [Moles/Vol] 4.6 mmol/L Normal 3.3-5.1 [facility] Comment on above: Result Comment: AMENDED REPORT 02/26/251721 K previously reported as: 4.4 mmol/L Performed By: #### L 503.0106, L509.8002, L501.9985, L502.0250, L506.0200, L501.9520, L101.9900, L501.6710, L501.7300, L500.4050 #### [facility] [address] [place], [address] Sodium [Moles/Vol] 136 mmol/L Normal 133-145 [facility] Comment on above: Result Comment: AMENDED REPORT 02/26/251721 NA previously reported as: 135 mmol/L Performed By: #### L 503.0106, L509.8002, L501.9985, L502.0250, L506.0200, L501.9520, L101.9900, L501.6710, L501.7300, L500.4050 #### [facility] [address] [place], [address] T PROT 6.5 g/dL Normal 5.9-8.4 [facility] Comment on above: Result Comment: AMENDED REPORT 07/30/25 1722 T PROT previously reported as: 6.9 g/dL Performed By: #### L 503.0106, L509.8002, L501.9985, L502.0250, L506.0200, L501.9520, L101.9900, L501.6710, L501.7300, L500.4050 #### [facility] [address] [place], [place], [address] Urea nitrogen [Mass/Vol] 15 mg/dL Normal 4-19 [facility] Comment on above: Performed By: #### L 503.0106, L509.8002, L501.9985, L502.0250, L506.0200, L501.9520, L101.9900, L501.6710, L501.7300, L500.4050 #### [facility] [address] [place], [place], [phone] Erythrocyte Sed Rateon 02-26 SED RATE 21 mm/hr High 0-20 [facility] Comment on above: Performed By: #### L 503.0106, L509.8002, L501.9985, L502.0250, L506.0200, L501.9520, L101.9900, L501.6710, L501.7300, L500.4050 ####[facility] [address] [place], [place], [phone] Folates,Serum (Folic Acid)on 02-26-2025 FOLATES,SERUM 7.80 ng/mL Normal 4.60-34.80 [facility] Comment on above: Order Comment: N Performed By: #### L 503.0106, L509.8002, L501.9985, L502.0250, L506.0200, L501.9520, L101.9900, L501.6710, L501.7300, L500.4050 #### [facility] [address] [place], [place], [phone] Hemoglobin A1con 02-26-2025 HbA1c (Bld) [Mass fraction] 10.8 % High <=5.6 [facility] Comment on above: Result Comment: Norm al < 5.7 % Prediabetic 5.7 - 6.4 % Diabetic >or= 6.5 % Please note range changes. Performed By: #### L 503.0106, L509.8002, L501.9985, L502.0250, L506.0200, L501.9520, L101.9900, L501.6710, L501.7300, L500.4050 ####[facility] [address] [place], [address] Microalb:Creat Ratio,Random URon 02-26-2025 MALB:CREAT Normal <30 mg/g CRE [facility] Comment on above: Result Comment: UTO. CUP GIVEN TO PATIENT TO BRING BACK. ORDER LAB FUTURED Performed By: #### L 503.0106, L509.8002, L501.9985, L502.0250, L506.0200, L501.9520, L101.9900, L501.6710, L501.7300, L500.4050 #### [facility] [address] [place], [address] MICROALBUMIN,UR Normal <20 mg/L [facility] Comment on above: Result Comment: UTO. CUP GIVEN TO PATIENT TO BRING BACK. ORDER LAB FUTURED Performed By: #### L 503.0106, L509.8002, L501.9985, L502.0250, L506.0200, L501.9520, L101.9900, L501.6710, L501.7300, L500.4050 #### [facility] [address] [place], [address] UR CREAT Normal 39.00-259.00 [facility] Comment on above: Result Comment: UTO. CUP GIVEN TO PATIENT TO BRING BACK. ORDER LAB FUTURED Performed By: #### L 503.0106, L509.8002, L501.9985, L502.0250, L506.0200, L501.9520, L101.9900, L501.6710, L501.7300, L500.4050 #### [facility] [address] [place], [place], [address] Osmolality, Serumon 02-27-20 25 OSMOLALITY,SER 308 mOsm/KG High 280-301 [facility] Comment on above: Performed By: #### L 503.0106, L509.8002, L501.9985, L502.0250, L506.0200, L501.9520, L101.9900, L501.6710, L501.7300, L500.4050 ####[facility] [address] [facility]. [place], [place], [phone] Syphilis Antibodieson 2024 Syphilis Abs Non-Reactive Normal Nonreactive [facility] Comment on above: Performed By: #### L 503.0106, L509.8002, L501.9985, L502.0250, L506.0200, L501.9520, L101.9900, L501.6710, L501.7300, L500.4050 ####[facility] [address] [facility]. [place], [place], [phone] Thyroid Stim Hormone (TSH)on 02-26-2025 TSH 0.837 uIU/mL Normal 0.300-4.200 [facility] Comment on above: Result Comment: AMENDED REPORT 02/26/25 1722 TSH previously reported as: 0.827 uIU/mL Performed By: #### L 503.0106, L509.8002, L501.9985, L502.0250, L506.0200, L501.9520, L101.9900, L501.6710, L501.7300, L500.4050 #### [facility] [address] [facility] [place], [place], [phone] Vitamin B12on 02-26-2025 Cobalamin (Vitamin B12) [Mass/Vol] 630 pg/mL Normal 180-914 [facility] Comment on above: Performed By: #### L 503.0106, L509.8002, L501.9985, L502.0250, L506.0200, L501.9520, L101.9900, L501.6710, L501.7300, L500.4050 #### [facility] [address] [place], [address] Pulmonary Visit Reporton Pulmonary Visit Report [facility] [address] [place] [address] OFFICE VISIT Date of Service: 02/25/25 MR#: [id number] Acct: [id number] Name: JEAN PIERRE GRANT Rep #: [id number] : 1960 Provider: Dr. 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 He does not currently keep any animals as pets in his home environment. He does believe that at one point in the distant past he was evaluated by a tool planer set up operator and possibly had PFTs completed. His main [...] for BRITTANY chronic cough Chief Complaint: chevy Retail Assistant Required: No DME Vendor: N/a Accompanied by: [...] 06/13/22 0 (more content not included)... Normal [facility] CBC W/Diff, Automatedon 05-31 Absolute Lymph 2.20 X10 3/uL Normal 0.83-4.51 [facility] Comment on above: Performed By: #### L 100.0100, L501.9520, L500.4050 ####[facility] [address] [place], [address] Absolute Neut 4.9 X10 3/uL Normal 2.0-7.7 [facility] Comment on above: Performed By: #### L 100.0100, L501.9520, L500.4050 ####[facility] [address] [place], [address] Basophils/100 WBC (Bld) 0.5 % Normal 0-1 [facility] Comment on above: Performed By: #### L 100.0100, L501.9520, L500.4050 ####[facility] [address] [place], [address] Eosinophils/100 WBC (Bld) 1.8 % Normal 0-5 [facility] Comment on above: Performed By: #### L 100.0100, L501.9520, L500.4050 ####[facility] [address] [place], [address] Erythrocyte distribution width (RBC) [Ratio] 13.2 % Normal 11.6-14.6 [facility] Comment on above: Performed By: #### L 100.0100, L501.9520, L500.4050 ####[facility] [address] [place], [address] Hematocrit (Bld) [Volume fraction] 41.0 % Normal 40-54 [facility] Comment on above: Performed By: #### L 100.0100, L501.9520, L500.4050 ####[facility] [address] [place], [address] Hemoglobin (Bld) [Mass/Vol] 13.1 g/dL Normal 13.0-16.5 [facility] Comment on above: Performed By: #### L 100.0100, L501.9520, L500.4050 ####[facility] [address] [place], [address] IG% 0.200 Normal 0.0-0.9 [facility] Comment on above: Result Comment: IG% - Immature Granulocytes (promyelocytes, myelocytes and metamyelocytes) > 1% indicates that a LEFT SHIFT is Present. Performed By: #### L 100.0100, L501.9520, L500.4050 ####[facility] [address] [place], [address] Lymphocytes/100 WBC (Bld) 27.0 % Normal 19-41 [facility] Comment on above: Performed By: #### L 100.0100, L501.9520, L500.4050 ####[facility] [address] [place], [address] MCH (RBC) [Entitic mass] 27.7 pg Normal 27.0-32.0 [facility] Comment on above: Performed By: #### L 100.0100, L501.9520, L500.4050 ####[facility] [address] [place], [address] MCHC (RBC) [Mass/Vol] 32.0 g/dL Normal 32-36 [facility] Comment on above: Performed By: #### L 100.0100, L501.9520, L500.4050 ####[facility] [address] [place], [address] MCV (RBC) [Entitic vol] 86.7 fL Normal 80-94 [facility] Comment on above: Performed By: #### L 100.0100, L501.9520, L500.4050 ####[facility] [address] [place], [address] Monocytes/100 WBC (Bld) 10.3 % High 0-10 [facility] Comment on above: Performed By: #### L 100.0100, L501.9520, L500.4050 ####[facility] [address] [place], [address] Neutrophils/100 WBC (Bld) 60.2 % Normal 47-70 [facility] Comment on above: Performed By: #### L 100.0100, L501.9520, L500.4050 ####[facility] [address] [place], [address] Nucleated RBC (Bld) [#/Vol] 0 10*3/uL Normal 0-5 [facility] Comment on above: Performed By: #### L 100.0100, L501.9520, L500.4050 ####[facility] [address] [place], [address] Platelet mean volume (Bld) [Entitic vol] 10.7 fL Normal 6.2-12.0 [facility] Comment on above: Performed By: #### L 100.0100, L501.9520, L500.4050 ####[facility] [address] [place], [address] Platelets (Bld) [#/Vol] 252 10*3/uL Normal 150-450 [facility] Comment on above: Performed By: #### L 100.0100, L501.9520, L500.4050 ####[facility] [address] [place], [address] RBC (Bld) [#/Vol] 4.73 10*6/uL Normal 4.6-6.2 [facility] Comment on above: Performed By: #### L 100.0100, L501.9520, L500.4050 ####[facility] [address] [place], [address] RDW SD 42.1 fl Normal 35.1-43.9 [facility] Comment on above: Performed By: #### L 100.0100, L501.9520, L500.4050 ####[facility] [address] [place], [address] WBC (Bld) [#/Vol] 8.1 10*3/uL Normal 4.4-11.0 [facility] Comment on above: Performed By: #### L 100.0100, L501.9520, L500.4050 ####[facility] [address] [place], [address] Comprehensive Metabolic Prof alromy 06-18-2024 Albumin [Mass/Vol] 3.8 g/dL Normal 3.2-5.0 [facility] Comment on above: Performed By: #### L 100.0100, L501.9520, L500.4050 ####[facility] [address] [place], [address] Albumin/Globulin [Mass ratio] 0.9 {ratio} Normal 0.9-2.4 [facility] Comment on above: Performed By: #### L 100.0100, L501.9520, L500.4050 ####[facility] [address] [place], [address] ALK P 119 U/L High 45-117 [facility] Comment on above: Performed By: #### L 100.0100, L501.9520, L500.4050 ####[facility] [address] [place], [address] ALT [Catalytic activity/Vol] 55 U/L Normal 16-61 [facility] Comment on above: Performed By: #### L 100.0100, L501.9520, L500.4050 ####[facility] [address] [place], [address] AST [Catalytic activity/Vol] 29 U/L Normal 15-37 [facility] Comment on above: Performed By: #### L 100.0100, L501.9520, L500.4050 ####[facility] [address] [place], [address] Bilirubin [Mass/Vol] 0.40 mg/dL Normal 0.20-1.00 [facility] Comment on above: Result Comment: For patients on eltrombopag therapy, use of Dimension [place] TBIL is not recommended. Performed By: #### L 100.0100, L501.9520, L500.4050 ####[facility] [address] [place], [address] BUN/CRE 13.9 RATIO Normal 10-20 [facility] Comment on above: Performed By: #### L 100.0100, L501.9520, L500.4050 ####[facility] [address] [place], [address] CA,Total 9.3 mg/dL Normal 8.5-10.1 [facility] Comment on above: Performed By: #### L 100.0100, L501.9520, L500.4050 ####[facility] [address] [place], [address] Chloride [Moles/Vol] 104 mmol/L Normal 98-107 [facility] Comment on above: Performed By: #### L 100.0100, L501.9520, L500.4050 ####[facility] [address] [place], [address] CO2 [Moles/Vol] 24.0 mmol/L Normal 21.0-32.0 [facility] Comment on above: Performed By: #### L 100.0100, L501.9520, L500.4050 ####[facility] [address] [place], [address] Creatinine [Mass/Vol] 1.08 mg/dL Normal 0.70-1.30 [facility] Comment on above: Result Comment: The validity of the calculated GFR GFRAA in patients over 70 years has not been determined. Clinical correlation is essential. Performed By: #### L 100.0100, L501.9520, L500.4050 ####[facility] [address] [place], [address] EST GFR - AA 89 mL/min Normal >60 [facility] Comment on above: Result Comment: Afri can Congolese GFR Calc Performed By: #### L 100.0100, L501.9520, L500.4050 ####[facility] [facility] [address] [place], [address] GAP 9 Normal 5-15 [facility] Comment on above: Performed By: #### L 100.0100, L501.9520, L500.4050 ####[facility] [address] [place], [address] GFR/1.73 sq M.predicted among non-blacks MDRD (S/P/Bld) [Vol rate/Area] 74 mL/min/{1.73_m2} Normal >60 [facility] Comment on above: Result Comment: Non- GFR Calc Performed By: #### L 100.0100, L501.9520, L500.4050 ####[facility] [address] [place], [address] Globulin (S) [Mass/Vol] 4.3 g/dL High 2.2-4.2 [facility] Comment on above: Performed By: #### L 100.0100, L501.9520, L500.4050 ####[facility] [address] [place], [address] Glucose [Mass/Vol] 101 mg/dL Normal 74-106 [facility] Comment on above: Result Comment: Fast ing Glucose result from 100 to 125 mg/dL suggests IMPAIRED HOMEOSTASIS per A.D.A. criteria. Performed By: #### L 100.0100, L501.9520, L500.4050 ####[facility] [address] [place], [address] Potassium [Moles/Vol] 4.8 mmol/L Normal 3.5-5.1 [facility] Comment on above: Performed By: #### L 100.0100, L501.9520, L500.4050 ####[facility] [address] [place], [address] Sodium [Moles/Vol] 136 mmol/L Normal 136-145 [facility] Comment on above: Performed By: #### L 100.0100, L501.9520, L500.4050 ####[facility] [address] [place], [address] T PROT 8.1 g/dL Normal 6.4-8.2 [facility] Comment on above: Performed By: #### L 100.0100, L501.9520, L500.4050 ####[facility] [address] [place], [address] Urea nitrogen [Mass/Vol] 15 mg/dL Normal 7-18 [facility] Comment on above: Performed By: #### L 100.0100, L501.9520, L500.4050 ####[facility] [address] [place], [address] Thyroid Stim Hormone (TSH)on 06-18-2024 TSH 0.702 uIU/mL Normal 0.358-3.740 [facility] Comment on above: Performed By: #### L 100.0100, L501.9520, L500.4050 ####[facility] [address] [facility] [place], [address] 12 Lead EKGon 04-08-2024 12 Lead EKG [facility] Cardiovascular Services [address] [place] [address] 12 Lead EKG 04/08/24 1255 MR#: [id number] Acct: [id number] Name: JEAN PIERRE GRANT Rep #: [id number] : 1960 63 From: Arnaud Moses MD [...] ECG Confirmed by ARNAUD MOSES MD ([id number]), editorial cartoonist BILL COREY ([id number]) on 04/09/2024 7:41:03 AM Referred By: SHENG/LOVELY Confirmed By:ARNAUD MOSES MD 04/09/24 0741 Date Arnaud Moses MD CC: Dr. 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 Yee DO Signed Normal [facility] Basic Metabolic Profile (BMP )on 04-08-2024 BUN/CRE 14.2 RATIO Normal 10-20 [facility] Comment on above: Order Comment: 1Y Performed By: #### L 501.5425, L500.2500, L100.0100 ####[facility] [address] [place], [address] CA,Total 9.6 mg/dL Normal 8.5-10.1 [facility] Comment on above: Order Comment: 1Y Performed By: #### L 501.5425, L500.2500, L100.0100 ####[facility] [address] [place], [address] Chloride [Moles/Vol] 104 mmol/L Normal 98-107 [facility] Comment on above: Order Comment: 1Y Performed By: #### L 501.5425, L500.2500, L100.0100 ####[facility] [address] [place], [address] CO2 [Moles/Vol] 24.0 mmol/L Normal 21.0-32.0 [facility] Comment on above: Order Comment: 1Y Performed By: #### L 501.5425, L500.2500, L100.0100 ####[facility] [address] [place], [address] Creatinine [Mass/Vol] 1.20 mg/dL Normal 0.70-1.30 [facility] Comment on above: Order Comment: 1Y Result Comment: The validity of the calculated GFR GFRAA in patients over 70 years has not been determined. Clinical correlation is essential. Performed By: #### L 501.5425, L500.2500, L100.0100 ####[facility] [address] [place], [address] ECRCL 60.83 ml/min Normal [facility] Comment on above: Order Comment: 1Y Performed By: #### L 501.5425, L500.2500, L100.0100 ####[facility] [address] [place], [address] EST GFR - AA 79 mL/min Normal >60 [facility] Comment on above: Order Comment: 1Y Result Comment: Afri can Congolese GFR Calc Performed By: #### L 501.5425, L500.2500, L100.0100 ####[facility] [address] [place], [address] GAP 10 Normal 5-15 [facility] Comment on above: Order Comment: 1Y Performed By: #### L 501.5425, L500.2500, L100.0100 ####[facility] [address] [place], [address] GFR/1.73 sq M.predicted among non-blacks MDRD (S/P/Bld) [Vol rate/Area] 65 mL/min/{1.73_m2} Normal >60 [facility] Comment on above: Order Comment: 1Y Result Comment: Non- GFR Calc Performed By: #### L 501.5425, L500.2500, L100.0100 ####[facility] [address] [place], [address] Glucose [Mass/Vol] 242 mg/dL High 74-106 [facility] Comment on above: Order Comment: 1Y Result Comment: Gluc ose result greater than or equal to 200 mg/dL suggests DIABETES MELLITUS per A.D.A. criteria. Performed By: #### L 501.5425, L500.2500, L100.0100 ####[facility] [address] [place], [address] Potassium [Moles/Vol] 4.4 mmol/L Normal 3.5-5.1 [facility] Comment on above: Order Comment: 1Y Performed By: #### L 501.5425, L500.2500, L100.0100 ####[facility] [address] [place], [address] Sodium [Moles/Vol] 138 mmol/L Normal 136-145 [facility] Comment on above: Order Comment: 1Y Performed By: #### L 501.5425, L500.2500, L100.0100 ####[facility] [address] [place], [address] Urea nitrogen [Mass/Vol] 17 mg/dL Normal 7-18 [facility] Comment on above: Order Comment: 1Y Performed By: #### L 501.5425, L500.2500, L100.0100 ####[facility] [address] [place], [address] CBC W/Diff, Automatedon 09-0 9-2024 Absolute Lymph 2.52 X10 3/uL Normal 0.83-4.51 [facility] Comment on above: Performed By: #### L 501.5425, L500.2500, L100.0100 ####[facility] [address] [place], [address] Absolute Neut 5.1 X10 3/uL Normal 2.0-7.7 [facility] Comment on above: Performed By: #### L 501.5425, L500.2500, L100.0100 ####[facility] [address] [place], [address] Basophils/100 WBC (Bld) 0.5 % Normal 0-1 [facility] Comment on above: Performed By: #### L 501.5425, L500.2500, L100.0100 ####[facility] [address] [place], [address] Eosinophils/100 WBC (Bld) 2.5 % Normal 0-5 [facility] Comment on above: Performed By: #### L 501.5425, L500.2500, L100.0100 ####[facility] [address] [place], [address] Erythrocyte distribution width (RBC) [Ratio] 13.2 % Normal 11.6-14.6 [facility] Comment on above: Performed By: #### L 501.5425, L500.2500, L100.0100 ####[facility] [address] [place], [address] Hematocrit (Bld) [Volume fraction] 44.5 % Normal 40-54 [facility] Comment on above: Performed By: #### L 501.5425, L500.2500, L100.0100 ####[facility] [address] [place], [address] Hemoglobin (Bld) [Mass/Vol] 14.3 g/dL Normal 13.0-16.5 [facility] Comment on above: Performed By: #### L 501.5425, L500.2500, L100.0100 ####[facility] [address] [place], [address] IG% 0.400 Normal 0.0-0.9 [facility] Comment on above: Result Comment: IG% - Immature Granulocytes (promyelocytes, myelocytes and metamyelocytes) > 1% indicates that a LEFT SHIFT is Present. Performed By: #### L 501.5425, L500.2500, L100.0100 ####[facility] [address] [place], [address] Lymphocytes/100 WBC (Bld) 29.6 % Normal 19-41 [facility] Comment on above: Performed By: #### L 501.5425, L500.2500, L100.0100 ####[facility] [address] [place], [address] MCH (RBC) [Entitic mass] 28.1 pg Normal 27.0-32.0 [facility] Comment on above: Performed By: #### L 501.5425, L500.2500, L100.0100 ####[facility] [address] [place], [address] MCHC (RBC) [Mass/Vol] 32.1 g/dL Normal 32-36 [facility] Comment on above: Performed By: #### L 501.5425, L500.2500, L100.0100 ####[facility] [address] [place], [address] MCV (RBC) [Entitic vol] 87.6 fL Normal 80-94 [facility] Comment on above: Performed By: #### L 501.5425, L500.2500, L100.0100 ####[facility] [address] [place], [address] Monocytes/100 WBC (Bld) 7.6 % Normal 0-10 [facility] Comment on above: Performed By: #### L 501.5425, L500.2500, L100.0100 ####[facility] [address] [place], [address] Neutrophils/100 WBC (Bld) 59.4 % Normal 47-70 [facility] Comment on above: Performed By: #### L 501.5425, L500.2500, L100.0100 ####[facility] [address] [place], [address] Nucleated RBC (Bld) [#/Vol] 0 10*3/uL Normal 0-5 [facility] Comment on above: Performed By: #### L 501.5425, L500.2500, L100.0100 ####[facility] [address] [place], [address] Platelet mean volume (Bld) [Entitic vol] 12.5 fL High 6.2-12.0 [facility] Comment on above: Performed By: #### L 501.5425, L500.2500, L100.0100 ####[facility] [address] [place], [address] Platelets (Bld) [#/Vol] 168 10*3/uL Normal 150-450 [facility] Comment on above: Performed By: #### L 501.5425, L500.2500, L100.0100 ####[facility] [address] [place], [address] RBC (Bld) [#/Vol] 5.08 10*6/uL Normal 4.6-6.2 [facility] Comment on above: Performed By: #### L 501.5425, L500.2500, L100.0100 ####[facility] [address] [place], [address] RDW SD 42.4 fl Normal 35.1-43.9 [facility] Comment on above: Performed By: #### L 501.5425, L500.2500, L100.0100 ####[facility] [address] [place], [address] WBC (Bld) [#/Vol] 8.5 10*3/uL Normal 4.4-11.0 [facility] Comment on above: Performed By: #### L 501.5425, L500.2500, L100.0100 ####[facility] [address] [place], [address] Chest 1 View (Portable)on Chest 1 View (Portable) [facility] Imaging Services [address] [place] [address] Chest 1 View (Portable) MR#: [id number] Acct: [id number] Name: JEAN PIERRE GRANT Rep #: [id number] : 1960 M 63 From: Sam Bello PCP: Perla Yee DO Status: REG ER Study: Chest 1 View (Portable) Date of Exam: 04/08/24 Exam# [id number] Ordering Dr: Charlie Santana DO [id number] INDICATION: chest pain EXAMINATION/TECHNIQUE: X-RAY - XR [...] Dr. 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 Yee DO Precision Assembler: Signed Normal [facility] Emergency Department Summary on 04-08-2024 Emergency Department Summary [facility] Medical Records Department [address] [place] [address] Emergency Department Summary 04/08/24 MR#: [id number] Acct: [id number] Name: JEAN PIERRE GRANT Rep #: [id number] : 1960 63 From: Charlie Santana DO PCP: Perla Yee DO Status:DEP ER Location: ED HPI History of Present Illness Chief Complaint: Chest Pain [facility] Medical History Presence of stent in [...] pulmonary disease) Atherosclerosis of coronary artery of campo heart without angina pectoris Non-ST elevation myocardial [...] PRESENT ILLNESS: 63-year-old male history of CAD, MD, COPD, type 2 diabetes, hyperlipidemia, hypertension, status post catheterization and stent placement presents with chest pain. Per triage note patient states he developed chest pain approxi-1 hour ago. It is 9/10 in severity The patient denies recent surgery in the last 4 weeks or immobilization in the last 3 days, denies previous diag (more content not included)... [facility] L501.4020on 04-08-2024 TROPONIN-I HS 5 pg/mL Normal 3.0-78.0 [facility] Comment on above: Order Comment: 2 Result Comment: Glen goodwin Note: New Test Units and Gender Specific Reference Ranges. For more information see Policy Stat Procedure [place] High Sensitivity Troponin (TNIH) and attachments. Performed By: #### L 501.4020 ####[facility] [address] [place], [address] L501.5425on 04-08-2024 TROPONIN-I HS 6 pg/mL Normal 3.0-78.0 [facility] Comment on above: Order Comment: 1Y Result Comment: Glen goodwin Note: New Test Units and Gender Specific Reference Ranges. For more information see Policy Stat Procedure [place] High Sensitivity Troponin (TNIH) and attachments. Performed By: #### L 501.5425, L500.2500, L100.0100 ####[facility] [address] [place], [address] Basophil percentageOrdered B y: [facility] on 09-26-2022 Bilirubin [Mass/Vol] 0.40 mg/dL 0.20-1.00 [facility] Comment on above: For patients on eltr ombopag therapy, use of Dimension [place] TBIL is not recommended. Chloride [Moles/Vol] 105 mmol/L 98-107 [facility] Cholesterol [Mass/Vol] 93 mg/dL <200 [facility] Comment on above: <200 mg/dL Desirable 200-240 mg/dL Borderline >240 mg/dL High Risk Glucose [Mass/Vol] 289 mg/dL 74-106 [facility] Comment on above: Glucose result great er than or equal to 200 mg/dLsuggests DIABETES MELLITUS per A.D.A. criteria. Potassium [Moles/Vol] 4.6 mmol/L 3.5-5.1 [facility] Protein [Mass/Vol] 7.6 g/dL 6.4-8.2 [facility] Sodium [Moles/Vol] 136 mmol/L 136-145 [facility] Triglyceride [Mass/Vol] 198 mg/dL <199 [facility] Comment on above: The drugs N-Acetylcy steine and Metamizole may falsely depress this assay.Serum Triglycerides Reference Interval Normal <150 mg/dL Borderline high 150 - 199 mg/dL High 200 - 499 mg/dL Very High > or = 500 mg/dL WBC (Bld) [#/Vol] 8.3 10*3/uL 4.4-11.0 [facility] Blood erythrocytes count (nu mber/volume)Ordered By: [facility] on 09-26-2022 RBC (Bld) [#/Vol] 5.02 10*6/uL 4.6-6.2 [facility] Blood hemoglobin measurement (mass/volume)Ordered By: [facility] on 09-26-2022 Hemoglobin (Bld) [Mass/Vol] 13.8 g/dL 13.0-16.5 [facility] Blood platelet mean volumeOr dered By: [facility] on 09-26-2022 Platelet mean volume (Bld) [Entitic vol] 12.9 fL 6.2-12.0 [facility] Determination of erythrocyte mean corpuscular volume (MCV)Ordered By: [facility] on 09-26-2022 MCV (RBC) [Entitic vol] 87.8 fL 80-94 [facility] Hematocrit Auto (Bld) [Volum e fraction]Ordered By: [facility] on 09-26-2022 Hematocrit (Bld) [Volume fraction] 44.1 % 40-54 [facility] Laboratory - Chemistry and C hemistry - challengeOrdered By: [facility] on 09-26-2022 ALP [Catalytic activity/Vol] 82 U/L 45-117 [facility] ALT [Catalytic activity/Vol] 31 U/L 16-61 [facility] CO2 [Moles/Vol] 26.0 mmol/L 21.0-32.0 [facility] Globulin (S) [Mass/Vol] 3.6 g/dL 2.2-4.2 [facility] Urea nitrogen/Creatinine [Mass ratio] 17.2 mg/mg 10-20 [facility] Laboratory - Hematology and Cell countsOrdered By: [facility] on 09-26-2022 Erythrocyte distribution width (RBC) [Entitic vol] 41.6 fL 35.1-43.9 [facility] Erythrocyte distribution width (RBC) [Ratio] 12.9 % 11.6-14.6 [facility] MCH (RBC) [Entitic mass] 27.5 pg 27.0-32.0 [facility] MCHC Auto (RBC) [Mass/Vol]Or dered By: KAMRYN BROCKPORT on 09-26-2022 MCHC (RBC) [Mass/Vol] 31.3 g/dL 32-36 [facility] No Panel InformationOrdered By: KAMRYN BROCKPORT on 09-26-2022 Estimated GFR (MDRD) Amer 83 mL/min >60 [facility] Comment on above: GFR Calc Estimated GFR (MDRD) Non-Af Amer 68 mL/min >60 [facility] Comment on above: Non- GFR Calc Platelets bldOrdered By: ELENA CAMARA on 09-26-2022 Platelets (Bld) [#/Vol] 175 10*3/uL 150-450 [facility] Serum or plasma albumin david urement (mass/volume)Ordered By: [facility] on 09-26-2022 Albumin [Mass/Vol] 4.0 g/dL 3.2-5.0 [facility] Serum or plasma albumin/glob ulin mass ratioOrdered By: [facility] on 09-26-2022 Albumin/Globulin [Mass ratio] 1.1 {ratio} 0.9-2.4 [facility] Serum or plasma calcium david urement (mass/volume)Ordered By: [facility] on 09-26-2022 Calcium [Mass/Vol] 9.1 mg/dL 8.5-10.1 [facility] Serum or plasma cholesterol in HDL measurement (mass/volume)Ordered By: [facility] on 09-26-2022 Cholesterol in HDL [Mass/Vol] 27 mg/dL >40 [facility] Comment on above: The drugs N-Acetylcy steine and Metamizole may falsely depress this assay. Reference Range HDL <40 mg/dL Low HDL Cholesterol HDL >or= 60 mg/dL High HDL Cholesterol Serum or plasma cholesterol in VLDL measurement (mass/volume)Ordered By: [facility] on 09-26-2022 Cholesterol in VLDL [Mass/Vol] 40 mg/dL 5-40 [facility] Serum or plasma creatinine m easurement (mass/volume)Ordered By: [facility] on 09-26-2022 Creatinine [Mass/Vol] 1.16 mg/dL 0.70-1.30 [facility] Comment on above: The validity of the calculated GFR & GFRAA in patients over 70 years has not been determined. Clinical correlation is essential. Serum or plasma low density lipoprotein (LDL) cholesterol measurement (mass/volume)Ordered By: [facility] on 09-26-2022 Cholesterol in LDL [Mass/Vol] 26 mg/dL 0-130 [facility] Serum or plasma urea nitroge n measurement (mass/volume)Ordered By: [facility] on 09-26-2022 Urea nitrogen [Mass/Vol] 20 mg/dL 7-18 [facility] Thin prep Papanicolaou smear with manual screeningOrdered By: [facility] on 09-26-2022 Thin prep Papanicolaou smear with manual screening 16 U/L 15-37 [facility] Thin prep Papanicolaou smear with manual screening 5 5-15 [facility] Whole blood hemoglobin A1c/t otal hemoglobin ratio (mass fraction)Ordered By: [facility] on 09-26-2022 HbA1c (Bld) [Mass fraction] 10.8 % 3.8-5.6 [facility] Comment on above: Normal < 5.7 % Predi abetic 5.7 - 6.4 % Diabetic >or= 6.5 % Please note range changes. Culture, urineOrdered By: Dr Cuca Ayala on 09-14-2022 Bacteria identified Cx Nom (U) Culture exhibits no growth. [facility] Glucose Glucometer (BldC) [M ass/Vol]Ordered By: Dr. Beaulieu on 08-29-2022 Glucose [Mass/Vol] 155 mg/dL 74-106 [facility] Comment on above: MANAGEMENT OF PATIEN T CARE PER NURSING PROTOCOL No Panel InformationOrdered By: Dr. Wild on 07-07-2022 Thyroid Stimulating Hormone (TSH) 0.82 uIU/mL 0.358-3.74 [facility] Stool gastrointestinal hemog lobin detection by immunologic methodOrdered By: Dr. Beaulieu on 06-22-2022 Lower GI hemoglobin IA Ql (Stl) [facility] Absolute lymphocyte countOrd ered By: ED PROVIDER on 06-13-2022 Lymphocytes Auto (Unsp spec) [#/Vol] 2.88 10*3/uL 0.83-4.51 [facility] Basophil percentageOrdered B y: ED PROVIDER on 06-13-2022 Basophil percentage 0 SEEN /hpf 0-5 [facility] Basophils/100 WBC (Bld) 0.4 % 0-1 [facility] Chloride [Moles/Vol] 102 mmol/L 98-107 [facility] Eosinophils/100 WBC (Bld) 1.6 % 0-5 [facility] Glucose [Mass/Vol] 300 mg/dL 74-106 [facility] Comment on above: Glucose result great er than or equal to 200 mg/dLsuggests DIABETES MELLITUS per A.D.A. criteria. Neutrophils (Bld) [#/Vol] 6.3 10*3/uL 2.0-7.7 [facility] Neutrophils/100 WBC (Bld) 62.2 % 47-70 [facility] Potassium [Moles/Vol] 4.5 mmol/L 3.5-5.1 [facility] Comment on above: Slight Hemolysis, Re sult may be falsely increased. Sodium [Moles/Vol] 137 mmol/L 136-145 [facility] WBC (Bld) [#/Vol] 10.2 10*3/uL 4.4-11.0 [facility] Basophil percentageOrdered B y: Dr. Sin on 06-13-2022 Bilirubin [Mass/Vol] 0.30 mg/dL 0.20-1.00 [facility] Comment on above: For patients on eltr ombopag therapy, use of Dimension [place] TBIL is not recommended. Protein [Mass/Vol] 8.0 g/dL 6.4-8.2 [facility] Bilirubin Test strip Ql (U)O rdered By: ED PROVIDER on 06-13-2022 Bilirubin Ql (U) Negative Negative [facility] Blood erythrocytes count (nu mber/volume)Ordered By: ED PROVIDER on 06-13-2022 RBC (Bld) [#/Vol] 5.01 10*6/uL 4.6-6.2 [facility] Blood hemoglobin measurement (mass/volume)Ordered By: ED PROVIDER on 06-13-2022 Hemoglobin (Bld) [Mass/Vol] 14.6 g/dL 13.0-16.5 [facility] Blood lymphocytes/100 leukoc ytesOrdered By: ED PROVIDER on 06-13-2022 Lymphocytes/100 WBC (Bld) 28.3 % 19-41 [facility] Blood monocytes/100 leukocyt esOrdered By: ED PROVIDER on 06-13-2022 Monocytes/100 WBC (Bld) 7.1 % 0-10 [facility] Blood platelet mean volumeOr dered By: ED PROVIDER on 06-13-2022 Platelet mean volume (Bld) [Entitic vol] 12.3 fL 6.2-12.0 [facility] Determination of erythrocyte mean corpuscular volume (MCV)Ordered By: ED PROVIDER on 06-13-2022 MCV (RBC) [Entitic vol] 86.0 fL 80-94 [facility] Direct bilirubinOrdered By: Dr. Sin on 06-13-2022 Bilirubin.direct [Mass/Vol] 0.13 mg/dL 0.00-0.30 [facility] Hematocrit Auto (Bld) [Volum e fraction]Ordered By: ED PROVIDER on 06-13-2022 Hematocrit (Bld) [Volume fraction] 43.1 % 40-54 [facility] Ketones Test strip Ql (U)Ord ered By: ED PROVIDER on 06-13-2022 Ketones Ql (U) 5 mg/dl Negative [facility] Laboratory - Chemistry and C hemistry - challengeOrdered By: Dr. Sin on 06-13-2022 ALP [Catalytic activity/Vol] 75 U/L 45-117 [facility] ALT [Catalytic activity/Vol] 65 U/L 16-61 [facility] Globulin (S) [Mass/Vol] 3.7 g/dL 2.2-4.2 [facility] Lipase [Catalytic activity/Vol] 285 U/L 73-393 [facility] Laboratory - Chemistry and C hemistry - challengeOrdered By: ED PROVIDER on 06-13-2022 CO2 [Moles/Vol] 27.0 mmol/L 21.0-32.0 [facility] Urea nitrogen/Creatinine [Mass ratio] 14.8 mg/mg 10-20 [facility] Laboratory - Hematology and Cell countsOrdered By: ED PROVIDER on 06-13-2022 Erythrocyte distribution width (RBC) [Entitic vol] 41.7 fL 35.1-43.9 [facility] Erythrocyte distribution width (RBC) [Ratio] 13.4 % 11.6-14.6 [facility] Immature granulocytes/100 WBC (Bld) 0.400 % 0.0-0.9 [facility] Comment on above: IG% - Immature Granu locytes (promyelocytes, myelocytes and metamyelocytes) > 1% indicates that a LEFT SHIFT is Present. MCH (RBC) [Entitic mass] 29.1 pg 27.0-32.0 [facility] Nucleated RBC/100 WBC (Bld) [Ratio] 0 % 0-5 [facility] MCHC Auto (RBC) [Mass/Vol]Or dered By: ED PROVIDER on 06-13-2022 MCHC (RBC) [Mass/Vol] 33.9 g/dL 32-36 [facility] Mucus LM Ql (Urine sed)Order ed By: ED PROVIDER on 06-13-2022 Mucus Ql (Urine sed) 0 SEEN /hpf [facility] Nitrite Test strip Ql (U)Ord ered By: ED PROVIDER on 06-13-2022 Nitrite Ql (U) Negative Negative [facility] No Panel InformationOrdered By: ED PROVIDER on 06-13-2022 Estimated Creatinine Clearance Calc 49.33 ml/min [facility] Estimated GFR (MDRD) Amer 69 mL/min >60 [facility] Comment on above: GFR Calc Estimated GFR (MDRD) Non-Af Amer 57 mL/min >60 [facility] Comment on above: Non- GFR Calc Platelets bldOrdered By: ED PROVIDER on 06-13-2022 Platelets (Bld) [#/Vol] 167 10*3/uL 150-450 [facility] Protein Test strip Ql (U)Ord ered By: ED PROVIDER on 06-13-2022 Protein Ql (U) Negative Negative [facility] Serum or plasma albumin david urement (mass/volume)Ordered By: Dr. Sin on 06-13-2022 Albumin [Mass/Vol] 4.3 g/dL 3.2-5.0 [facility] Serum or plasma calcium david urement (mass/volume)Ordered By: ED PROVIDER on 06-13-2022 Calcium [Mass/Vol] 9.8 mg/dL 8.5-10.1 [facility] Serum or plasma creatinine m easurement (mass/volume)Ordered By: ED PROVIDER on 06-13-2022 Creatinine [Mass/Vol] 1.35 mg/dL 0.70-1.30 [facility] Comment on above: The validity of the calculated GFR & GFRAA in patients over 70 years has not been determined. Clinical correlation is essential. Serum or plasma urea nitroge n measurement (mass/volume)Ordered By: ED PROVIDER on 06-13-2022 Urea nitrogen [Mass/Vol] 20 mg/dL 7-18 [facility] Squamous epithelial cells de tection in urine sediment by light microscopyOrdered By: ED PROVIDER on 06-13-2022 Epithelial cells.squamous LM Ql (Urine sed) 0 SEEN /hpf 0-5 [facility] Thin prep Papanicolaou smear with manual screeningOrdered By: Dr. Sin on 06-13-2022 Thin prep Papanicolaou smear with manual screening 27 U/L 15-37 [facility] Comment on above: Slight Hemolysis, Re sult may be falsely increased. Thin prep Papanicolaou smear with manual screeningOrdered By: ED PROVIDER on 06-13-2022 Thin prep Papanicolaou smear with manual screening 8 5-15 [facility] Urine blood detectionOrdered By: ED PROVIDER on 06-13-2022 RBC Ql (U) Negative Negative [facility] RBC Ql (U) 0 SEEN /hpf 0-5 [facility] Urine clarityOrdered By: ED PROVIDER on 06-13-2022 Clarity (U) Clear Clear [facility] Urine color determinationOrd ered By: ED PROVIDER on 06-13-2022 Color (U) Yellow Yellow [facility] Urine glucose detectionOrder ed By: ED PROVIDER on 06-13-2022 Glucose Ql (U) 1000 mg/dl Normal [facility] Urine leukocyte esterase det ection by dipstickOrdered By: ED PROVIDER on 06-13-2022 Leukocyte esterase Test strip Ql (U) Negative Negative [facility] Urine pHOrdered By: ED PROVI LUKASZ on 06-13-2022 pH (U) 7.0 [pH] 5.0 - 8.0 [facility] Urine sediment bacteria coun t by microscopy (number/high power field)Ordered By: ED PROVIDER on 06-13-2022 Bacteria LM.HPF (Urine sed) [#/Area] 0 /[HPF] None Seen [facility] Urine specific gravity measu rementOrdered By: ED PROVIDER on 06-13-2022 Specific gravity (U) [Rel density] 1.010 1.002-1.030 [facility] Urobilinogen Auto test strip Ql (U)Ordered By: ED PROVIDER on 06-13-2022 Urobilinogen Ql (U) Normal mg/dl Normal [facility] Absolute lymphocyte counton 02-21-2022 Lymphocytes Auto (Unsp spec) [#/Vol] 2.15 10*3/uL 0.83-4.51 [facility] Work Phone: Basophil percentageon 2021 Basophils/100 WBC (Bld) 0.4 % 0-1 [facility] Work Phone: Bilirubin [Mass/Vol] 0.40 mg/dL 0.20-1.00 [facility] Work Phone: Comment on above: For patients on eltr ombopag therapy, use of Dimension [place] TBIL is not recommended. Chloride [Moles/Vol] 101 mmol/L 98-107 [facility] Work Phone: Eosinophils/100 WBC (Bld) 1.3 % 0-5 [facility] Work Phone: Glucose [Mass/Vol] 345 mg/dL 74-106 [facility] Work Phone: Comment on above: Glucose result great er than or equal to 200 mg/dLsuggests DIABETES MELLITUS per A.D.A. criteria. Lactate [Moles/Vol] 2.4 mmol/L 0.4-2.0 [facility] Work Phone: Comment on above: CRITICAL VALUE VERIF IED. CALLED TO DANIELA STEVENS RN (ER)02/21/22 181 [address] Aguilar.RESULTS READ BACK BY SAME . Previous reported result: 2.4 mmol/LEdited by: CHRIS on 02/21/22:1812 AMENDED REPORT 02/21/221811 LACTIC ACID previously reported as: 2.4 *H mmol/L Neutrophils (Bld) [#/Vol] 5.3 10*3/uL 2.0-7.7 [facility] Work Phone: Neutrophils/100 WBC (Bld) 62.9 % 47-70 [facility] Work Phone: Potassium [Moles/Vol] 4.6 mmol/L 3.5-5.1 [facility] Work Phone: Protein [Mass/Vol] 7.7 g/dL 6.4-8.2 [facility] Work Phone: Sodium [Moles/Vol] 133 mmol/L 136-145 [facility] Work Phone: WBC (Bld) [#/Vol] 8.4 10*3/uL 4.4-11.0 [facility] Work Phone: Blood erythrocytes count (nu mber/volume)on 02-21-2022 RBC (Bld) [#/Vol] 4.91 10*6/uL 4.6-6.2 [facility] Work Phone: Blood hemoglobin measurement (mass/volume)on 02-21-2022 Hemoglobin (Bld) [Mass/Vol] 13.8 g/dL 13.0-16.5 [facility] Work Phone: Blood lymphocytes/100 leukoc yteson 02-21-2022 Lymphocytes/100 WBC (Bld) 25.6 % 19-41 [facility] Work Phone: Blood monocytes/100 leukocyt eson 02-21-2022 Monocytes/100 WBC (Bld) 9.3 % 0-10 [facility] Work Phone: Blood platelet mean volumeon 02-21-2022 Platelet mean volume (Bld) [Entitic vol] 12.4 fL 6.2-12.0 [facility] Work Phone: Determination of erythrocyte mean corpuscular volume (MCV)on 02-21-2022 MCV (RBC) [Entitic vol] 86.4 fL 80-94 [facility] Work Phone: Direct bilirubinon Bilirubin.direct [Mass/Vol] 0.15 mg/dL 0.00-0.30 [facility] Work Phone: Hematocrit Auto (Bld) [Volum e fraction]on 02-21-2022 Hematocrit (Bld) [Volume fraction] 42.4 % 40-54 [facility] Work Phone: [phone] Laboratory - Chemistry and C hemistry - challengeon 02-21-2022 ALP [Catalytic activity/Vol] 74 U/L 45-117 [facility] Work Phone: ALT [Catalytic activity/Vol] 38 U/L 16-61 [facility] Work Phone: CO2 [Moles/Vol] 28.0 mmol/L 21.0-32.0 [facility] Work Phone: Globulin (S) [Mass/Vol] 3.7 g/dL 2.2-4.2 [facility] Work Phone: Lipase [Catalytic activity/Vol] 81 U/L 73-393 [facility] Work Phone: Urea nitrogen/Creatinine [Mass ratio] 12.9 mg/mg 10-20 [facility] Work Phone: Laboratory - Hematology and Cell countson 02-21-2022 Erythrocyte distribution width (RBC) [Entitic vol] 40.0 fL 35.1-43.9 [facility] Work Phone: [phone] Erythrocyte distribution width (RBC) [Ratio] 12.8 % 11.6-14.6 [facility] Work Phone: [phone] Immature granulocytes/100 WBC (Bld) 0.500 % 0.0-0.9 [facility] Work Phone: Comment on above: IG% - Immature Granu locytes (promyelocytes, myelocytes and metamyelocytes) > 1% indicates that a LEFT SHIFT is Present. MCH (RBC) [Entitic mass] 28.1 pg 27.0-32.0 [facility] Work Phone: Nucleated RBC/100 WBC (Bld) [Ratio] 0 % 0-5 [facility] Work Phone: MCHC Auto (RBC) [Mass/Vol]on 02-21-2022 MCHC (RBC) [Mass/Vol] 32.5 g/dL 32-36 [facility] Work Phone: No Panel Informationon 02-21 Estimated Creatinine Clearance Calc 45.31 ml/min [facility] Work Phone: Estimated GFR (MDRD) Amer 63 mL/min >60 [facility] Work Phone: Comment on above: GFR Calc Estimated GFR (MDRD) Non-Af Amer 52 mL/min >60 [facility] Work Phone: Comment on above: Non- GFR Calc Platelets bldon 02-21-2022 Platelets (Bld) [#/Vol] 164 10*3/uL 150-450 [facility] Work Phone: Serum or plasma albumin david urement (mass/volume)on 02-21-2022 Albumin [Mass/Vol] 4.0 g/dL 3.2-5.0 [facility] Work Phone: Serum or plasma calcium david urement (mass/volume)on 02-21-2022 Calcium [Mass/Vol] 9.3 mg/dL 8.5-10.1 [facility] Work Phone: Serum or plasma creatinine m easurement (mass/volume)on 02-21-2022 Creatinine [Mass/Vol] 1.47 mg/dL 0.70-1.30 [facility] Work Phone: Comment on above: The validity of the calculated GFR & GFRAA in patients over 70 years has not been determined. Clinical correlation is essential. Serum or plasma urea nitroge n measurement (mass/volume)on 02-21-2022 Urea nitrogen [Mass/Vol] 19 mg/dL 7-18 [facility] Work Phone: Thin prep Papanicolaou smear with manual screeningon 02-21-2022 Thin prep Papanicolaou smear with manual screening 13 U/L 15-37 [facility] Work Phone: Thin prep Papanicolaou smear with manual screening 4 5-15 [facility] Work Phone: Stool gastrointestinal hemog lobin detection by immunologic method Lower GI hemoglobin IA Ql (Stl) [facility] Work Phone: Vital Signs Date Time Vital Sign Value Performing Clinician Maxi lity 02-25-2025 07:05-0400 Body height 165.1 cm Perla Joselito DO Work Phone: [facility] 02-25-2025 07:05-0400 Body mass index (BMI) [Ratio] 25 kg/m2 Perla Joselito DO Work Phone: [facility] 02-25-2025 07:05-0400 Body temperature 97.4 [degF] Perla Joselito DO Work Phone: [facility] 02-25-2025 07:05-0400 Body weight 68.03 kg Perla Joselito DO Work Phone: [facility] 02-25-2025 07:05-0400 Diastolic blood pressure 85 mm[Hg] Perla Joselito DO Work Phone: [facility] 02-25-2025 07:05-0400 Heart rate 81 /min Perla Joselito DO Work Phone: [facility] 02-25-2025 07:05-0400 Respiratory rate 16 /min Perla Joselito DO Work Phone: [facility] 02-25-2025 07:05-0400 SaO2% (BldA) [Mass fraction] 98 % Perla Joselito DO Work Phone: [facility] 02-25-2025 07:05-0400 Systolic blood pressure 130 mm[Hg] Peral Joselito DO Work Phone: [phone])001-787512 [place] [address] 04-15-2023 11:59-0400 Body height 160.02 cm [facility] Work Phone: [phone])990-642512 [place] [address] 04-15-2023 11:59-0400 Body mass index (BMI) [Ratio] 29.7 kg/m2 [facility] Work Phone: 4(139)610-354712 [place] [address] 04-15-2023 11:59-0400 Body temperature 97 [degF] [facility] Work Phone: [phone])063-335112 [place] [address] 04-15-2023 11:59-0400 Body weight 76.29 kg [facility] Work Phone: 7(870)852-530012 [place] [address] 04-15-2023 11:59-0400 Diastolic blood pressure 78 mm[Hg] [facility] Work Phone: 1(587)426-325112 [place] [address] 04-15-2023 11:59-0400 Heart rate 88 /min [facility] Work Phone: 8(806)903-677812 [place] [address] 04-15-2023 11:59-0400 Respiratory rate 16 /min [facility] Work Phone: [phone])636-091112 [place] [address] 04-15-2023 11:59-0400 SaO2% (BldA) [Mass fraction] 98 % [facility] Work Phone: 0(384)[phone] [place] [address] 04-15-2023 11:59-0400 Systolic blood pressure 150 mm[Hg] [facility] Work Phone: 2(081)094-209012 [place] [address] 02-17-2023 21:35-0400 Heart rate 68 /min [facility] Work Phone: [phone])166-976012 [place] [address] 02-17-2023 21:35-0400 Respiratory rate 14 /min [facility] Work Phone: 2([phone])507-099512 [place] [address] 02-17-2023 21:35-0400 SaO2% (BldA) [Mass fraction] 98 % [facility] Work Phone: 4(713)840-221812 [place] [address] 02-17-2023 19:36-0400 Body mass index (BMI) [Ratio] 28.2 kg/m2 [facility] Work Phone: 1(699)725-128612 [place] [address] 02-17-2023 19:36-0400 Body temperature 97.1 [degF] [facility] Work Phone: [phone])610-598412 [place] [address] 02-17-2023 19:36-0400 Body weight 72.21 kg [facility] Work Phone: [phone])235-530012 [place] [address] 02-17-2023 19:36-0400 Diastolic blood pressure 73 mm[Hg] [facility] Work Phone: 0(430)015-647512 [place] [address] 02-17-2023 19:36-0400 Systolic blood pressure 126 mm[Hg] [facility] Work Phone: 3(227)448-871712 [place] [address] 01-12-2023 14:15-0400 Body mass index (BMI) [Ratio] 29.3 kg/m2 [facility] Work Phone: 8(509)882-456112 [place] [address] 01-12-2023 14:15-0400 Body weight 77.56 kg [facility] Work Phone: 9([phone])646-048412 [place] [address] 01-12-2023 14:15-0400 Diastolic blood pressure 76 mm[Hg] [facility] Work Phone: 8([phone])940-061012 [place] [address] 01-12-2023 14:15-0400 Heart rate 80 /min [facility] Work Phone: [phone])900-092912 [place] [address] 01-12-2023 14:15-0400 Respiratory rate 18 /min [facility] Work Phone: [phone])612-417212 [place] [address] 01-12-2023 14:15-0400 Systolic blood pressure 125 mm[Hg] [facility] Work Phone: 3([phone])262-133712 [place] [address] 08-30-2022 08:02-0500 Diastolic blood pressure 91 mm[Hg] No Primary Care Physician [facility] 08-30-2022 08:02-0500 Heart rate 106 /min No Primary Care Physician [facility] 08-30-2022 08:02-0500 Systolic blood pressure 156 mm[Hg] No Primary Care Physician [facility] 08-29-2022 20:48-0500 Body height 162.56 cm No Primary Care Physician [facility] 08-29-2022 20:48-0500 Body mass index (BMI) [Ratio] 28.3 kg/m2 No Primary Care Physician [facility] 08-29-2022 20:48-0500 Body temperature 98.2 [degF] No Primary Care Physician [facility] 08-29-2022 20:48-0500 Body weight 74.84 kg No Primary Care Physician [facility] 08-29-2022 20:48-0500 Diastolic blood pressure 97 mm[Hg] No Primary Care Physician [facility] 08-29-2022 20:48-0500 Heart rate 83 /min No Primary Care Physician [facility] 08-29-2022 20:48-0500 Respiratory rate 16 /min No Primary Care Physician [facility] 08-29-2022 20:48-0500 SaO2% (BldA) [Mass fraction] 100 % No Primary Care Physician [facility] 08-29-2022 20:48-0500 Systolic blood pressure 185 mm[Hg] No Primary Care Physician [facility] 08-29-2022 14:50-0500 Body temperature 96.4 [degF] No Primary Care Physician [facility] 08-29-2022 14:50-0500 Diastolic blood pressure 85 mm[Hg] No Primary Care Physician [facility] 08-29-2022 14:50-0500 Heart rate 71 /min No Primary Care Physician [facility] 08-29-2022 14:50-0500 Respiratory rate 16 /min No Primary Care Physician [facility] 08-29-2022 14:50-0500 SaO2% (BldA) [Mass fraction] 100 % No Primary Care Physician [facility] 08-29-2022 14:50-0500 Systolic blood pressure 151 mm[Hg] No Primary Care Physician [facility] 08-29-2022 12:01-0500 Body height 162.56 cm No Primary Care Physician [facility] 08-29-2022 12:01-0500 Body mass index (BMI) [Ratio] 27.4 kg/m2 No Primary Care Physician [facility] 08-29-2022 12:01-0500 Body weight 72.57 kg No Primary Care Physician [facility] 07-07-2022 12:58-0500 Body height 162.56 cm No Primary Care Physician [facility] Work Phone: 07-07-2022 12:58-0500 Body mass index (BMI) [Ratio] 29 kg/m2 No Primary Care Physician [facility] 07-07-2022 12:58-0500 Body weight 76.65 kg No Primary Care Physician [facility] 07-07-2022 12:58-0500 Diastolic blood pressure 83 mm[Hg] No Primary Care Physician [facility] 07-07-2022 12:58-0500 Heart rate 102 /min No Primary Care Physician [facility] 07-07-2022 12:58-0500 Respiratory rate 16 /min No Primary Care Physician [facility] 07-07-2022 12:58-0500 Systolic blood pressure 143 mm[Hg] No Primary Care Physician [facility] 06-20-2022 09:36-0500 Body height 162.56 cm No Primary Care Physician [facility] Work Phone: 06-20-2022 09:36-0500 Body mass index (BMI) [Ratio] 30.4 kg/m2 No Primary Care Physician [facility] 06-20-2022 09:36-0500 Body temperature 97.4 [degF] No Primary Care Physician [facility] 06-20-2022 09:36-0500 Body weight 80.45 kg No Primary Care Physician [facility] 06-20-2022 09:36-0500 Diastolic blood pressure 74 mm[Hg] No Primary Care Physician [facility] 06-20-2022 09:36-0500 Heart rate 86 /min No Primary Care Physician [facility] 06-20-2022 09:36-0500 Respiratory rate 18 /min No Primary Care Physician [facility] 06-20-2022 09:36-0500 SaO2% (BldA) [Mass fraction] 98 % No Primary Care Physician [facility] 06-20-2022 09:36-0500 Systolic blood pressure 121 mm[Hg] No Primary Care Physician [facility] 06-13-2022 20:00-0500 Diastolic blood pressure 86 mm[Hg] [facility] 06-13-2022 20:00-0500 Heart rate 82 /min [facility] 06-13-2022 20:00-0500 Respiratory rate 15 /min [facility] 06-13-2022 20:00-0500 SaO2% (BldA) [Mass fraction] 98 % [facility] 06-13-2022 20:00-0500 Systolic blood pressure 126 mm[Hg] [facility] 06-13-2022 15:37-0500 Body height 162.56 cm [facility] Work Phone: 06-13-2022 15:37-0500 Body mass index (BMI) [Ratio] 27.4 kg/m2 [facility] 06-13-2022 15:37-0500 Body temperature 97.9 [degF] [facility] 06-13-2022 15:37-0500 Body weight 72.57 kg [facility] 02-21-2022 18:46-0400 Diastolic blood pressure 76 mm[Hg] [facility] Work Phone: 02-21-2022 18:46-0400 Heart rate 83 /min [facility] Work Phone: 02-21-2022 18:46-0400 Respiratory rate 14 /min [facility] Work Phone: 02-21-2022 18:46-0400 SaO2% (BldA) [Mass fraction] 97 % [facility] Work Phone: 02-21-2022 18:46-0400 Systolic blood pressure 110 mm[Hg] [facility] Work Phone: 02-21-2022 16:23-0400 Body mass index (BMI) [Ratio] 27.4 kg/m2 [facility] Work Phone: 02-21-2022 16:23-0400 Body temperature 98.3 [degF] [facility] Work Phone: 02-21-2022 16:23-0400 Body weight 72.57 kg [facility] Work Phone: Encounters Encounter Date Encounter Type Care Provider Facility Start: 02-27-2025 ambulatory Perla Villaltaer VSC Faci lity:[facility] Start: 02-26-2025 ambulatory Perla Villaltaer VSC Faci lity:[facility] Start: 02-25-2025 End: 02-25-[address] Chidi Diallo DO -[facility] Work Phone: Start: 02-25-2025 End: 02-25-2025 ambulatory Perla Yee DO Work Phone: -[facility] Start: 01-14-2025 ambulatory Perla Yee VSC Faci lity:[facility] Start: 06-18-2024 End: 06-18-2024 ambulatory Perla Yee VSC Facility:[facility] Start: 04-08-2024 End: 04-08-2024 Emergency department patient visit Perla Yee [facility] Facility:[facility] Start: 11-20-2023 End: 11-20-2023 ambulatory [facility] Work Phone: Start: 11-20-2023 End: 11-20-2023 Patient encounter procedure [facility] Work Phone: Start: 04-15-2023 End: 04-15-2023 Emergency department patient visit [facility] Work Phone: [facility]-Emergency Department Work Phone: Start: 02-17-2023 End: 02-17-2023 Emergency department patient visit [facility] Work Phone: [facility]-Emergency Department Work Phone: Start: 01-12-2023 End: 01-12-2023 Patient encounter procedure [facility] Work Phone: [facility] Work Phone: Start: 12-21-2022 Non-patient / Non-visit [facility] Work Phone: [facility] Work Phone: Start: 09-26-2022 End: 09-26-2022 ambulatory No Primary Care Physician [facility] Work Phone: Start: 09-26-2022 End: 09-26-2022 Patient encounter procedure No Primary Care Physician [facility]-Laboratory Start: 09-12-2022 End: 09-12-2022 ambulatory No Primary Care Physician [facility] Work Phone: Start: 09-12-2022 End: 09-12-2022 Patient encounter procedure No Primary Care Physician [facility]-Laboratory, Specimen Start: 08-30-2022 End: 08-30-2022 Patient encounter procedure No Primary Care Physician [facility] Start: 08-29-2022 End: 08-29-2022 Emergency department patient visit No Primary Care Physician [facility]-Emergency Department Start: 08-29-2022 Non-patient / Non-visit No Barb oconnell Care Physician [facility] Start: 08-29-2022 End: 08-29-2022 Admission to same day surgery center No Primary Care Physician [facility]-Endoscopy Start: 08-29-2022 End: 08-29-2022 ambulatory No Primary Care Physician [facility] Work Phone: Start: 07-14-2022 Telephone encounter Abner mendoza PA-C Work Phone: Urology Comment on above: Received Outside [facility] Start: 07-07-2022 End: 07-07-2022 ambulatory No Primary Care Physician [facility] Work Phone: Start: 07-07-2022 End: 07-07-2022 Patient encounter procedure No Primary Care Physician [facility] Start: 07-07-2022 End: 07-07-2022 Admission to same day surgery center No Primary Care Physician [facility] Start: 07-07-2022 End: 07-07-2022 Patient encounter procedure No Primary Care Physician [facility] Start: 07-01-2022 Non-patient / Non-visit No Barb oconnell Care Physician [facility] Start: 06-22-2022 End: 06-22-2022 ambulatory No Primary Care Physician [facility] Work Phone: Start: 06-22-2022 End: 06-22-2022 Patient encounter procedure No Primary Care Physician [facility], Specimen Start: 06-20-2022 End: 06-20-2022 Patient encounter procedure No Primary Care Physician [facility] Start: 06-13-2022 End: 06-13-2022 Emergency department patient visit [facility] Start: 02-21-2022 End: 02-21-2022 Emergency department patient visit [facility] Procedures Date Procedure Procedure Detail Performing Clinician Start: 11-20-2023 CT of chest Start: 02-17-2023 X-ray of chest posteroanterior view [facility] Work Phone: Start: 08-29-2022 Colonoscopy No Primary [...] Activity Detail Author Start: 08-30-2022 Patient referral [facility] Work Phone: Start: 08-29-2022 Colonoscopy flx dx w/collj spec when pfrmd DIAGNOSTIC COLONOSCOPY [facility] Start: 08-29-2022 Egd transoral biopsy single/multiple EGD BIOPSY SINGLE/MULTIPLE [facility] Start: 08-29-2022 Patient discharge [facility] Start: 03-31-2022 Influenza vaccination INFLUENZA (#1) [facility] Start: 07-31-2021 DEPRESSION ASSESSMENT DEPRESSION ASSESSMENT [facility] Start: 2017 PROSTATE CANCER SCREENING DISCUSSION PROSTATE CANCER SCREENING DISCUSSION [facility] Start: 2012 SHINGRIX VACCINE (1 of 2) SHINGRIX VACCINE (1 of 2) [facility] Start: 2007 COLOGUARD (FIT-DNA) COLOGUARD (FIT-DNA) [facility] Start: 2007 Colonoscopy COLONOSCOPY [facility] Start: 2007 COLORECTAL CANCER SCREENING COLORECTAL CANCER SCREENING [facility] Start: [address] COLONOGRAPHY [facility] Start: 2007 DIABETES SCREEN DIABETES SCREEN [facility] Start: 2007 FECAL OCCULT BLOOD FECAL OCCULT BLOOD [facility] Start: 2007 SIGMOIDOSCOPY SIGMOIDOSCOPY [facility] Start: 1997 LIPID SCREEN LIPID SCREEN [facility] Start: 1981 Urine microalbumin profile DTAP,TDAP,TD (1 - Tdap) [facility] Start: 1980 HEPATITIS C SCREENING HEPATITIS C SCREENING [facility] Start: 1980 HIV SCREENING HIV SCREENING [facility] Start: 03-10-1963 COVID-19 VACCINE (#1) COVID-19 VACCINE (#1) [facility] CT Chest [facility] Measurement of respiratory function [facility] Patient Education [facility] Work Phone: Patient referral [facility] Work Phone: [facility] Payers Date Payer Category Payer Medicare [id number] 2024 Self-pay [id number] 2022 Medicare MEDICARE MEDICAR E A AND B [id number] 2022-Present [phone] [address] [address] [place] [address] Medicare [id number] Medicare MEDICARE PART A B [id number] Medicare [id number] Private Health Insurance 101 [id number] Unknown [id number] Unknown [id number] Unknown [id number] Unknown [id number] 64 Unknown [id number] 64 Unknown [id number] 64 Unknown [id number] 64 Unknown [id number] 64 Unknown [id number] 64 Social History Date Type Detail Facility Start: 06-13-2022 End: 04-15-2023 Tobacco smoking status MEIS Unknown if ever smoked [facility] Start: 1960 Sex Assigned At Male [facility] Start: 1960 Sex Assigned At Not on file [facility] Start: 04-08-2024 Tobacco smoking stat us MEIS Smokes tobacco daily (finding) [facility] Goals Date Patient Goal Desired Activity /State Mental Status Date Assessment Result Facility 02-17-2023 Cognitive function Level Of Cons ciousness Awake;Alert;Appropriate;Follow s Commands [facility] Work Phone: 08-29-2022 Cognitive function Light Pain [facility] Work Phone: 08-29-2022 Cognitive function Patient Orien tation Person;Place [facility] Work Phone: Clinical Notes 07-19-2022 to 08-29-2022 Note Date & Type Note Facility 08-29-2022 History and physi raheem note Note Date/Time August 29, 2022 12:40pm [facility] Medical Records Department [address] [place] [address] History & Physical Exam 08/29/22 1238 MR#: [id number] Acct: [id number] Name: JEAN PIERRE GRANT Rep #:[id number] : 1960 61 From: Beau Bello PCP: [facility] St lynus:[facility] [place] [place] Location: [place] [address] History and Physical Date of Admission: 08/29/22 Date of Service:? 06/20/22 MR#: [id number] Acct: [id number] Name:? JEAN PIERRE GRANT Rep #: [id number] : 1960 ? ? Provider: Dr. Beau Beaulieu MD Age/Sex:? 61/M ? ? Location: [facility] Status: Signed Intake Vital Signs ? 02/22/2216:23 [...] PAIN Chief Complaint: Abdominal pain - colonoscopy/EGD Retail Assistant Required: No Is patient in pain?: No [...] consultation from Candice Doran NP of the [facility].? Mr. Grant describes this pain as fiery [...] further detail as this was obtained in [place] (where he comes from immediately) and there was no follow-up given his move here to [place].? Patient has no personal history of colon [...] to establish cardiology following here in [place].? He notes a appointment has been tentatively scheduled for early July with Dr. Moses of [facility]. Relevant prior abdominal surgical history includes: [...] obtained just prior to his departure from [place] (having recently relocated to [place]).? CT imaging from January and earlier this [...] (if applicable): CC: Dr. Beau Beaulieu MD; [facility]~ Signed [facility] Work Phone: [phone]) 302-423701-30-2023 [facility]01[facility]30[facility]2023 Procedure note [facility]01-30-2023 Procedure [facility] 07-19-2022 Miscellaneous Notes* Telephone Encounter - Leann Albarado LPN - 07/19/2022 4:03 PM EST Received medical records. Available for appointment and to operations for scanning. Leann Albarado LPN * Telephone Encounter - Leann Albarado LPN - 07/18/2022 12:16 PM EST Faxed request for medical records. Leann Albarado LPN * Telephone Encounter - Leann Albarado LPN - 07/18/2022 12:09 PM EST Called [facility] Medical Records. Not available. Did get fax number [phone] to fax request to. Leann Albarado LPN * Telephone Encounter - Leann Albarado LPN - 07/18/2022 11:50 AM EST Called patient. Verified name and date of . Patient reports having been seen for urology needs at [facility] in [place] approximately one year ago. Leann Albarado LPN * Telephone Encounter - Leann Albarado LPN - 07/14/2022 2:19 PM EST Called patient. Not available. Left message to call clinic. Patient has appointment scheduled for 07/26/22 with Abner Townsend PA-C. Has patient been seen elsewhere for urological needs and if so where? 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 Dyslipidemia chronic Essential (primary) hypertension chronic Nicotine dependence chronic Type 2 diabetes mellitus chr onic Preoperative cardiovascular examination noneactive [facility] Work Phone: Evaluation note* Diagnosis Onset Date Resolution Status Left upper quadrant abdominal pain acute Abdominal pain acute Tachycardia acute COPD (chronic obstructive pulmonary disease) chronic Coronary artery disease 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 Dyslipidemia chronic Essential (primary) hypertension chronic Nicotine dependence chronic Type 2 diabetes mellitus chr onic Preoperative cardiovascular examination noneactive BPH (benign prostatic hyperplasia) acute Hematuria acute [facility] Work Phone: Evaluation note* Diagnosis Onset Date Resolution Status COPD (chronic obstructive pulmonary disease) chronic Coronary artery disease 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 Dyslipidemia chronic Essential (primary) hypertension chronic Nicotine dependence chronic Type 2 diabetes mellitus chr onic [facility] Work Phone: Evaluation note* Diagnosis Onset Date Resolution Status Admit Date Nicotine dependence, cigaret vlad, uncomplicated acute February 25, 2025 11:24am BRITTANY (obstructive sleep apnea) acute February 25, 2025 11:24am COPD (chronic obstructive pulmonary disease) chronic February 25 11:24am [facility] Work Phone: Hospital Discharge instructions Additional Instructions Please follow-up with a dentist and take antibiotics as prescribed. Return for any worsening of your symptoms.[facility] Work Phone: Reason for referral (narrative)No reason for referral information availableDeaconess [facility] Work Phone: Chief Complaint and Reason [...] Will No June 13, 5:18pm Power of Planner No June 13, 2022 5:18pm Advance Directive Response Recorded Date/ Time Living Will No August 24 11:38am Power of Planner No August 24, 2022 11:38am Advance Directive Response Recorded Date/ Time Living Will No August 29 9:18pm Power of Planner No August 29, 2022 9:18pm Advance Directive Response Recorded Date/ Time Living Will No April 15, 2023 12:22pm Power of Planner No March 12:22pm Family History No Family [...] or prosecute any alcohol or drug abuse patient.[facility] Reason for Visit (unrecogniz ed section and content) Reason Comments Received Outside Medical Records Care Teams (unrecognized sec tion and content) Edge Runner Relationship Specialty Start Date End Date Candice Doran, VICKIE [address] [place] [address] Referring Family Medicine 07/06/22 Team Status: Active Member Role Status Dates [facility] Primary Care Provider A ctive Team Status: Inactive Member Role Status Dates No Primary Care Physician Referring Provider Active Dr. Beau Beaulieu MD Attending Provider Active Dr. Kamryn Mcmanus Primary Care Provider Active Team Status: Inactive Member Role Status Dates Dr. Kamryn Mcmanus Referring Provider Active Dr. Cj Wild MD Attending Provider Active [facility] Primary Care Provider A ctive Team Status: Active Member Role Status Dates [facility] Primary Care Provider A ctive Lindsay No Attending Provider Active Team Status: Active Member Role Status Dates Dr. Beau Beaulieu MD Attending Provide r, Referring Provider, Other Provider Active [facility] Primary Care Provider A ctive Team Status: Inactive Member Role Status Dates Dr. Raphael [facility] Primary Care Provider Active Dr. Jonathan Sin MD Attending Provider, Emergency Provider Active Team Status: Inactive Member Role Status Dates Dr. Beau Beaulieu MD Attending Provider, Referring P rovider Active [facility] Primary Care Provider A ctive Team Status: Inactive Member Role Status Dates [facility] Primary Care Provider A ctive Dr. Beau Beaulieu MD Attending Provider, Referring P rovider Active Team Status: Inactive Member Role Status Dates [facility] Primary Care Provider A ctive Dr. Cj Wild MD Attending Provider Active Team Status: Inactive Member Role Status Dates [facility] Primary Care Provider A ctive Dr. Eyal De Jesus MD Emergency Provider Active Team Status: Inactive Member Role Status Dates [facility] Primary Care Provider, Referring Provider Active Dr. Beau Beaulieu MD Attending Provider Active Team Status: Inactive Member Role Status Dates [facility] Primary Care Provider A ctive Dr. Eyal De Jesus MD Attending Provider, Emergency Provider Active Team Status: Inactive Member Role Status Dates [facility] Primary Care Provider A ctive Dr. Patrick Ayala MD Attending Provider, Referr ing Provider Active Team Status: Inactive Member Role Status Dates [facility] Primary C are Provider, Attending Provider, Referring Provider Active Candice Doran NEGATIVE CHECKER, NEGATIVE CHECKER-C Other Provider Active Team Status: Active Member Role Status Dates Isabella Yee DO Primary Care Provider Active Team Status: Inactive Member Role Status Dates [facility] Primary Care Provider, Referring Provider Active Dr. Cj Wild MD Attending Provider Active Team Status: Active Member Role Status Dates [facility] Primary Care Provider A ctive Lilian [...] Active Member Role/Relationship Status Dates Perla Yee [facility], DO Primary Care Provider Active Team Status: Inactive Member Role/Relationship Status Dates Perla Yee [facility], DO Primary Care Provider Active Start: February 25, 2025 End: February 25, 2025 Perla Yee [facility], DO Referring Provider Active Start: February 25, 2025 End: February 25, 2025 Dr. Chidi Diallo , DO Attending Provider Active S tart: February 25, 2025 End: February 25, 2025 (unrecognized sect ion and content) No Status Records Found INFORMATION SOURCE (unrecogn ized section and content) DATE CREATED AUTHOR 03/01/2025 [facility] FOR RECORDS PERTAINING TO PATIENTS WHO [...] BE BASED ON THE PRIMARY CLINICAL RECORDS. [employer] provides no warranty or guarantee of the accuracy or completeness of information in this document.
[2025-03-08 14:24] LABS: Troponin T High Sens 2 HR 34 ng/L (<=22)
[2025-03-08 17:22] LABS: Troponin T High Sens 4 HR 30 ng/L (<=22)
--- NOTE | 2025-03-08 19:30 | NURSING ---
bedside [facility] completed with Samantha Del Toro RN
--- NOTE | 2025-03-08 22:37 | EDS_ITS ---
HPI History of Present Illness Chief Complaint: Stroke Alert Narrative Narrative: Patient is a 64-year-old male presenting to the emergency department for strokelike symptoms. Patient has a prior history of a stroke. No residual deficits per . states that they were drinking coffee this morning and 15 minutes prior to arrival he had difficulty speaking. She brought him here to be evaluated. He is on Plavix at home, no oral anticoagulation. Patient denies headache, lightheadedness or dizziness. Denies any recent fever or chills. Denies chest pain or shortness of breath, abdominal pain. [facility] Medical History Presence of stent in coronary artery (~08/08/16) Hematuria Acute urinary retention Wears glasses Insulin dependent diabetes mellitus Ambulates with cane Prostate disease High cholesterol Restless legs TIA (transient ischemic attack) Difficulty chewing History of diverticulitis Smoker History of heart attack History of echocardiogram History of stress test Cardiology follow-up encounter COPD (chronic obstructive pulmonary disease) Atherosclerosis of coronary artery of [place] heart without angina pectoris Non-ST elevation myocardial infarction (NSTEMI) (~08/08/16) Essential (primary) hypertension Type 2 diabetes mellitus Anxiety Depression Heart attack Heart disease Hypertension Arthritis Neuropathy Diabetes Home Medications ?Medication ?Instructions ?Recorded ?Last Taken ?Type clopidogrel 75 mg tablet (Plavix) 75 mg PO DAILY 06/0508/23/22 History metformin 1,000 mg tablet 1,000 mg PO BID 06/05/21 Unk nown History pregabalin 100 mg capsule 100 mg PO BID 06/13/22 Unkno wn History pantoprazole 20 mg tablet,delayed 20 mg PO DAILY #30 t abs 06/20/22 08/29/22 Rx release (Protonix) lisinopril 20 mg tablet 20 mg PO DAILY 07/01/2208/02 History tamsulosin 0.4 mg capsule (Flomax) 0.4 mg PO BID #60 c aps 08/30/22 Unknown Rx dapagliflozin propanediol 10 mg 10 mg PO DAILY 3 Unknown History tablet (Farxiga) finasteride 5 mg tablet 5 mg PO DAILY 01/12/23 Unkno wn History glimepiride 4 mg tablet 4 mg PO DAILY 01/12/23 Unkno wn History tadalafil 20 mg tablet 20 mg PO DAILY PRN sexual ac tivity 01/12/23 Unknown History metoprolol tartrate 50 mg tablet 50 mg PO BID #180 tab s 10/16/23 Unknown Rx insulin glargine 100 unit/mL (3 10 unit subcut QHS 04/24 Unknown History mL) subcutaneous pen (Lantus Solostar U-100 Insulin) rosuvastatin 40 mg tablet 40 mg PO QHS 03/08/25 Unknow n History Allergy/AdvReac Type Severity Reaction Status Date / Time fentanyl Allergy Intermediate Pain in Verified 02/25/25 11:33 joints acetaminophen (From Percocet) Allergy Vomiting Verified 02/25/25 11:33 diphenhydramine (From Allergy Other Verified 02/25/25 11:33 Benadryl) oxycodone (From Percocet) Allergy Vomiting Verified 02/25/25 11:33 Family History Grandfather Diabetes Heart disease Hypertension Grandmother Diabetes Heart disease Hypertension Cancer stomach Father Diabetes Heart disease Hypertension Brother Heart disease Hypertension Surgical History History of colonoscopy History of esophagogastroduodenoscopy (EGD) History of coronary artery stent placement (~08/08/16) H/O cardiac catheterization Social History Smoking Status: Current every day smoker tobacco type: cigarettes alcohol intake: former substance use type: does not use caffeine: Yes Type: coffee Number of servings: 12 EXAM Physical Exam Narrative Exam Narrative: Vital signs: Reviewed General: Alert and oriented. No acute distress HEENT: Head is normocephalic and atraumatic, sinuses nontender, pupils equal round and reactive. Nares are patent. Oropharynx and throat exams normal. Neck: Supple without lymphadenopathy nontender Cardiovascular: Regular rate and rhythm, no murmurs. No rubs or gallops. Normal S1 and S2 Respiratory: Clear to auscultation bilaterally. No wheezes, rales, rhonchi Abdominal: Soft and nontender. Normal bowel sounds. No guarding or rebound. Nonsurgical abdomen Extremities: No tenderness. No bruising. Normal range of motion. Normal sensation. Skin: No rash or redness. Neurological: Neuro exam as below. The rest of the physical exam is unremarkable Const Vital Signs: 03/08/25 11:58 03/08/25 12:00 03/08/25 12:00 Temperature Temperature Source Pulse Rate 74 71 Respiratory Rate 18 17 Blood Pressure 160/89 H 169/92 H Blood Pressure Mean 112 117 Pulse Ox 100 97 99 Oxygen Delivery Method Room Air Room Air Room Air 03/08/25 12:17 03/08/25 12:17 03/08/25 12:30 Temperature 97.9 F Temperature Source Temporal Pulse Rate 73 67 Respiratory Rate 21 H 18 Blood Pressure 144/76 H 149/85 H Blood Pressure Mean 98 106 Pulse Ox 99 99 Oxygen Delivery Method Room Air Room Air NIHSS NIHSS Initial: 1a Level of Consciousness: 0 1b LOC Questions (Score 2 if aphasic/stupor): 2 1c LOC Commands (Only score 1st attempt): 2 2 Best Gaze (If aphasic, use reflexive mvmts.): 0 3 Visual: 0 4 Facial Palsy: 0 5 Motor Arm Right (UN = amputation/fusion): 0 5 Motor Arm Left: 0 6 Motor Leg Right: 0 6 Motor Leg Left: 0 7 Limb ataxia (Only + if out of proportion): 0 8 Sensory (Aphasia/stupor=0 or 1, coma=2): 0 9 Best Language: 3 10 Dysarthria (mute, coma=2, intubated=UN): 2 11 Extinction and Inattention (only scored if +): 0 Total Score: 9 MDM MDM MDM Narrative Medical decision making narrative: Patient is a 64-year-old male presenting to the emergency department for stroke concern. Patient was seen and examined in triage. Initial NIH of 9. Stroke team called. Glucose within normal limits. CT brain and CTA head and neck ordered. Telestroke was done with Dr. Brinda Garcia who evaluated the patient. By this time his NIH had improved significantly. Suspect TIA. Not a candidate for TNK. He did take his plavix this morning. CT brain shows no evidence of intracranial hemorrhage or acute ischemia. CTA neck shows no significant stenosis or LVO. Discussed findings with patient family at bedside. Will admit for MRI and further workup. Patient agreeable to plan. Patient admitted to hospitalist service for further management. History & Record Review Discussion w/independent historian: Patient and Family Lab Data Attestation: I reviewed the patient's lab results. Labs: Laboratory Results - last 24 hr 03/08/25 03/08/25 11:45 12:53 WBC 11.6 H RBC 4.90 Hgb 13.7 Hct 42.2 MCV 86.1 MCH 28.0 MCHC 32.5 RDW Std Deviation 40.8 RDW Coeff of Serafin 13.0 Plt Count 195 MPV 11.8 Immature Gran % (Auto) 0.600 Neut % (Auto) 63.7 Lymph % (Auto) 27.1 Evangeline % (Auto) 6.2 Eos % (Auto) 2.0 Baso % (Auto) 0.4 Absolute Neuts (auto) 7.4 Absolute Lymphs (auto) 3.14 Nucleated RBC % 0 PT 12.5 INR 0.9 APTT 25.8 Sodium 137 Potassium 5.0 Chloride 102 Carbon Dioxide 24.1 Anion Gap 11 BUN 21 H Creatinine 1.18 Estim Creat Clear Calc 54.35 Est GFR (MDRD) Non-Af 70 BUN/Creatinine Ratio 17.5 Glucose 174 H Calcium 9.0 Troponin T High Sens 36 H Urine Color Yellow Urine Clarity Clear Urine pH 7.0 Ur Specific [place] 1.005 Urine Protein 15 H Urine Glucose (UA) 100 H Urine Ketones Negative Urine Occult Blood Negative Urine Nitrite Negative Urine Bilirubin Negative Urine Urobilinogen Normal Ur Leukocyte Esterase Negative Urine RBC 0 SEEN Urine WBC 0-5 SEEN Ur Squamous Epith Cells 0 SEEN Urine Bacteria 0 SEEN Urine Mucus 0 SEEN Urine Yeast 1+ Radiography Diagnostic Testing: Clinical Impression(s) from Imaging Studies Brain CT 03/08/25 11:37 IMPRESSION: 1. No evidence of intracranial hemorrhage or acute ischemia. 2. Changes of chronic microvascular ischemia and volume loss. 3. Subtle lucencies within the calvarium again noted. Metastatic disease versus myeloma is a consideration. Findings and impression were called directly to Dr. Quigley at 11:50 a.m. Eastern standard time. Reading Location: [id number] Head/Neck CTA 03/08/25 11:38 IMPRESSION: No significant stenosis in the head and neck. No aneurysm or vascular malformation. Reading Location: [id number] Discharge Plan Disposition Disposition: Acute Care Hospital [facility] Discharge Date/Time: 03/08/25 14:42
[2025-03-08] MEDS: Insulin Glargine-YFGN 100 UNIT/ML Pen 10 UNIT SC (22:42)
[2025-03-09 02:30] VITALS: BP 125/70; PULSE 79; RESP 16; TEMP 36.7; O2SAT 97
[2025-03-09 04:30] VITALS: BMI 28.5
[2025-03-09 06:12] VITALS: BP 122/67; PULSE 72; RESP 16; TEMP 36.7; O2SAT 100
[2025-03-09 06:49] LABS: Hematocrit 36.6 % (40-54); Hemoglobin 12.2 g/dL (13.0-16.5); Immature Granulocytes Count 0.020 X10^3/uL (0.0-0.0); Mean Corp Hgb Conc 33.3 g/dL (32-36); Mean Corpuscular Volume 86.3 fL (80-94); Mean Platelet Vol. 12.2 fl (6.2-12.0); NRBC Flagged by Analyzer 0 % (0-5); Platelet Count 176 K/mm3 (150-450); RBC Distribution Width CV 12.7 % (11.6-14.6); RBC Distribution Width SD 39.8 fl (35.1-43.9); Red Blood Count 4.24 M/mm3 (4.6-6.2); White Blood Count 7.8 K/mm3 (4.4-11.0)
[2025-03-09 07:25] LABS: Anion Gap 9 (5-15); BUN 13 mg/dL (4-19); BUN/Creat Ratio 13.5 RATIO (10-20); Calcium,Total 8.9 mg/dL (7.6-11.0); Carbon Dioxide 24.9 mmol/L (21.0-32.0); Chloride 103 mmol/L (98-108); Cholesterol 111 mg/dL (<=200); Estimated Creatinine Clearance 63.75 ml/min (50-250); Glucose 226 mg/dL (70-99); Low Density Lipoprotein Calc. 28 mg/dL; Potassium 4.1 mmol/L (3.3-5.1); Triglycerides 250 mg/dL; Very Low Density Lipoprotein 50 mg/dL (5-40); cholesterol:hdl ratio screen 3.32
--- NOTE | 2025-03-09 08:57 | MRI_ITS ---
PROCEDURE: BRAIN WITHOUT CONTRAST 03/09/2025 REASON FOR EXAM: EXPRESSIVE APHASIA TECHNIQUE: BRAIN WITHOUT CONTRAST Multiplanar and multisequence images were obtained. COMPARISON: CT head March 08, 2022 FINDINGS: Brain: Mild cerebral atrophy and chronic periventricular white matter disease. No restricted diffusion. No hemorrhage. No mass-effect or midline shift. Ventricles: No ventriculomegaly. Major Intracranial Vessels: Unremarkable. Sinuses: Clear Mastoids: Clear. MRI/Brain without Contrast IMPRESSION: No acute brain abnormalities. Parenchymal volume loss and white matter changes which are most likely due to c hronic small-vessel ischemia. Reading Location: [id number]
[2025-03-09 09:14] VITALS: BP 144/62; PULSE 79; RESP 16; TEMP 37.3; O2SAT 98
--- NOTE | 2025-03-09 09:49 | PN.NEURO_ITS ---
Objective Data Objective Data Vital Signs: Vital Signs Temp Pulse Resp BP Pulse Ox O2 Del Method 99.1 F 79 16 144/62 H 98 Room Air 03/09/25 09:14 03/09/25 09:14 03/09/25 09:14 03/09/25 09:14 03/09/25 09:14 03/09/25 09:14 Oxygen Delivery Method Room Air Weight: 66.224 kg Body Mass Index (BMI) 28.5 Intake & Output: Intake and Output for Last 24 Hours 03/07/25 03/08/25 03/09/25 23:59 23:59 23:59 Intake Total 1060 / 1060 Balance 1060 / 1060 Lab / Micro Data 03/09/25 05:36 03/09/25 05:36 Labs: Laboratory Results - last 24 hr 03/08/25 11:45: WBC 11.6 H, RBC 4.90, Hgb 13.7, Hct 42.2, MCV 86.1, MCH 28.0, MCHC 32.5, RDW Std Deviation 40.8, RDW Coeff of Serafin 13.0, Plt Count 195, MPV 11.8, Immature Gran % (Auto) 0.600, Neut % (Auto) 63.7, Lymph % (Auto) 27.1, [place] % (Auto) 6.2, Eos % (Auto) 2.0, Baso % (Auto) 0.4, Absolute Neuts (auto) 7.4, Absolute Lymphs (auto) 3.14, Nucleated RBC % 0, PT 12.5, INR 0.9, APTT 25.8, Sodium 137, Potassium 5.0, Chloride 102, Carbon Dioxide 24.1, Anion Gap 11, BUN 21 H, Creatinine 1.18, Estim Creat Clear Calc 54.35, Est GFR (MDRD) Non- Af 70, BUN/Creatinine Ratio 17.5, Glucose 174 H, Calcium 9.0, Troponin T High Sens 36 H 03/08/25 12:53: Urine Color Yellow, Urine Clarity Clear, Urine pH 7.0, Ur Specific [place] 1.005, Urine Protein 15 H, Urine Glucose (UA) 100 H, Urine Ketones Negative, Urine Occult Blood Negative, Urine Nitrite Negative, Urine Bilirubin Negative, Urine Urobilinogen Normal, Ur Leukocyte Esterase Negative, Urine RBC 0 SEEN, Urine WBC 0-5 SEEN, Ur Squamous Epith Cells 0 SEEN, Urine Bacteria 0 SEEN, Urine Mucus 0 SEEN, Urine Yeast 1+ 03/08/25 13:46: Troponin T Hi Sens 2 Hr 34 H 03/08/25 16:45: Troponin T Hi Sens 4Hr 30 H 03/08/25 22:32: POC Glucose 318 H 03/09/25 02:30: POC Glucose 227 H 03/09/25 05:36: WBC 7.8, RBC 4.24 L, Hgb 12.2 L, Hct 36.6 L, MCV 86.3, MCH 28.8, MCHC 33.3, RDW Std Deviation 39.8, RDW Coeff of Serafin 12.7, Plt Count 176, MPV 12.2 H, Immature Gran % (Auto) 0.300, Neut % (Auto) 52.7, Lymph % (Auto) 36.1, [place] % (Auto) 7.9, Eos % (Auto) 2.4, Baso % (Auto) 0.6, Absolute Neuts (auto) 4.1, Absolute Lymphs (auto) 2.82, Nucleated RBC % 0, Sodium 137, Potassium 4.1, Chloride 103, Carbon Dioxide 24.9, Anion Gap 9, BUN 13, Creatinine 0.96, Estim Creat Clear Calc 63.75, Est GFR (MDRD) Non-Af 89, BUN/Creatinine Ratio 13.5, G lucose 226 H, Calcium 8.9, Triglycerides 250 H, Cholesterol 111, LDL Cholesterol, Calc 28, VLDL Cholesterol 50 H, HDL Cholesterol 33 L, Cholesterol/HDL Ratio 3.32 03/09/25 06:11: POC Glucose 241 H Radiography Diagnostic Testing: Radiology Impression Brain CT 03/08/25 11:37 IMPRESSION: 1. No evidence of intracranial hemorrhage or acute ischemia. 2. Changes of chronic microvascular ischemia and volume loss. 3. Subtle lucencies within the calvarium again noted. Metastatic disease versus myeloma is a consideration. Findings and impression were called directly to Dr. Quigley at 11:50 a.m. Eastern standard time. Reading Location: [facility] Head/Neck CTA 03/08/25 11:38 IMPRESSION: No significant stenosis in the head and neck. No aneurysm or vascular malformation. Reading Location: [facility] Physical Exam Neuro Neuro Narrative: Neurological?examination: General: The patient appears nutritionally appropriate, well-groomed, and appears comfortable in no acute distress. Mental Status: ?The patient?s mental status was normal including orientation. ?Language was intact. ?Cranial nerves: ?No visual complaints, and extra-ocular motion was intact. Face motion symmetric. Tongue was midline with normal movement. ?There was no dysarthria. Motor: Normal strength in all four extremities. No pronator drift. Sensation: Intact light touch bilaterally, no extinction. ?Coordination: ?Bilateral finger to nose was normal. ?There was no dysmetria. Gait: ?deferred Subject: Neurology Subjective No acute events. Patient feels back to baseline. Patient reports he takes only plavix at home (doesnt take Asa). 122/67. Assessment and Plan: Stroke Assessment/Plan JEAN PIERRE APONTE is a 64 yo RH M smoker with a history of prior ischemic stroke 10 years without residual deficits on plavix, CAD s/p stent, DM, HL, COPD who on 03/08/25 at 330p while at a family reunion had an episode of confusion and drooling. Symptoms resolved on arrival to [place] [facility], episode lasted ~ [address] brain negative. CTA head/neck negative. Telestroke showed NIHSS-0. Patient admitted for TIA work-up. LDL 28. HgbA1c 02/26/25 10.8. He is on Asa/plavix, lipitor 80, and lovenox SQ. Neurological examination shows nonfocale exam, NIHSS-0 ASSESSMENT/PLAN: TIA 1) TIA work-up recommended including MRI brain and TTE. 2) Continue daily anti-platelet medication. Recommend dAPT x 21 days (Asa/plavix x 21days, then stop Asa and continue home Plavix only thereafter) 3) Continue vascular risk factor modification. 4) Follow-up in outpatient neurology clinic Primary team messages my recs on backline. Christy Corrigan MD NIHSS NIHSS Nursing Documentation NIHSS Nursing Documentation: NIHSS: Ischemic Stroke/TIA Start: 03/08/25 14:49 Text: For PCU Patients: NIH and Neuro Check every 4 Status: Active hours, PRN and with change in RN caregiver. Freq: [id number] Protocol: Activity Type Activity Date Activity User E-sign Co-sign Detail Recorded Client Recorded Date Recorded By Document 03/09/25 09:18 [id number] 03/09/25 09:18 03/09/25 09:18 NIH Stroke Scale [NIHSS] A score of 0 is normal or asymptomatic . Total possible score is 42. Inpatient: RN or Physician to activate a stroke alert for onset of new stroke symptoms or with NIHSS increase >/= 3 points. Following change in neurological status, NIHSS will be performed per physician order or more frequently PRN. -1a. Level of Consciousness 0 - Alert; keenly responsive -1b. LOC Questions 0 - Answers BOTH questions correctly -1c. LOC Commands 0 - Performs BOTH tasks correctly -2. Best Gaze 0 - Normal -3. Visual 0 - No visual loss -4. Facial Palsy 0 - Normal symmetrical movements -5a. Left Arm 0 - No drift; arm holds 90 ( or 45) degrees for full 10 seconds -5b. Right Arm 0 - No drift; arm holds 90 ( or 45) degrees for full 10 seconds -6a. Left Leg 0 - No drift; leg holds 30- degree position for full 5 seconds -6b. Right Leg 0 - No drift; leg holds 30- degree position for full 5 seconds -7. Limb Ataxia 0 - Absent -8. Sensory 0 - Normal; no sensory loss -9. Best Language 0 - No aphasia; normal -10. Dysarthria 0 - Normal -11. Extinction and Inattention 0 - No abnormality -Total 0 Query Text:A score of 0 is normal or asymptomatic. Total possible score is 42 . ED: Notify Physician for NIHSS increase by > / = 3 points. Inpatient: RN or Physician to activate a stroke alert for NIHSS increase of > / = 3 points. Coma Scale [Assess] -Eye Opening Spontaneous -Motor Obeys Commands -Verbal Oriented [Total] -Coma Scale Total 15 NIHSS 1a. Level of Consciousness: 0 - Alert; keenly responsive 1b. LOC Questions: 0 - Answers BOTH questions correctly 1c. LOC Commands: 0 - Performs BOTH tasks correctly 2. Best Gaze: 0 - Normal 3. Visual: 0 - No visual loss 4. Facial Palsy: 0 - Normal symmetrical movements 5a. Left Arm: 0 - No drift; arm holds 90 (or 45) degrees for full 10 seconds 5b. Right Arm: 0 - No drift; arm holds 90 (or 45) degrees for full 10 seconds 6a. Left Le - No drift; leg holds 30-degree position for full 5 seconds 6b. Right Le - No drift; leg holds 30-degree position for full 5 seconds 7. Limb Ataxia: 0 - Absent 8. Sensory: 0 - Normal; no sensory loss 9. Best Language: 0 - No aphasia; normal 10. Dysarthria: 0 - Normal 11. Extinction and Inattention: 0 - No abnormality Total: 0
[2025-03-09 11:37] VITALS: BMI 28.5
--- NOTE | 2025-03-09 12:49 | DCINST_ITS ---
Discharge Instructions DC O2, CPAP, BIPAP needs Home O2 Discharge instructions: No Dressing / Incision Weight Bearing Status: Weight bearing as tolerated Dressing / Incision Call your doctor if you observe: Fever of 101 or Higher, Shortness of breath, Dizziness and Chest pain Follow Up Care Test Results: Test results from this visit will be discussed in further detail at your follow- up appointment, if applicable. Discharge Plan Admission Admit Date/Time: 03/08/25 12:58 Primary Reason for Your Visit: TIA Attending Provider: Mary Lemus Primary Care Provider: Perla Yee [facility] Consulting Providers: Lizandro Polanco; Shirley Mesa; Vero Bradley; Jazzy Shepherd; Brinda Garcia; Won Antunez; Uma Tamayo; Jarett Wilder; Trevon Aranda; Salvatore Mccartney; Yesi Ba; Cali Goldberg; Aislinn Fowler; Beau Jang; Adina Mendiola; Jonathan Stephen; Jasson Eli; Maxx Monreal; Christy Corrigan; Kusum Cherry Instructions Patient Instructions: TIA Dc Additional Instructions / Restrictions: see PCP for order for transthoracic echo on outpatient basis. Discharge Orders/Prescriptions Prescriptions: New aspirin 81 mg Tablet,Chewable 81 mg PO BREAKFAST Qty: 21 0RF Continued pantoprazole [Protonix] 20 mg tablet,delayed release (DR/EC) 20 mg PO DAILY Qty: 30 1RF tamsulosin [Flomax] 0.4 mg capsule 0.4 mg PO BID Qty: 60 0RF glimepiride 4 mg tablet 4 mg PO DAILY Patient Comments: TAKE 1 TABLET BY MOUTH ONCE DAILY finasteride 5 mg tablet 5 mg PO DAILY tadalafil 20 mg tablet 20 mg PO DAILY PRN (Reason: sexual activity) Patient Comments: TAKE 1 TABLET BY MOUTH ONE HOUR BEFORE INTERCOURSE Farxiga 10 mg tablet 10 mg PO DAILY clopidogrel [Plavix] 75 mg Tablet 75 mg PO DAILY metformin 1,000 mg Tablet 1,000 mg PO BID lisinopril 20 mg tablet 20 mg PO DAILY pregabalin 100 mg capsule 100 mg PO BID rosuvastatin 40 mg tablet 40 mg PO QHS insulin glargine [Lantus Solostar U-100 Insulin] 100 unit/mL (3 mL) insulin pen 10 unit subcut QHS metoprolol tartrate 50 mg tablet 50 mg PO BID Qty: 180 3RF Referrals / Follow Up: Long Kline MD [Non-Staff -Ordering Privileges] - Within 2 Weeks (see to establish care for TIA) Perla Yee, DO [Primary Care Provider] - Within 2 Weeks Disposition Disposition (needs filled in before D/C Order can be placed): Home, Self Care
--- NOTE | 2025-03-09 12:49 | DS.PCM_ITS ---
Providers Date of Admission: 03/08/25 Date of Discharge: 03/09/25 Primary Care Physician: SANTINO Paiz, DO Consultations 03/08/25 14:49 Consult: Tele-Neurology Routine Consulting Provider: [facility] Reason for Consult: Acute Ischemic Stroke/TIA EMERGENT Consult: No MD Notified: Yes Date Notified: 03/08/25 Time Notified: 15:07 Method of Notification: Answering Service Nursing Unit Staff Notify [facility] of Tele-Neurology Consult: Yes Reason For Visit: STROKE LIKE SYMPTOMS Diagnosis Discharge Diagnosis (1) Stroke-like symptoms: Status: Acute Code(s): R29.90 - Unspecified symptoms and signs involving the nervous system Plan #Stroke like symptoms * admitted with a complaint of slurred speech and expressive aphasia. Symptoms had resolved at time of review * NIHSS at time of review is 0 * CT brain showed no acute intracranial pathology. * CT head and neck showed no hemodynamically significant stenosis. * already on plavix and high intensity statin due to history of stroke. * Admit to PCU per stroke protocol * get MRI of the brain and 2D echo * consult [facility] neurology * Consult speech therapy. Monitor NIH stroke scale. * Keep n.p.o. until he passes bedside swallow evaluation. Hold BP meds to allow for permissive hypertension in case of a stroke. #Type 2 diabetes mellitus: Hold dapagliflozin and glimepiride. Insulin sliding scale. Accuchecks ACHS. #BPH: On finasteride and Flomax DVT prophylaxis: SCDs Code status: full code * Patient and counseled extensively about different types of CODE STATUS including full code, DNR CCA and DNR CCA. * Patient elects to be full code. * Total [id number] time 16 minutes. Medications at Discharge Home Medications clopidogrel 75 mg tablet (Plavix) 75 mg PO DAILY 06/05/21 metformin 1,000 mg tablet 1,000 mg PO BID 06/05/21 pregabalin 100 mg capsule 100 mg PO BID 06/13/22 pantoprazole 20 mg tablet,delayed release (Protonix) 20 mg PO DAILY #30 tabs 06/20/22 lisinopril 20 mg tablet 20 mg PO DAILY 07/01/22 tamsulosin 0.4 mg capsule (Flomax) 0.4 mg PO BID #60 caps 08/30/22 dapagliflozin propanediol 10 mg tablet (Farxiga) 10 mg PO DAILY 01/12/23 finasteride 5 mg tablet 5 mg PO DAILY 01/12/23 glimepiride 4 mg tablet 4 mg PO DAILY 01/12/23 tadalafil 20 mg tablet 20 mg PO DAILY PRN sexual activity 01/12/23 metoprolol tartrate 50 mg tablet 50 mg PO BID #180 tabs 10/16/23 insulin glargine 100 unit/mL (3 mL) subcutaneous pen (Lantus Solostar U-100 Insulin) 10 unit subcut QHS 03/08/25 rosuvastatin 40 mg tablet 40 mg PO QHS 03/08/25 aspirin 81 mg chewable tablet 81 mg PO BREAKFAST #21 tabs 03/09/25 Hospital Course Operations None Procedures None Summary of Care Provided Minutes Spent on Discharge: 45 Hospital Course: JEAN PIERRE APONTE, is a 64 M with a PMH as outlined who was admitted via the ED on 03/08/2025 with a complaint of slurred speech and aphasia. noted that his speech was slurred when he was talking to her this morning. He had a stroke last year so family was concerned about a repeat stroke and so brought him to the ED. He is on aspirin and Plavix at home. He was admitted to the moderate facial droop and also supposedly had some right weakness but his symptoms had resolved by the time he came into the ED. He denied any headache, chest pain, dizziness, symptoms. Review of systems otherwise negative. He has been compliant with his Plavix. Vitals in the ED were blood pressure of 149/85, pulse rate of 67, respiratory rate of 18 and he was saturating at 99% on room air. CBC showed hemoglobin of 13.7 with WBC of 11.6 and platelets of 195. INR was 0.9. Chemistry shows sodium of 137 potassium of 5 and bicarb of 24.1. Creatinine was 1.18. CT brain showed no acute intracranial pathology and showed subtle lucencies within the calvarium which had been again noted with metastatic disease versus myeloma being a consideration. CTA head and neck showed no significant stenosis in the head and neck. NIH stroke scale was 0 at the time he came into the ED. He was admitted to be managed for TIA to rule out a stroke. He had MRI of the brain which showed no evidence of a stroke. He was placed on aspirin and Plavix and high intensity statin. Neurology was consulted and reviewed patient and recommended that he continue the dual antiplatelet therapy for 21 days and then to stop the aspirin afterwards and to continue only on the Plavix. 2D echo was ordered but this could not be done before discharge as patient was discharged on a Monday. Patient was also not willing to wait for it to be done on Monday before being discharged home. I therefore did discuss this with neurology was okay with patient having the 2D echo done on outpatient basis. Patient symptoms as stated had completely resolved. He was discharged home on 03/09/2025. He is to follow-up with his primary care doctor was also referred to neurology on outpatient basis. Patient seen and examined prior to discharge. He had no complaints and wanted to be discharged home. Review of systems otherwise negative. Labs and vitals reviewed. Home medication reviewed and reconciled. Physical Exam Const alert, oriented x3 and no apparent distress General Appearance: cooperative and comfortable HEENT normocephalic, head/scalp atraumatic, hearing grossly normal bilaterally and moist oral mucous membranes Mouth: oral and palatal mucosa normal Eyes PERRL, EOMs intact bilaterally and conjunctivae normal Neck supple Resp normal respiratory effort, no retractions, no use of accessory muscles and clear to auscultation bilaterally Cardio regular rate, regular rhythm, S1 normal heart sound, S2 normal heart sound and no murmurs GI normal to inspection, nondistended, normoactive bowel sounds, soft to palpation, non-tender and non-distended Extremity normal to inspection, full ROM and no clubbing, cyanosis or edema Skin no rashes or lesions noted Neuro oriented x3, CN's II-XII intact bilaterally, moves all extremities and no focal motor deficits Sensorium / Orientation: awake Motor Exam: strength 5/5 throughout Psych affect normal Weight / BMI Weight Weight: 145 lb 15.983 oz Body Mass Index (BMI) 28.5 ABG / Lab / Microbiology Data 03/09/25 05:36 03/09/25 05:36 Laboratory: Laboratory Results - last 24 hr 03/08/25 16:45: Troponin T Hi Sens 4Hr 30 H 03/08/25 22:32: POC Glucose 318 H 03/09/25 02:30: POC Glucose 227 H 03/09/25 05:36: WBC 7.8, RBC 4.24 L, Hgb 12.2 L, Hct 36.6 L, MCV 86.3, MCH 28.8, MCHC 33.3, RDW Std Deviation 39.8, RDW Coeff of Serafin 12.7, Plt Count 176, MPV 12.2 H, Immature Gran % (Auto) 0.300, Neut % (Auto) 52.7, Lymph % (Auto) 36.1, [place] % (Auto) 7.9, Eos % (Auto) 2.4, Baso % (Auto) 0.6, Absolute Neuts (auto) 4.1, Absolute Lymphs (auto) 2.82, Nucleated RBC % 0, Sodium 137, Potassium 4.1, Chloride 103, Carbon Dioxide 24.9, Anion Gap 9, BUN 13, Creatinine 0.96, Estim Creat Clear Calc 63.75, Est GFR (MDRD) Non-Af 89, BUN/Creatinine Ratio 13.5, G lucose 226 H, Calcium 8.9, Triglycerides 250 H, Cholesterol 111, LDL Cholesterol, Calc 28, VLDL Cholesterol 50 H, HDL Cholesterol 33 L, Cholesterol/HDL Ratio 3.32 03/09/25 06:11: POC Glucose 241 H 03/09/25 11:21: POC Glucose 311 H Radiography Diagnostic Testing: Radiology Impression Brain MRI 03/09/25 08:57 IMPRESSION: No acute brain abnormalities. Parenchymal volume loss and white matter changes which are most likely due to chronic small-vessel ischemia. Reading Location: [facility] D/C Instructions Discharge Activity: Return to Normal Activity Weight Bearing Status: Weight bearing as tolerated Call your doctor if you observe: Fever of 101 or Higher, Shortness of breath, Dizziness and Chest pain DC O2, CPAP, BIPAP Needs Home O2 Discharge instructions: No DC home with Oxygen: No Meaningful Use Info Meaningful Use Meaningful Use Diagnoses (Choose all that apply): None applicable Discharge Plan Admission Admit Date/Time: 03/08/25 12:58 Primary Reason for Your Visit: TIA Attending Provider: Mary Lemus Primary Care Provider: Perla Yee [facility] Consulting Providers: Lizandro Polanco; Shirley Mesa; Vero Bradley; Jazzy Shepherd; Brinda Garcia; Won Antunez; Uma Tamayo; Jarett Wilder; Trevon Aranad; Salvatore Mccartney; Yesi Ba; Cali Goldberg; Aislinn Fowler; Beau Jang; Adina Mendiola; Jonathan Stephen; Jasson Eli; Maxx Monreal; Christy Corrigan; Kusum Cherry Instructions Patient Instructions: TIA Dc Additional Instructions / Restrictions: see PCP for order for transthoracic echo on outpatient basis. Discharge Orders/Prescriptions Prescriptions: New aspirin 81 mg Tablet,Chewable 81 mg PO BREAKFAST Qty: 21 0RF Continued pantoprazole [Protonix] 20 mg tablet,delayed release (DR/EC) 20 mg PO DAILY Qty: 30 1RF tamsulosin [Flomax] 0.4 mg capsule 0.4 mg PO BID Qty: 60 0RF glimepiride 4 mg tablet 4 mg PO DAILY Patient Comments: TAKE 1 TABLET BY MOUTH ONCE DAILY finasteride 5 mg tablet 5 mg PO DAILY tadalafil 20 mg tablet 20 mg PO DAILY PRN (Reason: sexual activity) Patient Comments: TAKE 1 TABLET BY MOUTH ONE HOUR BEFORE INTERCOURSE Farxiga 10 mg tablet 10 mg PO DAILY clopidogrel [Plavix] 75 mg Tablet 75 mg PO DAILY metformin 1,000 mg Tablet 1,000 mg PO BID lisinopril 20 mg tablet 20 mg PO DAILY pregabalin 100 mg capsule 100 mg PO BID rosuvastatin 40 mg tablet 40 mg PO QHS insulin glargine [Lantus Solostar U-100 Insulin] 100 unit/mL (3 mL) insulin pen 10 unit subcut QHS metoprolol tartrate 50 mg tablet 50 mg PO BID Qty: 180 3RF Referrals / Follow Up: Long Kline MD [Non-Staff -Ordering Privileges] - Within 2 Weeks (see to establish care for TIA) Perla Yee, DO [Primary Care Provider] - Within 2 Weeks Disposition Disposition (needs filled in before D/C Order can be placed): Home, Self Care Charges/Coding Visit Charges Inpatient E&M: 78948 Disch Hosp >30min
[2025-03-09 13:13] VITALS: BP 144/74; PULSE 80; RESP 16; TEMP 36.7; O2SAT 99
[2025-03-09 13:26] VITALS: BMI 28.5
== END 2025-03-09 14:58 | disposition home or self-care (01) ==
LOC: ED 13:11 → PCU 13:24
PROVIDERS: Admitting Provider Student in an Organized Health Care Education/Training Program; Emergency Provider Student in an Organized Health Care Education/Training Program; PCP Family Medicine; Referring Provider Student in an Organized Health Care Education/Training Program; Visit Provider Student in an Organized Health Care Education/Training Program
DX: R47.01 Aphasia (principal); J44.9 Chronic obstructive pulmonary disease, unspecified; Z79.4 Long term (current) use of insulin; E11.40 Type 2 diabetes mellitus with diabetic neuropathy, unspecified; I25.10 Atherosclerotic heart disease of native coronary artery without angina pectoris; I10 Essential (primary) hypertension; E78.00 Pure hypercholesterolemia, unspecified; N40.0 Benign prostatic hyperplasia without lower urinary tract symptoms; R47.81 Slurred speech; G25.81 Restless legs syndrome; F32.A Depression, unspecified; F41.9 Anxiety disorder, unspecified; M19.90 Unspecified osteoarthritis, unspecified site; F17.210 Nicotine dependence, cigarettes, uncomplicated; I25.2 Old myocardial infarction; Z79.02 Long term (current) use of antithrombotics/antiplatelets; Z86.73 Personal history of transient ischemic attack (TIA), and cerebral infarction without residual deficits; Z95.5 Presence of coronary angioplasty implant and graft; Z79.899 Other long term (current) drug therapy; Z79.82 Long term (current) use of aspirin; R94.31 Abnormal electrocardiogram [ECG] [EKG]
CPT/HCPCS: 36415; 70450; 70496; 70498; 70551; 80048; 80061; 81001; 82962; 84484; 85025; 85610; 85730; 93005; 94762; 97802; 99221; 99285; 99406; Q9967; A4216; G0378

== ENCOUNTER 2025-05-16 18:26 | Emergency (ER) | payer MEDICARE, SELFPAY ==
[2025-05-16 18:28] VITALS: BP 116/66; PULSE 88; RESP 16; TEMP 36.7; O2SAT 98; BMI 26.8
--- OUTSIDE RECORDS SUMMARY | 2025-05-16 20:49 | XMS RPT_ITS | CCD ---
Author Organization [facility] CliniSyks Care Team Providers Care Lung Splitter Name Role Phone Care Physician, No Primary Referring Provider Un available Dr. Beau Beaulieu Attending Provider Dr. Ijeoma Mcmanus Primary Care Provider [facility], Ijeoma Mcmanus Primary Care Pro vider Lindsay No Attending Provider Unavailable Dr. Ijeoma Mcmanus Referring Provider Junito, Dr. Corona Attending Provider Espinoza DEHYDRATION UNIT OPERATOR, Candice Unavailable Dr. Beau Beaulieu Referring Provider Dr. Beau Beaulieu Other Provider [facility], Ijeoma Mcmanus Referring Provid er [facility], Ijeoma Mcmanus Primary Care Pro vider Lilian Barron Attending Provider Unavailable [facility], Ijeoma Mcmanus Referring Provid er Dr. Cj Wild Attending Provider Perla Yee DO Primary Care Provider Perla Yee DO Referring Provider Dr. Chidi Diallo DO Attending Provider Dr. Agustin Mitchell MD Attending Provider Dr. Chidi Diallo DO Referring Provider Soraida MENA, Dr. Barraza Referring Provider Unavailab Barak MENA, Dr. Barraza Emergency Provider Unavailab viral Lemus MD, Dr. Mary Perry Admit Provider [phone] Mariah MENA, Dr. Mary Perry Attending Provider Lizandro Polanco MD Other Provider Unavailable Moshe MENA, Dr. Watson Other Provider Kirk MENA, Vero Other Provider Unavailable Dr. Jazzy Shepherd DO Other Provider Jose MENA, Dr. Parry Other Provider Harmony MENA, Dr. Upton Other Provider [phone] Belkis MENA, Dr. Eaton Other Provider Tina MENA, Dr. Denson Other Provider [phone] Manoj MENA, Dr. Lester Other Provider [phone] Bib MENA, Dr. Chase Other Provider Jesenia MENA, Yesi Other Provider [phone] Yusuf MENA, Dr. Leiva Other Provider Malcolm MENA, Dr. Tao Other Provider Suhail MENA, Dr. Yanez Other Provider [phone] Marlena MENA, Dr. Adina Malone Other Provider [phone] Zafar MENA, Dr. Castillo Other Provider Sreedhar MENA, Dr. Spaulding Other Provider Rah MENA, Dr. Lilly Other Provider [phone] Shekhar MENA, Dr. Harrison Other Provider Unavailable Jo Ann MENA, Yousef Other Provider Unavailable Mariah MENA, Dr. Mary Perry Other Provider Dr. Chidi Diallo DO Other Provider Joselito VSC, Perla Referring Unavailable Joselito VSC, Perla Primary Care Unavailable Chidi Diallo Attending Unavailable Joselito VSC, Perla Primary Care Unavailable Mitchell, Agustin Referring Unavailable Mitchell, Agustin Attending Unavailable Yoel, Chidi Attending Unavailable Brown, Chidi Referring Unavailable Joselito VSC, Perla Primary Care Unavailable Yoel, Chidi Attending Unavailable Yoel, Chidi Referring Unavailable Joselito VSC, Perla Primary Care Unavailable Mitchell VSC, Agustin Attending Unavailable Joselito VSC, [facility] Primary Care Unavailable Brown, Chidi Consulting Unavailable Brown, Chidi Attending Unavailable Brown, Chidi Referring Unavailable [facility], Perla Primary Care Unavailable Soraida, Christi Referring Unavailable Koram, Mary Vicky Attending Unavailable Koram, Mary Vicky Admitting Unavailable Collin, Lizandro Consulting Unavailable Adeli, Amir Consulting Unavailable Hinduja, Vero Consulting Unavailable Joao, Jazzy Consulting Unavailable Zha, Brinda Consulting Unavailable Harmony, Won Consulting Unavailable Belkis, Uma Consulting Unavailable Bittar, Jarett Consulting Unavailable Trevon Aranda Consulting Unavailable Salvatore Mccartney Consulting Unavailable Bejoana, Yesi Consulting Unavailable Yusuf, Cali Consulting Unavailable Malcolm, Aislinn Consulting Unavailable Beau Jang Consulting Unavailable Adina Mendiola Consulting UnavailJonathan Watts Consulting Unavailable Jasson Eli Consulting Unavailable Maxx Monreal Consulting Unavailable Christy Corrigan Consulting Unavailable Kusum Cherry Consulting Unavailable Koram, Mary Vicky Consulting Unavailable [facility], [facility] Referring Unavailable [facility], [facility] Primary Care Unavailable Brown, Chidi Attending Unavailable [facility], [facility] Primary Care Unavailable Brown, Chidi Attending Unavailable Brown, Chidi Referring Unavailable [facility], [facility] Primary Care Unavailable [facility], Perla Attending Unavailable [facility], [facility] Primary Care Unavailable Stephen [facility], Agustin Attending Unavailable [facility], [facility] Primary Care Unavailable Charlie Santana Attending Unavailable [facility], [facility] Primary Care Unavailable Soraida, Christi Referring Unavailable Koram, Mary Vicky Attending Unavailable Koram, Mary Vicky Admitting Unavailable [place], Lizandro Consulting Unavailable Adeli, Amir Consulting Unavailable Hinduja, Vero Consulting Unavailable Joao, Jazzy Consulting Unavailable Zha, Brinda Consulting Unavailable Harmony, Won Consulting Unavailable Belkis, Uma Consulting Unavailable Bittar, Jarett Consulting Unavailable Trevon Aranda Consulting Unavailable Salvatore Mccartney Consulting Unavailable BeYesi bernard Consulting Unavailable Yusuf, Cali Consulting Unavailable Malcolm, Aislinn Consulting Unavailable Ridvalentina, Mohamed Consulting Unavailable Adina Mendiola Faisal Consulting UnavailJonathan Watts Consulting Unavailable Jasson Eli Consulting Unavailable Maxx Monreal Consulting Unavailable Christy Corrigan Consulting Unavailable Kusum Cherry Consulting Unavailable Allergies Allergy Classification Reported Allergen(s) Allergy Type Date of Onset Reaction(s) Facility (15 sources) Acetaminophen Drug Allergy 2 [facility] (15 sources) diphenhydrAMINE Drug Allergy 1 Other [facility] (15 sources) oxyCODONE Drug Allergy 2 Vomiting [facility] (8 sources) fentaNYL Drug Allergy 3 Pain in joints [facility] (1 source) Acetaminophen Drug Allergy 5 [facility] Repository (1 source) diphenhydrAMINE Drug Allergy 5 [facility] Repository (1 source) fentaNYL Drug Allergy 5 [facility] (1 source) oxyCODONE Drug Allergy 5 [facility] Repository Medications Current Medications Medication Drug Class(es) Dates Sig (Normalized) Sig (Original) aspirin 81 mg chewable tablet (19 sources) Platelet Aggregation Inhibitor, Nonsteroidal Anti-inflammatory Drug Start: 03-09-2025 take 1 tablet by mouth at breakfast Aspirin 81 mg Tablet,Chewable Active 81 mg PO WITH BREAKFAST March 09, 2025 12:00am Start: 06-05-2021 End: 01-12-2023 take 1 tablet by mouth once daily Aspirin 81 mg Tablet Discontinued 81 mg PO DAILY June 05, 2021 12:00am January 12, 2023 2:21pm clopidogrel 75 mg oral tablet (15 sources) P2Y12 Platelet Inhibitor Start: 06-05-2021 take 1 tablet by mouth once daily Clopidogrel (Plavix) 75 mg Tablet Active 75 mg PO DAILY June 05, 2021 12:00am dapagliflozin 10 mg oral tablet (8 sources) Sodium-Glucose Cotransporter 2 Inhibitor Start: 01-12-2023 [...] 2022 12:00am finasteride 5 mg oral tablet (8 sources) 5-alpha Reductase Inhibitor Start: 01-12-2023 take 1 tablet by mouth once daily Finasteride 5 mg tablet Active 5 mg PO DAILY January 12, 2023 12:00am glimepiride 4 mg oral tablet (8 sources) Sulfonylurea Start: 01-12-2023 take 1 tablet by mouth once daily Glimepiride 4 mg tablet Active 4 mg PO DAILY January 12, 2023 12:00am 3 ml insulin glargine 100 unt/ml pen injector (20 sources) Insulin Analog Start: 03-08-2025 Insulin Glargine (Lantus Solostar U-100 Insulin) 100 unit/mL (3 mL) insulin pen Active 10 U SC AT BEDTIME March 08, 2025 12:00am Start: 03-08-2025 inject 10 [IU] by toussaint bcutaneous injection at bedtime Insulin Glargine (Insulin Glargine 100 Unit/Ml (3 Ml) Subcutaneous Pen) 100 unit/mL (3 mL) insulin pen Active 10 U SC AT BEDTIME March 08, 2025 12:00am Start: 06-05-2021 End: 01-12-2023 Insulin Glargine (Basaglar Kwikpen U-100 Insulin) 100 unit/mL (3 mL) insulin pen Discontinued 20 U SC AT BEDTIME June 05, 2021 12:00am January 12, 2023 2:21pm Start: 06-05-2021 Insulin Glargi ne (Basaglar Kwikpen U-100 Insulin) 100 unit/mL (3 mL) insulin pen Active 14 UNIT SC AT BEDTIME June 04, 2021 11:00pm lisinopril 20 mg oral tablet (20 sources) Angiotensin Converting Enzyme Inhibitor Start: 07-01-2022 take 1 tablet by mouth once daily Lisinopril 20 mg tablet Active 20 mg PO DAILY July 01, 2022 10:59am Start: 06-05-2021 End: 07-01-2022 take 1 tablet by mouth twice daily Lisinopril 20 mg Tablet Discontinued 20 mg PO TWICE A DAY June 05, 2021 12:00am July 01, 2022 11:00am metFORMIN hydrochloride 1000 mg oral tablet (15 sources) Biguanide Start: 06-05-2021 take 1 tablet by mouth twice daily Metformin 1,000 mg Tablet Active 1000 mg PO TWICE A DAY June 05, 2021 12:00am pantoprazole 20 mg delayed release oral tablet (14 sources) Proton Pump Inhibitor Start: 06-20-2022 take 1 tablet by mouth once daily Pantoprazole (Protonix) 20 mg tablet,delayed release (DR/EC) Active 20 mg PO DAILY 29 08June 20, 2022 1:00am pregabalin 100 mg oral capsule (15 sources) Start: 06-13-2022 take 1 capsule by mouth twice daily Pregabalin 100 mg capsule Active 100 mg PO TWICE A DAY June 13, 2022 1:00am rosuvastatin calcium 40 mg oral tablet (5 sources) HMG-CoA Reductase Inhibitor Start: 03-08-2025 take 1 tablet by mouth at bedtime Rosuvastatin 40 mg tablet Active 40 mg PO AT BEDTIME March 08, 2025 12:00am tadalafil 20 mg oral tablet (8 sources) Phosphodiesterase 5 Inhibitor Start: 01-12-2023 take 1 tablet by mouth once daily as needed Tadalafil 20 mg tablet Active 20 mg PO DAILY as needed for sexual activity January 12, 2023 12:00am Completed/Discontinued Medications Medication Drug Class(es) Dates Sig (Normalized) Sig (Original) [id number] 200 actuat albuterol 0.09 mg/actuat metered dose inhaler (20 sources) beta2-Adrenergic Agonist Start: 07-01-2022 End: 01-12-2023 [...] 05, 2021 12:00am July 01, 2022 11:00am atorvastatin 80 mg oral tablet (15 sources) HMG-CoA Reductase Inhibitor Start: 06-13-2022 End: 03-08-2025 take 1 tablet by mouth once daily Atorvastatin 80 mg tablet Discontinued 80 mg PO DAILY June 13, 2022 1:00am March 08, 2025 1:30pm Budesonide-Formotero l (15 sources) Corticosteroid, beta2-Adrenergic Agonist Start: 06-13-2022 End: 01-12-2023 Budesonide-Formoter ol (Symbicort) 160-4.5 mcg/actuation HFA aerosol inhaler Discontinued [...] TWICE A DAY June 13, 2022 12:00am ibuprofen 600 mg oral tablet (8 sources) Nonsteroidal Anti-inflammatory Drug Start: 04-15-2023 End: 03-08-2025 take 1 tablet by mouth every eight hours as needed for pain Ibuprofen 600 mg tablet Discontinued 600 mg PO EVERY 8 HOURS NEEDED as needed for pain 15 5 0 April 15, 2023 12:00am March 08, 2025 1:32pm metoprolol tartrate 50 mg oral tablet (20 [...] 05, 2021 12:00am July 07, 2022 2:36pm penicillin v potassium 500 mg oral tablet (8 sources) Start: 04-15-2023 End: 03-08-2025 take 1 tablet by mouth four times daily Penicillin V Potassium 500 mg tablet Discontinued 500 mg PO 4 TIMES DAILY 39 0 April 15, 2023 12:00am March 08, 2025 1:31pm sucralfate 100 mg/ml oral suspension (20 sources) Aluminum Complex Start: 08-29-2022 End: 03-08-2025 take 1 mL by mouth twice daily [...] MG PO DAILY June 04, 2021 11:00pm traMADol hydrochloride 50 mg oral tablet (8 sources) Opioid Agonist Start: 02-17-2023 End: 03-08-2025 take 1 tablet by mouth every four hours as needed for pain Tramadol 50 mg tablet Discontinued 50 mg PO EVERY 4 HOURS NEEDED as needed for Pain 20 0 February 17, 2023 12:00am March 08, 2025 1:31pm Problems Active Problems Problem Classification Problem Date Documented Date Episodic/Chronic Abdominal hernia (6 sources) Hiatal hernia; Translations: [Diaphragmatic hernia without obstruction [...] obtained just prior to his departure from [place] (having recently relocated to [place]). CT imaging from January and earlier this [...] to proceed as described. Biliary tract disease (15 sources) Biliary calculus; Translations: [Calculus of gallbladder without cholecystitis without obstruction] 06-13-2021 Episodic Cardiac dysrhythmias (18 sources) Tachycardia; Translations: [Tachycardia, unspecified] Episodic Chronic obstructive pulmonary disease and bronchiectasis (20 sources) Chronic obstructive lung disease; Translations: [Chronic obstructive pulmonary disease, unspecified] Onset: 02-25-2025 Chronic Coronary atherosclerosis and other heart disease (20 sources) Coronary arteriosclerosis; Translations: [Atherosclerotic heart disease of [place] coronary artery without angina pectoris] Chronic Diabetes mellitus with complications (1 source) Type 2 diabetes mellitus with hyperglycemia; Translations: [Type 2 diabetes mellitus with hyperglycemia] Onset: 03-16-2025 Chronic Diabetes mellitus without complication (20 sources) Type 2 diabetes mellitus; Translations: [Type 2 diabetes mellitus without complications] Onset: 07-01-2024 Chronic Disorders of lipid metabolism (19 sources) Dyslipidemia; Translations: [Hyperlipidemia, unspecified] Chronic Disorders of teeth and jaw (20 sources) Dental abscess; Translations: [Periapical abscess without sinus] 03-01-2022 Episodic Essential hypertension (19 sources) Essential hypertension; Translations: [Essential (primary) hypertension] Chronic Gastroduodenal ulcer (except hemorrhage) (12 sources) Gastric ulcer; Translations: [Gastric ulcer, unspecified as acute or chronic, without hemorrhage or perforation] 08-29-2022 Chronic Genitourinary symptoms and ill-defined conditions (20 sources) Acute retention of urine ; Translations: [...] and draining clear urine. Patient developed ac [place] post procedure urinary retention following EGD and [...] emergent evaluation should he experience the symptoms. Hyperplasia of prostate (12 sources) Benign prostatic hyperplasia; Translations: [Benign prostatic hyperplasia without lower urinary tract symptoms] 08-30-2022 Chronic Comment on above: History of BPH, felipe ent off prescribed regimen of Flomax twice daily. Reordered to patient's pharmacy as above. Nonspecific chest pain (16 sources) Chest pain; Translations: [Chest pain, unspecified] Onset: 01-14-2025 06-13-2021 Episodic Other connective tissue disease (10 sources) Neurological symptom; Translations: [Unspecified symptoms and signs involving the nervous system] 03-08-2025 Episodic Other connective tissue disease (1 source) Unspecified symptoms and signs involving the nervous system; Translations: [Unspecified symptoms and signs involving the nervous system] Onset: 03-10-2025 Episodic Other nervous system disorders (1 source) Aphasia; Translations: [Aphasia] Onset: 03-24-2025 Chronic Other nervous system disorders (2 sources) Other abnormalities of gait and mobility; Translations: [Other abnormalities of gait and mobility] Onset: 03-07-2025 Episodic Residual codes; unclassified (12 sources) Obstructive sleep apnea syndrome; Translations: [Obstructive sleep apnea (adult) (pediatric)] 02-25-2025 Chronic Residual codes; unclassified (6 sources) H/O: urinary anomaly; Translations: [Personal history of other specified conditions] 02-12-2024 Episodic Comment on above: Patient describing b oth difficulty and some discomfort with urination. History of acute urinary retention following colonoscopy. Given the increased risk around urinary retention and complications following inguinal hernia repair I have recommended we refer for evaluation before any further discussion around hernia repair. Substance-related disorders (20 sources) Nicotine dependence; Translations: [Nicotine dependence, unspecified, uncomplicated] Onset: 02-25-2025 Chronic Superficial injury; contusion (8 sources) Contusion of rib; Translations: [Contusion of unspecified front wall of thorax, initial encounter] 02-25-2023 Episodic Unclassified (4 sources) see to establish care for TIA Past or Other Problems Problem Classification Problem Date Documented Da te Episodic/Chronic Coronary atherosclerosis and other heart disease (8 sources) Stented coronary artery; Translations: [Presence of coronary angioplasty implant and graft] Onset: 07-31-2016 12-21-2022 Episodic Comment on above: PCI/QAMAR to proximal LAD 08/08/16 Results Test Name Value Interpretation Reference Range Facility 6 Minute Walk Teston 025 6 Minute Walk Test [facility]/Neurology [address] [place] [address] MR#: [id number] Acct: [id number] Name: JEAN PIERRE GRANT Rep #: [id number] : 1960 64 From: Chidi Diallo DO Referring Dr: Chidi Diallo DO Status: REG CLI Location: PSN Date: Sex: M C PSN 6 Minute Walk Test 6 Minute Walk Test 6 Minute Walk Test: 6 Minute Walk Test PSN:6-Minute Walk Test Start: 03/07/25 14:16 Freq: Status: Active Protocol: [id number] Document 03/07/25 14:17 [facility] (Rec: 03/07/25 14:22 [facility] [id number]) 6 Minute Walk Test Date Performed 03/07/25 Time Performed 13:30 Height 5 ft 4 in Weight: 150 lb Weight in Pounds 150.[address]: Chidi Diallo Assistive device Cane used: Pre-test Oxygen Delivery Room Air Method Pulse Ox (%) 96 Pulse Rate (60-100 88 beats/min) Dyspnea Althea Scale ( 3 0-10) Exertion Althea Scale 8 (6-20) Reported Symptoms Increased Work of Breathing 1st minute Oxygen Delivery Room Air Method Pulse Ox (%) 95 Pulse Rate (60-100 93 beats/min) Dyspnea Althea Scale ( 3 0-10) Number of Rests 0 Taken Reported Symptoms Increased Work of Breathing 2nd minute Oxygen Delivery Room Air Method Pulse Ox (%) 96 Pulse Rate (60-100 95 beats/min) Dyspnea Althea Scale ( 3 0-10) Number of Rests 0 Taken Reported Symptoms Increased Work of Breathing 3rd minute Oxygen Delivery Room Air Method Pulse Ox (%) 95 Pulse Rate (60-100 100 beats/min) Dyspnea Althea Scale ( 3 0-10) Number of Rests 0 Taken Reported Symptoms Increased Work of Breathing 4th minute Oxygen Delivery Room Air Method Pulse Ox (%) 96 Pulse Rate (60-100 99 beats/min) Dyspnea Althea Scale ( 3 0-10) Number of Rests 0 Taken Reported Symptoms Increased Work of Breathing 5th minute Oxygen Delivery Room Air Method Pulse Ox (%) 95 Pulse Rate (60-100 100 beats/min) Dyspnea Althea Scale ( 3 0-10) Number of Rests 0 Taken Reported Symptoms Increased Work of Breathing 6th minute Oxygen Delivery Room Air Method Pulse Ox (%) 96 Pulse Rate (60-100 98 beats/min) Dyspnea Althea Scale ( 3 0-10) Number of Rests 0 Taken Reported Symptoms Increased Work of Breathing Post-test Oxygen Delivery Room Air Method Pulse Ox (%) 97 Pulse Rate (60-100 87 beats/min) Dyspnea Althea Scale ( 3 0-10) Exertion Althea Scale 8 (6-20) Reported Symptoms Increased Work of Breathing Full Laps Walked 13 Partial Lap, Number 0 of Tiles Walked Total Distance 767 Walked (ft) Interpretation Interpretation: The patient ambulated 767 feet over the course of 6 minutes beginning on room air with the use of a cane. Pretesting oxygen saturation was noted to be 96% on room air. With ambulation, the kasey oxygen saturation was 95%. There was no significant exertional oxygen desaturation. Recommendations Recommendations: There is no indication for the use of supplemental oxygen at this time. 03/10/251153 Date Chidi Diallo DO CC: Date Dictated: 03/10/251153 Date Transcribed: 03/10/251153 Industrial Design Engineer: Dr. Chidi Diallo DO Signed Normal [facility] Absolute lymphocyte countOrd ered By: Mary Lemus on 03-09-2025 Lymphocytes Auto (Unsp spec) [#/Vol] 2.82 10*3/uL 0.83-4.51 [facility] Absolute neutrophil countOrd ered By: Maryallie Lemus on 03-09-2025 Neutrophils (Bld) [#/Vol] 4.1 10*3/uL 2.0-7.7 [facility] Anion gap in Serum or Plasma Ordered By: Mary Lemus on 03-09-2025 Anion gap [Moles/Vol] 9 mmol/L - [facility] Automated lymphocyte count a s percentage of total leukocytesOrdered By: Mary Lemus on 03-09-2025 Lymphocytes/100 WBC Auto (Unsp spec) 36.1 % [facility] BUN/creatinine ratioOrdered By: Mary Lemus on 03-09-2025 Urea nitrogen/Creatinine [Mass ratio] 13.5 mg/mg 05-19 [facility] Basic Metabolic Profile (BMP )on 03-09-2025 BUN/CRE 13.5 RATIO Normal 05-19 [facility] Comment on above: Order Comment: Comme nts: NPO at MD prior to lipid panel Performed By: #### L 500.2500, L500.4100, L100.0100 #### [facility] [address] [place], [address] Calcium [Mass/Vol] 8.9 mg/dL Normal 7.6-11.0 [facility] Comment on above: Order Comment: Comme nts: NPO at MD prior to lipid panel Performed By: #### L 500.2500, L500.4100, L100.0100 #### [facility] [address] [place], [address] Chloride [Moles/Vol] 103 mmol/L Normal 98-108 [facility] Comment on above: Order Comment: Comme nts: NPO at MD prior to lipid panel Performed By: #### L 500.2500, L500.4100, L100.0100 #### [facility] [address] [place], [address] CO2 [Moles/Vol] 24.9 mmol/L Normal 21.0-32.0 [facility] Comment on above: Order Comment: Comme nts: NPO at [place] prior to lipid panel Performed By: #### L 500.2500, L500.4100, L100.0100 #### [facility] [address] [place], [address] Creatinine [Mass/Vol] 0.96 mg/dL Normal 0.70-1.20 [facility] Comment on above: Order Comment: Comme nts: NPO at [place] prior to lipid panel Performed By: #### L 500.2500, L500.4100, L100.0100 #### [facility] [address] [place], [address] ECRCL 63.75 ml/min Normal 50-250 [facility] Comment on above: Order Comment: Comme nts: NPO at [place] prior to lipid panel Performed By: #### L 500.2500, L500.4100, L100.0100 #### [facility] [address] [place], [address] GAP 9 Normal 5-15 [facility] Comment on above: Order Comment: Comme nts: NPO at [place] prior to lipid panel Performed By: #### L 500.2500, L500.4100, L100.0100 #### [facility] [address] [place], [address] GFR/1.73 sq M.predicted among non-blacks MDRD (S/P/Bld) [Vol rate/Area] 89 mL/min/{1.73_m2} Normal >60 [facility] Comment on above: Order Comment: Comme nts: NPO at [place] prior to lipid panel Result Comment: mL/m in/1.73m2 CKD-EPI Creatinine Equation (2020) Performed By: #### L 500.2500, L500.4100, L100.0100 #### [facility] [address] [place], [address] Glucose [Mass/Vol] 226 mg/dL High 70-99 [facility] Comment on above: Order Comment: Comme nts: NPO at MD prior to lipid panel Performed By: #### L 500.2500, L500.4100, L100.0100 #### [facility] [address] [place], [address] Potassium [Moles/Vol] 4.1 mmol/L Normal 3.3-5.1 [facility] Comment on above: Order Comment: Comme nts: NPO at MD prior to lipid panel Performed By: #### L 500.2500, L500.4100, L100.0100 #### [facility] [address] [place], [address] Sodium [Moles/Vol] 137 mmol/L Normal 133-145 [facility] Comment on above: Order Comment: Comme nts: NPO at MD prior to lipid panel Performed By: #### L 500.2500, L500.4100, L100.0100 #### [facility] [address] [place], [address] Urea nitrogen [Mass/Vol] 13 mg/dL Normal 4-19 [facility] [facility] Comment on above: Order Comment: Comme nts: NPO at MD prior to lipid panel Performed By: #### L 500.2500, L500.4100, L100.0100 #### [facility] [address] [place], [address] Basophil percentageOrdered B y: Mary Hesterhéctor on 03-09-2025 Basophils/100 WBC (Bld) 0.6 % 0-1 [facility] Bedside Glucoseon 03-09-2025 FINGERSTICK GLU 311 mg/dL High 74-106 [facility] Comment on above: Result Comment: ROMERO ORTIZ OF PATIENT CARE PER NURSING PROTOCOL Performed By: #### L 501.5425, L500.2500, L100.0100 #### [facility] [address] [place], [address] FINGERSTICK GLU 241 mg/dL High 74-106 [facility] Comment on above: Result Comment: ROMERO GEMENT OF PATIENT CARE PER NURSING PROTOCOL Performed By: #### L 501.080 #### [facility] [address] [place], [address] FINGERSTICK GLU 227 mg/dL High 74-106 [facility] Comment on above: Result Comment: ROMERO GEMENT OF PATIENT CARE PER NURSING PROTOCOL Performed By: #### L 501.080 #### [facility] [address] [place], [address] Brain without Contraston Brain without Contrast [facility] Imaging Services [address] [place] [address] Brain without Contrast MR#: [id number] Acct: [id number] Name: JEAN PIERRE GRANT Rep #: [id number] : 1960 M 64 From: Rogelio Hughes MD PCP: Perla Yee DO Status: ADM LEANDER Study: Brain without Contrast Date of Exam: 03/09/25 Exam# [id number] Ordering Dr: Mary Lemus MD PROCEDURE: BRAIN WITHOUT CONTRAST 03/09/2025 REASON FOR EXAM: EXPRESSIVE APHASIA TECHNIQUE: BRAIN WITHOUT CONTRAST Multiplanar and multisequence images were obtained. COMPARISON: CT head March 08, 2022 FINDINGS: Brain: Mild cerebral atrophy and chronic periventricular white matter disease. No restricted diffusion. No hemorrhage. No mass-effect or midline shift. Ventricles: No ventriculomegaly. Major Intracranial Vessels: Unremarkable. Sinuses: Clear Mastoids: Clear. MRI/Brain without Contrast IMPRESSION: No acute brain abnormalities. Parenchymal volume loss and white matter changes which are most likely due to chronic small-vessel ischemia. Reading Location: [facility] CC: Dr. Mary Leums MD; Perla Yee DO Industrial Design Engineer: Signed Normal [facility] CBC W/Diff, Automatedon 02-28 Absolute Lymph 2.82 X10 3/uL Normal 0.83-4.51 [facility] Comment on above: Performed By: #### L 500.2500, L500.4100, L100.0100 #### [facility] [address] [place], [address] Absolute Neut 4.1 X10 3/uL Normal 2.0-7.7 [facility] Comment on above: Performed By: #### L 500.2500, L500.4100, L100.0100 #### [facility] [address] [place], [address] Basophils/100 WBC (Bld) 0.6 % Normal 0-1 [facility] Comment on above: Performed By: #### L 500.2500, L500.4100, L100.0100 #### [facility] [address] [place], [address] Eosinophils/100 WBC (Bld) 2.4 % Normal 0-5 [facility] Comment on above: Performed By: #### L 500.2500, L500.4100, L100.0100 #### [facility] [address] [place], [address] Erythrocyte distribution width (RBC) [Ratio] 12.7 % Normal 11.6-14.6 [facility] Comment on above: Performed By: #### L 500.2500, L500.4100, L100.0100 #### [facility] [address] [place], [address] Hematocrit (Bld) [Volume fraction] 36.6 % Low 40-54 [facility] Comment on above: Performed By: #### L 500.2500, L500.4100, L100.0100 #### [facility] [address] [place], [address] Hemoglobin (Bld) [Mass/Vol] 12.2 g/dL Low 13.0-16.5 [facility] Comment on above: Performed By: #### L 500.2500, L500.4100, L100.0100 #### [facility] [address] [place], [address] IG% 0.300 Normal 0.0-0.9 [facility] Comment on above: Result Comment: IG% - Immature Granulocytes (promyelocytes, myelocytes and metamyelocytes) > 1% indicates that a LEFT SHIFT is Present. Performed By: #### L 500.2500, L500.4100, L100.0100 #### [facility] [address] [place], [address] Lymphocytes/100 WBC (Bld) 36.1 % Normal 19-41 [facility] Comment on above: Performed By: #### L 500.2500, L500.4100, L100.0100 #### [facility] [address] [place], [address] MCH (RBC) [Entitic mass] 28.8 pg Normal 27.0-32.0 [facility] Comment on above: Performed By: #### L 500.2500, L500.4100, L100.0100 #### [facility] [address] [place], [address] MCHC (RBC) [Mass/Vol] 33.3 g/dL Normal 32-36 [facility] Comment on above: Performed By: #### L 500.2500, L500.4100, L100.0100 #### [facility] [address] [place], [address] MCV (RBC) [Entitic vol] 86.3 fL Normal 80-94 [facility] Comment on above: Performed By: #### L 500.2500, L500.4100, L100.0100 #### [facility] [address] [place], [address] Monocytes/100 WBC (Bld) 7.9 % Normal 0-10 [facility] Comment on above: Performed By: #### L 500.2500, L500.4100, L100.0100 #### [facility] [address] [place], [address] Neutrophils/100 WBC (Bld) 52.7 % Normal 47-70 [facility] Comment on above: Performed By: #### L 500.2500, L500.4100, L100.0100 #### [facility] [address] [place], [address] Nucleated RBC (Bld) [#/Vol] 0 10*3/uL Normal 0-5 [facility] Comment on above: Performed By: #### L 500.2500, L500.4100, L100.0100 #### [facility] [address] [place], [address] Platelet mean volume (Bld) [Entitic vol] 12.2 fL High 6.2-12.0 [facility] Comment on above: Performed By: #### L 500.2500, L500.4100, L100.0100 #### [facility] [address] [place], [address] Platelets (Bld) [#/Vol] 176 10*3/uL Normal 150-450 [facility] Comment on above: Performed By: #### L 500.2500, L500.4100, L100.0100 #### [facility] [address] [place], [address] RBC (Bld) [#/Vol] 4.24 10*6/uL Low 4.6-6.2 [facility] Comment on above: Performed By: #### L 500.2500, L500.4100, L100.0100 #### [facility] [address] [place], [address] RDW SD 39.8 fl Normal 35.1-43.9 [facility] Comment on above: Performed By: #### L 500.2500, L500.4100, L100.0100 #### [facility] [address] [place], [address] WBC (Bld) [#/Vol] 7.8 10*3/uL Normal 4.4-11.0 [facility] Comment on above: Performed By: #### L 500.2500, L500.4100, L100.0100 #### [facility] [address] [place], [address] Calculated very low density lipoprotein (VLDL) cholesterol measurementOrdered By: Mary Lemus on 03-09-2025 Calculated very low density lipoprotein (VLDL) cholesterol measurement 50 mg/dL High 5-40 [facility] Carbon dioxide, total [Moles /volume] in Central venous bloodOrdered By: Mary Lemus on 03-09-2025 CO2 [Moles/Vol] 24.9 mmol/L 21.0-32.0 [facility] Chloride assayOrdered By: Na michael Lemus on 03-09-2025 Chloride [Moles/Vol] 103 mmol/L 98-108 [facility] Discharge Instructionon 02-28 Discharge Instruction [facility] Medical Records Department [address] [place] [address] Instructions for Home/Discharge Instructions 03/09/25 1249 MR#: [id number] Acct: [id number] Name: JEAN PIERRE GRANT Rep #: [id number] : 1960 64 From: Mary Lemus MD PCP: Perla Yee DO Status:ADM LEANDER Discharge Instructions DC O2, CPAP, BIPAP needs Home O2 Discharge instructions: No Dressing / Incision Weight Bearing Status: Weight bearing as tolerated Dressing / Incision Call your doctor if you observe: Fever of 101 or Higher, Shortness of breath, Dizziness and Chest pain Follow Up Care Test Results: Test results from this visit will be discussed in further detail at your follow-up appointment, if applicable. Discharge Plan Admission Admit Date/Time: 03/08/25 12:58 Primary Reason for Your Visit: TIA Attending Provider: Mary Lemus Primary Care Provider: Perla Yee [facility] Consulting Providers: Lizandro Polanco; Shirley Mesa; Vero Bradley; Jazzy Shepherd; Brinda Garcia; Won Antunez; Uma Tamayo; Jarett Wilder; Trevon Aranda; Salvatore Mccartney; Yesi Ba; Cali Goldberg; Aislinn Fowler; Beau Jang; Adina Mendiola; Jonathan Stephen; Jasson Eli; Maxx Monreal; Christy Corrigan; Kusum Cherry Instructions Patient Instructions: TIA Dc Additional Instructions / Restrictions: see PCP for order for transthoracic echo on outpatient basis. Discharge Orders/Prescriptions Prescriptions: New aspirin 81 mg Tablet,Chewable 81 mg PO BREAKFAST Qty: 21 0RF Continued pantoprazole [Protonix] 20 mg tablet,delayed release (DR/EC) 20 mg PO DAILY Qty: 30 1RF tamsulosin [Flomax] 0.4 mg capsule 0.4 mg PO BID Qty: 60 0RF glimepiride 4 mg tablet 4 mg PO DAILY Patient Comments: TAKE 1 TABLET BY MOUTH ONCE DAILY finasteride 5 mg tablet 5 mg PO DAILY tadalafil 20 mg tablet 20 mg PO DAILY PRN (Reason: sexual activity) Patient Comments: TAKE 1 TABLET BY MOUTH ONE HOUR BEFORE INTERCOURSE Farxiga 10 mg tablet 10 mg PO DAILY clopidogrel [Plavix] 75 mg Tablet 75 mg PO DAILY metformin 1,000 mg Tablet 1,000 mg PO BID lisinopril 20 mg tablet 20 mg PO DAILY pregabalin 100 mg capsule 100 mg PO BID rosuvastatin 40 mg tablet 40 mg PO QHS insulin glargine [Lantus Solostar U-100 Insulin] 100 unit/mL (3 mL) insulin pen 10 unit subcut QHS metoprolol tartrate 50 mg tablet 50 mg PO BID Qty: 180 3RF Referrals / Follow Up: Long Kline MD [Non-Staff -Ordering Privileges] - Within 2 Weeks (see to establish care for TIA) Perla Yee [facility], DO [Primary Care Provider] - Within 2 Weeks Disposition Disposition (needs filled in before D/C Order can be placed): Home, Self Care 03/09/25 1249 Mary Lemus MD CC: Jazzy Shepherd; Aislinn Fowler; Jonathan Stephen; Brinda Garcia MD; Vero Bradley MD; Lizandro Polanco MD; Dr. Shirley Mesa MD; Dr. Won Antunez MD; Dr. Uma Tamayo MD; Dr. Trevon Aranda MD; Dr. Jartet Wilder MD; Dr. Salvatore Mccartney MD; Dr. Cali Goldberg DO; Dr. Adina Mendiola MD; Dr. Beau Jang MD; Dr. Jasson Eli MD; Dr. Maxx Monreal MD; Dr. Christy Corrigan MD; Perla Yee DO; Yesi Ba DO; Kusum Cherry MD Signed Normal [facility] Eosinophil percentageOrdered By: Mary Lemus on 03-09-2025 Eosinophils/100 WBC (Bld) 2.4 % 0-5 [facility] Erythrocyte distribution wid th ratioOrdered By: Mary Lemus on 03-09-2025 Erythrocyte distribution width (RBC) [Ratio] 12.7 % 11.6-14.6 [facility] Erythrocyte distribution wid th standard deviationOrdered By: Mary Lemus on 03-09-2025 Erythrocyte distribution width (RBC) [Ratio] 39.8 fl 35.1-43.9 [facility] Glomerular filtration rate ( GFR) estimation/1.73 sq m using serum, plasma, or whole bOrdered By: Mary Lemus on 03-09-2025 GFR/1.73 sq M.predicted among non-blacks MDRD (S/P/Bld) [Vol rate/Area] 89 mL/min/{1.73_m2} >60 [facility] Comment on above: mL/min/1.73m2 CKD-EP I Creatinine Equation (2020) Glucose measurement at bedsi deOrdered By: Mary Lemus on 03-09-2025 Glucose [Mass/Vol] 311 mg/dL High 74-106 [facility] Comment on above: MANAGEMENT OF PATIEN T CARE PER NURSING PROTOCOL Hematocrit Auto (Bld) [Volum e fraction]Ordered By: Mary Lemus on 03-09-2025 Hematocrit (Bld) [Volume fraction] 36.6 % Low 40-54 [facility] Hemoglobin measurementOrdere d By: Mary Hesterhéctor on 03-09-2025 Hemoglobin (Bld) [Mass/Vol] 12.2 g/dL Low 13.0-16.5 [facility] Immature granulocytes/100 WB C Auto (Bld)Ordered By: Maryallie Lemus on 03-09-2025 Immature granulocytes/100 WBC (Bld) 0.300 % 0.0-0.9 [facility] Comment on above: IG% - Immature Granu locytes (promyelocytes, myelocytes and metamyelocytes) > 1% indicates that a LEFT SHIFT is Present. LDL calc ser/plasOrdered By: Mary Lemus on 03-09-2025 Cholesterol in LDL [Mass/Vol] 28 mg/dL [facility] Comment on above: Bzfyxpssgt=890-279 m g/dL & Higher Kgnu=840 mg/dL or greaterFriedwald Equation for LDL-C Lipid Profileon 03-09-2025 CHOL:HDL 3.32 Normal [facility] Comment on above: Order Comment: Comme nts: NPO at MD prior to lipid panel Performed By: #### L 500.2500, L500.4100, L100.0100 #### [facility] [address] [place], [address] Cholesterol [Mass/Vol] 111 mg/dL Normal <=200 [facility] Comment on above: Order Comment: Comme nts: NPO at MD prior to lipid panel Result Comment: Chol esterol level, Desirable <200 mg/dL Borderline high cholesterol 200-239 mg/dL High cholesterol >=240 mg/dL Recommendations of the NCEP Adult Treatment Panel for the following risk-cutoff thresholds for the [place] population. Performed By: #### L 500.2500, L500.4100, L100.0100 #### [facility] [address] [place], [address] Cholesterol in HDL [Mass/Vol] 33 mg/dL Low [facility] Comment on above: Order Comment: Comme nts: NPO at MD prior to lipid panel Result Comment: Nighat onal Cholesterol Education Program (NCEP) guidelines: <40 mg/dL: Low HDL-cholesterol (major risk factor for CHD) >= 60 mg/dL: High HDL-cholesterol (negative risk factor for CHD) HDL-cholesterol is affected by a number of factors, e.g. smoking, exercise, hormones, sex and age. Performed By: #### L 500.2500, L500.4100, L100.0100 #### [facility] [address] [place], [address] Cholesterol in LDL [Mass/Vol] 28 mg/dL Normal [facility] Comment on above: Order Comment: Comme nts: NPO at [place] prior to lipid panel Result Comment: Bord ovioay=870-045 mg/dL Higher Aice=181 mg/dL or greater Friedwald Equation for LDL-C Performed By: #### L 500.2500, L500.4100, L100.0100 #### [facility] [address] [place], [address] Cholesterol in VLDL [Mass/Vol] 50 mg/dL High 5-40 [facility] Comment on above: Order Comment: Comme nts: NPO at [place] prior to lipid panel Performed By: #### L 500.2500, L500.4100, L100.0100 #### [facility] [address] [place], [address] Triglyceride [Mass/Vol] 250 mg/dL High [facility] Comment on above: Order Comment: Comme nts: NPO at [place] prior to lipid panel Result Comment: The drugs N-Acetylcysteine and Metamizole may falsely depress this assay. Normal range: <150 mg/dL Borderline High: 150-199 mg/dL High: 200-499 mg/dL Very High: >500 mg/dL Performed By: #### L 500.2500, L500.4100, L100.0100 #### [facility] [address] [place], [address] MCV (mean corpuscular volume ) determinationOrdered By: Mary Lemus on 03-09-2025 MCV (RBC) [Entitic vol] 86.3 fL 80-94 [facility] Magnetic resonance imaging r eportOrdered By: Rogelio Hughes on 03-09-[address] [facility] Imaging Services [address] [place], [place] [address] Brain without Contrast MR#: [id number] Acct: [id number] Name: JEAN PIERRE GRANT Rep #: [id number] : 1960 M 64 From: Panfilo Hughes MD PCP: Perla Yee DO Status: ADM LEANDER Study:Brain without Contrast Date of Exam: 03/09/25 Exam# [id number] Ordering Dr: Michael Lemus MD PROCEDURE: BRAIN WITHOUT CONTRAST 03/09/2025 REASON FOR EXAM: EXPRESSIVE APHASIA TECHNIQUE: BRAIN WITHOUT CONTRAST Multiplanar and multisequence images were obtained. COMPARISON: CT head March 08, 2022 FINDINGS: Brain: Mild cerebral atrophy and chronic periventricular white matter disease. No restricted diffusion. No hemorrhage. No mass-effect or midline shift. Ventricles: No ventriculomegaly. Major Intracranial Vessels: Unremarkable. Sinuses: Clear Mastoids: Clear. MRI/Brain without Contrast IMPRESSION: No acute brain abnormalities. Parenchymal volume loss and white matter changes which are most likely due to chronic small-vessel ischemia. Reading Location: [facility] CC: Dr. Mary Lemus MD; Perla Yee DO ~ Industrial Design Engineer: Signed [facility] Mean corpuscular hemoglobin (MCH) determinationOrdered By: Mary Lemus on 03-09-2025 MCH (RBC) [Entitic mass] 28.8 pg 27.0-32.0 [facility] Mean corpuscular hemoglobin concentration (MCHC) determinationOrdered By: Mary Lemus on 03-09-2025 MCHC (RBC) [Mass/Vol] 33.3 g/dL 32-36 [facility] Mean platelet volume determi nationOrdered By: Mary Lemus on 03-09-2025 Platelet mean volume (Bld) [Entitic vol] 12.2 fL High 6.2-12.0 [facility] Monocyte percentageOrdered B y: Mary Lemus on 03-09-2025 Monocytes/100 WBC (Bld) 7.9 % 0-10 [facility] Neutrophil percentageOrdered By: Mary Lemus on 03-09-2025 Neutrophils/100 WBC (Bld) 52.7 % 47-70 [facility] Nucleated red blood cell per centageOrdered By: Mary Lemus on 03-09-2025 Nucleated RBC/100 WBC (Bld) [Ratio] 0 % 0-5 [facility] Platelet countOrdered By: Na na Mariah on 03-09-2025 Platelets (Bld) [#/Vol] 176 10*3/uL 150-450 [facility] Potassium measurement (mass/ volume)Ordered By: Mary Lemus on 03-09-2025 Potassium (Unsp spec) [Mass/Vol] 4.1 mmol/L 3.3-5.1 [facility] RBC Auto (Bld) [#/Vol]Ordere d By: Mary Lemus on 03-09-2025 RBC (Bld) [#/Vol] 4.24 10*6/uL Low 4.6-6.2 [facility] Screening total cholesterol/ high density lipoprotein (HDL) cholesterol ratioOrdered By: Mary Lemus on 03-09-2025 Cholesterol.total/Cho lesterol in HDL [Mass ratio] 3.32 {ratio} [facility] Serum creatinine measurement (mass/volume)Ordered By: Mary Lemus on 03-09-2025 Creatinine [Mass/Vol] 0.96 mg/dL 0.70-1.20 [facility] Serum glucose measurement (m ass/volume)Ordered By: Mary Lemus on 03-09-2025 Glucose [Mass/Vol] 226 mg/dL High 70-99 [facility] Serum or plasma calcium david urement (mass/volume)Ordered By: Mary Lemus on 03-09-2025 Calcium [Mass/Vol] 8.9 mg/dL 7.6-11.0 [facility] Serum or plasma cholesterol in HDL measurement (mass/volume)Ordered By: Mary Lemus on 03-09-2025 Cholesterol in HDL [Mass/Vol] 33 mg/dL Low >40 [facility] Comment on above: National Cholesterol Education Program (NCEP) guidelines:<40 mg/dL: Low HDL-cholesterol (major risk factor for CHD)>= 60 mg/dL: High HDL-cholesterol (negative risk factor for CHD)HDL-cholesterol is affected by a number of factors, e.g. smoking, exercise, hormones, sex and age. Serum or plasma cholesterol measurement (mass/volume)Ordered By: Mary Lemus on 03-09-2025 Cholesterol [Mass/Vol] 111 mg/dL <201 [facility] Comment on above: Cholesterol level, D esirable <200 mg/dLBorderline high cholesterol 200-239 mg/dLHigh cholesterol >=240 mg/dLRecommendations of the NCEP Adult Treatment Panel for the following risk-cutoff thresholds for the [place] population. Serum or plasma urea nitroge n measurement (mass/volume)Ordered By: Mary Lemus on 03-09-2025 Urea nitrogen [Mass/Vol] 13 mg/dL 4-19 [facility] Sodium levelOrdered By: Mary Lemus on 03-09-2025 Sodium [Moles/Vol] 137 mmol/L 133-145 [facility] Triglycerides measurementOrd ered By: Mary Lemus on 03-09-2025 Triglyceride [Mass/Vol] 250 mg/dL High <199 [facility] Comment on above: The drugs N-Acetylcy steine and Metamizole may falsely depress this assay. Normal range: <150 mg/dLBorderline High: 150-199 mg/dLHigh: 200-499 mg/dLVery High: >500 mg/dL White blood cell (WBC) count Ordered By: Mary Lemus on 03-09-2025 WBC (Bld) [#/Vol] 7.8 10*3/uL 4.4-11.0 [facility] 12 Lead EKGon 03-08-2025 12 Lead EKG [facility] Cardiovascular Services [address] [place] [address] 12 Lead EKG 03/08/25 1225 MR#: [id number] Acct: [id number] Name: JEAN PIERRE GRANT Rep #: [id number] : 1960 64 From: Arnaud Moses MD Attending Dr: Dr. Mary Lemus MD Status: MAURICE Denney LEANDER Ordering Dr: Christi Quigley MD Date: 03/08/25 Location: [facility] Sex: M C Admitted: 03/08/25 Test Reason : STROKE ALERT Blood Pressure : */* mmHG Vent. Rate : 69 BPM Atrial Rate : 69 BPM P-R Int : 160 ms QRS Dur : 84 ms QT Int : 374 ms P-R-T Axes : 48 -25 11 degrees QTcB Int : 400 ms Normal sinus rhythm Septal infarct , age undetermined Abnormal ECG Confirmed by ARNAUD MOSES MD ([id number]), index editor ECHO OTTO ([id number]) on 03/10/2025 1:10:37 PM Referred By: Christi Quigley Confirmed By: ARNAUD MOSES MD 03/10/25 1310 Date Arnaud Moses MD CC: Dr. Christi Quigley MD; Dr. aMry Lemus MD; Perla Yee DO Signed Normal [facility] Absolute lymphocyte countOrd ered By: Christi Quiglye on 03-08-2025 Lymphocytes Auto (Unsp spec) [#/Vol] 3.14 10*3/uL 0.83-4.51 [facility] Absolute neutrophil countOrd ered By: Christi Quigley on 03-08-2025 Neutrophils (Bld) [#/Vol] 7.4 10*3/uL 2.0-7.7 [facility] Activated partial thrombopla stin time (aPTT) in platelet poor plasma by coagulation aOrdered By: Christi Quigley on 03-08-2025 aPTT Coag (PPP) [Time] 25.8 s 24.1-36.2 [facility] Anion gap in Serum or Plasma Ordered By: Christi Quigley on 03-08-2025 Anion gap [Moles/Vol] 11 mmol/L 5-15 [facility] Automated blood erythrocyte countOrdered By: Christi Quigley on 03-08-2025 RBC (Bld) [#/Vol] 4.90 10*6/uL Normal 4.6-6.2 [facility] Comment on above: Performed By: #### L 501.5425, L500.2500, L100.0100 #### [facility] [address] [place], [address] Automated blood hematocrit ( percentage)Ordered By: Christi Quigley on 03-08-2025 Hematocrit (Bld) [Volume fraction] 42.2 % Normal 40-54 [facility] Comment on above: Performed By: #### L 501.5425, L500.2500, L100.0100 #### [facility] [address] [place], [address] Automated lymphocyte count a s percentage of total leukocytesOrdered By: Christi Quigley on 03-08-2025 Lymphocytes/100 WBC Auto (Unsp spec) 27.1 % 19-41 [facility] BUN/creatinine ratioOrdered By: Christi Quigley on 03-08-2025 Urea nitrogen/Creatinine [Mass ratio] 17.5 mg/mg 10-20 [facility] Basic Metabolic Profile (BMP )on 03-08-2025 BUN/CRE 17.5 RATIO Normal - [facility] Comment on above: Performed By: #### L 501.5425, L500.2500, L100.0100 #### [facility] [address] [place], [address] Calcium [Mass/Vol] 9.0 mg/dL Normal 7.6-11.0 [facility] Comment on above: Performed By: #### L 501.5425, L500.2500, L100.0100 #### [facility] [address] [place], [address] Chloride [Moles/Vol] 102 mmol/L Normal 98-108 [facility] Comment on above: Performed By: #### L 501.5425, L500.2500, L100.0100 #### [facility] [address] [place], [address] CO2 [Moles/Vol] 24.1 mmol/L Normal 21.0-32.0 [facility] Comment on above: Performed By: #### L 501.5425, L500.2500, L100.0100 #### [facility] [address] [place], [address] Creatinine [Mass/Vol] 1.18 mg/dL Normal 0.70-1.20 [facility] Comment on above: Performed By: #### L 501.5425, L500.2500, L100.0100 #### [facility] [address] [place], [address] ECRCL 54.35 ml/min Normal 50-250 [facility] Comment on above: Performed By: #### L 501.5425, L500.2500, L100.0100 #### [facility] [address] [place], [address] GAP 11 Normal 5-15 [facility] Comment on above: Performed By: #### L 501.5425, L500.2500, L100.0100 #### [facility] [address] [place], [address] GFR/1.73 sq M.predicted among non-blacks MDRD (S/P/Bld) [Vol rate/Area] 70 mL/min/{1.73_m2} Normal >60 [facility] Comment on above: Result Comment: mL/m in/1.73m2 CKD-EPI Creatinine Equation (2020) Performed By: #### L 501.5425, L500.2500, L100.0100 #### [facility] [address] [place], [address] Glucose [Mass/Vol] 174 mg/dL High 70-99 [facility] Comment on above: Performed By: #### L 501.5425, L500.2500, L100.0100 #### [facility] [address] [place], [address] Potassium [Moles/Vol] 5.0 mmol/L Normal 3.3-5.1 [facility] Comment on above: Performed By: #### L 501.5425, L500.2500, L100.0100 #### [facility] [address] [place], [address] Sodium [Moles/Vol] 137 mmol/L Normal 133-145 [facility] Comment on above: Performed By: #### L 501.5425, L500.2500, L100.0100 #### [facility] [address] [place], [address] Urea nitrogen [Mass/Vol] 21 mg/dL High 4-19 [facility] Comment on above: Performed By: #### L 501.5425, L500.2500, L100.0100 #### [facility] [address] [place], [address] Basophil percentageOrdered B y: Christi Quigley on 03-08-2025 Basophils/100 WBC (Bld) 0.4 % Normal 0-1 [facility] Comment on above: Performed By: #### L 501.5425, L500.2500, L100.0100 #### [facility] [address] [place], [address] Bedside Glucoseon 03-08-2025 FINGERSTICK GLU 318 mg/dL High 74-106 [facility] Comment on above: Result Comment: ROMERO ORTIZ OF PATIENT CARE PER NURSING PROTOCOL Performed By: #### L 501.080 #### [facility] [address] [place], [address] Bilirubin Test strip Ql (U)O rdered By: Christi Quigley on 03-08-2025 Bilirubin Ql (U) Negative Negative [facility] CBC W/Diff, Automatedon 08-0 Absolute Lymph 3.14 X10 3/uL Normal 0.83-4.51 [facility] Comment on above: Performed By: #### L 501.5425, L500.2500, L100.0100 #### [facility] [address] [place], [address] Absolute Neut 7.4 X10 3/uL Normal 2.0-7.7 [facility] Comment on above: Performed By: #### L 501.5425, L500.2500, L100.0100 #### [facility] [address] [place], [address] IG% 0.600 Normal 0.0-0.9 [facility] Comment on above: Result Comment: IG% - Immature Granulocytes (promyelocytes, myelocytes and metamyelocytes) > 1% indicates that a LEFT SHIFT is Present. Performed By: #### L 501.5425, L500.2500, L100.0100 #### [facility] [address] [place], [address] Lymphocytes/100 WBC (Bld) 27.1 % Normal 19-41 [facility] Comment on above: Performed By: #### L 501.5425, L500.2500, L100.0100 #### [facility] [address] [place], [address] Nucleated RBC (Bld) [#/Vol] 0 10*3/uL Normal 0-5 [facility] Comment on above: Performed By: #### L 501.5425, L500.2500, L100.0100 #### [facility] [address] [place], [address] RDW SD 40.8 fl Normal 35.1-43.9 [facility] Comment on above: Performed By: #### L 501.5425, L500.2500, L100.0100 #### [facility] [address] [place], [address] Carbon dioxide, total [Moles /volume] in Central venous bloodOrdered By: Christi Quigley on 03-08-2025 CO2 [Moles/Vol] 24.1 mmol/L 21.0-32.0 [facility] Chloride assayOrdered By: Viet Quigley on 03-08-2025 Chloride [Moles/Vol] 102 mmol/L 98-108 [facility] Emergency Department Summary on 03-08-2025 Emergency Department Summary [facility] Medical Records Department [address] [place] [address] Emergency Department Summary 03/08/25 MR#: [id number] Acct: [id number] Name: JEAN PIERRE GRANT Rep #: [id number] : 1960 64 From: Christi Quigley MD PCP: Perla Yee DO Status:ADM LEANDER Location: [address] History of Present Illness Chief Complaint: Stroke Alert Narrative Narrative: Patient is a 64-year-old male presenting to the emergency department for strokelike symptoms. Patient has a prior history of a stroke. No residual deficits per . states that they were drinking coffee this morning and 15 minutes prior to arrival he had difficulty speaking. She brought him here to be evaluated. He is on Plavix at home, no oral anticoagulation. Patient denies headache, lightheadedness or dizziness. Denies any recent fever or chills. Denies chest pain or shortness of breath, abdominal pain. [facility] Medical History Presence of stent in coronary artery ( 08/08/16) Hematuria Acute urinary retention Wears glasses Insulin dependent diabetes mellitus Ambulates with cane Prostate disease High cholesterol Restless legs TIA (transient ischemic attack) Difficulty chewing History of diverticulitis Smoker History of heart attack History of echocardiogram History of stress test Cardiology follow-up encounter COPD (chronic obstructive pulmonary disease) Atherosclerosis of coronary artery of [place] heart without angina pectoris Non-ST elevation myocardial infarction (NSTEMI) ( 08/08/16) Essential (primary) hypertension Type 2 diabetes mellitus Anxiety Depression Heart attack Heart disease Hypertension Arthritis Neuropathy Diabetes Home Medications ???Medication ???Instructions ???Recorded ???Last Taken ???Type clopidogrel 75 mg tablet (Plavix) 75 mg PO DAILY 06/05/21 08/23/22 History metformin 1,000 mg tablet 1,000 mg PO BID 06/05/21 Unknown H istory pregabalin 100 mg capsule 100 mg PO BID 06/13/22 Unknown His tory pantoprazole 20 mg tablet,delayed 20 mg PO DAILY #30 tabs 06/20/22 08/29/22 Rx release (Protonix) lisinopril 20 mg tablet 20 mg PO DAILY 07/01/22 08/29/22 H istory tamsulosin 0.4 mg capsule (Flomax) 0.4 mg PO BID #60 caps 08/30/22 Unknown Rx dapagliflozin propanediol 10 mg 10 mg PO DAILY 01/12/23 Unknown Hi story tablet (Farxiga) finasteride 5 mg tablet 5 mg PO DAILY 01/12/23 Unknown His tory glimepiride 4 mg tablet 4 mg PO DAILY 01/12/23 Unknown His tory tadalafil 20 mg tablet 20 mg PO DAILY PRN sexual activity 01/12/23 Unknown History metoprolol tartrate 50 mg tablet 50 mg PO BID #180 tabs 10/16/23 Un known Rx insulin glargine 100 unit/mL (3 10 unit subcut QHS 03/08/25 Unknow n History mL) subcutaneous pen (Lantus Solostar U-100 Insulin) rosuvastatin 40 mg tablet 40 mg PO QHS 03/08/25 Unknown Hist ory Allergy/AdvReac Type Severity Reaction Status Date / Time fentanyl Allergy Intermediate Pain in Verified 02/25/25 11:33 joints acetaminophen (From Percocet) Allergy Vomiting Verified 02/25/25 11:33 diphenhydramine (From Allergy Other Verified 02/25/25 11:33 Benadryl) oxycodone (From Percocet) Allergy Vomiting Verified 02/25/25 11:33 Family History Grandfather Diabetes Heart disease Hypertension [...] Number of servings: 12 EXAM Physical Exam Narrative Exam Narrative: Vital signs: Reviewed General: Alert and oriented. No acute distress HEENT: Head is normocephalic and atraumatic, sinuses nontender, pupils equal round and reactive. Nares are patent. Oropharynx and throat exams normal. Neck: Supple without lymphadenopathy nontender Cardiovascular: Regular rate and rhythm, no murmurs. No rubs or gallops. Normal S1 and S2 Respiratory: Clear to auscultation bilaterally. No wheezes, rales, rhonchi Abdominal: Soft and nontender. Normal bowel sounds. No guarding or rebound. Nonsurgical abdomen Extremities: No tenderness. No bruising. Normal range of motion. Normal sensation. Skin: No rash or redness. Neurological: Neuro exam as below. The rest of the physical exam is unremarkable (more content not included)... Normal [facility] Eosinophil percentageOrdered By: Christi Quigley on 03-08-2025 Eosinophils/100 WBC (Bld) 2.0 % Normal 0-5 [facility] Comment on above: Performed By: #### L 501.5425, L500.2500, L100.0100 #### [facility] [address] [place], [place], [id number] Erythrocyte distribution wid th ratioOrdered By: Christi Quigley on 03-08-2025 Erythrocyte distribution width (RBC) [Ratio] 13.0 % Normal 11.6-14.6 [facility] Comment on above: Performed By: #### L 501.5425, L500.2500, L100.0100 #### [facility] [address] [place], [address] Erythrocyte distribution wid th standard deviationOrdered By: Christi Quigley on 03-08-2025 Erythrocyte distribution width (RBC) [Ratio] 40.8 fl 35.1-43.9 [facility] Glomerular filtration rate ( GFR) estimation/1.73 sq m using serum, plasma, or whole bOrdered By: Christi Quigley on 03-08-2025 GFR/1.73 sq M.predicted among non-blacks MDRD (S/P/Bld) [Vol rate/Area] 70 mL/min/{1.73_m2} >60 [facility] Comment on above: mL/min/1.73m2 CKD-EP I Creatinine Equation (2020) H AND P Exam - [facility] 03-08-2025 H&P Exam - Hospitalist [facility] Medical Records Department [address] [place] [address] H P Exam - Hospitalist 03/08/25 1242 MR#: [id number] Acct: [id number] Name: JEAN PIERRE GRANT Rep #: [id number] : 1960 64 From: Mary Lemus MD PCP: Perla Yee DO Status:ADM LEANDER Location: [place] [address] HPI - General General Date of Admission: 03/08/25 Date of Service: 03/08/25 Chief Complaint: slurred speech and aphasia HPI Narrative JEAN PIERRE GRANT, is a 64 M with a PMH as outlined who was admitted via the ED on 03/08/2025 with a complaint of slurred speech and aphasia. noted that his speech was slurred when he was talking to her this morning. He had a stroke last year so family was concerned about a repeat stroke and so brought him to the ED. He is on aspirin and Plavix at home. He was admitted to the [facility] facial droop and also supposedly had some right weakness but his symptoms had resolved by the time he came into the ED. He denied any headache, chest pain, dizziness, symptoms. Review of systems otherwise negative. He has been compliant with his Plavix. Vitals in the ED were blood pressure of 149/85, pulse rate of 67, respiratory rate of 18 and he was saturating at 99% on room air. CBC showed hemoglobin of 13.7 with WBC of 11.6 and platelets of 195. INR was 0.9. Chemistry shows sodium of 137 potassium of 5 and bicarb of 24.1. Creatinine was 1.18. CT brain showed no acute intracranial pathology and showed subtle lucencies within the calvarium which had been again noted with metastatic disease versus myeloma being a consideration. CTA head and neck showed no significant stenosis in the head and neck. NIH stroke scale was 0 at the time he came into the ED. He is therefore being admitted to be managed for TIA to rule out a stroke. [facility] Medical History Presence of stent in coronary artery ( 08/08/16) Hematuria Acute urinary retention Wears glasses Insulin dependent diabetes mellitus Ambulates with cane Prostate disease High cholesterol Restless legs TIA (transient ischemic attack) Difficulty chewing History of diverticulitis Smoker History of heart attack History of echocardiogram History of stress test Cardiology follow-up encounter COPD (chronic obstructive pulmonary disease) Atherosclerosis of coronary artery of [place] heart without angina pectoris Non-ST elevation myocardial infarction (NSTEMI) ( 08/08/16) Essential (primary) hypertension Type 2 diabetes mellitus Anxiety Depression Heart attack Heart disease Hypertension Arthritis Neuropathy Diabetes Home Medications ???Medication ???Instructions ???Recorded ???Last Taken ???Type clopidogrel 75 mg tablet (Plavix) 75 mg PO DAILY 06/05/21 08/23/22 History metformin 1,000 mg tablet 1,000 mg PO BID 06/05/21 Unknown H istory pregabalin 100 mg capsule 100 mg PO BID 06/13/22 Unknown His tory pantoprazole 20 mg tablet,delayed 20 mg PO DAILY #30 tabs 06/20/22 08/29/22 Rx release (Protonix) lisinopril 20 mg tablet 20 mg PO DAILY 07/01/22 08/29/22 H istory tamsulosin 0.4 mg capsule (Flomax) 0.4 mg PO BID #60 caps 08/30/22 Unknown Rx dapagliflozin propanediol 10 mg 10 mg PO DAILY 01/12/23 Unknown Hi story tablet (Farxiga) finasteride 5 mg tablet 5 mg PO DAILY 01/12/23 Unknown His tory glimepiride 4 mg tablet 4 mg PO DAILY 01/12/23 Unknown His tory tadalafil 20 mg tablet 20 mg PO DAILY PRN sexual activity 01/12/23 Unknown History metoprolol tartrate 50 mg tablet 50 mg PO BID #180 tabs 10/16/23 Un known Rx insulin glargine 100 unit/mL (3 10 unit subcut QHS 03/08/25 Unknow n History mL) subcutaneous pen (Lantus Solostar U-100 Insulin) rosuvastatin 40 mg tablet 40 mg PO QHS 03/08/25 Unknown Hist ory Allergy/AdvReac Type Severity Reaction Status Date / Time fentanyl Allergy Intermediate Pain in Verified 02/25/25 11:33 joints acetaminophen (From Percocet) Allergy Vomiting Verified 02/25/25 11:33 diphenhydramine (From Allergy Other Verified 02/25/25 11:33 Benadryl) oxycodone (From Percocet) Allergy Vomiting Verified 02/25/25 11:33 Family History Grandfather Diabetes Heart disease Hypertension Grandmother Diabetes Heart disease Hypertension Cancer stomach Father Diabetes Heart disease Hypertension Brother Heart disease Hypertension Surgical History History of colonoscopy History of esophagogastroduodenoscopy (EGD) History of coronary artery stent placement ( 08/08/16) H/O cardiac catheterization Social History Smoking Status: Current every day smoker tobacco type: cigarettes alcohol intake: former substance use type: clark (more content not included)... Normal [facility] Hemoglobin measurementOrdere d By: Christi Quigley on 03-08-2025 Hemoglobin (Bld) [Mass/Vol] 13.7 g/dL Normal 13.0-16.5 [facility] Comment on above: Performed By: #### L 501.5420, L500.2500, L100.0100 #### [facility] [employer] [place], [address] Immature granulocytes/100 WB C Auto (Bld)Ordered By: Christi Quigley on 03-08-2025 Immature granulocytes/100 WBC (Bld) 0.600 % 0.0-0.9 [facility] Comment on above: IG% - Immature Granu locytes (promyelocytes, myelocytes and metamyelocytes) > 1% indicates that a LEFT SHIFT is Present. International normalized rat io (INR) calculationOrdered By: Christi Quigley on 03-08-2025 INR Coag (Bld) [Relative time] 0.9 {INR} [facility] Ketones Test strip Ql (U)Ord ered By: Christi Quigley on 03-08-2025 Ketones Ql (U) Negative Negative [facility] L501.4021on 03-08-2025 Trop T High Sen 36 ng/L High <=22 [facility] Comment on above: Performed By: #### L 501.5425, L500.2500, L100.0100 #### [facility] [address] [place], [address] MCV (mean corpuscular volume ) determinationOrdered By: Christi Quigley on 03-08-2025 MCV (RBC) [Entitic vol] 86.1 fL Normal 80-94 [facility] Comment on above: Performed By: #### L 501.5425, L500.2500, L100.0100 #### [facility] [address] [place], [address] Mean corpuscular hemoglobin (MCH) determinationOrdered By: Christi Quigley on 03-08-2025 MCH (RBC) [Entitic mass] 28.0 pg Normal 27.0-32.0 [facility] Comment on above: Performed By: #### L 501.5425, L500.2500, L100.0100 #### [facility] [address] [place], [address] Mean corpuscular hemoglobin concentration (MCHC) determinationOrdered By: Christi Quigley on 03-08-2025 MCHC (RBC) [Mass/Vol] 32.5 g/dL Normal 32-36 [facility] Comment on above: Performed By: #### L 501.5425, L500.2500, L100.0100 #### [facility] [address] [place], [address] Mean platelet volume determi nationOrdered By: Christi Quigley on 03-08-2025 Platelet mean volume (Bld) [Entitic vol] 11.8 fL Normal 6.2-12.0 [facility] Comment on above: Performed By: #### L 501.5425, L500.2500, L100.0100 #### [facility] [address] [place], [place], [id number] Microscopic analysis of urin e for red blood cells (RBC)Ordered By: Christi Quigley on 03-08-2025 Microscopic analysis of urine for red blood cells (RBC) 0 SEEN /hpf 0-5 [facility] Monocyte percentageOrdered B y: Christi Quigley on 03-08-2025 Monocytes/100 WBC (Bld) 6.2 % Normal 0-10 [facility] Comment on above: Performed By: #### L 501.5425, L500.2500, L100.0100 #### [facility] [address] [place], [place], [id number] Mucus LM Ql (Urine sed)Order ed By: Christi Quigley on 03-08-2025 Mucus Ql (Urine sed) 0 SEEN /hpf [facility] Neutrophil percentageOrdered By: Christi Quigley on 03-08-2025 Neutrophils/100 WBC (Bld) 63.7 % Normal 47-70 [facility] Comment on above: Performed By: #### L 501.5425, L500.2500, L100.0100 #### [facility] [address] [place], [place], [id number] Nitrite Test strip Ql (U)Ord ered By: Christi Quigley on 03-08-2025 Nitrite Ql (U) Negative Negative [facility] Nucleated red blood cell per centageOrdered By: Christi Quigley on 03-08-2025 Nucleated RBC/100 WBC (Bld) [Ratio] 0 % 0-5 [facility] Partial Thromboplast Timeon 03-08-2025 aPTT Coag (Bld) [Time] 25.8 s Normal 24.1-36.2 [facility] Comment on above: Performed By: #### L 501.5425, L500.2500, L100.0100 #### [facility] [address] [place], [address] Platelet countOrdered By: Viet Quigley on 03-08-2025 Platelets (Bld) [#/Vol] 195 10*3/uL Normal 150-450 [facility] Comment on above: Performed By: #### L 501.5425, L500.2500, L100.0100 #### [facility] [address] [place], [address] Potassium measurement (mass/ volume)Ordered By: Christi Quigley on 03-08-2025 Potassium (Unsp spec) [Mass/Vol] 5.0 mmol/L 3.3-5.1 [facility] Protein Test strip Ql (U)Ord ered By: Christi Quigley on 03-08-2025 Protein Ql (U) 15 mg/dl High Negative [facility] Prothrombin Time w/INRon INR Coag (PPP) [Relative time] 0.9 {INR} Normal [facility] Comment on above: Performed By: #### L 501.5425, L500.2500, L100.0100 #### [facility] [address] [place], [address] PT Coag (PPP) [Time] 12.5 s Normal 11.7-14.9 [facility] Comment on above: Performed By: #### L 501.5425, L500.2500, L100.0100 #### [facility] [address] [place], [address] Prothrombin timeOrdered By: Christi Quigley on 03-08-2025 PT Coag (PPP) [Time] 12.5 s 11.7-14.9 [facility] STROKE Brain/Head without Co nton 03-08-2025 STROKE Brain/Head without Cont [facility] Imaging Services [address] [place] [address] STROKE Brain/Head without Cont MR#: [id number] Acct: [id number] Name: JEAN PIERRE GRANT Rep #: [id number] : 1960 M 64 From: Baldev Fernando MD PCP: Perla Yee DO Status: PRE ER Study: STROKE Brain/Head without Cont Date of Exam: 0 03/08/25 Exam# [id number] Ordering Dr: Christi Quigley MD PROCEDURE: STROKE BRAIN/HEAD WITHOUT CONT 03/08/2025 REASON FOR EXAM: NEURO DEFICIT, ACUTE, STROKE SUSPECTED TECHNIQUE: STROKE BRAIN/HEAD WITHOUT CONT Coronal and Sagittal reconstruction series were provided. One or more dose reduction techniques were used (e.g., Automated exposure control, adjustment of the mA and/or kV according to patient size, use of iterative reconstruction technique. RADIATION DOSE SUMMARY: CTDlvol: 45 mGy DLP: 745 mGycm COMPARISON: March 07, 2025 FINDINGS: Brain: There is no evidence of hemorrhage, acute ischemia or mass. No extra-axial fluid collection, midline shift or mass effect. Low-density in the periventricular white matter and deep white matter of the frontal and parietal lobes. CSF Spaces: Mild generalized cerebral atrophy Sinuses/Mastoids: Hypoplastic frontal sinuses. Sinuses are otherwise clear. Mastoid air cells are clear. Bones: No fracture. Once again there subtle lucencies throughout the calvarium. CT/STROKE Brain/Head without Cont IMPRESSION: 1. No evidence of intracranial hemorrhage or acute ischemia. 2. Changes of chronic microvascular ischemia and volume loss. 3. Subtle lucencies within the calvarium again noted. Metastatic disease versus myeloma is a consideration. Findings and impression were called directly to Dr. Quigley at 11:50 a.m. Eastern standard time. Reading Location: [id number] CC: Dr. Christi Quigley MD; Perla Yee DO Industrial Design Engineer: Signed Normal [facility] STROKE CTA Head AND Neck W/C onon 03-08-2025 STROKE CTA Head AND Neck W/Con [facility] Imaging Services [address] [place] [address] STROKE CTA Head AND Neck W/Con MR#: [id number] Acct: [id number] Name: JEAN PIERRE GRANT Rep #: [id number] : 1960 M 64 From: Rogelio Hughes MD PCP: Perla Yee DO Status: PRE ER Study: STROKE CTA Head AND Neck W/Con Date of Exam: 0 03/08/25 Exam# [id number] Ordering Dr: Christi Quigley MD PROCEDURE: STROKE CTA HEAD AND NECK W/CON 03/08/2025 REASON FOR EXAM: NEURO DEFICIT, ACUTE, STROKE SUSPECTED TECHNIQUE: STROKE CTA HEAD AND NECK W/CON Multiplanar Sagittal and Coronal images were obtained. CONTRAST: Isovue 370 VOLUME: 97 mL One or more dose reduction techniques were used (e.g., Automated exposure control, adjustment of the mA and/or kV according to patient size, use of iterative reconstruction technique). RADIATION DOSE SUMMARY: CTDlvol: 20.72 mGy DLP: 754.64 mGycm COMPARISON: None. FINDINGS: Aortic Arch: Normal size and branching pattern. No significant atherosclerotic plaque. Brachiocephalic and Subclavians: Unremarkable RIGHT Carotid: Right CCA: Unremarkable. Right ICA: Unremarkable. Right ECA: Unremarkable. LEFT Carotid: Left CCA: Unremarkable. Left ICA: Unremarkable. Left ECA: Unremarkable. Vertebrals: Codominant. Arise from the subclavians. Both vertebrals form the basilar. RIGHT Vertebral: Unremarkable. LEFT Vertebral: Unremarkable. Anatomy: [place] anatomy is normal. Aneurysm or avm: No intracranial aneurysms or large vascular malformations are identified. Anterior cerebral arteries: Unremarkable: Middle cerebral arteries: Unremarkable. Basilar artery: Unremarkable. Posterior cerebral arteries: Unremarkable. Other major branches of the posterior circulation: Unremarkable. Major venous structures: Unremarkable. Other findings: Neck: No lymphadenopathy. Lungs: Lung apices are clear. Bones: Bones are unremarkable. CT/STROKE CTA Head AND Neck W/Con IMPRESSION: No significant stenosis in the head and neck. No aneurysm or vascular malformation. Reading Location: [facility] CC: Dr. Christi Quigley MD; Perla Yee DO Industrial Design Engineer: Signed Normal [facility] Serum creatinine measurement (mass/volume)Ordered By: Christi Quigley on 03-08-2025 Creatinine [Mass/Vol] 1.18 mg/dL 0.70-1.20 [facility] Serum glucose measurement (m ass/volume)Ordered By: Christi Quigley on 03-08-2025 Glucose [Mass/Vol] 174 mg/dL High 70-99 [facility] Serum or plasma calcium david urement (mass/volume)Ordered By: Christi Quigley on 03-08-2025 Calcium [Mass/Vol] 9.0 mg/dL 7.6-11.0 [facility] Serum or plasma urea nitroge n measurement (mass/volume)Ordered By: Christi Quigley on 03-08-2025 Urea nitrogen [Mass/Vol] 21 mg/dL High 4-19 [facility] Sodium levelOrdered By: Agustin Quigley on 03-08-2025 Sodium [Moles/Vol] 137 mmol/L 133-145 [facility] Squamous epithelial cells de tection in urine sediment by light microscopyOrdered By: Christi Quigley on 03-08-2025 Epithelial cells.squamous LM Ql (Urine sed) 0 SEEN /hpf 0-5 [facility] Troponin T HS 2 HRon 025 Trop T High Sen 34 ng/L High <=22 [facility] Comment on above: Performed By: #### L 501.5425, L500.2500, L100.0100 #### [facility] Laboratory [address] [place], [place], [id number] Troponin T HS 4 HRon 025 Trop T High Sen 30 ng/L High <=22 [facility] Comment on above: Order Comment: SOPHIA E WENT TO DRAW TROP, BUT PATIENT WAS STILL IN ER. ICALLED ER AND ASKED THEM TO DRAW MR. GRANT'S TROP. GOT ACALL FROM U THAT TROP WAS LATE. ER DID NOT DRAW OR LET MEKNOW THAT THEY DID NOT DRAW PT Performed By: #### L 501.080 #### [facility] Laboratory [address] [place], [place], [id number] Troponin T.cardiac [Mass/vol ume] in Serum or Plasma by High sensitivity methodOrdered By: Christi Quigley on 03-08-2025 Troponin T.cardiac High sensitivity method [Mass/Vol] 30 ng/L High <22 [facility] Troponin T.cardiac High sensitivity method [Mass/Vol] 34 ng/L High <22 [facility] Troponin T.cardiac High sensitivity method [Mass/Vol] 36 ng/L High <22 [facility] Urinalysis, Completeon 03-08 YEAST 1+ /hpf Normal None Seen [facility] Comment on above: Order Comment: COLLE CTOR TO SPECIFY Performed By: #### L 400.0001 #### [facility] Laboratory [address] [place], [address] Urine clarityOrdered By: Susan Quigley on 03-08-2025 Clarity (U) Clear Clear [facility] Urine color determinationOrd ered By: Christi Quigley on 03-08-2025 Color (U) Yellow Yellow [facility] Urine glucose detectionOrder ed By: Christi Quigley on 03-08-2025 Glucose Ql (U) 100 mg/dl High Normal [facility] Urine leukocyte esterase det ection by dipstickOrdered By: Christi Quigley on 03-08-2025 Leukocyte esterase Test strip Ql (U) Negative Negative [facility] Urine pHOrdered By: Christi cruz on 03-08-2025 pH (U) 7.0 [pH] 5.0 - 8.0 [facility] Urine sediment bacteria coun t by microscopy (number/high power field)Ordered By: Christi Quigley on 03-08-2025 Bacteria LM.HPF (Urine sed) [#/Area] 0 /[HPF] None Seen [facility] Urine sediment yeast count b y microscopy (number/high powered field)Ordered By: Christi Quigley on 03-08-2025 Yeast LM.HPF (Urine sed) [#/Area] 1 /[HPF] None Seen [facility] Urine specific gravity measu rementOrdered By: Christi Quigley on 03-08-2025 Specific gravity (U) [Rel density] 1.005 1.002-1.030 [facility] Urine urobilinogen measureme ntOrdered By: Christi Quigley on 03-08-2025 Urobilinogen Ql (U) Normal mg/dl Normal [facility] White blood cell (WBC) count Ordered By: Christi Quigley on 03-08-2025 WBC (Bld) [#/Vol] 11.6 10*3/uL High 4.4-11.0 [facility] Comment on above: Performed By: #### L 501.5425, L500.2500, L100.0100 #### [facility] Laboratory [address] [place], [place], [address] White blood cell countOrdere d By: Christi Quigley on 03-08-2025 White blood cell count 0-5 SEEN /hpf 0-5 [facility] Comment on above: Previous reported re sult: 0 SEEN /hpfEdited by: MINNIE on 03/08/25:1313 AMENDED REPORT 03/08/25 1313 WBC previously reported as: 0 SEEN /hpf Brain/Head without Contrasto n 03-07-2025 Brain/Head without Contrast [facility] Imaging Services [address] [place], [place] [address] Brain/Head without Contrast MR#: [id number] Acct: [id number] Name: JEAN PIERRE GRANT Rep #: [id number] : 1960 M 64 From: Can Bello PCP: Perla Yee DO Status: REG CLI Study: Brain/Head without Contrast Date of Exam: 03/24 Exam# [id number] Ordering Dr: Agustin Mitchell MD PROCEDURE: BRAIN/HEAD WITHOUT CONTRAST 03/07/2025 REASON FOR EXAM: OTHER ABNORMALITIES OF GAIT AND MOBILITY headache and dizziness. Vision changes. TECHNIQUE: BRAIN/HEAD WITHOUT CONTRAST Coronal and Sagittal reconstruction series were provided. One or more dose reduction techniques were used (e.g., Automated exposure control, adjustment of the mA and/or kV according to patient size, use of iterative reconstruction technique. RADIATION DOSE SUMMARY: CTDlvol: 49.45 mGy DLP: 895.98 mGycm COMPARISON: None. FINDINGS: Brain: Biep-bf-wsogpzmb bilateral cerebral white matter changes are seen, sxxn-rgntlfv-qtbx-right, most consistent with chronic ischemic changes of small-vessel disease. No intracranial hemorrhage, mass, or mass effect is seen. No extra-axial fluid collection is noted. No orbital pathology is seen. CSF Spaces: Within normal limits for age. Sinuses/Mastoids: Clear at visualized levels Bones: Innumerable small lytic lesions are seen throughout the skull. Differential diagnosis includes multiple myeloma, metastatic disease, and other causes. CT/Brain/Head without Contrast IMPRESSION: 1. Innumerable small lytic lesions are seen throughout the skull. Differential diagnosis includes multiple myeloma, metastatic disease, and other causes. 2. No acute intracranial process is seen. 3. Omgg-jn-aczoyiac bilateral cerebral white matter changes are seen, uvzh-fsvvxbg-ndel-right, most consistent with chronic ischemic changes of small-vessel disease. Reading Location: [place] [address] CC: Dr. Agustin Mitchell MD; Perla Yee DO Industrial Design Engineer: Signed Normal [facility] Low Dose CT Lung Screeningon 03-07-[address] Lung Screening [facility] Imaging Services [address] [place] [id number] Lung Screening MR#: [id number] Acct: [id number] Name: JEAN PIERRE GRANT Rep #: [id number] : 1960 M 64 From: Jordin rubin MD PCP: Perla Yee DO Status: REG CLI Study: Low Dose CT Lung Screening Date of Exam: 03/07 Exam# [id number] Ordering Dr: Chidi Diallo DO PROCEDURE: LOW DOSE CT LUNG SCREENING 03/07/2025 REASON FOR EXAM: H/O TOBACCO DEPENDENCY Patient has smoked for 51 years. TECHNIQUE: LOW DOSE CT LUNG SCREENING Coronal and Sagittal reconstruction series were provided. One or more dose reduction techniques were used (e.g., Automated exposure control, adjustment of the mA and/or kV according to patient size, use of iterative reconstruction technique). REFERENCE LINK: [employer] Lung-RADS RADIATION DOSE SUMMARY: CTDlvol: 24.5 mGy DLP: 895.98 mGycm COMPARISON: Prior study dated November 20, 2023. FINDINGS: PULMONARY NODULES: (Only nodules >3mm are reported) Nodules described below are on series 1 unless otherwise specified. Pulmonary Nodules: There is a new 7.9 mm noncalcified nodule in the posterior aspect of the left upper lobe abutting the left major fissure. This is best seen on axial image number 104 linear streaky density is seen anterior to it. Hardware:None Lymph Nodes:No suspicious lymph nodes are seen. Heart and Vasculature:The heart is nonenlarged.Atherosclerotic calcifications of the thoracic aorta. Thoracic aorta and pulmonary arteries have normal contours; noncontrast technique limits evaluation. Coronary Artery Calcifications: Present Lungs and Airways: No significant emphysematous changes are seen. No focal infiltrate Pleura:Unremarkable Upper Abdomen:Unremarkable Bones:Degenerative changes of the thoracic spine. CT/Low Dose CT Lung Screening IMPRESSION: There is a new 7.9 mm noncalcified nodule in the posterior aspect of the left upper lobe abutting the left major fissure. Study is seen anterior to. Correlation with a PET scan ended. Coronary artery calcification (CAC) is is present Lung-RADS Category: 4B VERY SUSPICIOUS. RECOMMEND DIAGNOSTIC CHEST CT; PET/CT MAY BE CONSIDERED IF >=8MM SOLID NODULE OR SOLID COMPONENT; TISSUE SAMPLING; AND/OR REFERRAL FOR CLINICAL EVALUATION. IF AIRWAY NODULE THEN REFER FOR CLINICAL EVALUATION Other Significant Findings: Reading Location: [id number] CC: Dr. Chidi Diallo, DO; Perla Yee DO Industrial Design Engineer: Signed Normal [facility] Microalb:Creat Ratio,Random URon 02-27-2025 Creatinine [Mass/Vol] 52.70 mg/dL Normal 39.00-259.00 [facility] Comment on above: Performed By: #### L 502.0250 #### [facility] Laboratory [address] [place], [place], [id number] MALB:CREAT 90.7 mg/g CRE High <30 mg/g CRE [facility] Comment on above: Performed By: #### L 502.0250 #### [facility] Laboratory [address] [place], [place], [id number] MICROALBUMIN,UR 47.8 mg/L Normal <20 mg/L [facility] Comment on above: Performed By: #### L 502.0250 #### [facility] [address] [place], [place], [id number] Random urine creatinine david urement (mass/volume)Ordered By: Agustin Mitchell on 02-27-2025 Creatinine Unsp time (U) [Mass/Vol] 52.70 mg/dL 39.00-259.00 [facility] Urine albumin measurement wi th detection limit of 20 mg/L or less (mass/volume)Ordered By: Agustin Mitchell on 02-27-2025 Albumin DL <= 20 mg/L (U) [Mass/Vol] 47.8 mg/L <20 mg/L [facility] Anion gap in Serum or Plasma Ordered By: Agustin Mitchell on 02-26-2025 Anion gap [Moles/Vol] 12 mmol/L - [facility] Comment on above: Previous reported re sult: 13 Edited by: JARRETT on 02/26/25:1722 AMENDED REPORT 02/26/251721 GAP previously reported as: 13 BUN/creatinine ratioOrdered By: Agustin Mitchell on 02-26-2025 Urea nitrogen/Creatinine [Mass ratio] 15.2 mg/mg - [facility] Comment on above: Previous reported re sult: 14.7 RATIOEdited by: JARRETT on 02/26/25:1722 AMENDED REPORT 02/26/25 172 BUN/CRE previously reported as: 14.7 RATIO Bilirubin, totalOrdered By: Agustin Mitchell on 02-26-2025 Bilirubin [Mass/Vol] 0.30 mg/dL 0.00-1.30 [facility] CRPon 02-26-2025 C-REACTIVE PROT 5.08 mg/L High 0.0-3.0 [facility] Comment on above: Performed By: #### L 501.5416, L500.2500, L100.0100 #### [facility] Laboratory [address] [place], [place], [id number] Carbon dioxide, total [Moles /volume] in Central venous bloodOrdered By: Agustin Mitchell on 02-26-2025 CO2 [Moles/Vol] 22.4 mmol/L 21.0-32.0 [facility] Comment on above: Previous reported re sult: 21.3 mmol/LEdited by: AUTOINS on 02/26/25:1722 AMENDED REPORT 02/26/251721 CO2 previously reported as: 21.3 mmol/L Chloride assayOrdered By: Viet Mitchell on 02-26-2025 Chloride [Moles/Vol] 101 mmol/L 98-108 [facility] Comprehensive Metabolic Prof ilon 02-26-2025 Albumin [Mass/Vol] 4.2 g/dL Normal 3.4-4.8 [facility] Comment on above: Result Comment: AMENDED REPORT 02/26/251721 ALB previously reported as: 4.0 g/dL Performed By: #### L 501.5425, L500.2500, L100.0100 #### [facility] [address] [place], [address] Albumin/Globulin [Mass ratio] 1.8 {ratio} Normal 0.9-2.4 [facility] Comment on above: Result Comment: AMENDED REPORT 02/26/251721 A/G previously reported as: 1.4 RATIO Performed By: #### L 501.5425, L500.2500, L100.0100 #### [facility] [address] [place], [address] ALK PHOS 89 U/L Normal 40-129 [facility] Comment on above: Result Comment: AMENDED REPORT 02/26/251721 ALK P previously reported as: 85 U/L Performed By: #### L 501.5425, L500.2500, L100.0100 #### [facility] [address] [place], [address] ALT [Catalytic activity/Vol] 19 U/L Normal <=46 [facility] Comment on above: Result Comment: AMENDED REPORT 02/26/251721 ALT previously reported as: 16 U/L Performed By: #### L 501.5425, L500.2500, L100.0100 #### [facility] [address] [place], [address] AST [Catalytic activity/Vol] 15 U/L Normal <=37 [facility] Comment on above: Result Comment: AMENDED REPORT 02/26/251721 AST previously reported as: 16 U/L Performed By: #### L 501.5425, L500.2500, L100.0100 #### [facility] [address] [place], [address] Bilirubin [Mass/Vol] 0.30 mg/dL Normal 0.00-1.30 [facility] Comment on above: Performed By: #### L 501.5425, L500.2500, L100.0100 #### [facility] [address] [place], [address] BUN/CRE 15.2 RATIO Normal 10-20 [facility] Comment on above: Result Comment: AMENDED REPORT 02/26/251721 BUN/CRE previously reported as: 14.7 RATIO Performed By: #### L 501.5425, L500.2500, L100.0100 #### [facility] [address] [place], [address] Calcium [Mass/Vol] 9.5 mg/dL Normal 7.6-11.0 [facility] Comment on above: Result Comment: AMENDED REPORT 02/26/251721 CA previously reported as: 9.4 mg/dL Performed By: #### L 501.5425, L500.2500, L100.0100 #### [facility] [address] [place], [address] Chloride [Moles/Vol] 101 mmol/L Normal 98-108 [facility] Comment on above: Performed By: #### L 501.5425, L500.2500, L100.0100 #### [facility] [address] [place], [address] CO2 [Moles/Vol] 22.4 mmol/L Normal 21.0-32.0 [facility] Comment on above: Result Comment: AMENDED REPORT 02/26/251721 CO2 previously reported as: 21.3 mmol/L Performed By: #### L 501.5425, L500.2500, L100.0100 #### [facility] [address] [place], [address] Creatinine [Mass/Vol] 0.99 mg/dL Normal 0.70-1.20 [facility] Comment on above: Result Comment: AMENDED REPORT 02/26/251721 CREAT,SERUM previously reported as: 1.01 mg/dL Performed By: #### L 501.5425, L500.2500, L100.0100 #### [facility] [address] [place], [address] GAP 12 Normal 5-15 [facility] Comment on above: Result Comment: AMENDED REPORT 02/26/251721 GAP previously reported as: 13 Performed By: #### L 501.5425, L500.2500, L100.0100 #### [facility] [address] [place], [address] Globulin (S) [Mass/Vol] 2.3 g/dL Normal 2.2-4.2 [facility] Comment on above: Result Comment: AMENDED REPORT 02/26/251721 GLOB previously reported as: 2.9 g/dL Performed By: #### L 501.5425, L500.2500, L100.0100 #### [facility] [address] [place], [address] Glucose [Mass/Vol] 256 mg/dL High 70-99 [facility] Comment on above: Performed By: #### L 501.5425, L500.2500, L100.0100 #### [facility] [address] [place], [address] Potassium [Moles/Vol] 4.6 mmol/L Normal 3.3-5.1 [facility] Comment on above: Result Comment: AMENDED REPORT 02/26/251721 K previously reported as: 4.4 mmol/L Performed By: #### L 501.5425, L500.2500, L100.0100 #### [facility] [address] [place], [address] Sodium [Moles/Vol] 136 mmol/L Normal 133-145 [facility] Comment on above: Result Comment: AMENDED REPORT 02/26/251721 NA previously reported as: 135 mmol/L Performed By: #### L 501.5425, L500.2500, L100.0100 #### [facility] [address] [place], [address] T PROT 6.5 g/dL Normal 5.9-8.4 [facility] Comment on above: Result Comment: AMENDED REPORT 02/26/251721 T PROT previously reported as: 6.9 g/dL Performed By: #### L 501.5425, L500.2500, L100.0100 #### [facility] [address] [place], [address] Urea nitrogen [Mass/Vol] 15 mg/dL Normal 4-19 [facility] Comment on above: Performed By: #### L 501.5425, L500.2500, L100.0100 #### [facility] [address] [place], [address] Erythrocyte Sed Rateon 02-26 SED RATE 21 mm/hr High 0-20 [facility] Comment on above: Performed By: #### L 501.5425, L500.2500, L100.0100 #### [facility] [address] [place], [address] Erythrocyte sedimentation ra teOrdered By: Agustin Mitchell on 02-26-2025 ESR (Bld) [Velocity] 21 mm/h High 0-20 [facility] Folate [Mass/volume] in Seru m or PlasmaOrdered By: Agustin Mitchell on 02-26-2025 Folate [Mass/Vol] 7.80 ng/mL 4.60-34.80 [facility] Folates,Serum (Folic Acid)on 02-26-2025 FOLATES,SERUM 7.80 ng/mL Normal 4.60-34.80 [facility] Comment on above: Order Comment: N Performed By: #### L 501.5425, L500.2500, L100.0100 #### [facility] [address] [place], [place], [id number] Glomerular filtration rate ( GFR) estimation/1.73 sq m using serum, plasma, or whole bOrdered By: Agustin Mitchell on 02-26-2025 GFR/1.73 sq M.predicted among non-blacks MDRD (S/P/Bld) [Vol rate/Area] 84 mL/min/{1.73_m2} >60 [facility] Comment on above: mL/min/1.73m2 CKD-EP I Creatinine Equation (2020) Hemoglobin A1con 02-26-2025 HbA1c (Bld) [Mass fraction] 10.8 % High <=5.6 [facility] Comment on above: Result Comment: Norm al < 5.7 % Prediabetic 5.7 - 6.4 % Diabetic >or= 6.5 % Please note range changes. Performed By: #### L 501.5425, L500.2500, L100.0100 #### [facility] [address] [place], [place], [id number] Hemoglobin A1c percentageOrd ered By: Agustin Mitchell on 02-26-2025 HbA1c (Bld) [Mass fraction] 10.8 % High <5.7 [facility] Comment on above: Normal < 5.7 % Predi abetic 5.7 - 6.4 % Diabetic >or= 6.5 % Please note range changes. Laboratory - Chemistry and C hemistry - challengeOrdered By: Agustin Mitchell on 02-26-2025 AST [Catalytic activity/Vol] 15 U/L <38 [facility] Comment on above: Previous reported re sult: 16 U/LEdited by: JARRETT on 02/26/25:1722 AMENDED REPORT 02/26/25 172 AST previously reported as: 16 U/L Microalb:Creat Ratio,Random URon 02-26-2025 MALB:CREAT Normal <30 mg/g CRE [facility] Comment on above: Result Comment: UTO. CUP GIVEN TO PATIENT TO BRING BACK. ORDER LAB FUTURED Performed By: #### L 501.5425, L500.2500, L100.0100 #### [facility] [address] [place], [address] MICROALBUMIN,UR Normal <20 mg/L [facility] Comment on above: Result Comment: UTO. CUP GIVEN TO PATIENT TO BRING BACK. ORDER LAB FUTURED Performed By: #### L 501.5425, L500.2500, L100.0100 #### [facility] [address] [place], [address] UR CREAT Normal 39.00-259.00 [facility] Comment on above: Result Comment: UTO. CUP GIVEN TO PATIENT TO BRING BACK. ORDER LAB FUTURED Performed By: #### L 501.5425, L500.2500, L100.0100 #### [facility] [address] [place], [address] Osmolality, Serumon 02-27-20 25 OSMOLALITY,SER 308 mOsm/KG High 280-301 [facility] [facility] Comment on above: Performed By: #### L 501.5425, L500.2500, L100.0100 #### [facility] [address] [place], [address] Potassium measurement (mass/ volume)Ordered By: Agustin Mitchell on 02-26-2025 Potassium (Unsp spec) [Mass/Vol] 4.6 mmol/L 3.3-5.1 [facility] Comment on above: Previous reported re sult: 4.4 mmol/LEdited by: JARRETT on 02/26/25:1722 AMENDED REPORT 02/26/251721 K previously reported as: 4.4 mmol/L Serum creatinine measurement (mass/volume)Ordered By: Agustin Mitchell on 02-26-2025 Creatinine [Mass/Vol] 0.99 mg/dL 0.70-1.20 [facility] Comment on above: Previous reported re sult: 1.01 mg/dLEdited by: JARRETT on 02/26/25:1722 AMENDED REPORT 02/26/251721 CREAT,SERUM previously reported as: 1.01 mg/dL Serum globulin measurementOr dered By: Agustin Mitchell on 02-26-2025 Globulin (S) [Mass/Vol] 2.3 g/dL 2.2-4.2 [facility] Comment on above: Previous reported re sult: 2.9 g/dLEdited by: JARRETT on 02/26/25:1722 AMENDED REPORT 02/26/251721 GLOB previously reported as: 2.9 g/dL Serum glucose measurement (m ass/volume)Ordered By: Agustin Mitchell on 02-26-2025 Glucose [Mass/Vol] 256 mg/dL High 70-99 [facility] Serum or plasma C reactive p rotein measurement (mass/volume)Ordered By: Agustin Mitchell on 02-26-2025 CRP [Mass/Vol] 5.08 mg/L High 0.0-3.0 [facility] Serum or plasma alanine randhawa otransferase (ALT) measurementOrdered By: Agustin Mitchell on 02-26-2025 ALT [Catalytic activity/Vol] 19 U/L <47 [facility] Comment on above: Previous reported re sult: 16 U/LEdited by: JARRETT on 02/26/25:1722 AMENDED REPORT 02/26/251721 ALT previously reported as: 16 U/L Serum or plasma albumin david urement (mass/volume)Ordered By: Agustin Mitchell on 02-26-2025 Albumin [Mass/Vol] 4.2 g/dL 3.4-4.8 [facility] Comment on above: Previous reported re sult: 4.0 g/dLEdited by: JARRETT on 02/26/25:1722 AMENDED REPORT 02/26/251721 ALB previously reported as: 4.0 g/dL Serum or plasma albumin/glob ulin mass ratioOrdered By: Agustin Mitchell on 02-26-2025 Albumin/Globulin [Mass ratio] 1.8 {ratio} 0.9-2.4 [facility] Comment on above: Previous reported re sult: 1.4 RATIOEdited by: JARRETT on 02/26/25:1722 AMENDED REPORT 02/26/251721 A/G previously reported as: 1.4 RATIO Serum or plasma alkaline alexia sphatase measurementOrdered By: Agustin Mitchell on 02-26-2025 ALP [Catalytic activity/Vol] 89 U/L 40-129 [facility] Comment on above: Previous reported re sult: 85 U/LEdited by: JARRETT on 02/26/25:1722 AMENDED REPORT 02/26/251721 ALK P previously reported as: 85 U/L Serum or plasma calcium david urement (mass/volume)Ordered By: Agustin Mitchell on 02-26-2025 Calcium [Mass/Vol] 9.5 mg/dL 7.6-11.0 [facility] Comment on above: Previous reported re sult: 9.4 mg/dLEdited by: JARRETT on 02/26/25:1722 AMENDED REPORT 02/26/251721 CA previously reported as: 9.4 mg/dL Serum or plasma urea nitroge n measurement (mass/volume)Ordered By: Agustin Mitchell on 02-26-2025 Urea nitrogen [Mass/Vol] 15 mg/dL 4-19 [facility] Sodium levelOrdered By: Agustin Mitchell on 02-26-2025 Sodium [Moles/Vol] 136 mmol/L 133-145 [facility] Comment on above: Previous reported re sult: 135 mmol/LEdited by: JARRETT on 02/26/25:1722 AMENDED REPORT 02/26/251721 NA previously reported as: 135 mmol/L Syphilis Antibodieson 2024 Syphilis Abs Non-Reactive Normal Nonreactive [facility] Comment on above: Performed By: #### L 501.5425, L500.2500, L100.0100 #### [facility] [address] [place], [address] TSH DL <= 0.005 mIU/L QnOrde red By: Agustin Mitchell on 02-26-2025 TSH Qn 0.837 uIU/mL 0.300-4.200 [facility] Comment on above: Previous reported re sult: 0.827 uIU/mLEdited by: AUTOINS on 02/26/25:1722 AMENDED REPORT 02/26/251721 TSH previously reported as: 0.827 uIU/mL Thyroid Stim Hormone (TSH)on 02-26-2025 TSH 0.837 uIU/mL Normal 0.300-4.200 [facility] Comment on above: Result Comment: AMENDED REPORT 02/26/25 172 TSH previously reported as: 0.827 uIU/mL Performed By: #### L 501.5425, L500.2500, L100.0100 #### [facility] [address] [place], [address] Total proteinOrdered By: Susan Mitchell on 02-26-2025 Protein [Mass/Vol] 6.5 g/dL 5.9-8.4 [facility] Comment on above: Previous reported re sult: 6.9 g/dLEdited by: AUTOINS on 02/26/25:1722 AMENDED REPORT 02/26/251721 T PROT previously reported as: 6.9 g/dL Vitamin B12on 02-26-2025 Cobalamin (Vitamin B12) [Mass/Vol] 630 pg/mL Normal 180-914 [facility] Comment on above: Performed By: #### L 501.5425, L500.2500, L100.0100 #### [facility] [address] [place], [address] Vitamin B12 ser/plasOrdered By: Agustin Mitchell on 02-26-2025 Cobalamin (Vitamin B12) [Mass/Vol] 630 pg/mL [id number] [facility] Pulmonary Visit Reporton Pulmonary Visit Report [facility] [place] [address] [place] [address] OFFICE VISIT Date of Service: 02/25/25 MR#: [id number] Acct: [id number] Name: JEAN PIERRE GRANT Rep #: [id number] : 1960 Provider: Dr. 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 He does not currently keep any animals as pets in his home environment. He does believe that at one point in the distant past he was evaluated by a signal person and possibly had PFTs completed. His main [...] for BRITTANY chronic cough Chief Complaint: [employer] Lay Out Worker Required: No DME Vendor: N/a Accompanied by: [...] 06/13/22 0 (more content not included)... Normal [facility] CBC W/Diff, Automatedon 05-31 Absolute Lymph 2.20 X10 3/uL Normal 0.83-4.51 [facility] Comment on above: Performed By: #### L 501.5425, L500.2500, L100.0100 #### [facility] [address] [place], [address] Absolute Neut 4.9 X10 3/uL Normal 2.0-7.7 [facility] Comment on above: Performed By: #### L 501.5425, L500.2500, L100.0100 #### [facility] [address] [place], [address] Basophils/100 WBC (Bld) 0.5 % Normal 0-1 [facility] Comment on above: Performed By: #### L 501.5425, L500.2500, L100.0100 #### [facility] [address] [place], [address] Eosinophils/100 WBC (Bld) 1.8 % Normal 0-5 [facility] Comment on above: Performed By: #### L 501.5425, L500.2500, L100.0100 #### [facility] [address] [place], [address] Erythrocyte distribution width (RBC) [Ratio] 13.2 % Normal 11.6-14.6 [facility] Comment on above: Performed By: #### L 501.5425, L500.2500, L100.0100 #### [facility] [address] [place], [address] Hematocrit (Bld) [Volume fraction] 41.0 % Normal 40-54 [facility] Comment on above: Performed By: #### L 501.5425, L500.2500, L100.0100 #### [facility] [address] [place], [address] Hemoglobin (Bld) [Mass/Vol] 13.1 g/dL Normal 13.0-16.5 [facility] Comment on above: Performed By: #### L 501.5425, L500.2500, L100.0100 #### [facility] [address] [place], [address] IG% 0.200 Normal 0.0-0.9 [facility] Comment on above: Result Comment: IG% - Immature Granulocytes (promyelocytes, myelocytes and metamyelocytes) > 1% indicates that a LEFT SHIFT is Present. Performed By: #### L 501.5425, L500.2500, L100.0100 #### [facility] [address] [place], [address] Lymphocytes/100 WBC (Bld) 27.0 % Normal 19-41 [facility] Comment on above: Performed By: #### L 501.5425, L500.2500, L100.0100 #### [facility] [address] [place], [address] MCH (RBC) [Entitic mass] 27.7 pg Normal 27.0-32.0 [facility] Comment on above: Performed By: #### L 501.5425, L500.2500, L100.0100 #### [facility] [address] [place], [address] MCHC (RBC) [Mass/Vol] 32.0 g/dL Normal 32-36 [facility] Comment on above: Performed By: #### L 501.5425, L500.2500, L100.0100 #### [facility] [address] [place], [address] MCV (RBC) [Entitic vol] 86.7 fL Normal 80-94 [facility] Comment on above: Performed By: #### L 501.5425, L500.2500, L100.0100 #### [facility] [address] [place], [address] Monocytes/100 WBC (Bld) 10.3 % High 0-10 [facility] Comment on above: Performed By: #### L 501.5425, L500.2500, L100.0100 #### [facility] [address] [place], [address] Neutrophils/100 WBC (Bld) 60.2 % Normal 47-70 [facility] Comment on above: Performed By: #### L 501.5425, L500.2500, L100.0100 #### [facility] [address] [place], [address] Nucleated RBC (Bld) [#/Vol] 0 10*3/uL Normal 0-5 [facility] Comment on above: Performed By: #### L 501.5425, L500.2500, L100.0100 #### [facility] [address] [place], [address] Platelet mean volume (Bld) [Entitic vol] 10.7 fL Normal 6.2-12.0 [facility] Comment on above: Performed By: #### L 501.5425, L500.2500, L100.0100 #### [facility] [address] [place], [address] Platelets (Bld) [#/Vol] 252 10*3/uL Normal 150-450 [facility] Comment on above: Performed By: #### L 501.5425, L500.2500, L100.0100 #### [facility] [address] [place], [address] RBC (Bld) [#/Vol] 4.73 10*6/uL Normal 4.6-6.2 [facility] Comment on above: Performed By: #### L 501.5425, L500.2500, L100.0100 #### [facility] [address] [place], [address] RDW SD 42.1 fl Normal 35.1-43.9 [facility] Comment on above: Performed By: #### L 501.5425, L500.2500, L100.0100 #### [facility] [address] [place], [address] WBC (Bld) [#/Vol] 8.1 10*3/uL Normal 4.4-11.0 [facility] Comment on above: Performed By: #### L 501.5425, L500.2500, L100.0100 #### [facility] [address] [place], [address] Comprehensive Metabolic Prof [facility] 06-18-2024 Albumin [Mass/Vol] 3.8 g/dL Normal 3.2-5.0 [facility] Comment on above: Performed By: #### L 501.5425, L500.2500, L100.0100 #### [facility] [address] [place], [address] Albumin/Globulin [Mass ratio] 0.9 {ratio} Normal 0.9-2.4 [facility] Comment on above: Performed By: #### L 501.5425, L500.2500, L100.0100 #### [facility] [address] [place], [address] ALK P 119 U/L High 45-117 [facility] Comment on above: Performed By: #### L 501.5425, L500.2500, L100.0100 #### [facility] [address] [place], [address] ALT [Catalytic activity/Vol] 55 U/L Normal 16-61 [facility] Comment on above: Performed By: #### L 501.5425, L500.2500, L100.0100 #### [facility] [address] [place], [address] AST [Catalytic activity/Vol] 29 U/L Normal 15-37 [facility] Comment on above: Performed By: #### L 501.5425, L500.2500, L100.0100 #### [facility] [address] [place], [address] Bilirubin [Mass/Vol] 0.40 mg/dL Normal 0.20-1.00 [facility] Comment on above: Result Comment: For patients on eltrombopag therapy, use of Dimension [place] TBIL is not recommended. Performed By: #### L 501.5425, L500.2500, L100.0100 #### [facility] [address] [place], [address] BUN/CRE 13.9 RATIO Normal 10-20 [facility] Comment on above: Performed By: #### L 501.5425, L500.2500, L100.0100 #### [facility] [address] [place], [address] CA,Total 9.3 mg/dL Normal 8.5-10.1 [facility] Comment on above: Performed By: #### L 501.5425, L500.2500, L100.0100 #### [facility] [address] [place], [address] Chloride [Moles/Vol] 104 mmol/L Normal 98-107 [facility] Comment on above: Performed By: #### L 501.5425, L500.2500, L100.0100 #### [facility] [address] [place], [address] CO2 [Moles/Vol] 24.0 mmol/L Normal 21.0-32.0 [facility] Comment on above: Performed By: #### L 501.5425, L500.2500, L100.0100 #### [facility] [address] [place], [address] Creatinine [Mass/Vol] 1.08 mg/dL Normal 0.70-1.30 [facility] Comment on above: Result Comment: The validity of the calculated GFR GFRAA in patients over 70 years has not been determined. Clinical correlation is essential. Performed By: #### L 501.5425, L500.2500, L100.0100 #### [facility] [address] [place], [address] EST GFR - AA 89 mL/min Normal >60 [facility] Comment on above: Result Comment: Afri can Venezuelan GFR Calc Performed By: #### L 501.5425, L500.2500, L100.0100 #### [facility] [address] [place], [address] GAP 9 Normal 5-15 [facility] Comment on above: Performed By: #### L 501.5425, L500.2500, L100.0100 #### [facility] [address] [place], [address] GFR/1.73 sq M.predicted among non-blacks MDRD (S/P/Bld) [Vol rate/Area] 74 mL/min/{1.73_m2} Normal >60 [facility] Comment on above: Result Comment: Non- GFR Calc Performed By: #### L 501.5425, L500.2500, L100.0100 #### [facility] [address] [place], [address] Globulin (S) [Mass/Vol] 4.3 g/dL High 2.2-4.2 [facility] Comment on above: Performed By: #### L 501.5425, L500.2500, L100.0100 #### [facility] [address] [place], [address] Glucose [Mass/Vol] 101 mg/dL Normal 74-106 [facility] Comment on above: Result Comment: Fast ing Glucose result from 100 to 125 mg/dL suggests IMPAIRED HOMEOSTASIS per A.D.A. criteria. Performed By: #### L 501.5425, L500.2500, L100.0100 #### [facility] [address] [place], [address] Potassium [Moles/Vol] 4.8 mmol/L Normal 3.5-5.1 [facility] Comment on above: Performed By: #### L 501.5425, L500.2500, L100.0100 #### [facility] [address] [place], [address] Sodium [Moles/Vol] 136 mmol/L Normal 136-145 [facility] Comment on above: Performed By: #### L 501.5425, L500.2500, L100.0100 #### [facility] [address] [place], [address] T PROT 8.1 g/dL Normal 6.4-8.2 [facility] Comment on above: Performed By: #### L 501.5425, L500.2500, L100.0100 #### [facility] [address] [place], [address] Urea nitrogen [Mass/Vol] 15 mg/dL Normal 7-18 [facility] Comment on above: Performed By: #### L 501.5425, L500.2500, L100.0100 #### [facility] [address] [place], [address] Thyroid Stim Hormone (TSH)on 06-18-2024 TSH 0.702 uIU/mL Normal 0.358-3.740 [facility] Comment on above: Performed By: #### L 501.5425, L500.2500, L100.0100 #### [facility] [address] [place], [address] 12 Lead EKGon 04-08-2024 12 Lead EKG [facility] [address] [place] [address] 12 Lead EKG 04/08/24 1255 MR#: [id number] Acct: [id number] Name: JEAN PIERRE GRANT Rep #: [id number] : 1960 63 From: Arnaud Moses MD [...] ECG Confirmed by ARNAUD MOSES MD ([id number]), index editor BILL COREY ([id number]) on 04/09/2024 7:41:03 AM Referred By: SHENG/TA Confirmed By:ARNAUD MOSES MD 04/09/24 0741 Date Arnaud Moses MD CC: Dr. 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 Yee DO Signed Normal [facility] Basic Metabolic Profile (BMP )on 04-08-2024 BUN/CRE 14.2 RATIO Normal 10-20 [facility] Comment on above: Order Comment: 1 Y Performed By: #### L 501.5425, L500.2500, L100.0100 #### [facility] [address] [place], [address] CA,Total 9.6 mg/dL Normal 8.5-10.1 [facility] Comment on above: Order Comment: 1 Y Performed By: #### L 501.5425, L500.2500, L100.0100 #### [facility] [address] [place], [address] Chloride [Moles/Vol] 104 mmol/L Normal 98-107 [facility] Comment on above: Order Comment: 1 Y Performed By: #### L 501.5425, L500.2500, L100.0100 #### [facility] [address] [place], [address] CO2 [Moles/Vol] 24.0 mmol/L Normal 21.0-32.0 [facility] Comment on above: Order Comment: 1 Y Performed By: #### L 501.5425, L500.2500, L100.0100 #### [facility] [address] [place], [address] Creatinine [Mass/Vol] 1.20 mg/dL Normal 0.70-1.30 [facility] Comment on above: Order Comment: 1 Y Result Comment: The validity of the calculated GFR GFRAA in patients over 70 years has not been determined. Clinical correlation is essential. Performed By: #### L 501.5425, L500.2500, L100.0100 #### [facility] [address] [place], [address] ECRCL 60.83 ml/min Normal [facility] Comment on above: Order Comment: 1 Y Performed By: #### L 501.5425, L500.2500, L100.0100 #### [facility] [address] [place], [address] EST GFR - AA 79 mL/min Normal >60 [facility] Comment on above: Order Comment: 1 Y Result Comment: Afri can Venezuelan GFR Calc Performed By: #### L 501.5425, L500.2500, L100.0100 #### [facility] [address] [place], [address] GAP 10 Normal 5-15 [facility] Comment on above: Order Comment: 1 Y Performed By: #### L 501.5425, L500.2500, L100.0100 #### [facility] [address] [place], [address] GFR/1.73 sq M.predicted among non-blacks MDRD (S/P/Bld) [Vol rate/Area] 65 mL/min/{1.73_m2} Normal >60 [facility] Comment on above: Order Comment: 1 Y Result Comment: Non- GFR Calc Performed By: #### L 501.5425, L500.2500, L100.0100 #### [facility] [address] [place], [address] Glucose [Mass/Vol] 242 mg/dL High 74-106 [facility] Comment on above: Order Comment: 1 Y Result Comment: Gluc ose result greater than or equal to 200 mg/dL suggests DIABETES MELLITUS per A.D.A. criteria. Performed By: #### L 501.5425, L500.2500, L100.0100 #### [facility] [address] [place], [address] Potassium [Moles/Vol] 4.4 mmol/L Normal 3.5-5.1 [facility] Comment on above: Order Comment: 1 Y Performed By: #### L 501.5425, L500.2500, L100.0100 #### [facility] [address] [place], [address] Sodium [Moles/Vol] 138 mmol/L Normal 136-145 [facility] Comment on above: Order Comment: 1 Y Performed By: #### L 501.5425, L500.2500, L100.0100 #### [facility] [address] [place], [address] Urea nitrogen [Mass/Vol] 17 mg/dL Normal 7-18 [facility] Comment on above: Order Comment: 1 Y Performed By: #### L 501.5425, L500.2500, L100.0100 #### [facility] [address] [place], [address] CBC W/Diff, Automatedon 09-0 9-2023 Absolute Lymph 2.52 X10 3/uL Normal 0.83-4.51 [facility] Comment on above: Performed By: #### L 501.5425, L500.2500, L100.0100 #### [facility] [address] [place], [address] Absolute Neut 5.1 X10 3/uL Normal 2.0-7.7 [facility] Comment on above: Performed By: #### L 501.5425, L500.2500, L100.0100 #### [facility] [address] [place], [address] Basophils/100 WBC (Bld) 0.5 % Normal 0-1 [facility] Comment on above: Performed By: #### L 501.5425, L500.2500, L100.0100 #### [facility] [address], [address] Eosinophils/100 WBC (Bld) 2.5 % Normal 0-5 [facility] Comment on above: Performed By: #### L 501.5425, L500.2500, L100.0100 #### [facility] [address] [place], [address] Erythrocyte distribution width (RBC) [Ratio] 13.2 % Normal 11.6-14.6 [facility] Comment on above: Performed By: #### L 501.5425, L500.2500, L100.0100 #### [facility] [address] [place], [address] Hematocrit (Bld) [Volume fraction] 44.5 % Normal 40-54 [facility] Comment on above: Performed By: #### L 501.5425, L500.2500, L100.0100 #### [facility] [address] [place], [address] Hemoglobin (Bld) [Mass/Vol] 14.3 g/dL Normal 13.0-16.5 [facility] [facility] Comment on above: Performed By: #### L 501.5425, L500.2500, L100.0100 #### [facility] [address] [place], [address] IG% 0.400 Normal 0.0-0.9 [facility] Comment on above: Result Comment: IG% - Immature Granulocytes (promyelocytes, myelocytes and metamyelocytes) > 1% indicates that a LEFT SHIFT is Present. Performed By: #### L 501.5425, L500.2500, L100.0100 #### [facility] [address] [place], [address] Lymphocytes/100 WBC (Bld) 29.6 % Normal 19-41 [facility] Comment on above: Performed By: #### L 501.5425, L500.2500, L100.0100 #### [facility] [address] [place], [address] MCH (RBC) [Entitic mass] 28.1 pg Normal 27.0-32.0 [facility] Comment on above: Performed By: #### L 501.5425, L500.2500, L100.0100 #### [facility] [address] [place], [address] MCHC (RBC) [Mass/Vol] 32.1 g/dL Normal 32-36 [facility] Comment on above: Performed By: #### L 501.5425, L500.2500, L100.0100 #### [facility] [address] [place], [address] MCV (RBC) [Entitic vol] 87.6 fL Normal 80-94 [facility] Comment on above: Performed By: #### L 501.5425, L500.2500, L100.0100 #### [facility] [address] [place], [address] Monocytes/100 WBC (Bld) 7.6 % Normal 0-10 [facility] Comment on above: Performed By: #### L 501.5425, L500.2500, L100.0100 #### [facility] [address] [place], [address] Neutrophils/100 WBC (Bld) 59.4 % Normal 47-70 [facility] Comment on above: Performed By: #### L 501.5425, L500.2500, L100.0100 #### [facility] [address] [place], [address] Nucleated RBC (Bld) [#/Vol] 0 10*3/uL Normal 0-5 [facility] Comment on above: Performed By: #### L 501.5425, L500.2500, L100.0100 #### [facility] [address] [place], [address] Platelet mean volume (Bld) [Entitic vol] 12.5 fL High 6.2-12.0 [facility] Comment on above: Performed By: #### L 501.5425, L500.2500, L100.0100 #### [facility] [address] [place], [address] Platelets (Bld) [#/Vol] 168 10*3/uL Normal 150-450 [facility] Comment on above: Performed By: #### L 501.5425, L500.2500, L100.0100 #### [facility] [address] [place], [address] RBC (Bld) [#/Vol] 5.08 10*6/uL Normal 4.6-6.2 [facility] Comment on above: Performed By: #### L 501.5425, L500.2500, L100.0100 #### [facility] [address] [place], [address] RDW SD 42.4 fl Normal 35.1-43.9 [facility] Comment on above: Performed By: #### L 501.5425, L500.2500, L100.0100 #### [facility] [address] [place], [address] WBC (Bld) [#/Vol] 8.5 10*3/uL Normal 4.4-11.0 [facility] Comment on above: Performed By: #### L 501.5425, L500.2500, L100.0100 #### [facility] [address] [place], [address] Chest 1 View (Portable)on Chest 1 View (Portable) [facility] Imaging Services [address] [place] [address] Chest 1 View (Portable) MR#: [id number] Acct: [id number] Name: JEAN PIERRE GRANT Rep #: [id number] : 1960 M 63 From: Sam Bello PCP: Perla Yee DO Status: [facility] ER Study: Chest 1 View (Portable) Date of Exam: 04/08/24 Exam# [id number] Ordering Dr: Charlie Santana DO [id number] INDICATION: chest pain EXAMINATION/TECHNIQUE: X-RAY - XR [...] Dr. 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 Normal [facility] Emergency Department Summary on 04-08-2024 Emergency Department Summary [facility] Medical Records Department [address] [place] [id number] Emergency Department Summary 04/08/24 MR#: [id number] Acct: [id number] Name: JEAN PIERRE GRANT Rep #: [id number] : 1960 63 From: Charlie Santana DO PCP: Perla Yee DO Status:DEP ER Location: ED HPI History of Present Illness Chief Complaint: Chest Pain [facility] Medical History Presence of stent in coronary artery ( 08/08/16) Hematuria Acute urinary retention Wears glasses Insulin dependent diabetes mellitus Ambulates with cane Prostate disease High cholesterol Restless legs TIA (transient ischemic attack) Difficulty chewing History of diverticulitis Smoker History of heart attack History of echocardiogram History of stress test Cardiology follow-up encounter COPD (chronic obstructive pulmonary disease) Atherosclerosis of coronary artery of [place] heart without angina pectoris Non-ST elevation myocardial [...] PRESENT ILLNESS: 63-year-old male history of CAD, [place], COPD, type 2 diabetes, hyperlipidemia, hypertension, status post catheterization and stent placement presents with chest pain. Per triage note patient states he developed chest pain approxi-1 hour ago. It is 9/10 in severity The patient denies recent surgery in the last 4 weeks or immobilization in the last 3 days, denies previous diag (more content not included)... Normal [facility] L501.4020on 04-08-2024 TROPONIN-I HS 5 pg/mL Normal 3.0-78.0 [facility] Comment on above: Order Comment: 1 Y Result Comment: Plea se Note: New Test Units and Gender Specific Reference Ranges. For more information see Policy Stat Procedure [place] High Sensitivity Troponin (TNIH) and attachments. Performed By: #### L 501.5425, L500.2500, L100.0100 #### [facility] [address] [place], [address] L501.5425on 04-08-2024 TROPONIN-I HS 6 pg/mL Normal 3.0-78.0 [facility] Comment on above: Order Comment: 1 Y Result Comment: [place] Note: New Test Units and Gender Specific Reference Ranges. For more information see Policy Stat Procedure [place] High Sensitivity Troponin (TNIH) and attachments. Performed By: #### L 501.5418, L500.2500, L100.0100 #### [facility] [address] [place], [address] Basophil percentageOrdered B y: [facility] on 09-26-2022 Bilirubin [Mass/Vol] 0.40 mg/dL 0.20-1.00 [facility] Comment on above: For patients on eltr ombopag therapy, use of Dimension [place] TBIL is not recommended. Chloride [Moles/Vol] 105 mmol/L 98-107 [facility] Cholesterol [Mass/Vol] 93 mg/dL <200 [facility] Comment on above: <200 mg/dL Desirable 200-240 mg/dL Borderline >240 mg/dL High Risk Glucose [Mass/Vol] 289 mg/dL 74-106 [facility] Comment on above: Glucose result great er than or equal to 200 mg/dLsuggests DIABETES MELLITUS per A.D.A. criteria. Potassium [Moles/Vol] 4.6 mmol/L 3.5-5.1 [facility] Protein [Mass/Vol] 7.6 g/dL 6.4-8.2 [facility] Sodium [Moles/Vol] 136 mmol/L 136-145 [facility] Triglyceride [Mass/Vol] 198 mg/dL <199 [facility] Comment on above: The drugs N-Acetylcy steine and Metamizole may falsely depress this assay.Serum Triglycerides Reference Interval Normal <150 mg/dL Borderline high 150 - 199 mg/dL High 200 - 499 mg/dL Very High > or = 500 mg/dL WBC (Bld) [#/Vol] 8.3 10*3/uL 4.4-11.0 [facility] Blood erythrocytes count (nu mber/volume)Ordered By: [facility] on 09-26-2022 RBC (Bld) [#/Vol] 5.02 10*6/uL 4.6-6.2 [facility] Blood hemoglobin measurement (mass/volume)Ordered By: [facility] on 09-26-2022 Hemoglobin (Bld) [Mass/Vol] 13.8 g/dL 13.0-16.5 [facility] Blood platelet mean volumeOr dered By: [facility] on 09-26-2022 Platelet mean volume (Bld) [Entitic vol] 12.9 fL 6.2-12.0 [facility] Determination of erythrocyte mean corpuscular volume (MCV)Ordered By: [facility] on 09-26-2022 MCV (RBC) [Entitic vol] 87.8 fL 80-94 [facility] Hematocrit Auto (Bld) [Volum e fraction]Ordered By: [facility] on 09-26-2022 Hematocrit (Bld) [Volume fraction] 44.1 % 40-54 [facility] - Chemistry and C hemistry - challengeOrdered By: [facility] on 09-26-2022 ALP [Catalytic activity/Vol] 82 U/L 45-117 [facility] ALT [Catalytic activity/Vol] 31 U/L 16-61 [facility] CO2 [Moles/Vol] 26.0 mmol/L 21.0-32.0 [facility] Globulin (S) [Mass/Vol] 3.6 g/dL 2.2-4.2 [facility] Urea nitrogen/Creatinine [Mass ratio] 17.2 mg/mg 10-20 [facility] - Hematology and Cell countsOrdered By: [facility] on 09-26-2022 Erythrocyte distribution width (RBC) [Entitic vol] 41.6 fL 35.1-43.9 [facility] Erythrocyte distribution width (RBC) [Ratio] 12.9 % 11.6-14.6 [facility] MCH (RBC) [Entitic mass] 27.5 pg 27.0-32.0 [facility] MCHC Auto (RBC) [Mass/Vol]Or dered By: [facility] on 09-26-2022 MCHC (RBC) [Mass/Vol] 31.3 g/dL 32-36 [facility] No Panel InformationOrdered By: [facility] on 09-26-2022 Estimated GFR (MDRD) Amer 83 mL/min >60 [facility] Comment on above: GFR Calc Estimated GFR (MDRD) Non-Af Amer 68 mL/min >60 [facility] Comment on above: Non- GFR Calc Platelets bldOrdered By: ELENA CAMARA on 09-26-2022 Platelets (Bld) [#/Vol] 175 10*3/uL 150-450 [facility] Serum or plasma albumin david urement (mass/volume)Ordered By: [facility] on 09-26-2022 Albumin [Mass/Vol] 4.0 g/dL 3.2-5.0 [facility] Serum or plasma albumin/glob ulin mass ratioOrdered By: [facility] on 09-26-2022 Albumin/Globulin [Mass ratio] 1.1 {ratio} 0.9-2.4 [facility] Serum or plasma calcium david urement (mass/volume)Ordered By: [facility] on 09-26-2022 Calcium [Mass/Vol] 9.1 mg/dL 8.5-10.1 [facility] Serum or plasma cholesterol in HDL measurement (mass/volume)Ordered By: [facility] on 09-26-2022 Cholesterol in HDL [Mass/Vol] 27 mg/dL >40 [facility] Comment on above: The drugs N-Acetylcy steine and Metamizole may falsely depress this assay. Reference Range HDL <40 mg/dL Low HDL Cholesterol HDL >or= 60 mg/dL High HDL Cholesterol Serum or plasma cholesterol in VLDL measurement (mass/volume)Ordered By: [facility] on 09-26-2022 Cholesterol in VLDL [Mass/Vol] 40 mg/dL 5-40 [facility] Serum or plasma creatinine m easurement (mass/volume)Ordered By: [facility] on 09-26-2022 Creatinine [Mass/Vol] 1.16 mg/dL 0.70-1.30 [facility] Comment on above: The validity of the calculated GFR & GFRAA in patients over 70 years has not been determined. Clinical correlation is essential. Serum or plasma low density lipoprotein (LDL) cholesterol measurement (mass/volume)Ordered By: [facility] on 09-26-2022 Cholesterol in LDL [Mass/Vol] 26 mg/dL 0-130 [facility] Serum or plasma urea nitroge n measurement (mass/volume)Ordered By: [facility] on 09-26-2022 Urea nitrogen [Mass/Vol] 20 mg/dL 7-18 [facility] Thin prep Papanicolaou smear with manual screeningOrdered By: [facility] on 09-26-2022 Thin prep Papanicolaou smear with manual screening 16 U/L 15-37 [facility] Thin prep Papanicolaou smear with manual screening 5 5-15 [facility] Whole blood hemoglobin A1c/t otal hemoglobin ratio (mass fraction)Ordered By: [facility] on 09-26-2022 HbA1c (Bld) [Mass fraction] 10.8 % 3.8-5.6 [facility] Comment on above: Normal < 5.7 % Predi abetic 5.7 - 6.4 % Diabetic >or= 6.5 % Please note range changes. Culture, urineOrdered By: Dr Cuca Ayala on 09-14-2022 Bacteria identified Cx Nom (U) Culture exhibits no growth. [facility] Glucose Glucometer (BldC) [M ass/Vol]Ordered By: Dr. [place] on 08-29-2022 Glucose [Mass/Vol] 155 mg/dL 74-106 [facility] Comment on above: MANAGEMENT OF PATIEN T CARE PER NURSING PROTOCOL No Panel InformationOrdered By: Dr. Wild on 07-07-2022 Thyroid Stimulating Hormone (TSH) 0.82 uIU/mL 0.358-3.74 [facility] Stool gastrointestinal hemog lobin detection by immunologic methodOrdered By: Dr. Beaulieu on 06-22-2022 Lower GI hemoglobin IA Ql (Stl) [facility] Absolute lymphocyte countOrd ered By: ED PROVIDER on 06-13-2022 Lymphocytes Auto (Unsp spec) [#/Vol] 2.88 10*3/uL 0.83-4.51 [facility] Basophil percentageOrdered B y: ED PROVIDER on 06-13-2022 Basophil percentage 0 SEEN /hpf 0-5 [facility] Basophils/100 WBC (Bld) 0.4 % 0-1 [facility] Chloride [Moles/Vol] 102 mmol/L 98-107 [facility] Eosinophils/100 WBC (Bld) 1.6 % 0-5 [facility] Glucose [Mass/Vol] 300 mg/dL 74-106 [facility] Comment on above: Glucose result great er than or equal to 200 mg/dLsuggests DIABETES MELLITUS per A.D.A. criteria. Neutrophils (Bld) [#/Vol] 6.3 10*3/uL 2.0-7.7 [facility] Neutrophils/100 WBC (Bld) 62.2 % 47-70 [facility] Potassium [Moles/Vol] 4.5 mmol/L 3.5-5.1 [facility] Comment on above: Slight Hemolysis, Re sult may be falsely increased. Sodium [Moles/Vol] 137 mmol/L 136-145 [facility] WBC (Bld) [#/Vol] 10.2 10*3/uL 4.4-11.0 [facility] Basophil percentageOrdered B y: Dr. Sin on 06-13-2022 Bilirubin [Mass/Vol] 0.30 mg/dL 0.20-1.00 [facility] Comment on above: For patients on eltr ombopag therapy, use of Dimension [place] TBIL is not recommended. Protein [Mass/Vol] 8.0 g/dL 6.4-8.2 [facility] Bilirubin Test strip Ql (U)O rdered By: ED PROVIDER on 06-13-2022 Bilirubin Ql (U) Negative Negative [facility] Blood erythrocytes count (nu mber/volume)Ordered By: ED PROVIDER on 06-13-2022 RBC (Bld) [#/Vol] 5.01 10*6/uL 4.6-6.2 [facility] Blood hemoglobin measurement (mass/volume)Ordered By: ED PROVIDER on 06-13-2022 Hemoglobin (Bld) [Mass/Vol] 14.6 g/dL 13.0-16.5 [facility] Blood lymphocytes/100 leukoc ytesOrdered By: ED PROVIDER on 06-13-2022 Lymphocytes/100 WBC (Bld) 28.3 % 19-41 [facility] Blood monocytes/100 leukocyt esOrdered By: ED PROVIDER on 06-13-2022 Monocytes/100 WBC (Bld) 7.1 % 0-10 [facility] Blood platelet mean volumeOr dered By: ED PROVIDER on 06-13-2022 Platelet mean volume (Bld) [Entitic vol] 12.3 fL 6.2-12.0 [facility] Determination of erythrocyte mean corpuscular volume (MCV)Ordered By: ED PROVIDER on 06-13-2022 MCV (RBC) [Entitic vol] 86.0 fL 80-94 [facility] Direct bilirubinOrdered By: Dr. Sin on 06-13-2022 Bilirubin.direct [Mass/Vol] 0.13 mg/dL 0.00-0.30 [facility] Hematocrit Auto (Bld) [Volum e fraction]Ordered By: ED PROVIDER on 06-13-2022 Hematocrit (Bld) [Volume fraction] 43.1 % 40-54 [facility] Ketones Test strip Ql (U)Ord ered By: ED PROVIDER on 06-13-2022 Ketones Ql (U) 5 mg/dl Negative [facility] - Chemistry and C hemistry - challengeOrdered By: Dr. Sin on 06-13-2022 ALP [Catalytic activity/Vol] 75 U/L 45-117 [facility] ALT [Catalytic activity/Vol] 65 U/L 16-61 [facility] Globulin (S) [Mass/Vol] 3.7 g/dL 2.2-4.2 [facility] Lipase [Catalytic activity/Vol] 285 U/L 73-393 [facility] - Chemistry and C hemistry - challengeOrdered By: ED PROVIDER on 06-13-2022 CO2 [Moles/Vol] 27.0 mmol/L 21.0-32.0 [facility] Urea nitrogen/Creatinine [Mass ratio] 14.8 mg/mg 10-20 [facility] - Hematology and Cell countsOrdered By: ED PROVIDER on 06-13-2022 Erythrocyte distribution width (RBC) [Entitic vol] 41.7 fL 35.1-43.9 [facility] Erythrocyte distribution width (RBC) [Ratio] 13.4 % 11.6-14.6 [facility] Immature granulocytes/100 WBC (Bld) 0.400 % 0.0-0.9 [facility] Comment on above: IG% - Immature Granu locytes (promyelocytes, myelocytes and metamyelocytes) > 1% indicates that a LEFT SHIFT is Present. MCH (RBC) [Entitic mass] 29.1 pg 27.0-32.0 [facility] Nucleated RBC/100 WBC (Bld) [Ratio] 0 % 0-5 [facility] MCHC Auto (RBC) [Mass/Vol]Or dered By: ED PROVIDER on 06-13-2022 MCHC (RBC) [Mass/Vol] 33.9 g/dL 32-36 [facility] Mucus LM Ql (Urine sed)Order ed By: ED PROVIDER on 06-13-2022 Mucus Ql (Urine sed) 0 SEEN /hpf [facility] Nitrite Test strip Ql (U)Ord ered By: ED PROVIDER on 06-13-2022 Nitrite Ql (U) Negative Negative [facility] No Panel InformationOrdered By: ED PROVIDER on 06-13-2022 Estimated Creatinine Clearance Calc 49.33 ml/min [facility] Estimated GFR (MDRD) Amer 69 mL/min >60 [facility] Comment on above: GFR Calc Estimated GFR (MDRD) Non-Af Amer 57 mL/min >60 [facility] Comment on above: Non- GFR Calc Platelets bldOrdered By: ED PROVIDER on 06-13-2022 Platelets (Bld) [#/Vol] 167 10*3/uL 150-450 [facility] Protein Test strip Ql (U)Ord ered By: ED PROVIDER on 06-13-2022 Protein Ql (U) Negative Negative [facility] Serum or plasma albumin david urement (mass/volume)Ordered By: Dr. Sin on 06-13-2022 Albumin [Mass/Vol] 4.3 g/dL 3.2-5.0 [facility] Serum or plasma calcium david urement (mass/volume)Ordered By: ED PROVIDER on 06-13-2022 Calcium [Mass/Vol] 9.8 mg/dL 8.5-10.1 [facility] Serum or plasma creatinine m easurement (mass/volume)Ordered By: ED PROVIDER on 06-13-2022 Creatinine [Mass/Vol] 1.35 mg/dL 0.70-1.30 [facility] Comment on above: The validity of the calculated GFR & GFRAA in patients over 70 years has not been determined. Clinical correlation is essential. Serum or plasma urea nitroge n measurement (mass/volume)Ordered By: ED PROVIDER on 06-13-2022 Urea nitrogen [Mass/Vol] 20 mg/dL 7-18 [facility] Squamous epithelial cells de tection in urine sediment by light microscopyOrdered By: ED PROVIDER on 06-13-2022 Epithelial cells.squamous LM Ql (Urine sed) 0 SEEN /hpf 0-5 [facility] Thin prep Papanicolaou smear with manual screeningOrdered By: Dr. Sin on 06-13-2022 Thin prep Papanicolaou smear with manual screening 27 U/L 15-37 [facility] Comment on above: Slight Hemolysis, Re sult may be falsely increased. Thin prep Papanicolaou smear with manual screeningOrdered By: ED PROVIDER on 06-13-2022 Thin prep Papanicolaou smear with manual screening 8 5-15 [facility] Urine blood detectionOrdered By: ED PROVIDER on 06-13-2022 RBC Ql (U) Negative Negative [facility] RBC Ql (U) 0 SEEN /hpf 0-5 [facility] Urine clarityOrdered By: ED PROVIDER on 06-13-2022 Clarity (U) Clear Clear [facility] Urine color determinationOrd ered By: ED PROVIDER on 06-13-2022 Color (U) Yellow Yellow [facility] Urine glucose detectionOrder ed By: ED PROVIDER on 06-13-2022 Glucose Ql (U) 1000 mg/dl Normal [facility] Urine leukocyte esterase det ection by dipstickOrdered By: ED PROVIDER on 06-13-2022 Leukocyte esterase Test strip Ql (U) Negative Negative [facility] Urine pHOrdered By: ED PROVI LUKASZ on 06-13-2022 pH (U) 7.0 [pH] 5.0 - 8.0 [facility] Urine sediment bacteria coun t by microscopy (number/high power field)Ordered By: ED PROVIDER on 06-13-2022 Bacteria LM.HPF (Urine sed) [#/Area] 0 /[HPF] None Seen [facility] Urine specific gravity measu rementOrdered By: ED PROVIDER on 06-13-2022 Specific gravity (U) [Rel density] 1.010 1.002-1.030 [facility] Urobilinogen Auto test strip Ql (U)Ordered By: ED PROVIDER on 06-13-2022 Urobilinogen Ql (U) Normal mg/dl Normal [facility] Absolute lymphocyte counton 02-21-2022 Lymphocytes Auto (Unsp spec) [#/Vol] 2.15 10*3/uL 0.83-4.51 [facility] Work Phone: Basophil percentageon 2021 Basophils/100 WBC (Bld) 0.4 % 0-1 [facility] Work Phone: Bilirubin [Mass/Vol] 0.40 mg/dL 0.20-1.00 [facility] Work Phone: Comment on above: For patients on eltr ombopag therapy, use of Dimension [place] TBIL is not recommended. Chloride [Moles/Vol] 101 mmol/L 98-107 [facility] Work Phone: Eosinophils/100 WBC (Bld) 1.3 % 0-5 [facility] Work Phone: Glucose [Mass/Vol] 345 mg/dL 74-106 [facility] Work Phone: Comment on above: Glucose result great er than or equal to 200 mg/dLsuggests DIABETES MELLITUS per A.D.A. criteria. Lactate [Moles/Vol] 2.4 mmol/L 0.4-2.0 [facility] Work Phone: Comment on above: CRITICAL VALUE VERIF IED. CALLED TO DANIELA STEVENS RN (ER)02/21/221810 Dat Aguilar.RESULTS READ BACK BY SAME . Previous reported result: 2.4 mmol/LEdited by: CHRIS on 02/21/22:1812 AMENDED REPORT 02/21/221811 LACTIC ACID previously reported as: 2.4 *H mmol/L Neutrophils (Bld) [#/Vol] 5.3 10*3/uL 2.0-7.7 [facility] Work Phone: Neutrophils/100 WBC (Bld) 62.9 % 47-70 [facility] Work Phone: Potassium [Moles/Vol] 4.6 mmol/L 3.5-5.1 [facility] Work Phone: Protein [Mass/Vol] 7.7 g/dL 6.4-8.2 [facility] Work Phone: Sodium [Moles/Vol] 133 mmol/L 136-145 [facility] Work Phone: WBC (Bld) [#/Vol] 8.4 10*3/uL 4.4-11.0 [facility] Work Phone: Blood erythrocytes count (nu mber/volume)on 02-21-2022 RBC (Bld) [#/Vol] 4.91 10*6/uL 4.6-6.2 [facility] Work Phone: Blood hemoglobin measurement (mass/volume)on 02-21-2022 Hemoglobin (Bld) [Mass/Vol] 13.8 g/dL 13.0-16.5 [facility] Work Phone: Blood lymphocytes/100 leukoc yteson 02-21-2022 Lymphocytes/100 WBC (Bld) 25.6 % 19-41 [facility] Work Phone: Blood monocytes/100 leukocyt eson 02-21-2022 Monocytes/100 WBC (Bld) 9.3 % 0-10 [facility] Work Phone: Blood platelet mean volumeon 02-21-2022 Platelet mean volume (Bld) [Entitic vol] 12.4 fL 6.2-12.0 [facility] Work Phone: Determination of erythrocyte mean corpuscular volume (MCV)on 02-21-2022 MCV (RBC) [Entitic vol] 86.4 fL 80-94 [facility] Work Phone: Direct bilirubinon Bilirubin.direct [Mass/Vol] 0.15 mg/dL 0.00-0.30 [facility] Work Phone: Hematocrit Auto (Bld) [Volum e fraction]on 02-21-2022 Hematocrit (Bld) [Volume fraction] 42.4 % 40-54 [facility] Work Phone: Laboratory - Chemistry and C hemistry - challengeon 02-21-2022 ALP [Catalytic activity/Vol] 74 U/L 45-117 [facility] Work Phone: [phone] ALT [Catalytic activity/Vol] 38 U/L 16-61 [facility] Work Phone: CO2 [Moles/Vol] 28.0 mmol/L 21.0-32.0 [facility] Work Phone: [phone] Globulin (S) [Mass/Vol] 3.7 g/dL 2.2-4.2 [facility] Work Phone: Lipase [Catalytic activity/Vol] 81 U/L 73-393 [facility] Work Phone: [phone] Urea nitrogen/Creatinine [Mass ratio] 12.9 mg/mg 10-20 [facility] Work Phone: [phone] Laboratory - Hematology and Cell countson 02-21-2022 Erythrocyte distribution width (RBC) [Entitic vol] 40.0 fL 35.1-43.9 [facility] Work Phone: [phone] Erythrocyte distribution width (RBC) [Ratio] 12.8 % 11.6-14.6 [facility] Work Phone: [phone] Immature granulocytes/100 WBC (Bld) 0.500 % 0.0-0.9 [facility] Work Phone: [phone] Comment on above: IG% - Immature Granu locytes (promyelocytes, myelocytes and metamyelocytes) > 1% indicates that a LEFT SHIFT is Present. MCH (RBC) [Entitic mass] 28.1 pg 27.0-32.0 [facility] Work Phone: Nucleated RBC/100 WBC (Bld) [Ratio] 0 % 0-5 [facility] Work Phone: MCHC Auto (RBC) [Mass/Vol]on 02-21-2022 MCHC (RBC) [Mass/Vol] 32.5 g/dL 32-36 [facility] Work Phone: [phone] No Panel Informationon 02-21 Estimated Creatinine Clearance Calc 45.31 ml/min [facility] Work Phone: Estimated GFR (MDRD) Amer 63 mL/min >60 [facility] Work Phone: Comment on above: GFR Calc Estimated GFR (MDRD) Non-Af Amer 52 mL/min >60 [facility] Work Phone: Comment on above: Non- GFR Calc Platelets bldon 02-21-2022 Platelets (Bld) [#/Vol] 164 10*3/uL 150-450 [facility] Work Phone: Serum or plasma albumin david urement (mass/volume)on 02-21-2022 Albumin [Mass/Vol] 4.0 g/dL 3.2-5.0 [facility] Work Phone: Serum or plasma calcium david urement (mass/volume)on 02-21-2022 Calcium [Mass/Vol] 9.3 mg/dL 8.5-10.1 [facility] Work Phone: Serum or plasma creatinine m easurement (mass/volume)on 02-21-2022 Creatinine [Mass/Vol] 1.47 mg/dL 0.70-1.30 [facility] Work Phone: Comment on above: The validity of the calculated GFR & GFRAA in patients over 70 years has not been determined. Clinical correlation is essential. Serum or plasma urea nitroge n measurement (mass/volume)on 02-21-2022 Urea nitrogen [Mass/Vol] 19 mg/dL 7-18 [facility] Work Phone: Thin prep Papanicolaou smear with manual screeningon 02-21-2022 Thin prep Papanicolaou smear with manual screening 13 U/L 15-37 [facility] Work Phone: Thin prep Papanicolaou smear with manual screening 4 5-15 [facility] Work Phone: Stool gastrointestinal hemog lobin detection by immunologic method Lower GI hemoglobin IA Ql (Stl) [facility] Work Phone: Vital Signs Date Time Vital Sign Value Performing Clinician Rachelle echeverria 03-09-2025 13:26-0400 Body mass index (BMI) [Ratio] 28.5 kg/m2 Perla Joselito DO Work Phone: 6(226)535-592604 [place] [address] 03-09-2025 13:13-0400 Body temperature 98.1 [degF] Perla Joselito DO Work Phone: 4(621)586-953904 [place] [address] 03-09-2025 13:13-0400 Diastolic blood pressure 74 mm[Hg] Perla Joselito DO Work Phone: 1(051)952-075504 [place] [address] 03-09-2025 13:13-0400 Heart rate 80 /min Perla Joselito DO Work Phone: 8(516)832-462204 [place] [address] 03-09-2025 13:13-0400 Respiratory rate 16 /min Perla Joselito DO Work Phone: 1(284)555-976404 [place] [address] 03-09-2025 13:13-0400 SaO2% (BldA) [Mass fraction] 99 % Perla Joselito DO Work Phone: 5(160)867-269304 [place] [address] 03-09-2025 13:13-0400 Systolic blood pressure 144 mm[Hg] Perla Joselito DO Work Phone: 3(071)359-949904 [place] [address] 03-09-2025 09:46-0400 Body height 152.4 cm Perla Joselito DO Work Phone: 1(034)156-647004 [place] [address] 03-09-2025 09:46-0400 Body weight 66.22 kg Perla Joselito DO Work Phone: 5(150)432-101804 [place] [address] 03-08-2025 14:00-0400 Diastolic blood pressure 80 mm[Hg] Perla Joselito DO Work Phone: 9(244)301-174704 [place] [address] 03-08-2025 14:00-0400 Heart rate 66 /min Perla Joselito DO Work Phone: 1(897)611-809704 [place] [address] 03-08-2025 14:00-0400 Respiratory rate 20 /min Perla Joselito DO Work Phone: 8(201)763-290704 [place] [address] 03-08-2025 14:00-0400 SaO2% (BldA) [Mass fraction] 99 % Perla Joselito DO Work Phone: 8(289)019-391704 [place] [address] 03-08-2025 14:00-0400 Systolic blood pressure 138 mm[Hg] Perla Joselito DO Work Phone: 7(703)541-011004 [place] [address] 03-08-2025 13:42-0400 Body temperature 98.4 [degF] Perla Joselito DO Work Phone: 8(307)499-649804 [place] [address] 03-08-2025 12:17-0400 Body height 162.56 cm Perla Joselito DO Work Phone: 6(316)539-815104 [place] [address] 03-08-2025 12:17-0400 Body mass index (BMI) [Ratio] 25.9 kg/m2 Perla Joselito DO Work Phone: 8(541)554-938004 [place] [address] 03-08-2025 12:17-0400 Body weight 68.5 kg Perla Joselito DO Work Phone: 1(375)066-191604 [place] [address] 03-07-2025 14:17-0400 Body weight 68.03 kg Perla Joselito DO Work Phone: 6(216)814-423604 [place] [address] 03-07-2025 14:17-0400 Heart rate 88 /min Perla Joselito DO Work Phone: 2(559)341-778904 [place] [address] 03-07-2025 14:17-0400 SaO2% (BldA) [Mass fraction] 96 % Perla Joselito DO Work Phone: 9(431)041-520504 [place] [address] 02-25-2025 07:05-0400 Body height 165.1 cm Perla Joselito DO Work Phone: 7(692)607-144204 [place] [address] 02-25-2025 07:05-0400 Body mass index (BMI) [Ratio] 25 kg/m2 Perla Joselito DO Work Phone: 7(850)861-467404 [place] [address] 02-25-2025 07:05-0400 Body temperature 97.4 [degF] Perla Joselito DO Work Phone: 2(108)329-683904 [place] [address] 02-25-2025 07:05-0400 Body weight 68.03 kg Perla Joselito DO Work Phone: 4(189)490-337204 [place] [address] 02-25-2025 07:05-0400 Diastolic blood pressure 85 mm[Hg] Perla Joselito DO Work Phone: 0(106)913-433804 [place] [address] 02-25-2025 07:05-0400 Heart rate 81 /min Perla Joselito DO Work Phone: 0(223)676-956904 [place] [address] 02-25-2025 07:05-0400 Respiratory rate 16 /min Perla Joselito DO Work Phone: 5(606)850-245804 [place] [address] 02-25-2025 07:05-0400 SaO2% (BldA) [Mass fraction] 98 % Perla Joselito DO Work Phone: 6(367)913-615304 [place] [address] 02-25-2025 07:05-0400 Systolic blood pressure 130 mm[Hg] Perla Joselito DO Work Phone: 9(918)482-846304 [place] [address] 04-15-2023 11:59-0400 Body height 160.02 cm [facility] Work Phone: 2(127)331-800004 [place] [address] 04-15-2023 11:59-0400 Body mass index (BMI) [Ratio] 29.7 kg/m2 [facility] Work Phone: 4(179)724-768204 [place] [address] 04-15-2023 11:59-0400 Body temperature 97 [degF] [facility] Work Phone: 8(643)991-142004 [place] [address] 04-15-2023 11:59-0400 Body weight 76.29 kg [facility] Work Phone: 6(960)119-070404 [place] [address] 04-15-2023 11:59-0400 Diastolic blood pressure 78 mm[Hg] [facility] Work Phone: 2(363)097-936004 [place] [address] 04-15-2023 11:59-0400 Heart rate 88 /min [facility] Work Phone: 1(537)957-288804 [place] [address] 04-15-2023 11:59-0400 Respiratory rate 16 /min [facility] Work Phone: 1(326)933-078704 [place] [address] 04-15-2023 11:59-0400 SaO2% (BldA) [Mass fraction] 98 % [facility] Work Phone: 7(812)456-898604 [place] [address] 04-15-2023 11:59-0400 Systolic blood pressure 150 mm[Hg] [facility] Work Phone: 9(436)683-262304 [place] [address] 02-17-2023 21:35-0400 Heart rate 68 /min [facility] Work Phone: 3(340)385-794404 [place] [address] 02-17-2023 21:35-0400 Respiratory rate 14 /min [facility] Work Phone: 4(653)839-034304 [place] [address] 02-17-2023 21:35-0400 SaO2% (BldA) [Mass fraction] 98 % [facility] Work Phone: 2(471)139-843804 [place] [address] 02-17-2023 19:36-0400 Body mass index (BMI) [Ratio] 28.2 kg/m2 [facility] Work Phone: 4(096)798-793904 [place] [address] 02-17-2023 19:36-0400 Body temperature 97.1 [degF] [facility] Work Phone: 7(133)897-747604 [place] [address] 02-17-2023 19:36-0400 Body weight 72.21 kg [facility] Work Phone: 9(250)766-605904 [place] [address] 02-17-2023 19:36-0400 Diastolic blood pressure 73 mm[Hg] [facility] Work Phone: 2(696)116-030604 [place] [address] 02-17-2023 19:36-0400 Systolic blood pressure 126 mm[Hg] [facility] Work Phone: 9(687)959-974604 [place] [address] 01-12-2023 14:15-0400 Body mass index (BMI) [Ratio] 29.3 kg/m2 [facility] Work Phone: 7(319)650-822604 [place] [address] 01-12-2023 14:15-0400 Body weight 77.56 kg [facility] Work Phone: 4(916)404-228704 [place] [address] 01-12-2023 14:15-0400 Diastolic blood pressure 76 mm[Hg] [facility] Work Phone: [facility] 01-12-2023 14:15-0400 Heart rate 80 /min [facility] Work Phone: [facility] 01-12-2023 14:15-0400 Respiratory rate 18 /min [facility] Work Phone: [facility] 01-12-2023 14:15-0400 Systolic blood pressure 125 mm[Hg] [facility] Work Phone: [facility] 08-30-2022 08:02-0500 Diastolic blood pressure 91 mm[Hg] No Primary Care Physician [facility] 08-30-2022 08:02-0500 Heart rate 106 /min No Primary Care Physician [facility] 08-30-2022 08:02-0500 Systolic blood pressure 156 mm[Hg] No Primary Care Physician [facility] 08-29-2022 20:48-0500 Body height 162.56 cm No Primary Care Physician [facility] 08-29-2022 20:48-0500 Body mass index (BMI) [Ratio] 28.3 kg/m2 No Primary Care Physician [facility] 08-29-2022 20:48-0500 Body temperature 98.2 [degF] No Primary Care Physician [facility] 08-29-2022 20:48-0500 Body weight 74.84 kg No Primary Care Physician [facility] 08-29-2022 20:48-0500 Diastolic blood pressure 97 mm[Hg] No Primary Care Physician [facility] 08-29-2022 20:48-0500 Heart rate 83 /min No Primary Care Physician [facility] 08-29-2022 20:48-0500 Respiratory rate 16 /min No Primary Care Physician [facility] 08-29-2022 20:48-0500 SaO2% (BldA) [Mass fraction] 100 % No Primary Care Physician [facility] 08-29-2022 20:48-0500 Systolic blood pressure 185 mm[Hg] No Primary Care Physician [facility] 08-29-2022 14:50-0500 Body temperature 96.4 [degF] No Primary Care Physician [facility] 08-29-2022 14:50-0500 Diastolic blood pressure 85 mm[Hg] No Primary Care Physician [facility] 08-29-2022 14:50-0500 Heart rate 71 /min No Primary Care Physician [facility] 08-29-2022 14:50-0500 Respiratory rate 16 /min No Primary Care Physician [facility] 08-29-2022 14:50-0500 SaO2% (BldA) [Mass fraction] 100 % No Primary Care Physician [facility] 08-29-2022 14:50-0500 Systolic blood pressure 151 mm[Hg] No Primary Care Physician [facility] 08-29-2022 12:01-0500 Body height 162.56 cm No Primary Care Physician [facility] 08-29-2022 12:01-0500 Body mass index (BMI) [Ratio] 27.4 kg/m2 No Primary Care Physician [facility] 08-29-2022 12:01-0500 Body weight 72.57 kg No Primary Care Physician [facility] 07-07-2022 12:58-0500 Body height 162.56 cm No Primary Care Physician [facility] Work Phone: 07-07-2022 12:58-0500 Body mass index (BMI) [Ratio] 29 kg/m2 No Primary Care Physician [facility] 07-07-2022 12:58-0500 Body weight 76.65 kg No Primary Care Physician [facility] 07-07-2022 12:58-0500 Diastolic blood pressure 83 mm[Hg] No Primary Care Physician [facility] 07-07-2022 12:58-0500 Heart rate 102 /min No Primary Care Physician [facility] 07-07-2022 12:58-0500 Respiratory rate 16 /min No Primary Care Physician [facility] 07-07-2022 12:58-0500 Systolic blood pressure 143 mm[Hg] No Primary Care Physician [facility] 06-20-2022 09:36-0500 Body height 162.56 cm No Primary Care Physician [facility] Work Phone: 06-20-2022 09:36-0500 Body mass index (BMI) [Ratio] 30.4 kg/m2 No Primary Care Physician [facility] 06-20-2022 09:36-0500 Body temperature 97.4 [degF] No Primary Care Physician [facility] 06-20-2022 09:36-0500 Body weight 80.45 kg No Primary Care Physician [facility] 06-20-2022 09:36-0500 Diastolic blood pressure 74 mm[Hg] No Primary Care Physician [facility] 06-20-2022 09:36-0500 Heart rate 86 /min No Primary Care Physician [facility] 06-20-2022 09:36-0500 Respiratory rate 18 /min No Primary Care Physician [facility] 06-20-2022 09:36-0500 SaO2% (BldA) [Mass fraction] 98 % No Primary Care Physician [facility] 06-20-2022 09:36-0500 Systolic blood pressure 121 mm[Hg] No Primary Care Physician [facility] 06-13-2022 20:00-0500 Diastolic blood pressure 86 mm[Hg] [facility] 06-13-2022 20:00-0500 Heart rate 82 /min [facility] 06-13-2022 20:00-0500 Respiratory rate 15 /min [facility] 06-13-2022 20:00-0500 SaO2% (BldA) [Mass fraction] 98 % [facility] 06-13-2022 20:00-0500 Systolic blood pressure 126 mm[Hg] [facility] 06-13-2022 15:37-0500 Body height 162.56 cm [facility] Work Phone: 06-13-2022 15:37-0500 Body mass index (BMI) [Ratio] 27.4 kg/m2 [facility] 06-13-2022 15:37-0500 Body temperature 97.9 [degF] [facility] 06-13-2022 15:37-0500 Body weight 72.57 kg [facility] 02-21-2022 18:46-0400 Diastolic blood pressure 76 mm[Hg] [facility] Work Phone: 02-21-2022 18:46-0400 Heart rate 83 /min [facility] Work Phone: 02-21-2022 18:46-0400 Respiratory rate 14 /min [facility] Work Phone: 02-21-2022 18:46-0400 SaO2% (BldA) [Mass fraction] 97 % [facility] Work Phone: 02-21-2022 18:46-0400 Systolic blood pressure 110 mm[Hg] [facility] Work Phone: 02-21-2022 16:23-0400 Body mass index (BMI) [Ratio] 27.4 kg/m2 [facility] Work Phone: 02-21-2022 16:23-0400 Body temperature 98.3 [degF] [facility] Work Phone: 02-21-2022 16:23-0400 Body weight 72.57 kg [facility] Work Phone: Encounters Encounter Date Encounter Type Care Provider Facility Start: 03-11-2025 ambulatory Perla Joselito [facility] Faci lity:[facility] Start: 03-10-2025 ambulatory Perla Yee [facility] Faci lity:[facility] Start: 03-10-2025 Non-patient / Non-visit Dr. Chidi bishop DO -[facility] Start: 03-09-2025 Non-patient / Non-visit Dr. Mary Lemus MD -[facility] Work Phone: Start: 03-08-2025 End: 03-09-2025 ambulatory Perla Joselito [facility] Facility:[facility] Start: 03-08-2025 End: 03-09-2025 Evaluation and management of inpatient Dr. Mary Lemus MD -[facility] Work Phone: Start: 03-08-2025 End: 03-09-2025 observation encounter Perla Yee DO Work Phone: -Progressive Care Unit Start: 03-07-2025 End: 03-07-2025 ambulatory Perla Yee DO Work Phone: -Pulmonary Services/Neurology Start: 03-07-2025 End: 03-07-[address] Chidi Diallo DO -Pulmonary Services/Neurology Work Phone: Start: 03-07-2025 End: 03-07-2025 ambulatory Perla Yee [facility] Facility:[facility] Start: 02-27-2025 End: 02-27-2025 ambulatory Perla Yee DO Work Phone: -Laboratory Specimen Start: 02-27-2025 End: 02-27-2025 Patient encounter procedure Agustin Mitchell MD -Laboratory Specimen Work Phone: Start: 02-26-2025 End: 02-27-2025 ambulatory Perla Yee DO Work Phone: -Laboratory [facility] Start: 02-26-2025 End: 02-26-2025 Patient encounter procedure Agustin Mitchell MD -Laboratory [facility] Start: 02-25-2025 End: 02-25-[address] Chidi Diallo DO -[facility] Work Phone: Start: 02-25-2025 End: 02-26-2025 ambulatory Perla Yee DO Work Phone: -[facility] Start: 01-14-2025 ambulatory Perla Yee [facility] Faci lity:[facility] Start: 06-18-2024 End: 06-18-2024 ambulatory Perla Yee [facility] Facility:[facility] Start: 04-08-2024 End: 04-08-2024 Emergency department patient visit Perla Yee C Facility:[facility] Start: 11-20-2023 End: 11-20-2023 ambulatory [facility] Work Phone: Start: 11-20-2023 End: 11-20-2023 Patient encounter procedure [facility] Work Phone: Start: 04-15-2023 End: 04-15-2023 Emergency department patient visit [facility] Work Phone: [facility]-Emergency Department Work Phone: Start: 02-17-2023 End: 02-17-2023 Emergency department patient visit [facility] Work Phone: [facility]-Emergency Department Work Phone: Start: 01-12-2023 End: 01-12-2023 Patient encounter procedure [facility] Work Phone: [facility] Work Phone: Start: 12-21-2022 Non-patient / Non-visit [facility] Work Phone: [facility] Work Phone: Start: 09-26-2022 End: 09-26-2022 ambulatory No Primary Care Physician [facility] Work Phone: Start: 09-26-2022 End: 09-26-2022 Patient encounter procedure No Primary Care Physician [facility]-Laboratory Start: 09-12-2022 End: 09-12-2022 ambulatory No Primary Care Physician [facility] Work Phone: Start: 09-12-2022 End: 09-12-2022 Patient encounter procedure No Primary Care Physician [facility]-Laboratory, Specimen Start: 08-30-2022 End: 08-30-2022 Patient encounter procedure No Primary Care Physician [facility] Start: 08-29-2022 End: 08-29-2022 Emergency department patient visit No Primary Care Physician [facility]-Emergency Department Start: 08-29-2022 Non-patient / Non-visit No Barb kourtney Care Physician [facility] Start: 08-29-2022 End: 08-29-2022 Admission to same day surgery center No Primary Care Physician [facility]-Endoscopy Start: 08-29-2022 End: 08-29-2022 ambulatory No Primary Care Physician [facility] Work Phone: Start: 07-14-2022 Telephone encounter Abner mendoza PA-C Work Phone: Urology Comment on above: [facility] Start: 07-07-2022 End: 07-07-2022 ambulatory No Primary Care Physician [facility] Work Phone: Start: 07-07-2022 End: 07-07-2022 Patient encounter procedure No Primary Care Physician [facility]-Laboratory Start: 07-07-2022 End: 07-07-2022 Admission to same day surgery center No Primary Care Physician [facility] Start: 07-07-2022 End: 07-07-2022 Patient encounter procedure [facility] [facility] Start: 07-01-2022 Non-patient / Non-visit No [facility] kourtney Care Physician [facility] Start: 06-22-2022 End: 06-22-2022 ambulatory No Primary Care Physician [facility] Work Phone: Start: 06-22-2022 End: 06-22-2022 Patient encounter procedure No Primary Care Physician [facility]-Laboratory, Specimen Start: 06-20-2022 End: 06-20-2022 Patient encounter procedure No Primary Care Physician [facility] Start: 06-13-2022 End: 06-13-2022 Emergency department patient visit [facility]-Emergency Department Start: 02-21-2022 End: 02-21-2022 Emergency department patient visit [facility]gency [facility] Procedures Date Procedure Procedure Detail Performing Clinician Start: 03-09-2025 MRI of brain without contrast Perla Yee DO Work Phone: Start: 03-09-2025 Estimated creatinine clearance Perla Villaltaer DO Work Phone: Start: 03-08-2025 Urnls dip stick/tabl et reagent auto microscopy Perla Villaltaer DO Work Phone: Start: 03-08-2025 Estimated creatinine clearance Perla Villaltaer DO Work Phone: Start: 03-08-2025 CT angiography of he ad and neck Perla Villaltaer DO Work Phone: Start: 03-08-2025 CT of head without contrast Perla Yee DO Work Phone: Start: 03-07-2025 CT of head without contrast Perla Yee DO Work Phone: Start: 03-07-2025 CT of chest Perla yancey DO Work Phone: Start: 02-27-2025 Urine microalbumin/creatinine ratio measurement Perla Yee DO Work Phone: Start: 02-26-2025 Osmolality measureme nt, serum Perla Yee DO Work Phone: Start: 02-26-2025 Serologic test for syphilis Perla Yee DO Work Phone: Start: 11-20-2023 CT of chest Start: 02-17-2023 X-ray of chest posteroanterior view [facility] Work Phone: Start: 08-29-2022 Colonoscopy No Primary [...] Treatment Date Care Activity Detail Author Start: 03-11-2025 Measurement of respiratory function [facility] Start: 03-09-2025 Patient discharge [facility] Start: 03-09-2025 End: 03-09-2025 [facility] Start: 03-09-2025 Notification of physician [facility] Start: 03-09-2025 Care regimes management [facility] Start: 03-08-2025 Following clinical pathway protocol [facility] Start: 03-08-2025 Aspiration precautions [facility] Start: 03-08-2025 Assessment of risk of venous thromboembolism [facility] Start: 03-08-2025 Cardiac monitoring [facility] Start: 03-08-2025 Catheterization of vein [facility] Start: 03-08-2025 Consultation [facility] Start: 03-08-2025 Continuous pulse oximetry [facility] Start: 03-08-2025 Elevation of head of bed [facility] Start: 03-08-2025 Exercises [facility] Start: 03-08-2025 Insertion of catheter into peripheral vein [facility] Start: 03-08-2025 Measuring intake and output [facility] Start: 03-08-2025 Notification of physician [facility] Start: 03-08-2025 Oxygen therapy [facility] Start: 03-08-2025 Patient referral to dietitian [facility] Start: 03-08-2025 Providing care according to standard [facility] Start: 03-08-2025 Provision of activity privileges [facility] Start: 03-08-2025 Referral to occupational therapist [facility] Start: 03-08-2025 Referral to service [facility] Start: 03-08-2025 Speech therapy assessment [facility] Start: 03-08-2025 Telemedicine consultation with patient [facility] Start: 03-08-2025 Tobacco use cessation education [facility] Start: 03-08-2025 End: 03-08-2025 [facility] Start: 03-08-2025 Vital signs measurements [facility] Start: 03-08-2025 Admission procedure [facility] Start: 03-08-2025 Hospital admission, emergency, from emergency room, medical nature [facility] Start: 03-08-2025 Oxygen therapy [facility] Start: 03-08-2025 [facility] Start: 08-30-2022 Patient referral [facility] Work Phone: Start: 08-29-2022 Colonoscopy flx dx w/collj spec when pfrmd DIAGNOSTIC COLONOSCOPY [facility] Start: 08-29-2022 Egd transoral biopsy single/multiple EGD BIOPSY SINGLE/MULTIPLE [facility] Start: 08-29-2022 Patient discharge [facility] Start: 03-31-2022 Influenza vaccination INFLUENZA (#1) [facility] Start: 07-31-2021 DEPRESSION ASSESSMENT DEPRESSION ASSESSMENT [facility] Start: 2017 PROSTATE CANCER SCREENING DISCUSSION PROSTATE CANCER SCREENING DISCUSSION [facility] Start: 2012 SHINGRIX VACCINE (1 of 2) SHINGRIX VACCINE (1 of 2) [facility] Start: 2007 COLOGUARD (FIT-DNA) COLOGUARD (FIT-DNA) [facility] Start: 2007 Colonoscopy COLONOSCOPY [facility] Start: 2007 COLORECTAL CANCER SCREENING COLORECTAL CANCER SCREENING [facility] Start: [address] COLONOGRAPHY [facility] Start: 2007 DIABETES SCREEN DIABETES SCREEN [facility] Start: 2007 FECAL OCCULT BLOOD FECAL OCCULT BLOOD [facility] Start: 2007 SIGMOIDOSCOPY SIGMOIDOSCOPY [facility] Start: 1997 LIPID SCREEN LIPID SCREEN [facility] Start: 1981 Urine microalbumin profile DTAP,TDAP,TD (1 - Tdap) [facility] Start: 1980 HEPATITIS C SCREENING HEPATITIS C SCREENING [facility] Start: 1980 HIV SCREENING HIV SCREENING [facility] Start: 03-10-1961 COVID-19 VACCINE (#1) COVID-19 VACCINE (#1) [facility] CT Chest [facility] Measurement of respi ratory function [facility] Patient Education [facility] Work Phone: Patient referral [facility] Work Phone: Troponin T.cardiac [Mass/volume] in Serum or Plasma by High sensitivity method [facility] Walking distance 6 [facility] Immunizations Immunization Date Immunization Notes Care Provider Todd ram 04-07-2021 Covid (Pfizer) Perla nielson DO Work Phone: [facility] 03-16-2021 Covid (Pfizer) Perla nielson DO Work Phone: [facility] Payers Date Payer Category Payer Medicare [id number] 2024 Self-pay [id number] 2022 Medicare MEDICARE MEDICAR E A AND B [id number] 2022-Present [id number] [place] [address] Medicare [id number] Medicare MEDICARE PART A B [id number] Medicare [id number] Private Health Insurance [facility] [id number] Unknown [id number] Unknown [id number] Unknown [id number] Unknown [id number] 64 Unknown [id number] 62 Unknown [id number] 62 Unknown [id number] 2.16.840.1.761836.3.579.2.4 62 Unknown [id number] 2.16.840.1.114706.3.579.2.4 62 Unknown [id number] 2.16.840.1.809973.3.579.2.4 62 Unknown [id number] 2.16.840.1.084797.3.579.2.4 62 Unknown [id number] 2.16.840.1.276799.3.579.2.4 62 Unknown [id number] 2.16.840.1.877332.3.579.2.4 62 Unknown [id number] 2.16.840.1.664319.3.579.2.4 62 Unknown [id number] 2.16.840.1.020172.3.579.2.4 62 Unknown [id number] 2.16.840.1.157259.3.579.2.4 62 Unknown [id number] 2.16.840.1.700578.3.579.2.4 62 Unknown [id number] 64 Social History Date Type Detail Facility Start: 06-13-2022 End: 04-15-2023 Tobacco smoking status ILIS Unknown if ever smoked [facility] Start: 1960 Sex Assigned At Male [facility] Start: 1960 Sex Assigned At Not on file [facility] Start: 04-08-2024 End: 03-09-2025 Tobacco smoking status NHIS Smokes tobacco daily (finding) [facility] Start: 03-09-2025 Tobacco Use Tobacco Use [facility] Goals Date Patient Goal Desired Activity /State Functional Status Date Assessment Result Facility 03-09-2025 Functional status Activity Ability Indepe ndent [facility] Work Phone: Mental Status Date Assessment Result Facility 03-09-2025 Cognitive function Awake;Alert;A ppropriate;Follow s Commands [facility] Work Phone: 03-09-2025 Cognitive function Voice/Name [facility] Work Phone: 03-08-2025 Cognitive function Voice/Name [facility] Work Phone: 02-17-2023 Cognitive function Level Of Cons ciousness Awake;Alert;Appropriate;Follow s Commands [facility] Work Phone: 08-29-2022 Cognitive function Light Pain [facility] Work Phone: 08-29-2022 Cognitive function Patient Orien tation Person;Place [facility] Work Phone: Clinical Notes 07-19-2022 to 03-10-2025 Note Date & Type Note Facility 03-10-2025 Procedure note [facility] 03-09-2025 Discharge summary [facility] 03-09-2025 Discharge summary Note Date/Time March 09, 2025 2:58pm [facility] Medical Records Department [address] [place] [address] Instructions for Home/Discharge Instructions 03/09/25 1249 MR#: [id number] Acct: [id number] Name: JEAN PIERRE GRANT Rep #:[id number] : 1960 64 From: Mary Lemus MD PCP: Perla Yee DO Status:ADM LEANDER Discharge Instructions DC O2, CPAP, BIPAP needs Home O2 Discharge instructions: No Dressing / Incision Weight Bearing Status: Weight bearing as tolerated Dressing / Incision Call your doctor if you observe: Fever of 101 or Higher, Shortness of breath, Dizziness and Chest pain Follow Up Care Test Results: Test results from this visit will be discussed in further detail at your follow-up appointment, if applicable. Discharge Plan Admission Admit Date/Time: 03/08/25 12:58 Primary Reason for Your Visit: TIA Attending Provider: Mary Lemus Primary Care Provider: Perla Yee [facility] Consulting Providers: Lizandro Polanco; Shirley Mesa; Vero Bradley; Jazzy Shepherd; Brinda Garcia; Won Antunez; Uma Tamayo; Jarett Wilder; Trevon Aranda; Salvatore Mccartney; Yesi Ba; Cali Goldberg; Aislinn Fowler; Beau Jang; Adina Mendiola; Jonathan Stephen; Jasson Eli; Maxx Monreal; Christy Corrigan; Kusum Cherry Instructions Patient Instructions: SERGEI Dc Additional Instructions / Restrictions: see PCP for order for transthoracic echo on outpatient basis. Discharge Orders/Prescriptions Prescriptions: New aspirin 81 mg Tablet,Chewable 81 mg PO BREAKFAST Qty: 21 0RF Continued pantoprazole [Protonix] 20 mg tablet,delayed release (DR/EC) 20 mg PO DAILY Qty: 30 1RF tamsulosin [Flomax] 0.4 mg capsule 0.4 mg PO BID Qty: 60 0RF glimepiride 4 mg tablet 4 mg PO DAILY Patient Comments: TAKE 1 TABLET BY MOUTH ONCE DAILY finasteride 5 mg tablet 5 mg PO DAILY tadalafil 20 mg tablet 20 mg PO DAILY PRN (Reason: sexual activity) Patient Comments: TAKE 1 TABLET BY MOUTH ONE HOUR BEFORE INTERCOURSE Farxiga 10 mg tablet 10 mg PO DAILY clopidogrel [Plavix] 75 mg Tablet 75 mg PO DAILY metformin 1,000 mg Tablet 1,000 mg PO BID lisinopril 20 mg tablet 20 mg PO DAILY pregabalin 100 mg capsule 100 mg PO BID rosuvastatin 40 mg tablet 40 mg PO QHS insulin glargine [Lantus Solostar U-100 Insulin] 100 unit/mL (3 mL) insulin pen 10 unit subcut QHS metoprolol tartrate 50 mg tablet 50 mg PO BID Qty: 180 3RF Referrals / Follow Up: Long Kline MD [Non-Staff -Ordering Privileges] - Within 2 Weeks (see to establish care for TIA) Perla Yee DO [Primary Care Provider] - Within 2 Weeks Disposition Disposition (needs filled in before D/C Order can be placed): Home, Self Care 03/09/251248<Electronically signed by Mary Lemus MD>Mary Lemus MD CC: Jazzy Shepherd; Aislinn Fowler; Jonathan Stephen; Brinda Garcia MD; Vero Bradley MD; Lizandro Polanco MD; Dr. Shirley Mesa MD; Dr. Won Antunez MD; Dr. Rosa MD; Dr. Trevon Aranda MD; Dr. Jarett Wilder MD; Dr. Salvatore Mccartney MD; Dr. Cali Goldberg DO; Dr. Adina Mendiola MD; Dr. Beau Jang MD; Dr. Jasson Eli MD; Dr. Maxx Monreal MD; Dr. Christy Corrigan MD; Perla Yee DO; Yesi Ba DO; Kusum Cherry MD ~ Signed [facility] Work Phone: [phone]) 444-131608-10-[address] [facility] Medical Records Department [address] [place] [address] Discharge Summary 03/09/25 124 MR#: [id number] Acct: [id number] Name: JEAN PIERRE GRANT Rep #: [id number] : 1960 64 From: Mary Lemus MD PCP: Perla Yee DO Status:DIS LEANDER Location: PCU [id number] Providers Date of Admission: 03/08/25 Date of Discharge: 03/09/25 Primary Care Physician: SANTINO Paiz DO Consultations 03/08/25 14:49 Consult: Tele-Neurology Routine Consulting Provider: [facility] Reason for Consult: Acute Ischemic Stroke/TIA EMERGENT Consult: No MD Notified: Yes Date Notified: 03/08/25 Time Notified: 15:07 Method of Notification: Answering Service Nursing Unit Staff Notify [facility] of Tele-Neurology Consult: Yes Reason For Visit: STROKE LIKE SYMPTOMS Diagnosis Discharge Diagnosis (1) Stroke-like symptoms: Status: Acute Code(s): R29.90 - Unspecified symptoms and signs involving the nervous system Plan #Stroke like symptoms * admitted with a complaint of slurred speech and expressive aphasia. Symptoms had resolved at time of review * NIHSS at time of review is 0 * CT brain showed no acute intracranial pathology. * CT head and neck showed no hemodynamically significant stenosis. * already on plavix and high intensity statin due to history of stroke. * Admit to PCU per stroke protocol * get MRI of the brain and 2D echo * consult [facility] neurology * Consult speech therapy. Monitor NIH stroke scale. * Keep n.p.o. until he passes bedside swallow evaluation. Hold BP meds to allow for permissive hypertension in case of a stroke. #Type 2 diabetes mellitus: Hold dapagliflozin and glimepiride. Insulin sliding scale. Accuchecks ACHS. #BPH: On finasteride and Flomax DVT prophylaxis: SCDs Code status: full code * Patient and counseled extensively about different types of CODE STATUS including full code, DNR CCA and DNR CCA. * Patient elects to be full code. * Total phbm-ts-ibww time 16 minutes. Medications at Discharge Home Medications clopidogrel 75 mg tablet (Plavix) 75 mg PO DAILY 06/05/21 metformin 1,000 mg tablet 1,000 mg PO BID 06/05/21 pregabalin 100 mg capsule 100 mg PO BID 06/13/22 pantoprazole 20 mg tablet,delayed release (Protonix) 20 mg PO DAILY #30 tabs 06/20/22 lisinopril 20 mg tablet 20 mg PO DAILY 07/01/22 tamsulosin 0.4 mg capsule (Flomax) 0.4 mg PO BID #60 caps 08/30/22 dapagliflozin propanediol 10 mg tablet (Farxiga) 10 mg PO DAILY 01/12/23 finasteride 5 mg tablet 5 mg PO DAILY 01/12/23 glimepiride 4 mg tablet 4 mg PO DAILY 01/12/23 tadalafil 20 mg tablet 20 mg PO DAILY PRN sexual activity 01/12/23 metoprolol tartrate 50 mg tablet 50 mg PO BID #180 tabs 10/16/23 insulin glargine 100 unit/mL (3 mL) subcutaneous pen (Lantus Solostar U-100 Insulin) 10 unit subcut QHS 03/08/25 rosuvastatin 40 mg tablet 40 mg PO QHS 03/08/25 aspirin 81 mg chewable tablet 81 mg PO BREAKFAST #21 tabs 03/09/25 Hospital Course Operations None Procedures None Summary of Care Provided Minutes Spent on Discharge: 45 Hospital Course: JEAN PIERRE GRANT, is a 64 M with a PMH as outlined who was admitted via the ED on 03/08/2025 with a complaint of slurred speech and aphasia. noted that his speech was slurred when he was talking to her this morning. He had a stroke last year so family was concerned about a repeat stroke and so brought him to the ED. He is on aspirin and Plavix at home. He was admitted to the [facility] facial droop and also supposedly had some right weakness but his symptoms had resolved by the time he came into the ED. He denied any headache, chest pain, dizziness, symptoms. Review of systems otherwise negative. He has been compliant with his Plavix. Vitals in the ED were blood pressure of 149/85, pulse rate of 67, respiratory rate of 18 and he was saturating at 99% on room air. CBC showed hemoglobin of 13.7 with WBC of 11.6 and platelets of 195. INR was 0.9. Chemistry shows sodium of 137 potassium of 5 and bicarb of 24.1. Creatinine was 1.18. CT brain showed no acute intracranial pathology and showed subtle lucencies within the calvarium which had been again noted with metastatic disease versus myeloma being a consideration. CTA head and neck showed no significant stenosis in the head and neck. NIH stroke scale was 0 at the time he came into the ED. He was admitted to be managed for TIA to rule out a stroke. He had MRI of the brain which showed no evidence of a stroke. He was placed on aspirin and Plavix and high intensity statin. Neurology was consulted and reviewed patient and recommended that he continue the dual antiplatelet therapy for 21 days and then to stop the aspirin afterwards and to continue only on the Plavix. 2D echo was ordered but this could not be done before discharge as patient was discharged on a Monday. Patient was (more content not included)...[facility]08-10-2025 Progress note Author Christy Corrigan [facility] Note Date/Time March 09, 2025 10 :27am [facility] Medical Records Department [address] [place] [address] Progress Note - Neurology 03/09/25 0949 MR#: [id number] Acct: [id number] Name: JEAN PIERRE GRANT Rep #:[id number] : 1960 64 From: Christy Corrigan MD PCP: Perla Yee DO Status:ADM LEANDER Location: [place] [address] Objective Data Objective Data Vital Signs: Vital Signs Temp Pulse Resp BP Pulse Ox O2 Del Method 99.1 F 79 16 144/62 H 98 Room Air 03/09/25 09:14 03/09/25 09:14 03/09/25 09:14 03/09/25 09:14 03/09/25 09:14 03/09/25 09:14 Oxygen Delivery Method Room Air Weight: 66.224 kg Body Mass Index (BMI) 28.5 Intake & Output: Intake and Output for Last 24 Hours 03/07/25 03/08/25 03/09/25 23:59 23:59 23:59 Intake Total 1060 / 1060 Balance 1060 / 1060 Lab / Micro Data 03/09/25 05:36 03/09/25 05:36 Labs: Laboratory Results - last 24 hr 03/08/25 11:45: WBC 11.6 H, RBC 4.90, Hgb 13.7, Hct 42.2, MCV 86.1, MCH 28.0, MCHC 32.5, RDW Std Deviation 40.8, RDW Coeff of Serafin 13.0, Plt Count 195, MPV 11.8, Immature Gran % (Auto) 0.600, Neut % (Auto) 63.7, Lymph % (Auto) 27.1, [place] % (Auto) 6.2, Eos % (Auto) 2.0, Baso % (Auto) 0.4, Absolute Neuts (auto) 7.4, Absolute Lymphs (auto) 3.14, Nucleated RBC % 0, PT 12.5, INR 0.9, APTT 25.8, Sodium 137, Potassium 5.0, Chloride 102, Carbon Dioxide 24.1, Anion Gap 11, BUN 21 H, Creatinine 1.18, Estim Creat Clear Calc 54.35, Est GFR (MDRD) Non-Af 70, BUN/Creatinine Ratio 17.5, Glucose 174 H, Calcium 9.0, Troponin T High Sens 36 H 03/08/25 12:53: Urine Color Yellow, Urine Clarity Clear, Urine pH 7.0, Ur Specific [place] 1.005, Urine Protein 15 H, Urine Glucose (UA) 100 H, Urine Ketones Negative, Urine Occult Blood Negative, Urine Nitrite Negative, Urine Bilirubin Negative, Urine Urobilinogen Normal, Ur Leukocyte Esterase Negative, Urine RBC 0 SEEN, Urine WBC 0-5 SEEN, Ur Squamous Epith Cells 0 SEEN, Urine Bacteria 0 SEEN, Urine Mucus 0 SEEN, Urine Yeast 1+ 03/08/25 13:46: Troponin T Hi Sens 2 Hr 34 H 03/08/25 16:45: Troponin T Hi Sens 4Hr 30 H 03/08/25 22:32: POC Glucose 318 H 03/09/25 02:30: POC Glucose 227 H 03/09/25 05:36: WBC 7.8, RBC 4.24 L, Hgb 12.2 L, Hct 36.6 L, MCV 86.3, MCH 28.8,MCHC 33.3, RDW Std Deviation 39.8, RDW Coeff of Serafin 12.7, Plt Count 176, MPV 12.2 H, Immature Gran % (Auto) 0.300, Neut % (Auto) 52.7, Lymph % (Auto) 36.1, [place] % (Auto) 7.9, Eos % (Auto) 2.4, Baso % (Auto) 0.6, Absolute Neuts (auto) 4.1, Absolute Lymphs (auto) 2.82, Nucleated RBC % 0, Sodium 137, Potassium 4.1, Chloride 103, Carbon Dioxide 24.9, Anion Gap 9, BUN 13, Creatinine 0.96, Estim Creat Clear Calc 63.75, Est GFR (MDRD) Non-Af 89, BUN/Creatinine Ratio 13.5, Glucose 226 H, Calcium 8.9, Triglycerides 250 H, Cholesterol 111, LDL Cholesterol, Calc 28, VLDL Cholesterol 50 H, HDL Cholesterol 33 L, Cholesterol/HDL Ratio 3.32 03/09/25 06:11: POC Glucose 241 H Radiography Diagnostic Testing: Radiology Impression Brain CT 03/08/25 11:37 IMPRESSION: 1. No evidence of intracranial hemorrhage or acute ischemia. 2. Changes of chronic microvascular ischemia and volume loss. 3. Subtle lucencies within the calvarium again noted. Metastatic disease versus myeloma is a consideration. Findings and impression were called directly to Dr. Quigley at 11:50 a.m. Eastern standard time. Reading Location: [facility] Head/Neck CTA 03/08/25 11:38 IMPRESSION: No significant stenosis in the head and neck. No aneurysm or vascular malformation. Reading Location: [facility] Physical Exam Neuro Neuro Narrative: Neurological?examination: General: The patient appears nutritionally appropriate, well-groomed, and appears comfortable in no acute distress. Mental Status: ?The patient?s mental status was normal including orientation. ?Language was intact. ?Cranial nerves: ?No visual complaints, and extra-ocular motion was intact. Face motion symmetric. Tongue was midline with normal movement. ?There was no dysarthria. Motor: Normal strength in all four extremities. No pronator drift. Sensation: Intact light touch bilaterally, no extinction. ?Coordination: ?Bilateral finger to nose was normal. ?There was no dysmetria. Gait: ?deferred Subject: Neurology Subjective No acute events. Patient feels back to baseline. Patient reports he takes only plavix at home (doesnt take Asa). 122/67. Assessment and Plan: Stroke Assessment/Plan JEAN PIERRE GRANT is a 64 yo RH M smoker with a history of prior ischemic stroke 10 years without residual deficits on plavix, CAD s/p stent, DM, HL, COPDwho on 03/08/25 at 330p while at a family reunion had an episode of confusion and drooling. Symptoms resolved on arrival to [place] ER, episode lasted ~ [address] brain negative. CTA head/neck negative. Telestroke showed NIHSS-0. Patient admitted for TIA work-up. LDL 28. HgbA1c 02/26/25 10.8. He is on Asa/plavix, lipitor 80, and lovenox SQ. Neurological examination shows nonfocale exam, NIHSS-0 ASSESSMENT/PLAN: TIA 1) TIA work-up recommended including MRI brain and TTE. 2) Continue daily anti-platelet medication. Recommend dAPT x 21 days (Asa/plavixx 21days, then stop Asa and continue home Plavix only thereafter) 3) Continue vascular risk factor modification. 4) Follow-up in outpatient neurology clinic Primary team messages my recs on backline. Christy Corrigan MD NIHSS NIHSS Nursing Documentation NIHSS Nursing Documentation: NIHSS: Ischemic Stroke/TIA Start: 03/08/25 14:49 Text: For PCU Patients: NIH and Neuro Check every 4 Status: Active hours, PRN and with change in RN caregiver. Freq: [id number] Protocol: Activity Type Activity Date Activity User E-sign Co-sign Detail Recorded Client Recorded Date Recorded By Document 03/09/25 09:18 [id number] 03/09/25 09:18 RV 03/09/25 09:18 NIH Stroke Scale [NIHSS] A score of 0 is normal or asymptomatic . Total possible score is 42. Inpatient: RN or Physician to activate a stroke alert for onset of new stroke symptoms or with NIHSS increase >/= 3 points. Following change in neurological status, NIHSS will be performed per physician order or more frequently PRN. -1a. Level of Consciousness 0 - Alert; keenly responsive -1b. LOC Questions 0 - Answers BOTH questions correctly -1c. LOC Commands 0 - Performs BOTH tasks correctly -2. Best Gaze 0 - Normal -3. Visual 0 - No visual loss -4. Facial Palsy 0 - Normal symmetrical movements -5a. Left Arm 0 - No drift; arm holds 90 ( or 45) degrees for full 10 seconds -5b. Right Arm 0 - No drift; arm holds 90 ( or 45) degrees for full 10 seconds -6a. Left Leg 0 - No drift; leg holds 30- degree position for full 5 seconds -6b. Right Leg 0 - No drift; leg holds 30- degree position for full 5 seconds -7. Limb Ataxia 0 - Absent -8. Sensory 0 - Normal; no sensory loss -9. Best Language 0 - No aphasia; normal -10. Dysarthria 0 - Normal -11. Extinction and Inattention 0 - No abnormality -Total 0 Query Text:A score of 0 is normal or asymptomatic. Total possible score is 42 . ED: Notify Physician for NIHSS increase by > / = 3 points. Inpatient: RN or Physician to activate a stroke alert for NIHSS increase of > / = 3 points. Coma Scale [Assess] -Eye Opening Spontaneous -Motor Obeys Commands -Verbal Oriented [Total] -Coma Scale Total 15 NIHSS 1a. Level of Consciousness: 0 - Alert; keenly responsive 1b. LOC Questions: 0 - Answers BOTH questions correctly 1c. LOC Commands: 0 - Performs BOTH tasks correctly 2. Best Gaze: 0 - Normal 3. Visual: 0 - No visual loss 4. Facial Palsy: 0 - Normal symmetrical movements 5a. Left Arm: 0 - No drift; arm holds 90 (or 45) degrees for full 10 seconds 5b. Right Arm: 0 - No drift; arm holds 90 (or 45) degrees for full 10 seconds 6a. Left Le - No drift; leg holds 30-degree position for full 5 seconds 6b. Right Le - No drift; leg holds 30-degree position for full 5 seconds 7. Limb Ataxia: 0 - Absent 8. Sensory: 0 - Normal; no sensory loss 9. Best Language: 0 - No aphasia; normal 10. Dysarthria: 0 - Normal 11. Extinction and Inattention: 0 - No abnormality Total: 0 03/09/25 1027 <Electronically signed by Christy Corrigan MD> Cosigner Signature (if applicable): CC: ~ Signed [facility] Work Phone: 1(927) 692-665308-10-2025 Progress note [facility] Medical Records Department [address] [place] [address] Progress Note - Neurology 03/09/25 0949 MR#: [id number] Acct: [id number] Name: JEAN PIERRE GRANT Rep #:[id number] : 1960 64 From: Christy Corrigan MD PCP: Joselito,Perla DO Status:ADM LEANDER Location: [place] [address] Objective Data Objective Data Vital Signs: Vital Signs Temp Pulse Resp BP Pulse Ox O2 Del Method 99.1 F 79 16 144/62 H 98 Room Air 03/09/25 09:14 03/09/25 09:14 03/09/25 09:14 03/09/25 09:14 03/09/25 09:14 03/09/25 09:14 Oxygen Delivery Method Room Air Weight: 66.224 kg Body Mass Index (BMI) 28.5 Intake & Output: Intake and Output for Last 24 Hours 03/07/25 03/08/25 03/09/25 23:59 23:59 23:59 Intake Total 1060 / 1060 Balance 1060 / 1060 Lab / Micro Data 03/09/25 05:36 03/09/25 05:36 Labs: Laboratory Results - last 24 hr 03/08/25 11:45: WBC 11.6 H, RBC 4.90, Hgb 13.7, Hct 42.2, MCV 86.1, MCH 28.0, MCHC 32.5, RDW Std Deviation 40.8, RDW Coeff of Serafin 13.0, Plt Count 195, MPV 11.8, Immature Gran % (Auto) 0.600, Neut % (Auto) 63.7, Lymph % (Auto) 27.1, [place] % (Auto) 6.2, Eos % (Auto) 2.0, Baso % (Auto) 0.4, Absolute Neuts (auto) 7.4, Absolute Lymphs (auto) 3.14, Nucleated RBC % 0, PT 12.5, INR 0.9, APTT 25.8, Sodium 137, Potassium 5.0, Chloride 102, Carbon Dioxide 24.1, Anion Gap 11, BUN 21 H, Creatinine 1.18, Estim Creat Clear Calc 54.35, Est GFR (MDRD) Non- Af 70, BUN/Creatinine Ratio 17.5, Glucose 174 H, Calcium 9.0, Troponin T High Sens 36 H 03/08/25 12:53: Urine Color Yellow, Urine Clarity Clear, Urine pH 7.0, Ur Specific [place] 1.005, Urine Protein 15 H, Urine Glucose (UA) 100 H, Urine Ketones Negative, Urine Occult Blood Negative, Urine Nitrite Negative, Urine Bilirubin Negative, Urine Urobilinogen Normal, Ur Leukocyte Esterase Negative, Urine RBC 0 SEEN, Urine WBC 0-5 SEEN, Ur Squamous Epith Cells 0 SEEN, Urine Bacteria 0 SEEN, Urine Mucus 0 SEEN, Urine Yeast 1+ 03/08/25 13:46: Troponin T Hi Sens 2 Hr 34 H 03/08/25 16:45: Troponin T Hi Sens 4Hr 30 H 03/08/25 22:32: POC Glucose 318 H 03/09/25 02:30: POC Glucose 227 H 03/09/25 05:36: WBC 7.8, RBC 4.24 L, Hgb 12.2 L, Hct 36.6 L, MCV 86.3, MCH 28.8,MCHC 33.3, RDW Std Deviation 39.8, RDW Coeff of Serafin 12.7, Plt Count 176, MPV 12.2 H, Immature Gran % (Auto) 0.300, Neut% (Auto) 52.7, Lymph % (Auto) 36.1, [place] % (Auto) 7.9, Eos % (Auto) 2.4, Baso % (Auto) 0.6, Absolute Neuts (auto) 4.1, Absolute Lymphs (auto) 2.82, Nucleated RBC % 0, Sodium 137, Potassium 4.1, Chloride 103, Carbon Dioxide 24.9, Anion Gap 9, BUN 13, Creatinine 0.96, Estim Creat Clear Calc 63.75, Est GFR (MDRD) Non-Af 89, BUN/Creatinine Ratio 13.5, Glucose 226 H, Calcium 8.9, Triglycerides 250 H, C holesterol 111, LDL Cholesterol, Calc 28, VLDL Cholesterol 50 H, HDL Cholesterol 33 L, Cholesterol/HDL Ratio 3.32 03/09/25 06:11: POC Glucose 241 H Radiography Diagnostic Testing: Radiology Impression Brain CT 03/08/25 11:37 IMPRESSION: 1. No evidence of intracranial hemorrhage or acute ischemia. 2. Changes of chronic microvascular ischemia and volume loss. 3. Subtle lucencies within the calvarium again noted. Metastatic disease versus myeloma is a consideration. Findings and impression were called directly to Dr. Quigley at 11:50 a.m. Eastern standard time. Reading Location: [id number] Head/Neck CTA 03/08/25 11:38 IMPRESSION: No significant stenosis in the head and neck. No aneurysm or vascular malformation. Reading Location: [facility] Physical Exam Neuro Neuro Narrative: Neurological?examination: General: The patient appears nutritionally appropriate, well-groomed, and appears comfortable in noacute distress. Mental Status: ?The patient?s mental status was normal including orientation. ?Language was intact. ?Cranial nerves: ?No visual complaints, and extra-ocular motion was intact. Face motion symmetric. Tongue was midline with normal movement. ?There was no dysarthria. Motor: Normal strength in all four extremities. No pronator drift. Sensation: Intact light touch bilaterally, no extinction. ?Coordination: ?Bilateral finger to nose was normal. ?There was no dysmetria. Gait: ?deferred Subject: Neurology Subjective No acute events. Patient feels back to baseline. Patient reports he takes only plavix at home (doesnt take Asa). 122/67. Assessment and Plan: Stroke Assessment/Plan JEAN PIERRE GRANT is a 64 yo RH M smoker with a history of prior ischemic stroke 10 years without residual deficits on plavix, CAD s/p stent, DM, HL, COPDwho on 03/08/25 at 330p while at a family reunion had an episode of confusion and drooling. Symptoms resolved on arrival to [place] [facility], episode lasted ~ [address] brain negative. CTA head/neck negative. Telestroke showed NIHSS-0. Patient admitted for TIA work-up. LDL 28. HgbA1c 02/26/25 10.8. He is on Asa/plavix, lipitor 80, and lovenox SQ. Neurological examination shows nonfocale exam, NIHSS-0 ASSESSMENT/PLAN: TIA 1) TIA work-up recommended including MRI brain and TTE. 2) Continue daily anti-platelet medication. Recommend dAPT x 21 days (Asa/plavixx 21days, then stopAsa and continue home Plavix only thereafter) 3) Continue vascular risk factor modification. 4) Follow-up in outpatient neurology clinic Primary team messages my recs on backline. Christy Corrigan MD NIHSS NIHSS Nursing Documentation NIHSS Nursing Documentation: NIHSS: Ischemic Stroke/TIA Start: 03/08/25 14:49 Text: For PCU Patients: NIH and Neuro Check every 4 Status: Active hours, PRN and with change in RN caregiver. Freq: [id number] Protocol: Activity Type Activity Date Activity User E-sign Co-sign Detail Recorded Client Recorded Date Recorded By Document 03/09/25 09:18 [id number] 03/09/25 09:18 RV 03/09/25 09:18 NIH Stroke Scale [NIHSS] A score of 0 is normal or asymptomatic . Total possible score is 42. Inpatient: RN or Physician to activate a stroke alert for onset of new stroke symptoms or with NIHSS increase >/= 3 points. Following change in neurological status, NIHSS will be performed per physician order or more frequently PRN. -1a. Level of Consciousness 0 - Alert; keenly responsive -1b. LOC Questions 0 - Answers BOTH questions correctly -1c. LOC Commands 0 - Performs BOTH tasks correctly -2. Best Gaze 0 - Normal -3. Visual 0 - No visual loss -4. Facial Palsy 0 - Normal symmetrical movements -5a. Left Arm 0 - No drift; arm holds 90 ( or 45) degrees for full 10 seconds -5b. Right Arm 0 - No drift; arm holds 90 ( or 45) degrees for full 10 seconds -6a. Left Leg 0 - No drift; leg holds 30- degree position for full 5 seconds -6b. Right Leg 0 - No drift; leg holds 30- degree position for full 5 seconds -7. Limb Ataxia 0 - Absent -8. Sensory 0 - Normal; no sensory loss -9. Best Language 0 - No aphasia; normal -10. Dysarthria 0 - Normal -11. Extinction and Inattention 0 - No abnormality -Total 0 Query Text:A score of 0 is normal or asymptomatic. Total possible score is 42 . ED: Notify Physician for NIHSS increase by > / = 3 points. Inpatient: RN or Physician to activate a stroke alert for NIHSS increase of > / = 3 points. Coma Scale [Assess] -Eye Opening Spontaneous -Motor Obeys Commands -Verbal Oriented [Total] -Coma Scale Total 15 NIHSS 1a. Level of Consciousness: 0 - Alert; keenly responsive 1b. LOC Questions: 0 - Answers BOTH questions correctly 1c. LOC Commands: 0 - Performs BOTH tasks correctly 2. Best Gaze: 0 - Normal 3. Visual: 0 - No visual loss 4. Facial Palsy: 0 - Normal symmetrical movements 5a. Left Arm: 0 - No drift; arm holds 90 (or 45) degrees for full 10 seconds 5b. Right Arm: 0 - No drift; arm holds 90 (or 45) degrees for full 10 seconds 6a. Left Le - No drift; leg holds 30-degree position for full 5 seconds 6b. Right Le - No drift; leg holds 30-degree position for full 5 seconds 7. Limb Ataxia: 0 - Absent 8. Sensory: 0 - Normal; no sensory loss 9. Best Language: 0 - No aphasia; normal 10. Dysarthria: 0 - Normal 11. Extinction and Inattention: 0 - No abnormality Total: 0 03/09/25 1027 Cosigner Signature (if applicable): CC: ~ Signed [facility]08-10-2025 Discharge summary Author Christi Quigley [facility] Note Date/Time March 08, 2025 10: 47pm [facility] Medical Records Department [address] [place] [address] Emergency Department Summary 03/08/25 MR#: [id number] Acct: [id number] Name: JEAN PIERRE GRANT Rep #:[id number] : 1960 64 From: Christi Quigley MD PCP: Perla Yee DO Status:ADM LEANDER Location: [address] History of Present Illness Chief Complaint: Stroke Alert Narrative Narrative: Patient is a 64-year-old male presenting to the emergency department for strokelike symptoms. Patient has a prior history of a stroke. No residual deficits per . states that they were drinking coffee this morning and 15 minutes prior to arrival he had difficulty speaking. She brought him here susan evaluated. He is on Plavix at home, no oral anticoagulation. Patient deniesheadache, lightheadedness or dizziness. Denies any recent fever or chills. Denies chest pain or shortness of breath, abdominal pain. [facility] Medical History Presence of stent in coronary artery (~08/08/16) Hematuria Acute urinary retention Wears glasses Insulin dependent diabetes mellitus Ambulates with cane Prostate disease High cholesterol Restless legs TIA (transient ischemic attack) Difficulty chewing History of diverticulitis Smoker History of heart attack History of echocardiogram History of stress test Cardiology follow-up encounter COPD (chronic obstructive pulmonary disease) Atherosclerosis of coronary artery of [place] heart without angina pectoris Non-ST elevation myocardial infarction (NSTEMI) (~08/08/16) Essential (primary) hypertension Type 2 diabetes mellitus Anxiety Depression Heart attack Heart disease Hypertension Arthritis Neuropathy Diabetes Home Medications ?Medication ?Instructions ?Recorded ?Last Taken ?Type clopidogrel 75 mg tablet (Plavix) 75 mg PO DAILY 06/0508/23/22 History metformin 1,000 mg tablet 1,000 mg PO BID 06/05/21 Unk nown History pregabalin 100 mg capsule 100 mg PO BID 06/13/22 Unkno wn History pantoprazole 20 mg tablet,delayed 20 mg PO DAILY #30 t abs 06/20/22 08/29/22 Rx release (Protonix) lisinopril 20 mg tablet 20 mg PO DAILY 07/01/2208/02 History tamsulosin 0.4 mg capsule (Flomax) 0.4 mg PO BID #60 c aps 08/30/22 Unknown Rx dapagliflozin propanediol 10 mg 10 mg PO DAILY 3 Unknown History tablet (Farxiga) finasteride 5 mg tablet 5 mg PO DAILY 01/12/23 Unkno wn History glimepiride 4 mg tablet 4 mg PO DAILY 01/12/23 Unkno wn History tadalafil 20 mg tablet 20 mg PO DAILY PRN sexual ac tivity 01/12/23 Unknown History metoprolol tartrate 50 mg tablet 50 mg PO BID #180 tab s 10/16/23 Unknown Rx insulin glargine 100 unit/mL (3 10 unit subcut QHS 04/24 Unknown History mL) subcutaneous pen (Lantus Solostar U-100 Insulin) rosuvastatin 40 mg tablet 40 mg PO QHS 03/08/25 Unknow n History Allergy/AdvReac Type Severity Reaction Status Date / Time fentanyl Allergy Intermediate Pain in Verified 02/25/25 11:33 joints acetaminophen (From Percocet) Allergy Vomiting Verified 02/25/25 11:33 diphenhydramine (From Allergy Other Verified 02/25/25 11:33 Benadryl) oxycodone (From Percocet) Allergy Vomiting Verified 02/25/25 11:33 Family History Grandfather Diabetes Heart disease Hypertension Grandmother Diabetes Heart disease Hypertension Cancer stomach Father Diabetes Heart disease Hypertension Brother Heart disease Hypertension Surgical History History of colonoscopy History of esophagogastroduodenoscopy (EGD) History of coronary artery stent placement (~08/08/16) H/O cardiac catheterization Social History Smoking Status: Current every day smoker tobacco type: cigarettes alcohol intake: former substance use type: does not use caffeine: Yes Type: coffee Number of servings: 12 EXAM Physical Exam Narrative Exam Narrative: Vital signs: Reviewed General: Alert and oriented. No acute distress HEENT: Head is normocephalic and atraumatic, sinuses nontender, pupils equal round and reactive. Nares are patent. Oropharynx and throat exams normal. Neck: Supple without lymphadenopathy nontender Cardiovascular: Regular rate and rhythm, no murmurs. No rubs or gallops. Normal S1 and S2 Respiratory: Clear to auscultation bilaterally. No wheezes, rales, rhonchi Abdominal: Soft and nontender. Normal bowel sounds. No guarding or rebound. Nonsurgical abdomen Extremities: No tenderness. No bruising. Normal range of motion. Normal sensation. Skin: No rash or redness. Neurological: Neuro exam as below. The rest of the physical exam is unremarkable Const Vital Signs: 03/08/25 11:58 03/08/25 12:00 03/08/25 12:00 Temperature Temperature Source Pulse Rate 74 71 Respiratory Rate 18 17 Blood Pressure 160/89 H 169/92 H Blood Pressure Mean 112 117 Pulse Ox 100 97 99 Oxygen Delivery Method Room Air Room Air Room Air 03/08/25 12:17 03/08/25 12:17 03/08/25 12:30 Temperature 97.9 F Temperature Source Temporal Pulse Rate 73 67 Respiratory Rate 21 H 18 Blood Pressure 144/76 H 149/85 H Blood Pressure Mean 98 106 Pulse Ox 99 99 Oxygen Delivery Method Room Air Room Air NIHSS NIHSS Initial: 1a Level of Consciousness: 0 1b LOC Questions (Score 2 if aphasic/stupor): 2 1c LOC Commands (Only score 1st attempt): 2 2 Best Gaze (If aphasic, use reflexive mvmts.): 0 3 Visual: 0 4 Facial Palsy: 0 5 Motor Arm Right (UN = amputation/fusion): 0 5 Motor Arm Left: 0 6 Motor Leg Right: 0 6 Motor Leg Left: 0 7 Limb ataxia (Only + if out of proportion): 0 8 Sensory (Aphasia/stupor=0 or 1, coma=2): 0 9 Best Language: 3 10 Dysarthria (mute, coma=2, intubated=UN): 2 11 Extinction and Inattention (only scored if +): 0 Total Score: 9 MDM MDM MDM Narrative Medical decision making narrative: Patient is a 64-year-old male presenting to the emergency department for stroke concern. Patient was seen and examined in triage. Initial NIH of 9. Stroke team called. Glucose within normal limits. CT brain and CTA head and neck ordered. Telestroke was done with Dr. Brinda Garcia who evaluated the patient. By this time his NIH had improved significantly. Suspect TIA. Not a candidate for TNK. He did take his plavix this morning. CT brain shows no evidence of intracranial hemorrhage or acute ischemia. CTA neck shows no significant stenosis or LVO. Discussed findings with patient family at bedside. Will admitfor MRI and further workup. Patient agreeable to plan. Patient admitted to hospitalist service for further management. History & Record Review Discussion w/independent historian: Patient and Family Lab Data Attestation: I reviewed the patient's lab results. Labs: Laboratory Results - last 24 hr 03/08/25 03/08/25 11:45 12:53 WBC 11.6 H RBC 4.90 Hgb 13.7 Hct 42.2 MCV 86.1 MCH 28.0 MCHC 32.5 RDW Std Deviation 40.8 RDW Coeff of Serafin 13.0 Plt Count 195 MPV 11.8 Immature Gran % (Auto) 0.600 Neut % (Auto) 63.7 Lymph % (Auto) 27.1 [place] % (Auto) 6.2 Eos % (Auto) 2.0 Baso % (Auto) 0.4 Absolute Neuts (auto) 7.4 Absolute Lymphs (auto) 3.14 Nucleated RBC % 0 PT 12.5 INR 0.9 APTT 25.8 Sodium 137 Potassium 5.0 Chloride 102 Carbon Dioxide 24.1 Anion Gap 11 BUN 21 H Creatinine 1.18 Estim Creat Clear Calc 54.35 Est GFR (MDRD) Non-Af 70 BUN/Creatinine Ratio 17.5 Glucose 174 H Calcium 9.0 Troponin T High Sens 36 H Urine Color Yellow Urine Clarity Clear Urine pH 7.0 Ur Specific [place] 1.005 Urine Protein 15 H Urine Glucose (UA) 100 H Urine Ketones Negative Urine Occult Blood Negative Urine Nitrite Negative Urine Bilirubin Negative Urine Urobilinogen Normal Ur Leukocyte Esterase Negative Urine RBC 0 SEEN Urine WBC 0-5 SEEN Ur Squamous Epith Cells 0 SEEN Urine Bacteria 0 SEEN Urine Mucus 0 SEEN Urine Yeast 1+ Radiography Diagnostic Testing: Clinical Impression(s) from Imaging Studies Brain CT 03/08/25 11:37 IMPRESSION: 1. No evidence of intracranial hemorrhage or acute ischemia. 2. Changes of chronic microvascular ischemia and volume loss. 3. Subtle lucencies within the calvarium again noted. Metastatic disease versus myeloma is a consideration. Findings and impression were called directly to Dr. Quigley at 11:50 a.m. Eastern standard time. Reading Location: [facility] Head/Neck CTA 03/08/25 11:38 IMPRESSION: No significant stenosis in the head and neck. No aneurysm or vascular malformation. Reading Location: [facility] Discharge Plan Disposition Disposition: Acute Care Hospital [facility] Discharge Date/Time: 03/08/25 14:42 What to do if you have Problems For any increased pain, shortness of breath, bleeding, nausea or vomiting, chestpain, or any unexpected problems, contact your Primary Care Provider. Call [facility] ([phone]) or report to the closest Emergency Room. Call 911 if necessary. 03/08/252246 <Electronically signed by Christi Quigley MD> Cosigner Signature (if applicable): CC: Perla Yee DO ~ Signed [facility] Work Phone: 1(235) 151-251608-09-2025 Discharge summary [facility] Medical Records Department [address] [place] [id number] Emergency Department Summary 03/08/25 MR#: [id number] Acct: [id number] Name: JEAN PIERRE GRANT Rep #:[id number] : 1960 64 From: Christi Quigley MD PCP: Perla Yee DO Status:ADM LEANDER Location: [address] History of Present Illness Chief Complaint: Stroke Alert Narrative Narrative: Patient is a 64-year-old male presenting to the emergency department for strokelike symptoms. Patient has a prior history of a stroke. No residual deficits per . states that they were drinking coffee this morning and 15 minutes prior to arrival he had difficulty speaking. She brought him here susan evaluated. He is on Plavix at home, no oral anticoagulation. Patient deniesheadache, lightheadedness or dizziness. Denies any recent fever or chills. Denies chest pain or shortness of breath,abdominal pain. PFSH [facility] Medical History Presence of stent in coronary artery (~08/08/16) Hematuria Acute urinary retention Wears glasses Insulin dependent diabetes mellitus Ambulates with cane Prostate disease High cholesterol Restless legs TIA (transient ischemic attack) Difficulty chewing History of diverticulitis Smoker History of heart attack History of echocardiogram History of stress test Cardiology follow-up encounter COPD (chronic obstructive pulmonary disease) Atherosclerosis of coronary artery of [place] heart without angina pectoris Non-ST elevation myocardial infarction (NSTEMI) (~08/08/16) Essential (primary) hypertension Type 2 diabetes mellitus Anxiety Depression Heart attack Heart disease Hypertension Arthritis Neuropathy Diabetes Home Medications ?Medication ?Instructions ?Recorded ?Last Taken ?Type clopidogrel 75 mg tablet (Plavix) 75 mg PO DAILY 06/0508/23/22 History metformin 1,000 mg tablet 1,000 mg PO BID 06/05/21 Unk nown History pregabalin 100 mg capsule 100 mg PO BID 06/13/22 Unkno wn History pantoprazole 20 mg tablet,delayed 20 mg PO DAILY #30 t abs 06/20/22 08/29/22 Rx release (Protonix) lisinopril 20 mg tablet 20 mg PO DAILY 07/01/2208/02 History tamsulosin 0.4 mg capsule (Flomax) 0.4 mg PO BID #60 c aps 08/30/22 Unknown Rx dapagliflozin propanediol 10 mg 10 mg PO DAILY 3 Unknown History tablet (Farxiga) finasteride 5 mg tablet 5 mg PO DAILY 01/12/23 Unkno wn History glimepiride 4 mg tablet 4 mg PO DAILY 01/12/23 Unkno wn History tadalafil 20 mg tablet 20 mg PO DAILY PRN sexual ac tivity 01/12/23 Unknown History metoprolol tartrate 50 mg tablet 50 mg PO BID #180 tab s 10/16/23 Unknown Rx insulin glargine 100 unit/mL (3 10 unit subcut QHS 04/24 Unknown History mL) subcutaneous pen (Lantus Solostar U-100 Insulin) rosuvastatin 40 mg tablet 40 mg PO QHS 03/08/25 Unknow n History Allergy/AdvReac Type Severity Reaction Status Date / Time fentanyl Allergy Intermediate Pain in Verified 02/25/25 11:33 joints acetaminophen (From Percocet) Allergy Vomiting Verified 02/25/25 11:33 diphenhydramine (From Allergy Other Verified 02/25/25 11:33 Benadryl) oxycodone (From Percocet) Allergy Vomiting Verified 02/25/25 11:33 Family History Grandfather Diabetes Heart disease Hypertension Grandmother Diabetes Heart disease Hypertension Cancer stomach Father Diabetes Heart disease Hypertension Brother Heart disease Hypertension Surgical History History of colonoscopy History of esophagogastroduodenoscopy (EGD) History of coronary artery stent placement (~08/08/16) H/O cardiac catheterization Social History Smoking Status: Current every day smoker tobacco type: cigarettes alcohol intake: former substance use type: does not use caffeine: Yes Type: coffee Number of servings: 12 EXAM Physical Exam Narrative Exam Narrative: Vital signs: Reviewed General: Alert and oriented. No acute distress HEENT: Head is normocephalic and atraumatic, sinuses nontender, pupils equal round and reactive. Nares are patent. Oropharynx and throat exams normal. Neck: Supple without lymphadenopathy nontender Cardiovascular: Regular rate and rhythm, no murmurs. No rubs or gallops. Normal S1 and S2 Respiratory: Clear to auscultation bilaterally. No wheezes, rales, rhonchi Abdominal: Soft and nontender. Normal bowel sounds. No guarding or rebound. Nonsurgical abdomen Extremities: No tenderness. No bruising. Normal range of motion. Normal sensation. Skin: No rash or redness. Neurological: Neuro exam as below. The rest of the physical exam is unremarkable Const Vital Signs: 03/08/25 11:58 03/08/25 12:00 03/08/25 12:00 Temperature Temperature Source Pulse Rate 74 71 Respiratory Rate 18 17 Blood Pressure 160/89 H 169/92 H Blood Pressure Mean 112 117 Pulse Ox 100 97 99 Oxygen Delivery Method Room Air Room Air Room Air 03/08/25 12:17 03/08/25 12:17 03/08/25 12:30 Temperature 97.9 F Temperature Source Temporal Pulse Rate 73 67 Respiratory Rate 21 H 18 Blood Pressure 144/76 H 149/85 H Blood Pressure Mean 98 106 Pulse Ox 99 99 Oxygen Delivery Method Room Air Room Air NIHSS NIHSS Initial: 1a Level of Consciousness: 0 1b LOC Questions (Score 2 if aphasic/stupor): 2 1c LOC Commands (Only score 1st attempt): 2 2 Best Gaze (If aphasic, use reflexive mvmts.): 0 3 Visual: 0 4 Facial Palsy: 0 5 Motor Arm Right (UN = amputation/fusion): 0 5 Motor Arm Left: 0 6 Motor Leg Right: 0 6 Motor Leg Left: 0 7 Limb ataxia (Only + if out of proportion): 0 8 Sensory (Aphasia/stupor=0 or 1, coma=2): 0 9 Best Language: 3 10 Dysarthria (mute, coma=2, intubated=UN): 2 11 Extinction and Inattention (only scored if +): 0 Total Score: 9 MDM MDM MDM Narrative Medical decision making narrative: Patient is a 64-year-old male presenting to the emergency department for stroke concern. Patient was seen and examined in triage. Initial NIH of 9. Stroke team called. Glucose within normal limits. CT brain and CTA head and neck ordered. Telestroke was done with Dr. Brinda Garcia who evaluated the patient. By this time his NIH had improved significantly. Suspect TIA. Not a candidate for TNK. He did take his plavix this morning. CT brain shows no evidence of intracranial hemorrhage or acute ischemia. CTA neck shows no significant stenosis or LVO. Discussed findings with patient family at bedside.Will admitfor MRI and further workup. Patient agreeable to plan. Patient admitted to hospitalist service for further management. History & Record Review Discussion w/independent historian: Patient and Family Lab Data Attestation: I reviewed the patient's lab results. Labs: Laboratory Results - last 24 hr 03/08/25 03/08/25 11:45 12:53 WBC 11.6 H RBC 4.90 Hgb 13.7 Hct 42.2 MCV 86.1 MCH 28.0 MCHC 32.5 RDW Std Deviation 40.8 RDW Coeff of Serafin 13.0 Plt Count 195 MPV 11.8 Immature Gran % (Auto) 0.600 Neut % (Auto) 63.7 Lymph % (Auto) 27.1 [place] % (Auto) 6.2 Eos % (Auto) 2.0 Baso % (Auto) 0.4 Absolute Neuts (auto) 7.4 Absolute Lymphs (auto) 3.14 Nucleated RBC % 0 PT 12.5 INR 0.9 APTT 25.8 Sodium 137 Potassium 5.0 Chloride 102 Carbon Dioxide 24.1 Anion Gap 11 BUN 21 H Creatinine 1.18 Estim Creat Clear Calc 54.35 Est GFR (MDRD) Non-Af 70 BUN/Creatinine Ratio 17.5 Glucose 174 H Calcium 9.0 Troponin T High Sens 36 H Urine Color Yellow Urine Clarity Clear Urine pH 7.0 Ur Specific [place] 1.005 Urine Protein 15 H Urine Glucose (UA) 100 H Urine Ketones Negative Urine Occult Blood Negative Urine Nitrite Negative Urine Bilirubin Negative Urine Urobilinogen Normal Ur Leukocyte Esterase Negative Urine RBC 0 SEEN Urine WBC 0-5 SEEN Ur Squamous Epith Cells 0 SEEN Urine Bacteria 0 SEEN Urine Mucus 0 SEEN Urine Yeast 1+ Radiography Diagnostic Testing: Clinical Impression(s) from Imaging Studies Brain CT 03/08/25 11:37 IMPRESSION: 1. No evidence of intracranial hemorrhage or acute ischemia. 2. Changes of chronic microvascular ischemia and volume loss. 3. Subtle lucencies within the calvarium again noted. Metastatic disease versus myeloma is a consideration. Findings and impression were called directly to Dr. Quigley at 11:50 a.m. Eastern standard time. Reading Location: [id number] Head/Neck CTA 03/08/25 11:38 IMPRESSION: No significant stenosis in the head and neck. No aneurysm or vascular malformation. Reading Location: [facility] Discharge Plan Disposition Disposition: Acute Care Hospital [facility] Discharge Date/Time: 03/08/25 14:42 What to do if you have Problems For any increased pain, shortness of breath, bleeding, nausea or vomiting, chestpain, or any unexpected problems, contact your Primary Care Provider. Call [facility] ([phone]) or report tothe closest Emergency Room. Call 911 if necessary. 03/08/25 0707 Cosigner Signature (if applicable): CC: Perla Yee DO ~ Signed [facility]08-09-2025 History and physical note Author Mary Lemus [facility] Note Date/Time March 08, 2025 4:2 6pm [facility] Medical Records Department [address] [place] [id number] H&P Exam - Hospitalist 03/08/25 1242 MR#: [id number] Acct: [id number] Name: JEAN PIERRE GRANT Rep #:[id number] 14 : 1960 64 From: Mary Lemus MD PCP: Perla Yee DO Status:ADM LEANDER Location: [place] [address] HPI - General General Date of Admission: 03/08/25 Date of Service: 03/08/25 Chief Complaint: slurred speech and aphasia HPI Narrative JEAN PIERRE GRANT, is a 64 M with a PMH as outlined who was admitted via the ED on 03/08/2025 with a complaint of slurred speech and aphasia. noted that his speech was slurred when he was talking to her this morning. He had a stroke lastyear so family was concerned about a repeat stroke and so brought him to the ED.He is on aspirin and Plavix at home. He was admitted to the moderate facial droop and also supposedly had some right weakness but his symptoms had resolved by the time he came into the ED. He denied any headache, chest pain, dizziness,symptoms. Review of systems otherwise negative. He has been compliant with hisPlavix. Vitals in the ED were blood pressure of 149/85, pulse rate of 67, respiratory rate of 18 and he was saturating at 99% on room air. CBC showed hemoglobin of 13.7 with WBC of 11.6 and platelets of 195. INR was 0.9. Chemistry shows sodium of 137 potassium of 5 and bicarb of 24.1. Creatinine was 1.18. CT brainshowed no acute intracranial pathology and showed subtle lucencies within the calvarium which had been again noted with metastatic disease versus myeloma being a consideration. CTA head and neck showed no significant stenosis in the head and neck. NIH stroke scale was 0 at the time he came into the ED. He is therefore being admitted to be managed for TIA to rule out a stroke. [facility] Medical History Presence of stent in coronary artery (~08/08/16) Hematuria Acute urinary retention Wears glasses Insulin dependent diabetes mellitus Ambulates with cane Prostate disease High cholesterol Restless legs TIA (transient ischemic attack) Difficulty chewing History of diverticulitis Smoker History of heart attack History of echocardiogram History of stress test Cardiology follow-up encounter COPD (chronic obstructive pulmonary disease) Atherosclerosis of coronary artery of [place] heart without angina pectoris Non-ST elevation myocardial infarction (NSTEMI) (~08/08/16) Essential (primary) hypertension Type 2 diabetes mellitus Anxiety Depression Heart attack Heart disease Hypertension Arthritis Neuropathy Diabetes Home Medications ?Medication ?Instructions ?Recorded ?Last Taken ?Type clopidogrel 75 mg tablet (Plavix) 75 mg PO DAILY 06/0508/23/22 History metformin 1,000 mg tablet 1,000 mg PO BID 06/05/21 Unk nown History pregabalin 100 mg capsule 100 mg PO BID 06/13/22 Unkno wn History pantoprazole 20 mg tablet,delayed 20 mg PO DAILY #30 t abs 06/20/22 08/29/22 Rx release (Protonix) lisinopril 20 mg tablet 20 mg PO DAILY 07/01/2208/02 History tamsulosin 0.4 mg capsule (Flomax) 0.4 mg PO BID #60 c aps 08/30/22 Unknown Rx dapagliflozin propanediol 10 mg 10 mg PO DAILY 3 Unknown History tablet (Farxiga) finasteride 5 mg tablet 5 mg PO DAILY 01/12/23 Unkno wn History glimepiride 4 mg tablet 4 mg PO DAILY 01/12/23 Unkno wn History tadalafil 20 mg tablet 20 mg PO DAILY PRN sexual ac tivity 01/12/23 Unknown History metoprolol tartrate 50 mg tablet 50 mg PO BID #180 tab s 10/16/23 Unknown Rx insulin glargine 100 unit/mL (3 10 unit subcut QHS 04/24 Unknown History mL) subcutaneous pen (Lantus Solostar U-100 Insulin) rosuvastatin 40 mg tablet 40 mg PO QHS 03/08/25 Unknow n History Allergy/AdvReac Type Severity Reaction Status Date / Time fentanyl Allergy Intermediate Pain in Verified 02/25/25 11:33 joints acetaminophen (From Percocet) Allergy Vomiting Verified 02/25/25 11:33 diphenhydramine (From Allergy Other Verified 02/25/25 11:33 Benadryl) oxycodone (From Percocet) Allergy Vomiting Verified 02/25/25 11:33 Family History Grandfather Diabetes Heart disease Hypertension Grandmother Diabetes Heart disease Hypertension Cancer stomach Father Diabetes Heart disease Hypertension Brother Heart disease Hypertension Surgical History History of colonoscopy History of esophagogastroduodenoscopy (EGD) History of coronary artery stent placement (~08/08/16) H/O cardiac catheterization Social History Smoking Status: Current every day smoker tobacco type: cigarettes alcohol intake: former substance use type: does not use caffeine: Yes Type: coffee Number of servings: 12 ROS Constitutional Constitutional: Denies anorexia, chills, fatigue, fever(s), malaise or weakness Eyes Eyes: Denies change in vision ENT HEENT: Denies dysphagia, headache(s) or hearing loss Cardiovascular Cardiovascular: Denies chest pain, dyspnea on exertion, lightheadedness, palpitations or rapid heart rate Respiratory/Chest Respiratory/Chest: Denies cough, dyspnea, productive cough or shortness of breath with exertion Gastrointestinal Gastrointestinal: Denies abdominal pain, diarrhea, dyspepsia, nausea or vomiting Genitourinary Genitourinary: Denies dysuria Neurologic Neurologic: Reports abnormal speech; Denies confusion, dizziness, focal weakness, headache(s), numbness, seizures, syncope or tingling Psychiatric Psychiatric: Denies anxiety Vital Signs Vital Signs Vital Signs: 03/08/25 11:58 03/08/25 12:00 03/08/25 12:00 Temperature Temperature Source Pulse Rate 74 71 Respiratory Rate 18 17 Blood Pressure 160/89 H 169/92 H Blood Pressure Mean 112 117 Pulse Ox 100 97 99 Oxygen Delivery Method Room Air Room Air Room Air 03/08/25 12:17 03/08/25 12:17 03/08/25 12:30 Temperature 97.9 F Temperature Source Temporal Pulse Rate 73 67 Respiratory Rate 21 H 18 Blood Pressure 144/76 H 149/85 H Blood Pressure Mean 98 106 Pulse Ox 99 99 Oxygen Delivery Method Room Air Room Air Weight Weight: 151 lb 0.266 oz Body Mass Index (BMI) 25.9 Physical Exam Const alert, oriented x3 and no apparent distress General Appearance: cooperative HEENT normocephalic, head/scalp atraumatic, hearing grossly normal bilaterally and moist oral mucous membranes Mouth: oral and palatal mucosa normal Eyes EOMs intact bilaterally and conjunctivae normal Neck supple Resp normal respiratory effort, no use of accessory muscles and clear to auscultationbilaterally Cardio regular rate, regular rhythm, S1 normal heart sound, S2 normal heart sound and no murmurs GI normal to inspection, nondistended, normoactive bowel sounds, soft to palpation,non-tender and non-distended Extremity normal to inspection, full ROM and no clubbing, cyanosis or edema Neuro oriented x3, CN's II-XII intact bilaterally, moves all extremities and no focal motor deficits Sensorium / Orientation: awake Motor Exam: strength 5/5 throughout Psych affect normal Results Lab / Micro Data 03/08/25 11:45 03/08/25 11:45 Labs: Laboratory Results - last 24 hr 03/08/25 11:45: WBC 11.6 H, RBC 4.90, Hgb 13.7, Hct 42.2, MCV 86.1, MCH 28.0, MCHC 32.5, RDW Std Deviation 40.8, RDW Coeff of Serafin 13.0, Plt Count 195, MPV 11.8, Immature Gran % (Auto) 0.600, Neut % (Auto) 63.7, Lymph % (Auto) 27.1, [place] % (Auto) 6.2, Eos % (Auto) 2.0, Baso % (Auto) 0.4, Absolute Neuts (auto) 7.4, Absolute Lymphs (auto) 3.14, Nucleated RBC % 0, PT 12.5, INR 0.9, APTT 25.8, Sodium 137, Potassium 5.0, Chloride 102, Carbon Dioxide 24.1, Anion Gap 11, BUN 21 H, Creatinine 1.18, Estim Creat Clear Calc 54.35, Est GFR (MDRD) Non-Af 70, BUN/Creatinine Ratio 17.5, Glucose 174 H, Calcium 9.0, Troponin T High Sens 36 H Imaging Radiology Impression Brain CT 03/08/25 11:37 IMPRESSION: 1. No evidence of intracranial hemorrhage or acute ischemia. 2. Changes of chronic microvascular ischemia and volume loss. 3. Subtle lucencies within the calvarium again noted. Metastatic disease versus myeloma is a consideration. Findings and impression were called directly to Dr. Quigley at 11:50 a.m. Eastern standard time. Reading Location: [facility] Head/Neck CTA 03/08/25 11:38 IMPRESSION: No significant stenosis in the head and neck. No aneurysm or vascular malformation. Reading Location: [id number] Assessment & Plan Assessment/Plan (1) Stroke-like symptoms: PLAN: Plan #Stroke like symptoms * admitted with a complaint of slurred speech and expressive aphasia. Symptoms had resolved at time of review * NIHSS at time of review is 0 * CT brain showed no acute intracranial pathology. * CT head and neck showed no hemodynamically significant stenosis. * already on plavix and high intensity statin due to history of stroke. * Admit to PCU per stroke protocol * get MRI of the brain and 2D echo * consult [facility] neurology * Consult speech therapy. Monitor NIH stroke scale. * Keep n.p.o. until he passes bedside swallow evaluation. Hold BP meds to allow for permissive hypertension in case of a stroke. #Type 2 diabetes mellitus: Hold dapagliflozin and glimepiride. Insulin sliding scale. Accuchecks ACHS. #BPH: On finasteride and Flomax DVT prophylaxis: SCDs Code status: full code * Patient and counseled extensively about different types of CODE STATUS including full code, DNR CCA and DNR CCA. * Patient elects to be full code. * Total egle-yy-xuwy time 16 minutes. Charges/Coding Visit Charges Inpatient E&M: 34981 Init Hosp L2 Procedures Hospitalists Procedures: 64085 Advncd Care Plan 30 Min 03/08/25 1626 <Electronically signed by Mary Lemus MD> Cosigner Signature (if applicable): CC: Dr. Mary Lemus MD; Perla Yee DO~ Signed [facility] Work Phone: 1(341) 842-449208-09-2025 History and physical note [facility] Medical Records Department [address] [facility] [place] [address] H&P Exam - Hospitalist 03/08/25 1242 MR#: [id number] Acct: [id number] Name: JEAN PIERRE GRANT Rep #:[id number] : 1960 64 From: Mary Lemus MD PCP: Perla Yee DO Status:ADM LEANDER Location: [place] [address] HPI - General General Date of Admission: 03/08/25 Date of Service: 03/08/25 Chief Complaint: slurred speech and aphasia HPI Narrative JEAN PIERRE GRANT, is a 64 M with a PMH as outlined who was admitted via the ED on 03/08/2025 with a complaint of slurred speech and aphasia. noted that his speech was slurred when he was talking to her this morning. He had a stroke lastyear so family was concerned about a repeat stroke and so brought him to the ED.He is on aspirin and Plavix at home. He was admitted to the moderate facial droop and also supposedly had some right weakness but his symptoms had resolved by the time he came into the ED. He denied any headache, chest pain, dizziness,symptoms. Review of systems otherwise negative. He has been compliant with hisPlavix. Vitals in the ED were blood pressure of 149/85, pulse rate of 67, respiratory rate of 18 and he wassaturating at 99% on room air. CBC showed hemoglobin of 13.7 with WBC of 11.6 and platelets of 195.INR was 0.9. Chemistry shows sodium of 137 potassium of 5 and bicarb of 24.1. Creatinine was 1.18. CT brainshowed no acute intracranial pathology and showed subtle lucencies within the calvarium which had been again noted with metastatic disease versus myeloma being a consideration. CTA head and neck showed no significant stenosis in the head and neck. NIH stroke scale was 0 at the time he came into the ED. He is therefore being admitted to be managed for TIA to rule out a stroke. [facility] Medical History Presence of stent in coronary artery (~08/08/16) Hematuria Acute urinary retention Wears glasses Insulin dependent diabetes mellitus Ambulates with cane Prostate disease High cholesterol Restless legs TIA (transient ischemic attack) Difficulty chewing History of diverticulitis Smoker History of heart attack History of echocardiogram History of stress test Cardiology follow-up encounter COPD (chronic obstructive pulmonary disease) Atherosclerosis of coronary artery of [place] without angina pectoris Non-ST elevation myocardial infarction (NSTEMI) (~08/08/16) Essential (primary) hypertension Type 2 diabetes mellitus Anxiety Depression Heart attack Heart disease Hypertension Arthritis Neuropathy Diabetes Home Medications ?Medication ?Instructions ?Recorded ?Last Taken ?Type clopidogrel 75 mg tablet (Plavix) 75 mg PO DAILY 06/0508/23/22 History metformin 1,000 mg tablet 1,000 mg PO BID 06/05/21 Unk nown History pregabalin 100 mg capsule 100 mg PO BID 06/13/22 Unkno wn History pantoprazole 20 mg tablet,delayed 20 mg PO DAILY #30 t abs 06/20/22 08/29/22 Rx release (Protonix) lisinopril 20 mg tablet 20 mg PO DAILY 07/01/2208/02 History tamsulosin 0.4 mg capsule (Flomax) 0.4 mg PO BID #60 c aps 08/30/22 Unknown Rx dapagliflozin propanediol 10 mg 10 mg PO DAILY 3 Unknown History tablet (Farxiga) finasteride 5 mg tablet 5 mg PO DAILY 01/12/23 Unkno wn History glimepiride 4 mg tablet 4 mg PO DAILY 01/12/23 Unkno wn History tadalafil 20 mg tablet 20 mg PO DAILY PRN sexual ac tivity 01/12/23 Unknown History metoprolol tartrate 50 mg tablet 50 mg PO BID #180 tab s 10/16/23 Unknown Rx insulin glargine 100 unit/mL (3 10 unit subcut QHS 04/24 Unknown History mL) subcutaneous pen (Lantus Solostar U-100 Insulin) rosuvastatin 40 mg tablet 40 mg PO QHS 03/08/25 Unknow n History Allergy/AdvReac Type Severity Reaction Status Date / Time fentanyl Allergy Intermediate Pain in Verified 02/25/25 11:33 joints acetaminophen (From Percocet) Allergy Vomiting Verified 02/25/25 11:33 diphenhydramine (From Allergy Other Verified 02/25/25 11:33 Benadryl) oxycodone (From Percocet) Allergy Vomiting Verified 02/25/25 11:33 Family History Grandfather Diabetes Heart disease Hypertension Grandmother Diabetes Heart disease Hypertension Cancer stomach Father Diabetes Heart disease Hypertension Brother Heart disease Hypertension Surgical History History of colonoscopy History of esophagogastroduodenoscopy (EGD) History of coronary artery stent placement (~08/08/16) H/O cardiac catheterization Social History Smoking Status: Current every day smoker tobacco type: cigarettes alcohol intake: former substance use type: does not use caffeine: Yes Type: coffee Number of servings: 12 ROS Constitutional Constitutional: Denies anorexia, chills, fatigue, fever(s), malaise or weakness Eyes Eyes: Denies change in vision ENT HEENT: Denies dysphagia, headache(s) or hearing loss Cardiovascular Cardiovascular: Denies chest pain, dyspnea on exertion, lightheadedness, palpitations or rapid heart rate Respiratory/Chest Respiratory/Chest: Denies cough, dyspnea, productive cough or shortness of breath with exertion Gastrointestinal Gastrointestinal: Denies abdominal pain, diarrhea, dyspepsia, nausea or vomiting Genitourinary Genitourinary: Denies dysuria Neurologic Neurologic: Reports abnormal speech; Denies confusion, dizziness, focal weakness, headache(s), numbness, seizures, syncope or tingling Psychiatric Psychiatric: Denies anxiety Vital Signs Vital Signs Vital Signs: 03/08/25 11:58 03/08/25 12:00 03/08/25 12:00 Temperature Temperature Source Pulse Rate 74 71 Respiratory Rate 18 17 Blood Pressure 160/89 H 169/92 H Blood Pressure Mean 112 117 Pulse Ox 100 97 99 Oxygen Delivery Method Room Air Room Air Room Air 03/08/25 12:17 03/08/25 12:17 03/08/25 12:30 Temperature 97.9 F Temperature Source Temporal Pulse Rate 73 67 Respiratory Rate 21 H 18 Blood Pressure 144/76 H 149/85 H Blood Pressure Mean 98 106 Pulse Ox 99 99 Oxygen Delivery Method Room Air Room Air Weight Weight: 151 lb 0.266 oz Body Mass Index (BMI) 25.9 Physical Exam Const alert, oriented x3 and no apparent distress General Appearance: cooperative HEENT normocephalic, head/scalp atraumatic, hearing grossly normal bilaterally and moist oral mucous membranes Mouth: oral and palatal mucosa normal Eyes EOMs intact bilaterally and conjunctivae normal Neck supple Resp normal respiratory effort, no use of accessory muscles and clear to auscultationbilaterally Cardio regular rate, regular rhythm, S1 normal heart sound, S2 normal heart sound and no murmurs GI normal to inspection, nondistended, normoactive bowel sounds, soft to palpation,non-tender and non-distended Extremity normal to inspection, full ROM and no clubbing, cyanosis or edema Neuro oriented x3, CN's II-XII intact bilaterally, moves all extremities and no focal motor deficits Sensorium / Orientation: awake Motor Exam: strength 5/5 throughout Psych affect normal Results Lab / Micro Data 03/08/25 11:45 03/08/25 11:45 Labs: Laboratory Results - last 24 hr 03/08/25 11:45: WBC 11.6 H, RBC 4.90, Hgb 13.7, Hct 42.2, MCV 86.1, MCH 28.0, MCHC 32.5, RDW Std Deviation 40.8, RDW Coeff of Serafin 13.0, Plt Count 195, MPV 11.8, Immature Gran % (Auto) 0.600, Neut % (Auto) 63.7, Lymph % (Auto) 27.1, [place] % (Auto) 6.2, Eos % (Auto) 2.0, Baso % (Auto) 0.4, Absolute Neuts (auto) 7.4, Absolute Lymphs (auto) 3.14, Nucleated RBC % 0, PT 12.5, INR 0.9, APTT 25.8, Sodium 137, Potassium 5.0, Chloride 102, Carbon Dioxide 24.1, Anion Gap 11, BUN 21 H, Creatinine 1.18, Estim Creat Clear Calc 54.35, Est GFR (MDRD) Non- Af 70, BUN/Creatinine Ratio 17.5, Glucose 174 H, Calcium 9.0, Troponin T High Sens 36 H Imaging Radiology Impression Brain CT 03/08/25 11:37 IMPRESSION: 1. No evidence of intracranial hemorrhage or acute ischemia. 2. Changes of chronic microvascular ischemia and volume loss. 3. Subtle lucencies within the calvarium again noted. Metastatic disease versus myeloma is a consideration. Findings and impression were called directly to Dr. Quigley at 11:50 a.m. Eastern standard time. Reading Location: [facility] Head/Neck CTA 03/08/25 11:38 IMPRESSION: No significant stenosis in the head and neck. No aneurysm or vascular malformation. Reading Location: [id number] Assessment & Plan Assessment/Plan (1) Stroke-like symptoms: PLAN: Plan #Stroke like symptoms * admitted with a complaint of slurred speech and expressive aphasia. Symptoms had resolved at timeof review * NIHSS at time of review is 0 * CT brain showed no acute intracranial pathology. * CT head and neck showed no hemodynamically significant stenosis. * already on plavix and high intensity statin due to history of stroke. * Admit to PCU per stroke protocol * get MRI of the brain and 2D echo * consult [facility] neurology * Consult speech therapy. Monitor NIH stroke scale. * Keep n.p.o. until he passes bedside swallow evaluation. Hold BP meds to allow for permissive hypertension in case of a stroke. #Type 2 diabetes mellitus: Hold dapagliflozin and glimepiride. Insulin sliding scale. Accuchecks ACHS. #BPH: On finasteride and Flomax DVT prophylaxis: SCDs Code status: full code * Patient and counseled extensively about different types of CODE STATUS including full code, DNR CCA and DNR CCA. * Patient elects to be full code. * Total gpjp-nj-xzrr time 16 minutes. Charges/Coding Visit Charges Inpatient E&M: 65661 Init Hosp L2 Procedures Hospitalists Procedures: 04494 Advncd Care Plan 30 Min 03/08/25 1626 Cosigner Signature (if applicable): CC: Dr. Mary Lemus MD; Perla Yee DO~ Signed [facility]08-09-2025 Radiology Diagnostic study note [facility] Imaging Services [address] [place], [place] [id number] STROKE CTA Head AND Neck W/Con MR#: [id number] Acct: [id number] Name: JEAN PIERRE GRANT Rep #: [id number] : 1960 M 64 From: Panfilo Hughes MD PCP: Perla Yee DO Status: PRE ER Study:STROKE CTA Head AND Neck W/Con Date of Exam: 03/08/25 Exam# [id number] Ordering Dr: Viet Quigley ica PROCEDURE: STROKE CTA HEAD AND NECK W/CON 03/08/2025 REASON FOR EXAM: NEURO DEFICIT, ACUTE, STROKE SUSPECTED TECHNIQUE: STROKE CTA HEAD AND NECK W/CON Multiplanar Sagittal and Coronal images were obtained. CONTRAST: Isovue 370 VOLUME: 97 mL One or more dose reduction techniques were used (e.g., Automated exposure control, adjustment of the mA and/or kV according to patient size, use of iterative reconstruction technique). RADIATION DOSE SUMMARY: CTDlvol: 20.72 mGy DLP: 754.64 mGycm COMPARISON: None. FINDINGS: Aortic Arch: Normal size and branching pattern. No significant atherosclerotic plaque. Brachiocephalic and Subclavians: Unremarkable RIGHT Carotid: Right CCA: Unremarkable. Right ICA: Unremarkable. Right ECA: Unremarkable. LEFT Carotid: Left CCA: Unremarkable. Left ICA: Unremarkable. Left ECA: Unremarkable. Vertebrals: Codominant. Arise from the subclavians. Both vertebrals form the basilar. RIGHT Vertebral: Unremarkable. LEFT Vertebral: Unremarkable. Anatomy: [place] anatomy is normal. Aneurysm or avm: No intracranial aneurysms or large vascular malformations are identified. Anterior cerebral arteries: Unremarkable: Middle cerebral arteries: Unremarkable. Basilar artery: Unremarkable. Posterior cerebral arteries: Unremarkable. Other major branches of the posterior circulation: Unremarkable. Major venous structures: Unremarkable. Other findings: Neck: No lymphadenopathy. Lungs: Lung apices are clear. Bones: Bones are unremarkable. CT/STROKE CTA Head AND Neck W/Con IMPRESSION: No significant stenosis in the head and neck. No aneurysm or vascular malformation. Reading Location: [facility] CC: Dr. Christi Quigley MD; Perla Yee DO ~ Industrial Design Engineer: Signed [facility]08-09-2025 Radiology Diagnostic study note [facility] Imaging Services [address], [place] [id number] STROKE Brain/Head without Cont MR#: [id number] Acct: [id number] Name: JEAN PIERRE GRANT Rep #: [id number] : 1960 M 64 From: Oumar Fernando MD PCP: Perla Yee DO Status: PRE ER Study:STROKE Brain/Head without Cont Date of Exam: 03/08/25 Exam# [id number] Ordering Dr: Viet Quigley MD PROCEDURE: STROKE BRAIN/HEAD WITHOUT CONT 03/08/2025 REASON FOR EXAM: NEURO DEFICIT, ACUTE, STROKE SUSPECTED TECHNIQUE: STROKE BRAIN/HEAD WITHOUT CONT Coronal and Sagittal reconstruction series were provided. One or more dose reduction techniques were used (e.g., Automated exposure control, adjustment of the mA and/or kV according to patient size, use of iterative reconstruction technique. RADIATION DOSE SUMMARY: CTDlvol: 45 mGy DLP: 745 mGycm COMPARISON: March 07, 2025 FINDINGS: Brain: There is no evidence of hemorrhage, acute ischemia or mass. No extra- axial fluid collection,midline shift or mass effect. Low-density in the periventricular white matter and deep white matter of the frontal and parietal lobes. CSF Spaces: Mild generalized cerebral atrophy Sinuses/Mastoids: Hypoplastic frontal sinuses. Sinuses are otherwise clear. Mastoid air cells are clear. Bones: No fracture. Once again there subtle lucencies throughout the calvarium. CT/STROKE Brain/Head without Cont IMPRESSION: 1. No evidence of intracranial hemorrhage or acute ischemia. 2. Changes of chronic microvascular ischemia and volume loss. 3. Subtle lucencies within the calvarium again noted. Metastatic disease versus myeloma is a consideration. Findings and impression were called directly to Dr. Quigley at 11:50 a.m. Eastern standard time. Reading Location: [id number] CC: Dr. Christi Quigley MD; Perla Yee DO ~ Industrial Design Engineer: Signed [facility]08-08-2025 Radiology Diagnostic study note [facility] Imaging Services [address] [place] [address] Brain/Head without Contrast MR#: [id number] Acct: [id number] Name: JEAN PIERRE GRANT Rep #: [id number] : 1960 M 64 From: Endy Chu MD PCP: Perla Yee DO Status: REG CLI Study:Brain/Head without Contrast Date of Exa m: 03/07/25 Exam# [id number] Ordering Dr: Viet Mitchell MD PROCEDURE: BRAIN/HEAD WITHOUT CONTRAST 03/07/2025 REASON FOR EXAM: OTHER ABNORMALITIES OF GAIT AND MOBILITY headache and dizziness. Vision changes. TECHNIQUE: BRAIN/HEAD WITHOUT CONTRAST Coronal and Sagittal reconstruction series were provided. One or more dose reduction techniques were used (e.g., Automated exposure control, adjustment of the mA and/or kV according to patient size, use of iterative reconstruction technique. RADIATION DOSE SUMMARY: CTDlvol: 49.45 mGy DLP: 895.98 mGycm COMPARISON: None. FINDINGS: Brain: Irsj-ap-orvxbeza bilateral cerebral white matter changes are seen, uhyf-edtjwkg-driw-right, most consistent with chronic ischemic changes of small-vessel disease. No intracranial hemorrhage, mass, or mass effect is seen. No extra-axial fluid collection is noted. No orbital pathology is seen. CSF Spaces: Within normal limits for age. Sinuses/Mastoids: Clear at visualized levels Bones: Innumerable small lytic lesions are seen throughout the skull. Differential diagnosis includes multiple myeloma, metastatic disease, and other causes. CT/Brain/Head without Contrast IMPRESSION: 1. Innumerable small lytic lesions are seen throughout the skull. Differential diagnosis includes multiple myeloma, metastatic disease, and other causes. 2. No acute intracranial process is seen. 3. Bskh-tw-exrffnth bilateral cerebral white matter changes are seen, vjpq-frvastc-dpli-right, mostconsistent with chronic ischemic changes of small-vessel disease. Reading Location: [place] [address] CC: Dr. Agustin Mitchell MD; Perla Yee DO ~ Industrial Design Engineer: Signed [facility]08-08-2025 Radiology Diagnostic study note [facility] Imaging Services [address] [place], [place] [address] Low Dose CT Lung Screening MR#: [id number] Acct: [id number] Name: JEAN PIERRE GRANT Rep #: [id number] : 1960 M 64 From: Rogreio Pepper MD PCP: Perla Yee DO Status: REG CLI Study:Low Dose CT Lung Screening Date of Exam : 03/07/25 Exam# [id number] Ordering Dr: Fox DO PROCEDURE: LOW DOSE CT LUNG SCREENING 03/07/2025 REASON FOR EXAM: H/O TOBACCO DEPENDENCY Patient has smoked for 51 years. TECHNIQUE: LOW DOSE CT LUNG SCREENING Coronal and Sagittal reconstruction series were provided. One or more dose reduction techniques were used (e.g., Automated exposure control, adjustment of the mA and/or kV according to patient size, use of iterative reconstruction technique). REFERENCE LINK: [employer] Lung-RADS RADIATION DOSE SUMMARY: CTDlvol: 24.5 mGy DLP: 895.98 mGycm COMPARISON: Prior study dated November 20, 2023. FINDINGS: PULMONARY NODULES: (Only nodules >3mm are reported) Nodules described below are on series 1 unless otherwise specified. Pulmonary Nodules: There is a new 7.9 mm noncalcified nodule in the posterior aspect of the left upper lobe abutting the left major fissure. This is best seen on axial image number 104 linear streaky density is seen anterior to it. Hardware:None Lymph Nodes:No suspicious lymph nodes are seen. Heart and Vasculature:The heart is nonenlarged.Atherosclerotic calcifications ofthe thoracic aorta.Thoracic aorta and pulmonary arteries have normal contours; noncontrast technique limits evaluation. Coronary Artery Calcifications: Present Lungs and Airways: No significant emphysematous changes are seen. No focal infiltrate Pleura:Unremarkable Upper Abdomen:Unremarkable Bones:Degenerative changes of the thoracic spine. CT/Low Dose CT Lung Screening IMPRESSION: There is a new 7.9 mm noncalcified nodule in the posterior aspect of the left upper lobe abutting the left major fissure. Study is seen anterior to. Correlation with a PET scan ended. Coronary artery calcification (CAC) is is present Lung-RADS Category: 4B VERY SUSPICIOUS. RECOMMEND DIAGNOSTIC CHEST CT; PET/CT MAY BE CONSIDERED IF >=8MM SOLID NODULE OR SOLID COMPONENT; TISSUE SAMPLING; AND/OR REFERRAL FOR CLINICAL EVALUATION. IF AIRWAY NODULE THEN REFER FOR CLINICAL EVALUATION Other Significant Findings: Reading Location: [id number] CC: Dr. Chidi Diallo, DO; Perla Yee DO ~ Industrial Design Engineer: Signed [facility]07-29-2025 Evaluation note* Diagnosis Onset Date Resolution Status Admit Date Nicotine dependence, cigarettes, uncomplicated chronic January 292024 11:24am BRITTANY (obstructive sleep apnea) chroni c February 25, 2025 11:24am COPD (chronic obstructive pulmonary disease) suspected February 25 11:24am Stroke-like symptoms acute Augu 2024 12:58pm [facility] Work Phone: 1(733) 489-939607-29-2025 Evaluation note* Diagnosis Onset Date Resolution Status Admit Date Nicotine dependence, cigarettes, uncomplicated chronic January 292024 11:24am BRITTANY (obstructive sleep apnea) chroni c February 25, 2025 11:24am COPD (chronic obstructive pulmonary disease) suspected February 25 11:24am Stroke-like symptoms resolved 2024 12:58pm [facility] Work Phone: 1(622) 241-142501-30-2023 History and physical note Author Dr. Beaulieu [facility] August 29, 2022 12:40pm Note Date/Time August 29, 2022 1 2:40pm [facility] Medical Records Department [address] [place] [address] [place] [address] History & Physical Exam 08/29/22 1238 MR#: [id number] Acct: [id number] Name: JEAN PIERRE GRANT Rep #:[id number] : 1960 61 From: Beau Bello PCP: [facility] atus:REG [facility] Location: [place] [address] History and Physical Date of Admission: 08/29/22 Date of Service:? 06/20/22 MR#: [id number] Acct: [id number] Name:? JEAN PIERRE GRANT Rep #: [id number] : 1960 ? ? Provider: Dr. Beau Beaulieu MD Age/Sex:? 61/M ? ? Location: [facility] Status: Signed Intake Vital Signs ? 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 Mr. Grant describes this pain as fiery [...] further detail as this was obtained in [place] (where he comes from immediately) and there was no follow-up given his move here to [place].? Patient has no personal history of colon [...] still to establish cardiology following here in [place].? He notes a appointment has been tentatively scheduled for early July with Dr. Moses of [place] [facility]. Relevant prior abdominal surgical history includes: [...] obtained just prior to his departure from [place] (having recently relocated to [place]).? CT imaging from January and earlier this [...] (if applicable): CC: Dr. Beau Beaulieu MD; [facility]~ Signed [facility] Work Phone: 1(151) 549-882501-30-2023 Procedure [facility] 08-29-2022 Procedure [facility]01-30-2023 Procedure note [facility]01-30-2023 Procedure [facility] 07-19-2022 Miscellaneous Notes* Telephone Encounter - Leann Albarado LPN - 07/19/2022 4:03 PM EST Received medical records. Available for appointment and to operations for scanning. Leann Albarado LPN * Telephone Encounter - Leann Albarado LPN - 07/18/2022 12:16 PM EST Faxed request for medical records. Leann Albarado LPN * Telephone Encounter - Leann Albarado LPN - 07/18/2022 12:09 PM EST Called [facility] Medical Records. Not available. Did get fax number [phone] to fax request to. Leann Albarado LPN * Telephone Encounter - Leann Albarado LPN - 07/18/2022 11:50 AM EST Called patient. Verified name and date of . Patient reports having been seen for urology needs at [facility] in [place] approximately one year ago. Leann Albarado LPN * Telephone Encounter - Leann Albarado LPN - 07/14/2022 2:19 PM EST Called patient. Not available. Left message to call clinic. Patient has appointment scheduled for 07/26/22 with Abner Townsend PA-C. Has patient been seen elsewhere for urological needs and if so where? Leann Albarado LPN documented in this encounterHumansville ClinicEvaluation noteNo assessment information availableWCleveland Clinic Foundation Work Phone: Evaluation note* Diagnosis Onset Date Resolution Status Left upper quadrant abdominal pain acute [facility] Work Phone: Evaluation note* Diagnosis Onset Date Resolution Status Left upper quadrant abdominal pain acute Abdominal pain acute Tachycardia acute COPD (chronic obstructive pulmonary disease) chronic Coronary artery disease alcohol rubber pau Dyslipidemia chronic Essential (primary) hypertension chronic Nicotine dependence chronic Type 2 diabetes mellitus chr onic Preoperative cardiovascular examination noneactive [facility] Work Phone: Evaluation note* Diagnosis Onset Date Resolution Status Left upper quadrant abdominal pain acute Abdominal pain acute Tachycardia acute COPD (chronic obstructive pulmonary disease) chronic Coronary artery disease alcohol rubber pau Dyslipidemia chronic Essential (primary) hypertension chronic Nicotine dependence chronic Type 2 diabetes mellitus chr onic Preoperative cardiovascular examination noneactive BPH (benign prostatic hyperplasia) acute Hematuria acute [facility] Work Phone: Evaluation note* Diagnosis Onset Date Resolution Status COPD (chronic obstructive pulmonary disease) chronic Coronary artery disease alcohol rubber pau Dyslipidemia chronic Essential (primary) hypertension chronic Nicotine dependence chronic Type 2 diabetes mellitus chr onic [facility] Work Phone: Evaluation note* Diagnosis Onset Date Resolution Status Admit Date Nicotine dependence, cigaret vlad, uncomplicated acute February 25, 2025 11:24am BRITTANY (obstructive sleep apnea) acute February 25, 2025 11:24am COPD (chronic obstructive pulmonary disease) chronic February 25 11:24am [facility] Work Phone: Hospital Discharge instructions Additional Instructions Please follow-up with a dentist and take antibiotics as prescribed. Return for any worsening of your symptoms.[facility] Work Phone: Hospital Discharge instructionsAdditional Instructions see PCP for order for transthoracic echo on outpatient basis.[facility] Work Phone: Reason for referral (narrative)No reason for referral information availableSouthern [facility] Work Phone: Chief Complaint and Reason for Visit Chief Complaint ABD abd pain Chief Complaint abd pain COLONOSCOPY FOR ABDOMINAL PAIN e order Reason for Visit Left upper quadrant abdominal pain Chief Complaint abd pain COLONOSCOPY FOR ABDOMINAL PAIN e order Amb Documentation [facility] EORDER Reason for Visit Left upper quadrant abdominal pain Abdominal pain Tachycardia COPD (chronic obstructive pulmonary disease) Coronary artery disease Dyslipidemia Essential (primary) hypertension Nicotine dependence Type 2 diabetes mellitus Preoperative cardiovascular examination Chief Complaint abd pain COLONOSCOPY FOR ABDOMINAL PAIN e order Amb Documentation [facility] EORDER URINARY RETENTION Reason for Visit Left upper quadrant abdominal pain Abdominal pain Tachycardia COPD (chronic obstructive pulmonary disease) Coronary artery disease Dyslipidemia Essential (primary) hypertension Nicotine dependence Type 2 diabetes mellitus Preoperative cardiovascular examination Chief Complaint abd pain COLONOSCOPY FOR ABDOMINAL PAIN e order Amb Documentation [facility] EORDER URINARY RETENTION urinary retention hematuria Reason [...] pulmonary dise ase) February 25, 2025 11:24am Chief Complaint Admit Date Concern for BRITTANY & chronic cough January 11:24am URINE DROP OFF February 27, 2025 1:53 pm F17.210 - Nicotine dependence, cigarette s, uncompl March 07, 2025 1:20pm STROKE LIKE SYMPTOMS Letona 9th, 2025 12 :58pm Reason for Visit Admit Date Nicotine dependence, cigarettes, uncompl icated February 25, 2025 11:24am BRITTANY (obstructive sleep apnea) February 25, 2025 11:24am COPD (chronic obstructive pulmonary dise ase) February 25, 2025 11:24am Stroke-like symptoms March 08, 2025 12 :58pm Chief Complaint Admit Date Concern for BRITTANY & chronic cough January 11:24am URINE DROP OFF February 27, 2025 1:53 pm F17.210 - Nicotine dependence, cigarette s, uncompl March 07, 2025 1:20pm STROKE LIKE SYMPTOMS March 08, 2025 12 :58pm STROKE LIKE SYMPTOMS March 09, 2025 1 2:49pm F17.210 - Nicotine dependence, cigarette s, uncompl March 10, 2025 11:54am Advance Directives No Advanced Directives Records Found Advance Directive Response Recorded Date/ Time Living Will No June 13, 2 022 5:18pm Power of Cargo Agent No June 13, 2022 5:18pm Advance Directive Response Recorded Date/ Time Living Will No August 24 11:38am Power of Cargo Agent No August 24, 2022 11:38am Advance Directive Response Recorded Date/ Time Living Will No August 29 9:18pm Power of Cargo Agent No August 29, 2022 9:18pm Advance Directive Response Recorded Date/ Time Living Will No April 15, 2023 12:22pm Power of Cargo Agent No March 12:22pm Advance Directive Response Recorded Date/ Time Do you have a Healthcare Power of Cargo Agent? No March 08, 2025 12:17pm Advance Directive Response Recorded Date/ Time Do you have a Healthcare Power of Cargo Agent? No March 08, 2025 2:43pm Family History No Family History Records Found [...] or prosecute any alcohol or drug abuse patient.[facility] Reason for Visit (unrecogniz ed section and content) Reason Comments Received Outside Medical Records Care Teams (unrecognized sec tion and content) Lung Splitter Relationship Specialty Start Date End Date Candice Doran NP [address] [place] [address] Referring Family Medicine 07/06/22 Team Status: Active Member Role Status Dates [facility] Primary Care Provider A ctive Team Status: Inactive Member Role Status Dates No Primary Care Physician Referring Provider Active Dr. Beau Beaulieu MD Attending Provider Active Dr. Ijeoma Mcmanus Primary Care Provider Active Team Status: Inactive Member Role Status Dates Dr. Ijeoma Mcmanus Referring Provider Active Dr. Cj Wild MD Attending Provider Active [facility] Primary Care Provider A ctive Team Status: Active Member Role Status Dates [facility] Primary Care Provider A ctive Lindsay No Attending Provider Active Team Status: Active Member Role Status Dates Dr. Beau Beaulieu MD Attending Provide r, Referring Provider, Other Provider Active [facility] Primary Care Provider A ctive Team Status: Inactive Member Role Status Dates Dr. Ijeoma Mcmanus Primary Care Provider Active Dr. Jonathan Sin MD Attending Provider, Emergency Provider Active Team Status: Inactive Member Role Status Dates Dr. Beau Beaulieu MD Attending Provider, Referring P rovider Active [facility] Primary Care Provider A ctive Team Status: Inactive Member Role Status Dates [facility] Primary Care Provider A ctive Dr. Beau Beaulieu MD Attending Provider, Referring P rovider Active Team Status: Inactive Member Role Status Dates [facility] Primary Care Provider A ctive Dr. Cj Wild MD Attending Provider Active Team Status: Inactive Member Role Status Dates [facility] Primary Care Provider A ctive Dr. Eyal De Jesus MD Emergency Provider Active Team Status: Inactive Member Role Status Dates [facility] Primary Care Provider, Referring Provider Active Dr. Beau Beaulieu MD Attending Provider Active Team Status: Inactive Member Role Status Dates [facility] Primary Care Provider A ctive Dr. Eyal De Jesus MD Attending Provider, Emergency Provider Active Team Status: Inactive Member Role Status Dates [facility] Primary Care Provider A ctive Dr. Patrick Ayala MD Attending Provider, Referr ing Provider Active Team Status: Inactive Member Role Status Dates [facility] Primary C are Provider, Attending Provider, Referring Provider Active Candice Doran DEHYDRATION UNIT OPERATOR, DEHYDRATION UNIT OPERATOR-C Other Provider Active Team Status: Active Member Role Status Dates Isabella Yee DO Primary Care Provider Active Team Status: Inactive Member Role Status Dates [facility] Primary Care Provider, Referring Provider Active Dr. Cj Wild MD Attending Provider Active Team Status: Active Member Role Status Dates [facility] Primary Care Provider A ctive Lilian Barron [...] Status Dates Isabella Yee DO Primary Care Provi lukasz, Attending Provider, Referring Provider Active Team Status: Active Member Role/Relationship Status Dates Perla Yee VSC, DO Primary Care Provider Active Team Status: Inactive Member Role/Relationship Status Dates Perla DE, DO Primary Care Provider Active Start: February 25, 2025 End: February 25, 2025 Perla Yee VSC, DO Referring Provider Active Start: February 25, 2025 End: February 25, 2025 Dr. Chidi Diallo , Attending Provider Active S tart: February 25, 2025 End: February 25, 2025 Team Status: Active Member Role/Relationship Status Dates Perla Joselito VSC, DO Primary Care Provider Active Start: February 26, 2025 Dr. Agustin DE MD Attending Provider Active Start: February 26, 2025 Team Status: Active Member Role/Relationship Status Dates Perla Yee VSC, DO Primary Care Provider Active Start: February 27, 2025 Dr. Agustin DE MD Attending Provider Active Start: February 27, 2025 Team Status: Active Member Role/Relationship Status Dates Perla Yee VSC, DO Primary Care Provider Active Start: March 07, 2025 Dr. Chidi Diallo DO Attending Provider Active S tart: March 07, 2025 Dr. Chidi Diallo DO Referring Provider Active S tart: March 07, 2025 Team Status: Active Member Role/Relationship Status Dates Perla Yee VSC, DO Primary Care Provider Active Start: March 08, 2025 Dr. Christi Quigley MD Referring Provider Active S tart: March 08, 2025 Dr. Christi Quigley MD Emergency Provider Active S tart: March 08, 2025 Dr. Mary Lemus MD Admit Provider Active St art: March 08, 2025 Dr. Mary Lemus MD Attending Provider Active Start: March 08, 2025 Team Status: Inactive Member Role/Relationship Status Dates Perla Yee VSC, DO Primary Care Provider Active Start: March 08, 2025 End: March 09, 2025 Dr. Christi Quigley MD Referring Provider Active S tart: March 08, 2025 End: March 09, 2025 Dr. Christi Quigley MD Emergency Provider Active S tart: March 08, 2025 End: March 09, 2025 Dr. Mary Lemus MD Admit Provider Active St art: March 08, 2025 End: March 09, 2025 Dr. Mary Lemus MD Attending Provider Active Start: March 08, 2025 End: March 09, 2025 Lizandro Polanco MD Other Provider Active Start: 2024 End: March 09, 2025 Dr. Shirley Mesa MD Other Provider Active Start: March 08, 2025 End: March 09, 2025 Vero Bradley MD Other Provider Active Start : March 08, 2025 End: March 09, 2025 Dr. Jazzy Shepherd DO Other Provider Active St art: March 08, 2025 End: March 09, 2025 Dr. Brinda Garcia MD Other Provider Active Start: March 08, 2025 End: March 09, 2025 Dr. Won Antunez MD Other Provider Active Sta rt: March 08, 2025 End: March 09, 2025 Dr. Uma Tamayo MD Other Provider Active Start : March 08, 2025 End: March 09, 2025 Dr. Jarett Wilder MD Other Provider Active Start: March 08, 2025 End: March 09, 2025 Dr. Trevon Aranda MD Other Provider Active Start : March 08, 2025 End: March 09, 2025 Dr. Salvtaore Mccartney MD Other Provider Active Sta rt: March 08, 2025 End: March 09, 2025 Yesi Ba MD Other Provider Active Start : March 08, 2025 End: March 09, 2025 Dr. Cali Goldberg MD Other Provider Active St art: March 08, 2025 End: March 09, 2025 Dr. Aislinn Fowler MD Other Provider Active Start : March 08, 2025 End: March 09, 2025 Dr. Beau Jang MD Other Provider Active Sta rt: March 08, 2025 End: March 09, 2025 Dr. Adina Mendioal MD Other Provider Active Start: March 08, 2025 End: March 09, 2025 Dr. Jonathan Stephen MD Other Provider Active St art: March 08, 2025 End: March 09, 2025 Dr. Jasson Eli MD Other Provider Active Star t: March 08, 2025 End: March 09, 2025 Dr. Maxx Monreal MD Other Provider Active St art: March 08, 2025 End: March 09, 2025 Dr. Christy Corrigan MD Other Provider Active Start: March 08, 2025 End: March 09, 2025 Kusum Cherry MD Other Provider Active Start: March 08, 2025 End: March 09, 2025 Kusum Cherry MD Other Provider Active Start: March 08, 2025 Team Status: Inactive Member Role/Relationship Status Dates Perla DE, DO Primary Care Provider Active Start: March 07, 2025 End: March 07, 2025 Dr. Chidi Diallo DO Attending Provider Active S tart: March 07, 2025 End: March 07, 2025 Dr. Chidi Diallo DO Referring Provider Active S tart: March 07, 2025 End: March 07, 2025 Team Status: Inactive Member Role/Relationship Status Dates Perla DE, DO Primary Care Provider Active Start: March 08, 2025 End: March 09, 2025 Dr. Christi Quigley MD Referring Provider Active S tart: March 08, 2025 End: March 09, 2025 Dr. Christi Quigley MD Emergency Provider Active S tart: March 08, 2025 End: March 09, 2025 Dr. Mary Lemus MD Admit Provider Active St art: March 08, 2025 End: March 09, 2025 Dr. Mary eLmus MD Attending Provider Active Start: March 08, 2025 End: March 09, 2025 Lizandro Polanco MD Other Provider Active Start: 2024 End: March 09, 2025 Dr. Shirley Mesa MD Other Provider Active Start: March 08, 2025 End: March 09, 2025 Vero Bradley MD Other Provider Active Start : March 08, 2025 End: March 09, 2025 Dr. Jazzy Shepherd DO Other Provider Active St art: March 08, 2025 End: March 09, 2025 Dr. Brinda Garcia MD Other Provider Active Start: March 08, 2025 End: March 09, 2025 Dr. Won Antunez MD Other Provider Active Sta rt: March 08, 2025 End: March 09, 2025 Dr. Uma Tamayo MD Other Provider Active Start : March 08, 2025 End: March 09, 2025 Dr. Jarett Wilder MD Other Provider Active Start: March 08, 2025 End: March 09, 2025 Dr. Trevon Aranda MD Other Provider Active Start : March 08, 2025 End: March 09, 2025 Dr. Salvatore Mccartney MD Other Provider Active Sta rt: March 08, 2025 End: March 09, 2025 Yesi Ba MD Other Provider Active Start : March 08, 2025 End: March 09, 2025 Dr. Cali Goldberg MD Other Provider Active St art: March 08, 2025 End: March 09, 2025 Dr. Aislinn Fowler MD Other Provider Active Start : March 08, 2025 End: March 09, 2025 Dr. Beau Jang MD Other Provider Active Sta rt: March 08, 2025 End: March 09, 2025 Dr. Adina Mendiola MD Other Provider Active Start: March 08, 2025 End: March 09, 2025 Dr. Jonathan Stephen MD Other Provider Active St art: March 08, 2025 End: March 09, 2025 Dr. Jasson Eli MD Other Provider Active Star t: March 08, 2025 End: March 09, 2025 Dr. Maxx Monreal MD Other Provider Active St art: March 08, 2025 End: March 09, 2025 Dr. Christy Corrigan MD Other Provider Active Start: March 08, 2025 End: March 09, 2025 Kusum Cherry MD Other Provider Active Start: March 08, 2025 End: March 09, 2025 Team Status: Active Member Role/Relationship Status Dates Perla Yee [facility], DO Primary Care Provider Active Start: March 09, 2025 Dr. Christi Quigley MD Referring Provider Active S tart: March 09, 2025 Dr. Chirsti Quigley MD Emergency Provider Active S tart: March 09, 2025 Dr. Mary Lemus MD Admit Provider Active St art: March 09, 2025 Dr. Mary Lemus MD Attending Provider Active Start: March 09, 2025 Dr. Mary Lemus MD Other Provider Active St art: March 09, 2025 Lizandro Polanco MD Other Provider Active Start: 2024 Dr. Shirley Mesa MD Other Provider Active Start: March 09, 2025 Vero Bradley MD Other Provider Active Start : March 09, 2025 Dr. Jazzy Shepherd DO Other Provider Active St art: March 09, 2025 Dr. Brinda Garcia MD Other Provider Active Start: March 09, 2025 Dr. Won Antunez MD Other Provider Active Sta rt: March 09, 2025 Dr. Uma Tamayo MD Other Provider Active Start : March 09, 2025 Dr. Jarett Wilder MD Other Provider Active Start: March 09, 2025 Dr. Trevon Aranda MD Other Provider Active Start : March 09, 2025 Dr. Salvatore Mccartney MD Other Provider Active Sta rt: March 09, 2025 Yesi Ba MD Other Provider Active Start : March 09, 2025 Dr. Cali Goldberg MD Other Provider Active St art: March 09, 2025 Dr. Aislinn Fowler MD Other Provider Active Start : March 09, 2025 Dr. Beau Jnag MD Other Provider Active Sta rt: March 09, 2025 Dr. Adina Mendiola MD Other Provider Active Start: March 09, 2025 Dr. Jonathan Stephen MD Other Provider Active St art: March 09, 2025 Dr. Jasson Eli MD Other Provider Active Star t: March 09, 2025 Dr. Maxx Monreal MD Other Provider Active St art: March 09, 2025 Dr. Christy Corrigan MD Other Provider Active Start: March 09, 2025 Kusum Cherry MD Other Provider Active Start: March 09, 2025 Team Status: Active Member Role/Relationship Status Dates Perla DE DO Primary Care Provider Active Start: March 10, 2025 Dr. Chidi Diallo DO Attending Provider Active S tart: March 10, 2025 Dr. Chidi Diallo DO Referring Provider Active S tart: March 10, 2025 Dr. Chidi Diallo DO Other Provider Active Start : March 10, 2025 Team Status: Inactive Member Role/Relationship Status Dates Perla DE DO Primary Care Provider Active Start: February 26, 2025 End: February 26, 2025 Dr. Agustin DE MD Attending Provider Active Start: February 26, 2025 End: February 26, 2025 Team Status: Inactive Member Role/Relationship Status Dates Perla DE DO Primary Care Provider Active Start: February 27, 2025 End: February 27, 2025 Dr. Agustin DE MD Attending Provider Active Start: February 27, 2025 End: February 27, 2025 (unrecognized sect ion and content) No Status Records Found INFORMATION SOURCE (unrecogn ized section and content) DATE CREATED AUTHOR 04/07/2025 [facility] FOR RECORDS PERTAINING TO PATIENTS WHO ARE [...] BE BASED ON THE PRIMARY CLINICAL RECORDS. [employer] provides no warranty or guarantee of the accuracy or completeness of information in this document.
== END 2025-05-16 20:40 | disposition left against medical advice (07) ==
LOC: ED 20:47
PROVIDERS: PCP Family Medicine
DX: R10.9 Unspecified abdominal pain (principal); R19.7 Diarrhea, unspecified; Z53.21 Procedure and treatment not carried out due to patient leaving prior to being seen by health care provider

== ENCOUNTER 2025-05-19 20:00 | Emergency (ER) | payer MEDICARE, MEDICAID, SELFPAY ==
[2025-05-19 20:03] VITALS: BP 101/69; PULSE 84; RESP 18; TEMP 37; O2SAT 99
[2025-05-19 20:09] VITALS: BMI 26.6
[2025-05-19 20:15] VITALS: BP 114/73; PULSE 82; RESP 18; O2SAT 97
[2025-05-19 20:27] LABS: Hematocrit 38.9 % (40-54); Hemoglobin 12.8 g/dL (13.0-16.5); Immature Granulocytes Count 0.050 X10^3/uL (0.0-0.0); Mean Corp Hgb Conc 32.9 g/dL (32-36); Mean Corpuscular Volume 85.5 fL (80-94); Mean Platelet Vol. 12.1 fl (6.2-12.0); NRBC Flagged by Analyzer 0 % (0-5); POSITIVE MORPHOLOGY YES; Platelet Count 173 K/mm3 (150-450); RBC Distribution Width CV 13.7 % (11.6-14.6); RBC Distribution Width SD 42.5 fl (35.1-43.9); Red Blood Count 4.55 M/mm3 (4.6-6.2); White Blood Count 9.5 K/mm3 (4.4-11.0)
[2025-05-19] MEDS: 0.9% Normal Saline (1000mL) 1,000 ML 999 ML IV (20:28)
[2025-05-19 20:30] VITALS: BP 122/70; PULSE 84; RESP 18; O2SAT 100
[2025-05-19 20:39] LABS: Anion Gap 15 (5-15); BUN 15 mg/dL (4-19); BUN/Creat Ratio 12.2 RATIO (10-20); Calcium,Total 9.1 mg/dL (7.6-11.0); Carbon Dioxide 21.3 mmol/L (21.0-32.0); Chloride 103 mmol/L (98-108); Estimated Creatinine Clearance 55.52 ml/min (50-250); Glucose 185 mg/dL (70-99); Potassium 4.3 mmol/L (3.3-5.1); Troponin T High Sensitivity 25 ng/L (<=22)
[2025-05-19 21:00] VITALS: BP 116/62; PULSE 84; RESP 18; O2SAT 100
[2025-05-19 21:39] LABS: Mucous, Urine 0 SEEN /hpf (<or=2+)
[2025-05-19 21:41] LABS: Differential Indicated SCAN CRITERIA MET
[2025-05-19 21:43] LABS: Differential Comment SCANNED
[2025-05-19 21:51] LABS: Prothrombin Time (Protime)PT. 13.3 SECONDS (11.7-14.9)
[2025-05-19 21:52] LABS: Partial Thromboplast Time 29.8 Seconds (24.1-36.2)
[2025-05-19 22:00] VITALS: BP 150/96; PULSE 84; RESP 16; O2SAT 100
[2025-05-19 22:04] LABS: Color, Urine Yellow (Yellow); Glucose, Dipstick 100 mg/dl (Normal); Ketone-Dipstick Negative (Negative); Leukocyte Esterase-Dipstick Negative /ul (Negative); Nitrite-Dipstick Negative (Negative); Occult Blood-Urine Negative /ul (Negative); Protein-Dipstick 30 mg/dl (Negative); Specific Gravity, Urine 1.010 (1.002-1.030); Urine Bilirubin Dipstick Negative (Negative)
[2025-05-19 22:36] LABS: Red Blood Cells-Urine 0-5 SEEN /hpf (0-5); Squamous Epithelial Cells - UA 0-5 SEEN /hpf (0-5)
[2025-05-19 22:52] LABS: Troponin T High Sens 2 HR 23 ng/L (<=22)
[2025-05-19 23:00] VITALS: BP 170/92; PULSE 80; RESP 18; TEMP 36.8; O2SAT 99
== END 2025-05-19 23:20 | disposition home or self-care (01) ==
PROVIDERS: Emergency Provider Emergency Medicine; PCP Family Medicine; Visit Provider Emergency Medicine
DX: R41.82 Altered mental status, unspecified (principal); J44.9 Chronic obstructive pulmonary disease, unspecified; Z79.4 Long term (current) use of insulin; E11.40 Type 2 diabetes mellitus with diabetic neuropathy, unspecified; I25.10 Atherosclerotic heart disease of native coronary artery without angina pectoris; E78.00 Pure hypercholesterolemia, unspecified; I10 Essential (primary) hypertension; R47.81 Slurred speech; Z79.02 Long term (current) use of antithrombotics/antiplatelets; Z79.82 Long term (current) use of aspirin; Z79.84 Long term (current) use of oral hypoglycemic drugs; Z79.899 Other long term (current) drug therapy; I25.2 Old myocardial infarction; Z86.73 Personal history of transient ischemic attack (TIA), and cerebral infarction without residual deficits; Z95.5 Presence of coronary angioplasty implant and graft; F17.210 Nicotine dependence, cigarettes, uncomplicated
CPT/HCPCS: 70450; 70496; 70498; 80048; 81001; 82962; 84484; 85025; 85610; 85730; 93005; 96360; 99285; Q9967; A4216